=== PATIENT | male | born 1935 | race Caucasian/White ===

== ENCOUNTER 2016-10-04 19:16 | Inpatient (IN) | payer OTHER, MEDICAID, MEDICARE ==
--- NOTE | 2016-10-04 19:21 | ED Physician Chart ---
Chief Complaint/HPI - Patient Information Date Seen:: 10/04/16 Time Seen:: 19:21 Chief Complaint:: head injury History of Present Illness:: 81-year-old male with acute, moderate to severe, head injury that happened about 2 hours prior to arrival to the ER. Patient has associated headache and neck pain. Also has associated ental status change. Reportedly more aggressive and uncooperative after the fall. History limited as patient has altered mental status and is uncooperative History provided by EMS and EMS run sheet Allergies:: Allergies Allergy/AdvReac Type Severity Reaction Status Date / Time MDX No Known Allergies - Nka Allergy Verified 08/05/13 15:22 [No Known Allergies - Nka] Historian:: EMS Review:: Nurse's Note Reviewed, EMS run form Reviewed, Transfer documents Reviewed Review of Systems - Review of Systems Other: Complete system review otherwise unremarkable except as noted in HPI. Past Medical History - Past Medical History Past Medical History: HTN, Asthma/COPD, PUD/GERD, Other (anemia) Family History: None Social History: Non Smoker, No Alcohol, No Drug Use, Care Facility Psychiatricy History: Schizophrenia Medication: Reviewed Family Medical History - Family Member Mother History Unknown: Yes Labs/Radiology/EKG Results - Lab Results Results: Lab Results 10/04/16 10/04/16 10/04/16 Range/Units 19:20 19:52 19:52 WBC 8.9 D (4.8-10.8) Th/cmm RBC 4.06 (3.80-5.80) Mil/cmm Hgb 11.6 L (12.6-17.4) gm/dL Hct 35.2 L (39.0-49.0) % MCV 86.6 (80-99) fl MCH 28.6 (27.0-31.0) pg MCHC Differential 33.1 (28.0-36.0) pg RDW 14.9 (11.5-20.0) % Plt Count 375 D (150-400) Th/cmm MPV 7.4 fl Neutrophils % 61.5 (40.0-80.0) % Lymphocytes % 19.2 L (20.0-50.0) % Monocytes % 9.2 (2.0-10.0) % Eosinophils % 9.6 H (0.0-5.0) % Basophils % 0.5 (0.0-2.0) % Sodium (136-145) mEq/L Potassium (3.5-5.1) mEq/L Chloride (98-107) mEq/L Carbon Dioxide (21.0-31.0) mEq/L Anion Gap (7.0-16.0) BUN (7-25) mg/dL Creatinine (0.7-1.3) mg/dL Est GFR ( Amer) Est GFR (Non-Af Amer) BUN/Creatinine Ratio Glucose (70-105) mg/dL Calcium (8.6-10.3) mg/dL Total Bilirubin (0.3-1.0) mg/dL AST (13-39) U/L ALT (7-52) U/L Alkaline Phosphatase (34-104) U/L Total Protein (6.0-8.3) gm/dL Albumin (4.2-5.5) gm/dL Globulin gm/dL Albumin/Globulin Ratio (1.0-1.8) Triglycerides 66 (<150) mg/dL Cholesterol 158 (<200) mg/dL LDL Cholesterol Direct 86 (75-193) mg/dL HDL Cholesterol 61 (23-92) mg/dL TSH (0.34-5.60) uIU/ml Urine Source CLEAN C Urine Color YELLOW Urine Clarity CLEAR (CLEAR) Urine pH 7.0 Ur Specific [place] 1.015 (1.005-1.030) Urine Protein NEGATIVE (NEGATIVE) mg/dL Urine Glucose (UA) NEGATIVE (NEGATIVE) mg/dL Urine Ketones NEGATIVE (NEGATIVE) mg/dL Urine Blood NEGATIVE (NEGATIVE) Urine Nitrate NEGATIVE (NEGATIVE) Urine Bilirubin NEGATIVE (NEGATIVE) Urine Urobilinogen 0.2 (0.2 - 1.0) E.U./dL Ur Leukocyte Esterase NEGATIVE (NEGATIVE) Urine RBC NONE SEEN (0-5) /hpf Urine WBC NONE SEEN (0-5) /hpf Ur Epithelial Cells NONE SEEN (FEW) /lpf Urine Bacteria NONE SEEN (NONE SEEN) /hpf 10/04/16 10/04/16 Range/Units 19:52 19:52 WBC (4.8-10.8) Th/cmm RBC (3.80-5.80) Mil/cmm Hgb (12.6-17.4) gm/dL Hct (39.0-49.0) % MCV (80-99) fl MCH (27.0-31.0) pg MCHC Differential (28.0-36.0) pg RDW (11.5-20.0) % Plt Count (150-400) Th/cmm MPV fl Neutrophils % (40.0-80.0) % Lymphocytes % (20.0-50.0) % Monocytes % (2.0-10.0) % Eosinophils % (0.0-5.0) % Basophils % (0.0-2.0) % Sodium 132 L (136-145) mEq/L Potassium 4.5 (3.5-5.1) mEq/L Chloride 102 (98-107) mEq/L Carbon Dioxide 28.6 (21.0-31.0) mEq/L Anion Gap 5.9 L (7.0-16.0) BUN 29 H (7-25) mg/dL Creatinine 1.0 (0.7-1.3) mg/dL Est GFR ( Amer) TNP Est GFR (Non-Af Amer) TNP BUN/Creatinine Ratio 29.0 Glucose 135 H (70-105) mg/dL Calcium 9.0 (8.6-10.3) mg/dL Total Bilirubin 0.3 (0.3-1.0) mg/dL AST 16 (13-39) U/L ALT 9 (7-52) U/L Alkaline Phosphatase 54 (34-104) U/L Total Protein 7.2 (6.0-8.3) gm/dL Albumin 3.2 L (4.2-5.5) gm/dL Globulin 4.0 gm/dL Albumin/Globulin Ratio 0.8 L (1.0-1.8) Triglycerides (<150) mg/dL Cholesterol (<200) mg/dL LDL Cholesterol Direct (75-193) mg/dL HDL Cholesterol (23-92) mg/dL TSH 0.98 (0.34-5.60) uIU/ml Urine Source Urine Color Urine Clarity (CLEAR) Urine pH Ur Specific [place] (1.005-1.030) Urine Protein (NEGATIVE) mg/dL Urine Glucose (UA) (NEGATIVE) mg/dL Urine Ketones (NEGATIVE) mg/dL Urine Blood (NEGATIVE) Urine Nitrate (NEGATIVE) Urine Bilirubin (NEGATIVE) Urine Urobilinogen (0.2 - 1.0) E.U./dL Ur Leukocyte Esterase (NEGATIVE) Urine RBC (0-5) /hpf Urine WBC (0-5) /hpf Ur Epithelial Cells (FEW) /lpf Urine Bacteria (NONE SEEN) /hpf - Radiology Results Results: CT brain prelim report per radiology Market atrophy ASVD NAD CT C-spine preliminary report per radiology Severe degenerative changes No definite acute abnormalities - EKG Interpretations Comments:: 12-lead EKG Interpretation by Hannah Díaz MD: Normal Sinus Rhythm with ventricular rate of 82 beats per minute Normal axis Normal intervals No acute ST or T wave changes. No obvious STEMI ED Septic Shock - . Is Septic Shock (SBP<90, OR Lactate>4 mmol\L) present?: No Reassessment (Disposition) - Reassessment Reassessment:: Patient appears to have some altered mental status after the fall. CT of the head and neck are unremarkable for acute findings. Labs are essentially unremarkable. Because of the mental status changes discussed the case with Dr. Trejo. Dr. Trejo will admit the patient for further workup and treatment. Reassessment Condition:: Unchanged - Diagnosis Diagnosis:: Altered mental status Mechanical fall Hypertension - Patient Disposition Discharge/Transfer:: Acute Care w/in this hosp Admitted to:: Med/Surg Admitting Medical Physician:: Jovi Trejo Time:: 21:30 Condition at Disposition:: Stable
[2016-10-04 20:22] LABS: % BASOPHILS 0.5 % (0.0-2.0); % EOSINOPHILS 9.6 % (0.0-5.0); % LYMPHOCYTES 19.2 % (20.0-50.0); % MONOCYTES 9.2 % (2.0-10.0); % NEUTROPHILS 61.5 % (40.0-80.0); HEMATOCRIT 35.2 % (39.0-49.0); HEMOGLOBIN 11.6 gm/dL (12.6-17.4); MEAN CELL VOLUME 86.6 fl (80-99); MEAN CORPUSCULAR HEMOGLOBIN 28.6 pg (27.0-31.0); MEAN CORPUSCULAR HGB CONC 33.1 pg (28.0-36.0); MEAN PLATELET VOLUME 7.4 fl; NEUTROPHILE ABSOLUTE 5.5 Th/cmm (1.8-8.0); RED BLOOD COUNT 4.06 Mil/cmm (3.80-5.80); RED CELL DISTRIBUTION WIDTH 14.9 % (11.5-20.0)
[2016-10-04 20:23] LABS: WHITE BLOOD COUNT 8.9 Th/cmm (4.8-10.8)
[2016-10-04 20:24] LABS: PLATELET COUNT 375 Th/cmm (150-400)
[2016-10-04 20:25] LABS: URINE BILIRUBIN NEGATIVE (NEGATIVE); URINE BLOOD NEGATIVE (NEGATIVE); URINE COLOR YELLOW; URINE GLUCOSE (UA) NEGATIVE (NEGATIVE); URINE KETONE NEGATIVE (NEGATIVE); URINE PROTEIN NEGATIVE (NEGATIVE); URINE UROBILINOGEN 0.2 E.U./dL (0.2 - 1.0)
[2016-10-04 20:26] LABS: URINE BACTERIA NONE SEEN /hpf (NONE SEEN); URINE EPITHELIAL CELLS NONE SEEN /lpf (FEW); URINE RBC NONE SEEN /hpf (0-5); URINE WBC NONE SEEN /hpf (0-5)
[2016-10-04 20:26] LABS: ALB/GLOB RATIO 0.8 (1.0-1.8); ALKALINE PHOSPHATASE 54 U/L (34-104); ANION GAP 5.9 (7.0-16.0); BILIRUBIN,TOTAL 0.3 mg/dL (0.3-1.0); BUN - UREA NITROGEN 29 mg/dL (7-25); CARBON DIOXIDE 28.6 mEq/L (21.0-31.0); CHLORIDE 102 mEq/L (98-107); GLUCOSE 135 mg/dL (70-105); POTASSIUM SERUM 4.5 mEq/L (3.5-5.1); SGOT 16 U/L (13-39); SGPT/ALT 9 U/L (7-52); SODIUM SERUM 132 mEq/L (136-145)
[2016-10-04 20:27] LABS: CHOLESTEROL 158 mg/dL (<200); TRIGLYCERIDES 66 mg/dL (<150)
[2016-10-04] MEDS ORDERED: Maalox 30 mL Cup PO PRN (22:03)
[2016-10-04] MEDS ORDERED: Magnesium Hydroxide (MOM) 30 mL UDC PO PRN (22:03)
--- NOTE | 2016-10-04 22:03 | Admit Criteria Form ---
Admit Criteria Forms - Admit Criteria Diagnosis: MENTAL STATUS CHANGE Clinical Indications for Inpatient Care (Place 'X' for any and all applicable criteria): Ongoing inpatient care may be needed for ANY ONE of the following(1)(2)(3)(5)(6) : [X]I. Suspected serious etiology (eg, medical disorder, STOCK PATCHER event) of mental status change [ ]II. Danger to self or others not manageable at lower level of care [ ]III. Grave disability (eg, inability to perform self care necessary at lower level of care) [ ]IV. Agitation or inappropriate behavior interfering with care for primary condition (eg, attempting to discontinue lines or drains prematurely, unable to cooperate with respiratory care) [ ]V. Delirium [A] [D][E] as described by ANY ONE of the following(26): [ ]a) Delirium due to alcohol or sedative [F] withdrawal [ ]b) Delirium of uncertain etiology that has not responded to appropriate empiric treatment [ ]c) Delirium that prevents performance of a life-sustaining function (eg, feeding or hydrating oneself) [ ]. General contraindications and/or Inappropriate clinical situations for Observational Care in patients with Mental Status Change, when ANY ONE of the following is required: [ ]a) Prediction of prolongation of LOS based on ANY ONE of the following may be considered as a contraindication for observational care 2, 3, 4, 5, 6, 7, 8, 9, 10, 11 [ ]i) Age > 65 yrs. [ ]ii) Patient arriving by ambulance [ ]iii) Patient with high acuity [ ]iv) Patient requiring vital sign monitoring [ ]v) Patient on IV medication [ ]b) Systolic blood pressures 180mmHg 3,12 [ ]c) Patient with altered mental status including delirium and other alteration of consciousness, (3) [ ]d) Patient whose discharge disposition will be to a [place] [facility] home or rehabilitation home should not be managed in Emergency Department Observation Unit. CMS rule requires 3 days hospital stay before such placement.3,13 [ ]e) Patient with failure to thrive due to broad array of etiologies 3,16,17 [ ]f) Inability to ambulate 3,14 Extended stay beyond goal length of stay for the primary condition may be needed until ALL of the following are present(3)(5): [ ]a) Underlying medical etiology of mental status change is absent, or has been established and adequately treated [ ]b) Danger to self or others is absent or manageable at lower level of care. [ ]c) Behavior crisis management, including physical or chemical restraints, is not required or available at lower level of car [ ]d) Substance or alcohol withdrawal is absent or manageable at lower level of care. [ ]e) Behavioral symptoms (eg, agitation, somnolence, inappropriate behavior) are absent, or are manageable at lower level of care. The original [id number] content created by [id number] has been revised. The portions of the content which have been revised are identified through the use of italic text or in bold, and [facility] has neither reviewed nor approved the modified material. All other unmodified content is copyright [id number]. Please see references footnoted in the original [facility] edition 2016 Admit Criteria Met?: Yes
[2016-10-05] MEDS: D5-0.9%NS 1,000 ML IV SCH ×2 (05:31→14:00)
[2016-10-05 07:39] LABS: ANION GAP 5.3 (7.0-16.0); BUN - UREA NITROGEN 23 mg/dL (7-25); BUN/CREATININE RATIO 28.8; CALCIUM SERUM 9.1 mg/dL (8.6-10.3); CARBON DIOXIDE 27.1 mEq/L (21.0-31.0); CHLORIDE 107 mEq/L (98-107); CREATININE - SERUM 0.8 mg/dL (0.7-1.3); GLUCOSE 86 mg/dL (70-105); MAGNESIUM 2.3 mg/dL (1.9-2.7); POTASSIUM SERUM 4.4 mEq/L (3.5-5.1); SODIUM SERUM 135 mEq/L (136-145)
[2016-10-05] MEDS: Lactulose 10 Gm/15 mL 30mL UDC PO SCH (08:25)
[2016-10-05] MEDS: Ferrous Sulfate 325 MG TAB PO SCH (08:25)
[2016-10-05] MEDS ORDERED: Non-Formulary Item 1 EA (Amino Acids/Protein Hydrolys [Pro-Stat Sugar Free Liquid] 30 ML) PO SCH (09:00)
--- NOTE | 2016-10-05 09:52 | Diagnostic Imaging Report ---
Head CT without intravenous contrast Indication: Trauma Comparison: None Technique: Axial images were obtained from the vertex to the skull base without IV contrast. Coronal reconstructions were made. Total DLP: 999, CTDI50.6 FINDINGS: Images of the brain obtained without contrast and show no evidence of an acute hemorrhage. Atrophy is noted. No mass effect or midline shift. The donis-white matter differentiation is preserved. The ventricles and basal cisterns are patent. Atherosclerosis is noted. There is mild soft tissue swelling left forehead. No evidence of skull fracture. The visualized paranasal sinuses are clear. IMPRESSION: No evidence of an acute intracranial hemorrhage. Atrophy. Mild soft tissue swelling of the left forehead. No evidence of a skull fracture Atherosclerotic vascular disease.
--- NOTE | 2016-10-05 10:00 | Diagnostic Imaging Report ---
CT cervical spine without IV contrast HISTORY: Trauma COMPARISON: None Technique: Axial images were obtained from the skull base to the upper thoracic spine without IV contrast. Multiplanar reconstructions were made. Total DLP: 430, CTDI23.9 FINDINGS: Images of the cervical spine obtained without contrast demonstrate extensive multilevel degenerative changes including multilevel advanced disc space loss of height and multilevel marginal osteophytic spurring. Exam is limited due to positioning and body habitus. No evidence of a gross fracture or subluxation. There is incomplete visualization of the dorsal spinous process of C7. Unfused posterior arch of C1 is noted. There is straightening of the cervical lordosis. No prevertebral soft tissue swelling. Atherosclerosis is noted. Emphysematous changes of the lung apices are noted. IMPRESSION: Limited exam due to body habitus. Extensive multilevel degenerative changes are seen. No evidence of gross fracture or subluxation. Straightening of the cervical lordosis which may be due to degenerative etiology or positioning of muscle spasm. Atherosclerotic vascular disease.
[2016-10-05 13:13] LABS: HEP B CORE IGM Negative (Negative); HEP C ANTIBODY <0.1 s/co ratio (0.0-0.9)
--- NOTE | 2016-10-05 14:32 | Internal Medicine Prog Note ---
Internal Medicine Subjective - Subjective Service Date: 10/05/16 ([id number]) Patient seen and examined:: with staff Patient is:: awake Per staff patient is:: no adverse event Internal Medicine Objective - Results Result Diagrams: 10/04/16 19:52 10/05/16 06:14 Recent Labs: Laboratory Last Values WBC 8.9 Th/cmm (4.8-10.8) D 10/04/16 19:52 RBC 4.06 Mil/cmm (3.80-5.80) 10/04/16 19:52 Hgb 11.6 gm/dL (12.6-17.4) L 10/04/16 19:52 Hct 35.2 % (39.0-49.0) L 10/04/16 19:52 MCV 86.6 fl (80-99) 10/04/16 19:52 MCH 28.6 pg (27.0-31.0) 10/04/16 19:52 MCHC Differential 33.1 pg (28.0-36.0) 10/04/16 19:52 RDW 14.9 % (11.5-20.0) 10/04/16 19:52 Plt Count 375 Th/cmm (150-400) D 10/04/16 19:52 MPV 7.4 fl 10/04/16 19:52 Neutrophils % 61.5 % (40.0-80.0) 10/04/16 19:52 Lymphocytes % 19.2 % (20.0-50.0) L 10/04/16 19:52 Monocytes % 9.2 % (2.0-10.0) 10/04/16 19:52 Eosinophils % 9.6 % (0.0-5.0) H 10/04/16 19:52 Basophils % 0.5 % (0.0-2.0) 10/04/16 19:52 Sodium 135 mEq/L (136-145) L 10/05/16 06:14 Potassium 4.4 mEq/L (3.5-5.1) 10/05/16 06:14 Chloride 107 mEq/L (98-107) 10/05/16 06:14 Carbon Dioxide 27.1 mEq/L (21.0-31.0) 10/05/16 06:14 Anion Gap 5.3 (7.0-16.0) L 10/05/16 06:14 BUN 23 mg/dL (7-25) 10/05/16 06:14 Creatinine 0.8 mg/dL (0.7-1.3) 10/05/16 06:14 Est GFR ( Amer) TNP 10/05/16 06:14 Est GFR (Non-Af Amer) TNP 10/05/16 06:14 BUN/Creatinine Ratio 28.8 10/05/16 06:14 Glucose 86 mg/dL (70-105) 10/05/16 06:14 Calcium 9.1 mg/dL (8.6-10.3) 10/05/16 06:14 Magnesium 2.3 mg/dL (1.9-2.7) 10/05/16 06:14 Total Bilirubin 0.3 mg/dL (0.3-1.0) 10/04/16 19:52 AST 16 U/L (13-39) 10/04/16 19:52 ALT 9 U/L (7-52) 10/04/16 19:52 Alkaline Phosphatase 54 U/L (34-104) 10/04/16 19:52 Ammonia 53 umol/L (16-53) 10/05/16 06:14 B-Natriuretic Peptide 87.4 pg/mL (5.0-100.0) 10/05/16 06:14 Total Protein 7.2 gm/dL (6.0-8.3) 10/04/16 19:52 Albumin 3.2 gm/dL (4.2-5.5) L 10/04/16 19:52 Globulin 4.0 gm/dL 10/04/16 19:52 Albumin/Globulin Ratio 0.8 (1.0-1.8) L 10/04/16 19:52 Triglycerides 66 mg/dL (<150) 10/04/16 19:52 Cholesterol 158 mg/dL (<200) 10/04/16 19:52 LDL Cholesterol Direct 86 mg/dL (75-193) 10/04/16 19:52 HDL Cholesterol 61 mg/dL (23-92) 10/04/16 19:52 TSH 0.98 uIU/ml (0.34-5.60) 10/04/16 19:52 Urine Source CLEAN C 10/04/16 19:20 Urine Color YELLOW 10/04/16 19:20 Urine Clarity CLEAR (CLEAR) 10/04/16 19:20 Urine pH 7.0 10/04/16 19:20 Ur Specific [place] 1.015 (1.005-1.030) 10/04/16 19:20 Urine Protein NEGATIVE mg/dL (NEGATIVE) 10/04/16 19:20 Urine Glucose (UA) NEGATIVE mg/dL (NEGATIVE) 10/04/16 19:20 Urine Ketones NEGATIVE mg/dL (NEGATIVE) 10/04/16 19:20 Urine Blood NEGATIVE (NEGATIVE) 10/04/16 19:20 Urine Nitrate NEGATIVE (NEGATIVE) 10/04/16 19:20 Urine Bilirubin NEGATIVE (NEGATIVE) 10/04/16 19:20 Urine Urobilinogen 0.2 E.U./dL (0.2 - 1.0) 10/04/16 19:20 Ur Leukocyte Esterase NEGATIVE (NEGATIVE) 10/04/16 19:20 Urine RBC NONE SEEN /hpf (0-5) 10/04/16 19:20 Urine WBC NONE SEEN /hpf (0-5) 10/04/16 19:20 Ur Epithelial Cells NONE SEEN /lpf (FEW) 10/04/16 19:20 Urine Bacteria NONE SEEN /hpf (NONE SEEN) 10/04/16 19:20 Hepatitis A IgM Ab Negative (Negative) 10/04/16 19:52 Hep Bs Antigen Negative (Negative) 10/04/16 19:52 Hep B Core IgM Ab Negative (Negative) 10/04/16 19:52 Hepatitis C Antibody <0.1 s/co ratio (0.0-0.9) 10/04/16 19:52 - Physical Exam Vitals and I&O: Vital Signs Temp 98.6 F 10/05/16 12:00 Pulse 89 10/05/16 12:00 Resp 18 10/05/16 12:00 BP 128/60 10/05/16 12:00 Pulse Ox 94 10/05/16 12:00 Active Medications: Current Medications Acetaminophen (Tylenol) 650 mg PO Q4HR PRN PRN Reason: Pain or Fever >101 Stop: 12/03/16 22:05 Al Hydrox/Mg Hydrox/Simethicone (Maalox) 30 ml PO Q4HR PRN PRN Reason: GI DISTRESS Stop: 12/03/16 22:02 Amlodipine Besylate (Norvasc) 5 mg PO DAILY [facility] Stop: 12/04/16 08:59 Last Admin: 10/05/16 08:25 Dose: 5 mg Ascorbic Acid (Vitamin C) 500 mg PO DAILY [facility] Stop: 12/04/16 08:59 Last Admin: 10/05/16 08:25 Dose: 500 mg Bisacodyl (Dulcolax 10 Mg Supp) 10 mg RC DAILY PRN PRN Reason: Constipation Stop: 12/03/16 22:02 Divalproex Sodium (Depakote Dr) 500 mg PO BID [facility] PRN Reason: Protocol Stop: 12/04/16 08:59 Docusate Sodium (Colace) 250 mg PO HS [facility] Stop: 12/04/16 20:59 Ferrous Sulfate (Iron) 325 mg PO DAILY [facility] Stop: 12/04/16 08:59 Last Admin: 10/05/16 08:25 Dose: 325 mg Dextrose/Sodium Chloride (D5-0.9%Ns) 1,000 mls @ 70 mls/hr IV .[id number] [facility] Stop: 12/03/16 22:14 Last Admin: 10/05/16 05:31 Dose: 70 mls/hr Lactulose (Cephulac) 20 gm PO DAILY [facility] Stop: 12/04/16 08:59 Last Admin: 10/05/16 08:25 Dose: 20 gm Lorazepam (Ativan) 0.5 mg PO Q6HR PRN; Protocol PRN Reason: Anxiety Stop: 12/03/16 22:02 Last Admin: 10/05/16 11:37 Dose: 0.5 mg Magnesium Hydroxide (Milk Of Magnesia) 30 ml PO DAILY PRN PRN Reason: Constipation Stop: 12/03/16 22:02 Miscellaneous (Melatonin/Pyridoxine [Melatonin 3 Mg Tablet]) 1 tab PO HS [facility] Stop: 12/04/16 20:59 Miscellaneous (Amino Acids/Protein Hydrolys [Pro-Stat Sugar Free Liquid]) 30 ml PO DAILY [facility] Stop: 12/04/16 08:59 Ondansetron HCl (Zofran) 4 mg IV Q8H PRN PRN Reason: Nausea / Vomiting Stop: 12/03/16 22:05 Risperidone (Risperdal) 0.5 mg PO DAILY [facility] PRN Reason: Protocol Stop: 12/04/16 08:59 Tamsulosin HCl (Flomax) 0.4 mg PO HS [facility] Stop: 12/04/16 20:59 General: alert HEENT: NC/AT, PERRLA Neck: Supple Lungs: CTAB Cardiovascular: RRR, Normal S1, Normal S2, without murmur Abdomen: soft non-tender Internal Medicine Assmt/Plan - Assessment Assessment: ALOC, S/P FALL GENERALIZED WEAKNESS SCHIZOPHRENIA MORBID OBESITY HTN ASTHMA
--- NOTE | 2016-10-05 16:58 | History & Physical ---
CHIEF COMPLAINT: Head injury. HISTORY OF PRESENT ILLNESS: This is a 81-year-old male who is a resident of [facility], who was sent here to [facility] for a head injury associated with headache and neck pain. The patient apparently fell at the senior care. The patient is now here to be treated and evaluated. PAST MEDICAL HISTORY: Hypertension, asthma, COPD, GERD, anemia. FAMILY HISTORY: Noncontributory. SOCIAL HISTORY: The patient resides at [facility], requiring 24-hour nursing care. PSYCHIATRIC HISTORY: Schizophrenia. MEDICATIONS: Please see medication reconciliation sheet. REVIEW OF SYSTEMS: Unable to obtain. The patient refusing to answer any questions. PHYSICAL EXAMINATION: GENERAL: Elderly male, awake noncooperative, no apparent distress. VITAL SIGNS: Temperature 98.6, heart rate 89, blood pressure 128/60, respiration 18, O2 94%. HEAD: Normocephalic, atraumatic. NECK: Supple. No mass. LUNGS: Clear bilaterally upon auscultation. CARDIOVASCULAR: Regular rate and rhythm. No murmurs or gallops. ABDOMEN: Soft, nontender, nondistended. LABORATORY DATA: WBC 8.9, H and H 11.6 and 35.2, platelets 375. Sodium 135, potassium 4.4, chloride 107, carbon dioxide 27.1, BUN 23, creatinine 0.8. The patient had a urinalysis done that was negative for any UTI. DIAGNOSTICS: The patient had a CT of the head and the impression is no evidence of an intracranial hemorrhage. The patient also had a CT of the cervical spine and the impression is, no evidence of ____ fracture or subluxation. ASSESSMENT: 1. Status post fall. 2. Altered level of consciousness. 3. Generalized weakness. 4. Hypertension. 5. Gastroesophageal reflux disease. 6. Morbid obesity. 7. Schizophrenia. PLAN: The patient to be admitted to the med/surg unit. The patient will have a consultation with Dr. Alvares and Dr. Singh. The patient will have a carotid ultrasound done. The patient will be kept on IV fluids for hydration. Fall precautions will be initiated. We will continue to monitor the patient. JOB# [id number]
[2016-10-05] MEDS ORDERED: Non-Formulary Item 1 EA (Melatonin/Pyridoxine [Melatonin 3 Mg Tablet] 1 TAB) PO SCH (21:00)
--- NOTE | 2016-10-06 07:48 | Consultation ---
PSYCHIATRIC CONSULTATION: IDENTIFICATION: The patient is a 81-year-old male with history of psychosis, admitted for medical treatment and stabilization. HISTORY OF PRESENT ILLNESS: The patient is decompensated. He was transferred from outside facility for increasing paranoia, delusional content, mental status change and medical consultation. He has history of psychosis, manifested by paranoia, delusional content, auditory hallucinations. According to nursing staff, care has been complicated during hospitalization by refusal of some medical procedures, labs and medications. The patient is a poor historian. He says he does not know why he is refusing. He does not believe he is refusing and does not know where he is. He has had no agitation, although appears paranoid and withdrawn. PAST PSYCHIATRIC HISTORY: Prior treatment for depression, psychosis and mood instability. CURRENT MEDICATIONS: Depakote 500 mg per day, Risperdal 0.5 mg per day. SOCIAL HISTORY: Lives in group home. MENTAL STATUS EXAMINATION: Alert and oriented to self only. Speech is slurred. Thought process is confused. Thought content is positive for paranoia, delusional content. Mood is dysphoric, slightly labile. Judgment is extremely poor. Refusing memory testing. DIFFERENTIAL DIAGNOSES: 1. Schizophrenia. 2. Delirium. 3. Multiple medical problems. PLAN: Plan at this time is to increase Risperdal to 0.5 mg twice a day, to monitor for compliance, to provide p.r.n. Ativan as required, to encourage cooperation, to monitor for progress. We would anticipate improvement in mental status with resolution of delirium. He remains a long-term patient. [facility]# [id number]
[2016-10-06] MEDS: Lactulose 10 Gm/15 mL 30mL UDC PO SCH (08:35)
[2016-10-06] MEDS: Ferrous Sulfate 325 MG TAB PO SCH (08:36)
--- NOTE | 2016-10-06 12:20 | Internal Medicine Prog Note ---
Internal Medicine Subjective - Subjective Service Date: 10/06/16 Patient seen and examined:: with staff Patient is:: awake Per staff patient is:: no adverse event Internal Medicine Objective - Results Result Diagrams: 10/04/16 19:52 10/05/16 06:14 Recent Labs: Laboratory Last Values WBC 8.9 Th/cmm (4.8-10.8) D 10/04/16 19:52 RBC 4.06 Mil/cmm (3.80-5.80) 10/04/16 19:52 Hgb 11.6 gm/dL (12.6-17.4) L 10/04/16 19:52 Hct 35.2 % (39.0-49.0) L 10/04/16 19:52 MCV 86.6 fl (80-99) 10/04/16 19:52 MCH 28.6 pg (27.0-31.0) 10/04/16 19:52 MCHC Differential 33.1 pg (28.0-36.0) 10/04/16 19:52 RDW 14.9 % (11.5-20.0) 10/04/16 19:52 Plt Count 375 Th/cmm (150-400) D 10/04/16 19:52 MPV 7.4 fl 10/04/16 19:52 Neutrophils % 61.5 % (40.0-80.0) 10/04/16 19:52 Lymphocytes % 19.2 % (20.0-50.0) L 10/04/16 19:52 Monocytes % 9.2 % (2.0-10.0) 10/04/16 19:52 Eosinophils % 9.6 % (0.0-5.0) H 10/04/16 19:52 Basophils % 0.5 % (0.0-2.0) 10/04/16 19:52 Sodium 135 mEq/L (136-145) L 10/05/16 06:14 Potassium 4.4 mEq/L (3.5-5.1) 10/05/16 06:14 Chloride 107 mEq/L (98-107) 10/05/16 06:14 Carbon Dioxide 27.1 mEq/L (21.0-31.0) 10/05/16 06:14 Anion Gap 5.3 (7.0-16.0) L 10/05/16 06:14 BUN 23 mg/dL (7-25) 10/05/16 06:14 Creatinine 0.8 mg/dL (0.7-1.3) 10/05/16 06:14 Est GFR ( Amer) TNP 10/05/16 06:14 Est GFR (Non-Af Amer) TNP 10/05/16 06:14 BUN/Creatinine Ratio 28.8 10/05/16 06:14 Glucose 86 mg/dL (70-105) 10/05/16 06:14 Calcium 9.1 mg/dL (8.6-10.3) 10/05/16 06:14 Magnesium 2.3 mg/dL (1.9-2.7) 10/05/16 06:14 Total Bilirubin 0.3 mg/dL (0.3-1.0) 10/04/16 19:52 AST 16 U/L (13-39) 10/04/16 19:52 ALT 9 U/L (7-52) 10/04/16 19:52 Alkaline Phosphatase 54 U/L (34-104) 10/04/16 19:52 Ammonia 53 umol/L (16-53) 10/05/16 06:14 B-Natriuretic Peptide 87.4 pg/mL (5.0-100.0) 10/05/16 06:14 Total Protein 7.2 gm/dL (6.0-8.3) 10/04/16 19:52 Albumin 3.2 gm/dL (4.2-5.5) L 10/04/16 19:52 Globulin 4.0 gm/dL 10/04/16 19:52 Albumin/Globulin Ratio 0.8 (1.0-1.8) L 10/04/16 19:52 Triglycerides 66 mg/dL (<150) 10/04/16 19:52 Cholesterol 158 mg/dL (<200) 10/04/16 19:52 LDL Cholesterol Direct 86 mg/dL (75-193) 10/04/16 19:52 HDL Cholesterol 61 mg/dL (23-92) 10/04/16 19:52 TSH 0.98 uIU/ml (0.34-5.60) 10/04/16 19:52 Urine Source CLEAN C 10/04/16 19:20 Urine Color YELLOW 10/04/16 19:20 Urine Clarity CLEAR (CLEAR) 10/04/16 19:20 Urine pH 7.0 10/04/16 19:20 Ur Specific [place] 1.015 (1.005-1.030) 10/04/16 19:20 Urine Protein NEGATIVE mg/dL (NEGATIVE) 10/04/16 19:20 Urine Glucose (UA) NEGATIVE mg/dL (NEGATIVE) 10/04/16 19:20 Urine Ketones NEGATIVE mg/dL (NEGATIVE) 10/04/16 19:20 Urine Blood NEGATIVE (NEGATIVE) 10/04/16 19:20 Urine Nitrate NEGATIVE (NEGATIVE) 10/04/16 19:20 Urine Bilirubin NEGATIVE (NEGATIVE) 10/04/16 19:20 Urine Urobilinogen 0.2 E.U./dL (0.2 - 1.0) 10/04/16 19:20 Ur Leukocyte Esterase NEGATIVE (NEGATIVE) 10/04/16 19:20 Urine RBC NONE SEEN /hpf (0-5) 10/04/16 19:20 Urine WBC NONE SEEN /hpf (0-5) 10/04/16 19:20 Ur Epithelial Cells NONE SEEN /lpf (FEW) 10/04/16 19:20 Urine Bacteria NONE SEEN /hpf (NONE SEEN) 10/04/16 19:20 Hepatitis A IgM Ab Negative (Negative) 10/04/16 19:52 Hep Bs Antigen Negative (Negative) 10/04/16 19:52 Hep B Core IgM Ab Negative (Negative) 10/04/16 19:52 Hepatitis C Antibody <0.1 s/co ratio (0.0-0.9) 10/04/16 19:52 - Physical Exam Vitals and I&O: Vital Signs Temp 97.4 F 10/06/16 08:00 Pulse 81 10/06/16 08:36 Resp 18 10/06/16 04:00 BP 150/52 10/06/16 08:36 Pulse Ox 97 10/06/16 08:00 Intake & Output 10/05/16 10/06/16 10/06/16 18:59 06:59 18:59 Intake Total 900 Balance 900 Intake: Oral 900 Other: # Voids 4 Active Medications: Current Medications Acetaminophen (Tylenol) 650 mg PO Q4HR PRN PRN Reason: Pain or Fever >101 Stop: 12/03/16 22:05 Al Hydrox/Mg Hydrox/Simethicone (Maalox) 30 ml PO Q4HR PRN PRN Reason: GI DISTRESS Stop: 12/03/16 22:02 Amlodipine Besylate (Norvasc) 5 mg PO DAILY [facility] Stop: 12/04/16 08:59 Last Admin: 10/06/16 08:36 Dose: 5 mg Ascorbic Acid (Vitamin C) 500 mg PO DAILY [facility] Stop: 12/04/16 08:59 Last Admin: 10/06/16 08:35 Dose: 500 mg Bisacodyl (Dulcolax 10 Mg Supp) 10 mg RC DAILY PRN PRN Reason: Constipation Stop: 12/03/16 22:02 Divalproex Sodium (Depakote Dr) 500 mg PO BID@0900,2100 [facility] PRN Reason: Protocol Stop: 12/04/16 15:44 Last Admin: 10/06/16 08:35 Dose: 500 mg Docusate Sodium (Colace) 250 mg PO HS [facility] Stop: 12/04/16 20:59 Last Admin: 10/05/16 21:47 Dose: 250 mg Ferrous Sulfate (Iron) 325 mg PO DAILY [facility] Stop: 12/04/16 08:59 Last Admin: 10/06/16 08:36 Dose: 325 mg Dextrose/Sodium Chloride (D5-0.9%Ns) 1,000 mls @ 70 mls/hr IV .[id number] [facility] Stop: 12/03/16 22:14 Last Admin: 10/05/16 14:00 Dose: Not Given Lactulose (Cephulac) 20 gm PO DAILY [facility] Stop: 12/04/16 08:59 Last Admin: 10/06/16 08:35 Dose: 20 gm Lorazepam (Ativan) 0.5 mg PO Q6HR PRN; Protocol PRN Reason: Anxiety Stop: 12/03/16 22:02 Last Admin: 10/05/16 11:37 Dose: 0.5 mg Magnesium Hydroxide (Milk Of Magnesia) 30 ml PO DAILY PRN PRN Reason: Constipation Stop: 12/03/16 22:02 Ondansetron HCl (Zofran) 4 mg IV Q8H PRN PRN Reason: Nausea / Vomiting Stop: 12/03/16 22:05 Risperidone (Risperdal) 0.5 mg PO BID [facility] PRN Reason: Protocol Stop: 12/05/16 08:59 Last Admin: 10/06/16 08:36 Dose: 0.5 mg Tamsulosin HCl (Flomax) 0.4 mg PO HS [facility] Stop: 12/04/16 20:59 Last Admin: 10/05/16 21:47 Dose: 0.4 mg General: weak, alert HEENT: NC/AT, PERRLA Neck: Supple Lungs: congested Cardiovascular: RRR, Normal S1, Normal S2, without murmur Abdomen: soft non-tender, non-distended, positive bowel sound Neurological: no change Internal Medicine Assmt/Plan - Assessment Assessment: ALOC, S/P FALL GENERALIZED WEAKNESS SCHIZOPHRENIA MORBID OBESITY HTN ASTHMA - Plan Plan: fall precautions monitor labs monitor bp
[2016-10-06 14:20] LABS: FOLIC ACID >20.0 ng/mL (>3.0)
--- NOTE | 2016-11-20 08:35 | Discharge Summary ---
FINAL DIAGNOSES: Status post fall, altered level of consciousness, generalized weakness, hypertension, gastroesophageal reflux disease, morbid obesity, schizophrenia. HISTORY OF PRESENT ILLNESS: A 81-year-old male who is a resident of [facility], who was sent to [facility] for head injury associated with headache and neck pain. The patient apparently fell at the care home. PHYSICAL EXAMINATION: GENERAL: The patient is well developed and well nourished in no acute distress. VITAL SIGNS: Stable. HEENT: Head: Normocephalic, atraumatic. NECK: Supple. No mass. LUNGS: Clear bilaterally. HEART: Regular rate and rhythm. ABDOMEN: Soft and nontender. HOSPITAL COURSE: During the hospital stay, the patient was admitted to the med/surg unit. The patient had a CT of the head done and the impression is no evidence of acute intracranial hemorrhage. A CT of the cervical spine was obtained as well and the impression is no evidence of gross fracture or subluxation. The patient regained consciousness again, and the patient was stable for discharge. CONDITION UPON DISCHARGE: Fair. DISPOSITION: [facility]. JOB# [id number]
== END 2016-10-06 20:54 | DRG 640 ==
LOC: ER 19:16 → MSI 21:40
PROVIDERS: ADMIT Internal Medicine; ATTEND Internal Medicine
DX: E87.1 Hypo-osmolality and hyponatremia (principal); G93.41 Metabolic encephalopathy; E66.01 Morbid (severe) obesity due to excess calories; F20.9 Schizophrenia, unspecified; D64.9 Anemia, unspecified; R53.1 Weakness; I10 Essential (primary) hypertension; K21.9 Gastro-esophageal reflux disease without esophagitis; J45.909 Unspecified asthma, uncomplicated; W19.XXXA Unspecified fall, initial encounter; R51 Headache; Y93.89 Activity, other specified; Y92.89 Other specified places as the place of occurrence of the external cause; Y99.8 Other external cause status; Z68.25 Body mass index [BMI] 25.0-25.9, adult
CPT/HCPCS: 36415-UA; 70450-TC; 72125-TC; 80048-TC; 80053-TC; 80061-TC; 80074-90; 81001-TC; 82140-TC; 82607-90; 82746-90; 83735-TC; 83880-TC; 84443-TC; 85025-TC; 86592-TC; 93005; J7042; Z7610

== ENCOUNTER 2017-03-02 10:54 | Inpatient (IN) | payer OTHER, MEDICAID, MEDICARE ==
[2017-03-02] MEDS ORDERED: Sodium Chloride 0.9% 1,000 ML IV ONE (11:17)
--- NOTE | 2017-03-02 11:23 | ED Physician Chart ---
Chief Complaint/HPI - Patient Information Date Seen:: 03/02/17 Time Seen:: 11:00 Chief Complaint:: anorexia and weight loss History of Present Illness:: Patient sent here for anorexia and weight loss. There is an accompanying notes that the patient's private physician wants a CAT scan of the abdomen and pelvis with and without IV contrast. Allergies:: Allergies Allergy/AdvReac Type Severity Reaction Status Date / Time No Known Allergies Allergy Verified 10/04/16 19:55 Historian:: Patient, EMS Review:: Transfer documents Reviewed Review of Systems - Review of Systems General/Constitutional: No fever, No chills, Weight loss, Weakness Skin: No skin lesions Head: No headache Eyes: No loss of vision ENT: No earache Neck: No neck pain Cardio Vascular: No chest pain, No palpitations Pulmonary: No SOB, No cough GI: Other (anorexia) G/U: No dysuria, No frequency Musculoskeletal: No bone or joint pain Endocrine: No polyuria Psychiatric: Prior psych history Hematopoietic: No bruising Allergic/Immuno: No urticaria Neurological: No syncope Past Medical History - Past Medical History Past Medical History: HTN, Asthma/COPD, PUD/GERD, Arthritis Family History: Other (unavailable) Social History: Smoker, Care Facility Surgical History: Appendectomy, other (radical right orchiectomy) Psychiatricy History: Depression, Schizophrenia, Dementia Medication: Reviewed Family Medical History - Family Member Mother History Unknown: Yes Physical Exam - Physical Examination General/Constitutional: Alert Other Gen/Cons comments:: Mildly chronically ill-appearing; in no acute distress Head: Atraumatic Eyes: Lids, conjuctiva normal, PERRL Other Skin comments:: Maculopapular rash on abdominal wall ENMT: External ears, nose nl Other ENMT comments:: Edentulous Neck: No nuchal rigidity Respiratory: Nl effort/Exclusion, No Wheeze/Rhonchi/Rales Cardio Vascular: RRR, No murmur, gallop, rubs, NL S1 S2 GI: No tenderness/rebounding/guarding, No organomegaly, No hernia, Normal BS's : No CVA tenderness, NL external genitalia Extremities: No tenderness or effusion Neuro/Psych: No focal deficits Misc: Normal back Labs/Radiology/EKG Results - Lab Results Results: Laboratory Results - last 24 hr 03/02/17 03/02/1703/02/17 11:21 11:23 11:23 WBC 10.5 RBC 4.53 Hgb 12.4 L Hct 38.2 L MCV 84.3 MCH 27.3 MCHC Differential 32.4 RDW 15.2 Plt Count 458 H D MPV 7.5 Neutrophils % 64.1 Lymphocytes % 13.7 L Monocytes % 6.2 Eosinophils % 14.9 H Basophils % 1.1 Sodium 135 L Potassium 4.0 Chloride 101 Carbon Dioxide 33.3 H Anion Gap 4.7 L BUN 17 Creatinine 1.1 Est GFR ( Amer) TNP Est GFR (Non-Af Amer) TNP BUN/Creatinine Ratio 15.5 Glucose 86 Calcium 11.0 H Total Bilirubin 0.3 AST 12 L ALT 3 L Alkaline Phosphatase 95 Total Protein 8.4 H Albumin 3.2 L Globulin 5.2 Albumin/Globulin Ratio 0.6 L Lipase Urine Source RANDOM Urine Color YELLOW Urine Clarity SL. CLOUDY Urine pH 7.0 Ur Specific [place] 1.015 Urine Protein NEGATIVE Urine Glucose (UA) NEGATIVE Urine Ketones TRACE Urine Blood NEGATIVE Urine Nitrate NEGATIVE Urine Bilirubin NEGATIVE Urine Urobilinogen 1.0 Ur Leukocyte Esterase NEGATIVE Urine RBC NONE SEEN Urine WBC 2-5 H Ur Epithelial Cells OCCASIONAL Amorphous Sediment MODERATE PHOSPHATES Urine Bacteria FEW 03/02/17 11:23 WBC RBC Hgb Hct MCV MCH MCHC Differential RDW Plt Count MPV Neutrophils % Lymphocytes % Monocytes % Eosinophils % Basophils % Sodium Potassium Chloride Carbon Dioxide Anion Gap BUN Creatinine Est GFR ( Amer) Est GFR (Non-Af Amer) BUN/Creatinine Ratio Glucose Calcium Total Bilirubin AST ALT Alkaline Phosphatase Total Protein Albumin Globulin Albumin/Globulin Ratio Lipase 14 Urine Source Urine Color Urine Clarity Urine pH Ur Specific [place] Urine Protein Urine Glucose (UA) Urine Ketones Urine Blood Urine Nitrate Urine Bilirubin Urine Urobilinogen Ur Leukocyte Esterase Urine RBC Urine WBC Ur Epithelial Cells Amorphous Sediment Urine Bacteria Laboratory Results - last 24 hr 03/02/17 03/02/17 03/02/17 11:21 11:23 11:23 WBC 10.5 RBC 4.53 Hgb 12.4 L Hct 38.2 L MCV 84.3 MCH 27.3 MCHC Differential 32.4 RDW 15.2 Plt Count 458 H D MPV 7.5 Neutrophils % 64.1 Lymphocytes % 13.7 L Monocytes % 6.2 Eosinophils % 14.9 H Basophils % 1.1 Sodium 135 L Potassium 4.0 Chloride 101 Carbon Dioxide 33.3 H Anion Gap 4.7 L BUN 17 Creatinine 1.1 Est GFR ( Amer) TNP Est GFR (Non-Af Amer) TNP BUN/Creatinine Ratio 15.5 Glucose 86 Calcium 11.0 H Total Bilirubin 0.3 AST 12 L ALT 3 L Alkaline Phosphatase 95 Total Protein 8.4 H Albumin 3.2 L Globulin 5.2 Albumin/Globulin Ratio 0.6 L Lipase Urine Source RANDOM Urine Color YELLOW Urine Clarity SL. CLOUDY Urine pH 7.0 Ur Specific [place] 1.015 Urine Protein NEGATIVE Urine Glucose (UA) NEGATIVE Urine Ketones TRACE Urine Blood NEGATIVE Urine Nitrate NEGATIVE Urine Bilirubin NEGATIVE Urine Urobilinogen 1.0 Ur Leukocyte Esterase NEGATIVE Urine RBC NONE SEEN Urine WBC 2-5 H Ur Epithelial Cells OCCASIONAL Amorphous Sediment MODERATE PHOSPHATES Urine Bacteria FEW 03/02/17 11:23 WBC RBC Hgb Hct MCV MCH MCHC Differential RDW Plt Count MPV Neutrophils % Lymphocytes % Monocytes % Eosinophils % Basophils % Sodium Potassium Chloride Carbon Dioxide Anion Gap BUN Creatinine Est GFR ( Amer) Est GFR (Non-Af Amer) BUN/Creatinine Ratio Glucose Calcium Total Bilirubin AST ALT Alkaline Phosphatase Total Protein Albumin Globulin Albumin/Globulin Ratio Lipase 14 Urine Source Urine Color Urine Clarity Urine pH Ur Specific [place] Urine Protein Urine Glucose (UA) Urine Ketones Urine Blood Urine Nitrate Urine Bilirubin Urine Urobilinogen Ur Leukocyte Esterase Urine RBC Urine WBC Ur Epithelial Cells Amorphous Sediment Urine Bacteria ED Septic Shock - . Is Septic Shock (SBP<90, OR Lactate>4 mmol\L) present?: No Reassessment (Disposition) - Reassessment Reassessment Condition:: Unchanged - Diagnosis Diagnosis:: Hiatal hernia; left inguinal hernia; cholelithiasis - Patient Disposition Admitted to:: Med/Surg Spoke to:: Jovi Trejo Admitting Medical Physician:: Jovi Trejo Condition at Disposition:: Stable, Unchanged
[2017-03-02 11:40] LABS: % BASOPHILS 1.1 % (0.0-2.0); % EOSINOPHILS 14.9 % (0.0-5.0); % LYMPHOCYTES 13.7 % (20.0-50.0); % MONOCYTES 6.2 % (2.0-10.0); % NEUTROPHILS 64.1 % (40.0-80.0); HEMATOCRIT 38.2 % (39.0-49.0); HEMOGLOBIN 12.4 gm/dL (12.6-17.4); MEAN CELL VOLUME 84.3 fl (80-99); MEAN CORPUSCULAR HEMOGLOBIN 27.3 pg (27.0-31.0); MEAN CORPUSCULAR HGB CONC 32.4 pg (28.0-36.0); MEAN PLATELET VOLUME 7.5 fl; NEUTROPHILE ABSOLUTE 6.7 Th/cmm (1.8-8.0); RED BLOOD COUNT 4.53 Mil/cmm (3.80-5.80); RED CELL DISTRIBUTION WIDTH 15.2 % (11.5-20.0); WHITE BLOOD COUNT 10.5 Th/cmm (4.8-10.8)
[2017-03-02 11:42] LABS: PLATELET COUNT 458 Th/cmm (150-400)
[2017-03-02 11:50] LABS: ALB/GLOB RATIO 0.6 (1.0-1.8); ALKALINE PHOSPHATASE 95 U/L (34-104); ANION GAP 4.7 (7.0-16.0); BILIRUBIN,TOTAL 0.3 mg/dL (0.3-1.0); BUN - UREA NITROGEN 17 mg/dL (7-25); BUN/CREATININE RATIO 15.5; CARBON DIOXIDE 33.3 mEq/L (21.0-31.0); CHLORIDE 101 mEq/L (98-107); CREATININE - SERUM 1.1 mg/dL (0.7-1.3); GLUCOSE 86 mg/dL (70-105); SGOT 12 U/L (13-39); SGPT/ALT 3 U/L (7-52); SODIUM SERUM 135 mEq/L (136-145)
[2017-03-02 12:28] LABS: URINE BILIRUBIN NEGATIVE (NEGATIVE); URINE BLOOD NEGATIVE (NEGATIVE); URINE COLOR YELLOW; URINE GLUCOSE (UA) NEGATIVE (NEGATIVE); URINE KETONE TRACE mg/dL (NEGATIVE); URINE PROTEIN NEGATIVE (NEGATIVE)
[2017-03-02 12:33] LABS: URINE AMORPHOUS SEDIMENT MODERATE PHOSPHATES (NONE SEEN); URINE BACTERIA FEW /hpf (NONE SEEN); URINE EPITHELIAL CELLS OCCASIONAL /lpf (FEW); URINE RBC NONE SEEN /hpf (0-5)
--- NOTE | 2017-03-02 12:42 | Diagnostic Imaging Report ---
CHEST X-RAY: AP view INDICATION: Weight loss, shortness of breath COMPARISON: None FINDINGS: Chronic lung changes are seen with increased right basal lung markings and areas of eventration of the right hemidiaphragm. No focal consolidation or effusions. Heart size is at the upper limits of normal. There is probable minimal atherosclerosis of the aortic arch. Degenerative changes of the spine are noted. IMPRESSION: Chronic lung changes with increased right basal lung markings which may be chronic, however, atelectasis versus infiltrate cannot be excluded. There may also be a small hiatal hernia in this region. If indicated CT would provide additional detail and assessment.
[2017-03-02] MEDS ORDERED: IOHEXOL 300MG/ML 100 ML VIAL IVP ONE (13:21)
--- NOTE | 2017-03-02 16:02 | Diagnostic Imaging Report ---
CT abdomen and pelvis with intravenous contrast Indication: Generalized weight loss and abdominal pain Comparison: None, Technique: Axial images were obtained from the lung bases to the bilateral proximal femurs with IV contrast. Coronal reconstructions were made. total DLP: 396, CTDI7.9 FINDINGS: Chronic interstitial changes along bases are noted. Hepatic cysts are noted the largest within the right lower lobe measuring 3.8 x 2 cm with lobulations. A large gallstone is noted. No focal splenic lesions. Exam is limited due to motion. Assessment of pancreas is limited due to motion. Pancreatic atrophy is noted. No focal adrenal lesions. No evidence of hydronephrosis or focal renal lesions. Minimal nonspecific bilateral perinephric inflammatory changes are noted. Mild urinary bladder wall thickening is noted. The prostate gland is prominent measuring 6.7 x 3 cm. Moderate stool is noted. Minimal diverticulosis is noted without evidence of diverticulitis. The appendix is not well-visualized. The exam was limited due to body habitus however no evidence of lymphadenopathy. There is a moderate to large left inguinal hernia containing large bowel loops. No evidence of obstruction or strangulation at this time. Diffuse atherosclerosis is noted. A large hiatal hernia is noted containing the majority of stomach. Advanced degenerative changes of the spine are noted. Degenerative changes of pelvis are noted. Left femoral partially visualized fracture fixation hardware is noted. IMPRESSION: Large left inguinal hernia containing loops of large bowel. No evidence of obstruction or strangulation at this time. Please correlate clinically. Large hiatal hernia containing the majority of the stomach. Large gallstone. Enlarged prostate gland with mass effect upon the base of the bladder. Urinary bladder wall thickening may be due to chronic inflammatory process or chronic bladder outlet obstruction from a prominent prostate gland. Hepatic cysts. Diffuse atherosclerotic vascular disease. Degenerative changes.
[2017-03-02] MEDS ORDERED: Maalox 30 mL Cup PO PRN (17:01)
[2017-03-02] MEDS ORDERED: Magnesium Hydroxide (MOM) 30 mL UDC PO PRN (17:01)
--- NOTE | 2017-03-02 19:16 | History and Physical ---
History of Present Illness - HPI Chief Complaint: ftt, weak not taking meds or eating HPI: 82 yo male w multiple medical condition sent from [facility] 2 abd pain and for workup of abd mass, noted to have significant weight loss as well pt is a poor historian seen w dr leyva [place] Vital Signs: Last Vital Signs Temp 97.3 F 03/02/17 17:18 Pulse 78 03/02/17 18:06 Resp 18 03/02/17 18:06 BP 113/63 03/02/17 18:11 Pulse Ox 94 03/02/17 18:06 Past Medical History Cardiovascular: Report: HTN Pulmonary: Report: Asthma, COPD [employer]: Report: Dementia GI: Report: Constipation, GERD, Peptic Ulcer Psych: Report: Depression Musculoskeletal: Report: No Pertinent Hx Infectious Disease: Report: No Pertinent Hx Renal/: Report: No Pertinent Hx Endocrine: Report: No Pertinent Hx Dermatology: Report: No Pertinent Hx Family Medical History - Family Member Mother History Unknown: Yes Hx Family Cancer: No Hx Family Coronary Artery Disease: No Hx Family Congestive Heart Failure: No Hx Family Hypertension: No Hx Family Stroke: No Hx Family Diabetes: No Hx Family Seizures: No Hx Family Dementia: No Hx Family AIDS: No Hx Family HIV: No Hx Family COPD: No Hx Family Hepatitis: No Hx Family Psychiatric Problems: No Hx Family Tuberculosis: No Social History Smoke: No Alcohol: None Drugs: None Lives: Assisted Domestic Violence: Negative - Medications Home Medications: Home Medication Medication Instructions Recorded Type Amlodipine Besylate 5 mg PO DAILY 08/05/13 History Tamsulosin HCl [Flomax] 0.4 mg PO HS 08/05/13 History Acetaminophen [Tylenol] 650 mg PO Q4HR PRN 10/04/16 History Al Hyd/Mg Hyd/Simethicone [Maalox] 30 ml PO Q4HR PRN 10/04/16 History Amino Acids/Protein Hydrolys 30 ml PO DAILY 10/04/16 History [Pro-Stat Sugar Free Liquid] Ascorbic Acid [Vitamin C] 500 mg PO DAILY 10/04/16 History Bisacodyl [Dulcolax 10 Mg Supp] 10 mg RC DAILY PRN 10/04/16 History Divalproex Sodium [Depakote] 500 mg PO BID 10/04/16 History Docusate Sodium [Dok] 250 mg PO HS 10/04/16 History Ferrous Sulfate [Iron] 325 mg PO DAILY 10/04/16 History Lactulose 30 ml PO DAILY 10/04/16 History Lorazepam [Ativan] 0.5 mg PO Q6HR PRN 10/04/16 History Magnesium Hydroxide [Milk of 30 ml PO DAILY PRN 10/04/16 History Magnesia] Melatonin/Pyridoxine [Melatonin 3 1 tab PO HS 10/04/16 History mg Tablet] Risperidone [Risperdal] 0.5 mg PO DAILY 10/04/16 History - Allergies Allergies/Adverse Reactions: Allergies Allergy/AdvReac Type Severity Reaction Status Date / Time No Known Allergies Allergy Verified 03/02/17 11:24 Review of Systems - Review of Systems Constitutional: Report: Weakness Eyes: Report: No Significant ENT: Report: No Significant Respiratory: Report: Shortness of Breath Cardiovascular: Report: No Significant Gastrointestinal: Report: Nausea, Abdominal Pain Genitourinary: Report: No Significant Musculoskeletal: Report: No Significant, Shoulder Pain Skin: Report: No Significant Neurological: Report: Weakness Physical Exam - Physical Exam HEENT: Report: Ears Nose Throat within normal limits Neck: Report: Within normal limits Cardiovascular Systems: Report: +s1/s2 noted, Regular, Rate and Rhythm, no murmurs noted, Systolic Murmur Respiratory: Report: Breath Sounds are within normal limits Abdomen: Report: Abnormal Bowel Sounds, Mass palpated Back: Report: Inspection of back is within normal limits. Extremities: Report: Non-tender to palpation. Skin: Report: Color of skin is within normal limits Neuro/Psych: Report: Disoriented to name time or place, Depressed affect, No new focal deficits - Lab Results All Lab Results last 24 hours: Laboratory Last Values WBC 10.5 Th/cmm (4.8-10.8) 03/02/17 11:23 RBC 4.53 Mil/cmm (3.80-5.80) 03/02/17 11:23 Hgb 12.4 gm/dL (12.6-17.4) L 03/02/17 11:23 Hct 38.2 % (39.0-49.0) L 03/02/17 11:23 MCV 84.3 fl (80-99) 03/02/17 11:23 MCH 27.3 pg (27.0-31.0) 03/02/17 11:23 MCHC Differential 32.4 pg (28.0-36.0) 03/02/17 11:23 RDW 15.2 % (11.5-20.0) 03/02/17 11:23 Plt Count 458 Th/cmm (150-400) H D 03/02/17 11:23 MPV 7.5 fl 03/02/17 11:23 Neutrophils % 64.1 % (40.0-80.0) 03/02/17 11:23 Lymphocytes % 13.7 % (20.0-50.0) L 03/02/17 11:23 Monocytes % 6.2 % (2.0-10.0) 03/02/17 11:23 Eosinophils % 14.9 % (0.0-5.0) H 03/02/17 11:23 Basophils % 1.1 % (0.0-2.0) 03/02/17 11:23 Sodium 135 mEq/L (136-145) L 03/02/17 11:23 Potassium 4.0 mEq/L (3.5-5.1) 03/02/17 11:23 Chloride 101 mEq/L (98-107) 03/02/17 11:23 Carbon Dioxide 33.3 mEq/L (21.0-31.0) H 03/02/17 11:23 Anion Gap 4.7 (7.0-16.0) L 03/02/17 11:23 BUN 17 mg/dL (7-25) 03/02/17 11:23 Creatinine 1.1 mg/dL (0.7-1.3) 03/02/17 11:23 Est GFR ( Amer) TNP 03/02/17 11:23 Est GFR (Non-Af Amer) TNP 03/02/17 11:23 BUN/Creatinine Ratio 15.5 03/02/17 11:23 Glucose 86 mg/dL (70-105) 03/02/17 11:23 Calcium 11.0 mg/dL (8.6-10.3) H 03/02/17 11:23 Total Bilirubin 0.3 mg/dL (0.3-1.0) 03/02/17 11:23 AST 12 U/L (13-39) L 03/02/17 11:23 ALT 3 U/L (7-52) L 03/02/17 11:23 Alkaline Phosphatase 95 U/L (34-104) 03/02/17 11:23 Total Protein 8.4 gm/dL (6.0-8.3) H 03/02/17 11:23 Albumin 3.2 gm/dL (4.2-5.5) L 03/02/17 11:23 Globulin 5.2 gm/dL 03/02/17 11:23 Albumin/Globulin Ratio 0.6 (1.0-1.8) L 03/02/17 11:23 Lipase 14 U/L (11-82) 03/02/17 11:23 Urine Source RANDOM 03/02/17 11:21 Urine Color YELLOW 03/02/17 11:21 Urine Clarity SL. CLOUDY (CLEAR) 03/02/17 11:21 Urine pH 7.0 03/02/17 11:21 Ur Specific [place] 1.015 (1.005-1.030) 03/02/17 11:21 Urine Protein NEGATIVE mg/dL (NEGATIVE) 03/02/17 11:21 Urine Glucose (UA) NEGATIVE mg/dL (NEGATIVE) 03/02/17 11:21 Urine Ketones TRACE mg/dL (NEGATIVE) 03/02/17 11:21 Urine Blood NEGATIVE (NEGATIVE) 03/02/17 11:21 Urine Nitrate NEGATIVE (NEGATIVE) 03/02/17 11:21 Urine Bilirubin NEGATIVE (NEGATIVE) 03/02/17 11:21 Urine Urobilinogen 1.0 E.U./dL (0.2 - 1.0) 03/02/17 11:21 Ur Leukocyte Esterase NEGATIVE (NEGATIVE) 03/02/17 11:21 Urine RBC NONE SEEN /hpf (0-5) 03/02/17 11:21 Urine WBC 2-5 /hpf (0-5) H 03/02/17 11:21 Ur Epithelial Cells OCCASIONAL /lpf (FEW) 03/02/17 11:21 Amorphous Sediment MODERATE PHOSPHATES (NONE SEEN) 03/02/17 11:21 Urine Bacteria FEW /hpf (NONE SEEN) 03/02/17 11:21 - Assessment Assessment: abd pain anorexia hiatal hernia abd hernia wt loss, ftt htn asthma copd gerd oa dementia gallstone anemia bph hyponatremia - Plan Plan: cont on iv fluid ppi will review ct result will refer to gi and surger see orders
[2017-03-02] MEDS: Albuterol Nebulizer 2.5mg/3mL HHN SCH (19:53)
[2017-03-02] MEDS: Ipratropium Neb 0.5 mg/2.5 mL UD IH SCH (19:53)
[2017-03-02] MEDS ORDERED: Non-Formulary Item 1 EA (Melatonin/Pyridoxine [Melatonin 3 Mg Tablet] 1 TAB) PO SCH (21:00)
[2017-03-02] MEDS: D5-0.45NS 1,000 ML IV SCH (21:05)
[2017-03-03] MEDS: Ipratropium Neb 0.5 mg/2.5 mL UD IH SCH ×5 (07:09→18:53)
[2017-03-03] MEDS: Albuterol Nebulizer 2.5mg/3mL HHN SCH ×5 (07:09→18:53)
[2017-03-03] MEDS ORDERED: AMLODIPINE BESYLATE 5 MG PO SCH (09:00)
[2017-03-03] MEDS ORDERED: Non-Formulary Item 1 EA (Amino Acids/Protein Hydrolys [Pro-Stat Sugar Free Liquid] 30 ML) PO SCH (09:00)
--- NOTE | 2017-03-03 09:00 | Consultation ---
Consult Note - Consult Note Service Date: 03/03/17 Consult Note: PHYSICIAN Consultation Note: Date of Admission: 03/02/17 Purpose of Consultation: Chief Complaint: History of Present Illness: Patient NEAL DAMON was admitted to location Medical/Surgical Unit I with INGUINAL HERNIA,CHOLELITHIASIS. Past Medical History: Diagnoses ANEMIA, UNSPECIFIED (03/02/17) HYPO-OSMOLALITY AND HYPONATREMIA (03/02/17) UNSPECIFIED DEMENTIA WITHOUT BEHAVIORAL DISTURBANCE (03/02/17) ESSENTIAL (PRIMARY) HYPERTENSION (03/02/17) CHRONIC OBSTRUCTIVE PULMONARY DISEASE, UNSPECIFIED (03/02/17) UNSPECIFIED ASTHMA, UNCOMPLICATED (03/02/17) GASTRO-ESOPHAGEAL REFLUX DISEASE WITHOUT ESOPHAGITIS (03/02/17) UNIL INGUINAL HERNIA, W/O OBST OR GANGR, NOT SPCF RECUR (03/02/17) DIAPHRAGMATIC HERNIA WITHOUT OBSTRUCTION OR GANGRENE (03/02/17) OTHER CHOLELITHIASIS WITHOUT OBSTRUCTION (03/02/17) UNSPECIFIED OSTEOARTHRITIS, UNSPECIFIED SITE (03/02/17) BENIGN PROSTATIC HYPERPLASIA WITHOUT LOWER URINRY TRACT SYMP (03/02/17) ADULT FAILURE TO THRIVE (03/02/17) ANOREXIA (03/02/17) BODY MASS INDEX (BMI) 20.0-20.9, ADULT (03/02/17) Allergies Allergy/AdvReac Type Severity Reaction Status Date / Time No Known Allergies Allergy Verified 03/02/17 11:24 Vital Signs Temp 97.4 F 03/03/17 03:59 Pulse 99 03/03/17 03:59 Resp 18 03/03/17 03:59 BP 109/74 03/03/17 03:59 Pulse Ox 96 03/03/17 03:59 Intake & Output 03/02/17 03/03/17 03/03/17 18:59 06:59 18:59 Intake Total 200 Balance 200 Weight (lbs) 66.86 kg Intake: Oral 200 Other: # Voids 3 # Bowel Movements 0 Home Medication Medication Instructions Recorded Type Amlodipine Besylate 5 mg PO DAILY 08/05/13 History Tamsulosin HCl [Flomax] 0.4 mg PO HS 08/05/13 History Acetaminophen [Tylenol] 650 mg PO Q4HR PRN 10/04/16 History Al Hyd/Mg Hyd/Simethicone [Maalox] 30 ml PO Q4HR PRN 10/04/16 History Amino Acids/Protein Hydrolys 30 ml PO DAILY 10/04/16 History [Pro-Stat Sugar Free Liquid] Ascorbic Acid [Vitamin C] 500 mg PO DAILY 10/04/16 History Bisacodyl [Dulcolax 10 Mg Supp] 10 mg RC DAILY PRN 10/04/16 History Divalproex Sodium [Depakote] 500 mg PO BID 10/04/16 History Docusate Sodium [Dok] 250 mg PO HS 10/04/16 History Ferrous Sulfate [Iron] 325 mg PO DAILY 10/04/16 History Lactulose 30 ml PO DAILY 10/04/16 History Lorazepam [Ativan] 0.5 mg PO Q6HR PRN 10/04/16 History Magnesium Hydroxide [Milk of 30 ml PO DAILY PRN 10/04/16 History Magnesia] Melatonin/Pyridoxine [Melatonin 3 1 tab PO HS 10/04/16 History mg Tablet] Risperidone [Risperdal] 0.5 mg PO DAILY 10/04/16 History Current Medications Generic Name Dose Route Start Last Admin Trade Name Freq PRN Reason Stop Dose Admin Acetaminophen 650 mg 03/02/17 17:01 Tylenol PO 05/01/17 17:00 Q4HR PRN Pain or Fever >101 Al Hydrox/Mg Hydrox/Simethicone 30 ml 03/02/17 17:01 Maalox PO 05/01/17 17:00 Q4HR PRN GI DISTRESS Albuterol Sulfate 2.5 mg 03/02/17 19:00 03/03/17 07:09 Albuterol 2.5mg/3ml Neb Ud HHN 05/01/17 18:59 2.5 mg QIDRT [facility] Administration Amlodipine Besylate 5 mg 03/03/17 09:00 Norvasc PO 05/02/17 08:59 DAILY JENN[facility]ER Ascorbic Acid 500 mg 03/03/17 09:00 Vitamin C PO 05/02/17 08:59 DAILY JENN[facility]ER Bisacodyl 10 mg 03/02/17 17:01 Dulcolax 10 Mg Supp RC 05/01/17 17:00 DAILY PRN Constipation Divalproex Sodium 500 mg 03/03/17 09:[address] PO 05/02/17 08:59 BID [facility] Protocol Docusate Sodium 250 mg 03/02/17 21:00 03/02/17 22:47 Colace PO 05/01/17 20:59 250 mg HS JENN[facility]ER Administration Ferrous Sulfate 325 mg 03/03/17 09:00 Iron PO 05/02/17 08:59 DAILY JENN[facility]ER Dextrose/Sodium Chloride 1,000 mls @ 100 mls/hr 03/02/17 17:15 03/02/17 21:05 D5-0.45ns IV 05/01/17 17:14 100 mls/hr .Q10H [facility] Administration Ipratropium [place] 0.5 mg 03/02/17 19:00 03/03/17 07:09 Atrovent Neb 0.5mg/2.5ml IH 05/01/17 18:59 0.5 mg QIDRT [facility] Administration Lactulose 20 gm 03/03/17 09:00 Cephulac PO 05/02/17 08:59 DAILY [facility]ENN[facility]ER Lorazepam 0.5 mg 03/02/17 17:01 Ativan PO 05/01/17 17:00 Q6HR PRN Anxiety Protocol Magnesium Hydroxide 30 ml 03/02/17 17:01 Milk Of Magnesia PO 05/01/17 17:00 DAILY PRN Constipation Megestrol Acetate 400 mg 03/03/17 09:00 Megace PO 05/02/17 08:59 BID [facility]ER Protocol Risperidone 0.5 mg 03/03/17 09:00 Risperdal PO 05/02/17 08:59 DAILY [facility] Protocol Tamsulosin HCl 0.4 mg 03/02/17 21:00 03/02/17 22:47 Flomax PO 05/01/17 20:59 0.4 mg HS JENN[facility]ER Administration Review of Systems: A 12 point ROS was reviewed with the pertinent positive and negatives noted in the HPI. Social History Smoking Status Unknown if ever smoked Drug Use No Alcohol Use No Family Medical History Family Medical History Start: 03/02/17 18: 34 Freq: ONCE Status: Active Document 03/02/17 18:34 JUANCARLOS (Rec: 03/03/17 01:36 JUANCARLOS [id number] ) Family Medical History Mother History Unknown Yes Ethnicity Unknown Living Status Unknown Hx Family Cancer unknown Hx Family Coronary Artery Disease UNKNOWN Hx Family Congestive Heart Failure UNKNOWN Hx Family Hypertension UNKNOWN Hx Family Stroke UNKNOWN Hx Family Diabetes UNKNOWN Hx Family Seizures UNKNOWN Hx Family Dementia UNKNOWN Hx Family AIDS UNKNOWN Hx Family COPD UNKNOWN Hx Family Hepatitis UNKNOWN Hx Family Psychiatric Problems UNKNOWN Hx Family Tuberculosis UNKNOWN Other Medical History UNKNOWN PT FORGETFUL Physical Exam: General: HEENT: Cardio: Respiratory: Abdominal: hernia has reduced, minimal tenderness in epigastric area Genital/Urinary: Extremities: Neurological: Assessment: needs EGD for large hiatal hernia Plan: EGD, repair of left inguinal hernia with reduced (for now) colon Signed, Cierra Da Silva 03/03/[id number]
[2017-03-03] MEDS: Ferrous Sulfate 325 MG TAB PO SCH (10:19)
[2017-03-03] MEDS: Lactulose 10 Gm/15 mL 30mL UDC PO SCH (10:20)
--- NOTE | 2017-03-03 15:16 | Internal Medicine Prog Note ---
Internal Medicine Subjective - Subjective Service Date: 03/03/17 Patient seen and examined:: with staff Patient is:: awake Patient Complaints of:: bloated Per staff patient has:: no adverse event Internal Medicine Objective - Results Result Diagrams: 03/02/17 11:23 03/02/17 11:23 Recent Labs: Laboratory Last Values WBC 10.5 Th/cmm (4.8-10.8) 03/02/17 11:23 RBC 4.53 Mil/cmm (3.80-5.80) 03/02/17 11:23 Hgb 12.4 gm/dL (12.6-17.4) L 03/02/17 11:23 Hct 38.2 % (39.0-49.0) L 03/02/17 11:23 MCV 84.3 fl (80-99) 03/02/17 11:23 MCH 27.3 pg (27.0-31.0) 03/02/17 11:23 MCHC Differential 32.4 pg (28.0-36.0) 03/02/17 11:23 RDW 15.2 % (11.5-20.0) 03/02/17 11:23 Plt Count 458 Th/cmm (150-400) H D 03/02/17 11:23 MPV 7.5 fl 03/02/17 11:23 Neutrophils % 64.1 % (40.0-80.0) 03/02/17 11:23 Lymphocytes % 13.7 % (20.0-50.0) L 03/02/17 11:23 Monocytes % 6.2 % (2.0-10.0) 03/02/17 11:23 Eosinophils % 14.9 % (0.0-5.0) H 03/02/17 11:23 Basophils % 1.1 % (0.0-2.0) 03/02/17 11:23 Sodium 135 mEq/L (136-145) L 03/02/17 11:23 Potassium 4.0 mEq/L (3.5-5.1) 03/02/17 11:23 Chloride 101 mEq/L (98-107) 03/02/17 11:23 Carbon Dioxide 33.3 mEq/L (21.0-31.0) H 03/02/17 11:23 Anion Gap 4.7 (7.0-16.0) L 03/02/17 11:23 BUN 17 mg/dL (7-25) 03/02/17 11:23 Creatinine 1.1 mg/dL (0.7-1.3) 03/02/17 11:23 Est GFR ( Amer) TNP 03/02/17 11:23 Est GFR (Non-Af Amer) TNP 03/02/17 11:23 BUN/Creatinine Ratio 15.5 03/02/17 11:23 Glucose 86 mg/dL (70-105) 03/02/17 11:23 Calcium 11.0 mg/dL (8.6-10.3) H 03/02/17 11:23 Total Bilirubin 0.3 mg/dL (0.3-1.0) 03/02/17 11:23 AST 12 U/L (13-39) L 03/02/17 11:23 ALT 3 U/L (7-52) L 03/02/17 11:23 Alkaline Phosphatase 95 U/L (34-104) 03/02/17 11:23 Total Protein 8.4 gm/dL (6.0-8.3) H 03/02/17 11:23 Albumin 3.2 gm/dL (4.2-5.5) L 03/02/17 11:23 Globulin 5.2 gm/dL 03/02/17 11:23 Albumin/Globulin Ratio 0.6 (1.0-1.8) L 03/02/17 11:23 Lipase 14 U/L (11-82) 03/02/17 11:23 Urine Source RANDOM 03/02/17 11:21 Urine Color YELLOW 03/02/17 11:21 Urine Clarity SL. CLOUDY (CLEAR) 03/02/17 11:21 Urine pH 7.0 03/02/17 11:21 Ur Specific [place] 1.015 (1.005-1.030) 03/02/17 11:21 Urine Protein NEGATIVE mg/dL (NEGATIVE) 03/02/17 11:21 Urine Glucose (UA) NEGATIVE mg/dL (NEGATIVE) 03/02/17 11:21 Urine Ketones TRACE mg/dL (NEGATIVE) 03/02/17 11:21 Urine Blood NEGATIVE (NEGATIVE) 03/02/17 11:21 Urine Nitrate NEGATIVE (NEGATIVE) 03/02/17 11:21 Urine Bilirubin NEGATIVE (NEGATIVE) 03/02/17 11:21 Urine Urobilinogen 1.0 E.U./dL (0.2 - 1.0) 03/02/17 11:21 Ur Leukocyte Esterase NEGATIVE (NEGATIVE) 03/02/17 11:21 Urine RBC NONE SEEN /hpf (0-5) 03/02/17 11:21 Urine WBC 2-5 /hpf (0-5) H 03/02/17 11:21 Ur Epithelial Cells OCCASIONAL /lpf (FEW) 03/02/17 11:21 Amorphous Sediment MODERATE PHOSPHATES (NONE SEEN) 03/02/17 11:21 Urine Bacteria FEW /hpf (NONE SEEN) 03/02/17 11:21 - Physical Exam Vitals and I&O: Vital Signs Temp 99.7 F 03/03/17 12:20 Pulse 99 03/03/17 12:20 Resp 19 03/03/17 12:20 BP 104/68 03/03/17 12:20 Pulse Ox 95 03/03/17 12:20 Intake & Output 03/02/17 03/03/17 03/03/17 18:59 06:59 18:59 Intake Total 200 Balance 200 Weight (lbs) 147 lb 6.4 oz Intake: Oral 200 Other: # Voids 3 # Bowel Movements 0 Active Medications: Current Medications Acetaminophen (Tylenol) 650 mg PO Q4HR PRN PRN Reason: Pain or Fever >101 Stop: 05/01/17 17:00 Al Hydrox/Mg Hydrox/Simethicone (Maalox) 30 ml PO Q4HR PRN PRN Reason: GI DISTRESS Stop: 05/01/17 17:00 Albuterol Sulfate (Albuterol 2.5mg/3ml Neb Ud) 2.5 mg HHN QIDRT [facility] Stop: 05/01/17 18:59 Last Admin: 03/03/17 14:50 Dose: Not Given Amlodipine Besylate (Norvasc) 5 mg PO DAILY [facility] Stop: 05/02/17 08:59 Last Admin: 03/03/17 10:19 Dose: 5 mg Ascorbic Acid (Vitamin C) 500 mg PO DAILY [facility] Stop: 05/02/17 08:59 Last Admin: 03/03/17 10:19 Dose: 500 mg Bisacodyl (Dulcolax 10 Mg Supp) 10 mg RC DAILY PRN PRN Reason: Constipation Stop: 05/01/17 17:00 Divalproex Sodium (Depakote Dr) 500 mg PO BID JENN[facility]ER PRN Reason: Protocol Stop: 05/02/17 08:59 Last Admin: 03/03/17 10:19 Dose: 500 mg Docusate Sodium (Colace) 250 mg PO HS [facility] Stop: 05/01/17 20:59 Last Admin: 03/02/17 22:47 Dose: 250 mg Ferrous Sulfate (Iron) 325 mg PO DAILY [facility] Stop: 05/02/17 08:59 Last Admin: 03/03/17 10:19 Dose: 325 mg Dextrose/Sodium Chloride (D5-0.45ns) 1,000 mls @ 80 mls/hr IV .[id number] [facility] Stop: 05/01/17 17:14 Ipratropium [place] (Atrovent Neb 0.5mg/2.5ml) 0.5 mg IH QIDRT [facility] Stop: 05/01/17 18:59 Last Admin: 03/03/17 14:49 Dose: Not Given Lactulose (Cephulac) 20 gm PO DAILY [facility] Stop: 05/02/17 08:59 Last Admin: 03/03/17 10:20 Dose: Not Given Lorazepam (Ativan) 0.5 mg PO Q6HR PRN; Protocol PRN Reason: Anxiety Stop: 05/01/17 17:00 Magnesium Hydroxide (Milk Of Magnesia) 30 ml PO DAILY PRN PRN Reason: Constipation Stop: 05/01/17 17:00 Megestrol Acetate (Megace) 400 mg PO BID [facility] PRN Reason: Protocol Stop: 05/02/17 08:59 Last Admin: 03/03/17 10:18 Dose: 400 mg Risperidone (Risperdal) 0.5 mg PO DAILY [facility] PRN Reason: Protocol Stop: 05/02/17 08:59 Last Admin: 03/03/17 10:19 Dose: 0.5 mg Tamsulosin HCl (Flomax) 0.4 mg PO HS [facility] Stop: 05/01/17 20:59 Last Admin: 03/02/17 22:47 Dose: 0.4 mg General: alert, NAD HEENT: NC/AT, PERRLA Neck: Supple Cardiovascular: RRR, Normal S1, Normal S2, without murmur Abdomen: soft, non-tender, non-distended, positive bowel sound Extremities: clear Neurological: no change, alert Internal Medicine Assmt/Plan - Assessment Assessment: abd pain anorexia hiatal hernia abd hernia wt loss, ftt htn asthma copd gerd oa dementia gallstone anemia bph hyponatremia - Plan Plan: EGD TO BE DONE AM LABS [facility]ONCHODILAT[facility] NEEDED SUPPLEMENTAL OXYGEN IVF FOR HYDRATION CONTINUE CURRENT PLAN OF CARE
[2017-03-03] MEDS ORDERED: VTE Chemical Prophylaxis Screen/Admission MC PRN (17:07)
--- NOTE | 2017-03-03 21:23 | Consultation ---
DATE OF CONSULTATION: 03/03/2017 The patient was seen, chart reviewed, discussed with staff. HISTORY OF PRESENT ILLNESS: The patient is an 82-year-old male with multiple medical problems, currently on medical floor, has been restless, confused, admits to feeling depressed. The patient is isolative and passively accepting treatment by staff. No aggressive behavior. His insight has been very poor. PAST PSYCHIATRIC HISTORY: The patient does not know. PAST MEDICAL HISTORY: As per H and P. The patient with multiple medical problems, being admitted with abdominal pain and workup for abdominal mass, weight loss. PSYCHOSOCIAL HISTORY: The patient resides in a retirement and he requires complete care. MENTAL STATUS EXAMINATION: The patient is in bed, thin male, appears to be older than his stated age. Speech is minimal short sentences. The patient is oriented to person, knew he was in the hospital, did not know of the hospital, he was disoriented to time, thought he was 72 years old, thought the president was Darryl. The patient with short-term memory. Affect appears to be depressed. ASSESSMENT: Major depressive disorder, recurrent, moderate to severe, and dementia, Alzheimer's type. PLAN: At this time, we would continue supportive measures. We will monitor closely. We will add a small dose of Remeron to help sleep, depression, and appetite. The patient might benefit from also addition of Aricept 5 mg daily. The patient is receiving risperidone 0.5 mg daily from his retirement to help with behavioral issues. We will consider inpatient psychiatric hospitalization. Thank you for the consultation. [facility]# [id number]
--- NOTE | 2017-03-03 21:59 | Consultation ---
DATE OF CONSULTATION: 03/03/2017 INPATIENT GASTROINTESTINAL CONSULTATION REFERRING PHYSICIAN: Dr. Trejo. REASON FOR CONSULTATION: Abdominal hernia. HISTORY OF PRESENT ILLNESS: An 82-year-old male, sent in to the hospital because of complaints of abdominal pain, was seen by surgeon initially, who felt that the patient had an inguinal hernia . The patient is otherwise a poor historian, unable to give any meaningful history. No reports of any GI bleeding. No nausea and vomiting per staff. PAST MEDICAL HISTORY: Hypertension, asthma, COPD, dementia, GERD, depression. PAST SURGICAL HISTORY: Unknown. FAMILY HISTORY: Noncontributory. SOCIAL HISTORY: Resident of [facility]. ALLERGIES: None. CURRENT MEDICATIONS: Tylenol, Maalox, albuterol, Norvasc, vitamin C, Dulcolax, Depakote, Colace, iron, Atrovent, lactulose, Ativan, milk of magnesia, Megace, Respirdal, Flomax. REVIEW OF SYSTEMS: Unobtainable. PHYSICAL EXAMINATION: VITAL SIGNS: Temperature 99.7, breathing 19, pulse of 99, blood pressure is 104/68, satting 95%. GENERAL: In no apparent distress. EYES: Anicteric, normal conjunctivae. HEENT: Normocephalic, atraumatic. Moist mucous membranes. NECK: Soft, supple. CHEST: Clear. No effort. CARDIOVASCULAR: Regular rate and rhythm. ABDOMEN: Soft, nontender, nondistended. SKIN: Warm, dry. EXTREMITIES: Revealed no cyanosis. LABORATORY DATA: Show white count 10.5, hemoglobin 12.4, platelets of 458, total bilirubin 0.3, AST 12, ALT 3, alkaline phosphatase 95, lipase 14. CT of the abdomen and pelvis shows inguinal hernia and hiatal hernia. IMPRESSION: This is an 82-year-old male with left inguinal hernia, reduced by surgeon, but may need a definitive treatment, we will defer to surgeon. The patient also has hiatal hernia and asking us to consider an endoscopy to evaluate it. PLAN: 1. Consider EGD. 2. Continue supportive care. 3. Surgical . Thank you for allowing me to participate. Please call me if you have any questions. JOB# [id number]
[2017-03-04 06:13] LABS: HEMOGLOBIN 10.8 gm/dL (12.6-17.4); MEAN CELL VOLUME 85.3 fl (80-99); MEAN CORPUSCULAR HEMOGLOBIN 28.4 pg (27.0-31.0); MEAN CORPUSCULAR HGB CONC 33.2 pg (28.0-36.0); MEAN PLATELET VOLUME 7.4 fl; PLATELET COUNT 393 Th/cmm (150-400); RED BLOOD COUNT 3.81 Mil/cmm (3.80-5.80); RED CELL DISTRIBUTION WIDTH 15.2 % (11.5-20.0)
[2017-03-04 06:15] LABS: HEMATOCRIT 32.5 % (39.0-49.0)
[2017-03-04 06:25] LABS: ANION GAP 3.9 (7.0-16.0); BUN - UREA NITROGEN 12 mg/dL (7-25); CHLORIDE 102 mEq/L (98-107); CREATININE - SERUM 0.8 mg/dL (0.7-1.3); GLUCOSE 93 mg/dL (70-105); POTASSIUM SERUM 3.9 mEq/L (3.5-5.1); SODIUM SERUM 134 mEq/L (136-145)
[2017-03-04] MEDS: Albuterol Nebulizer 2.5mg/3mL HHN SCH ×4 (07:09→18:58)
[2017-03-04] MEDS: Ipratropium Neb 0.5 mg/2.5 mL UD IH SCH ×4 (07:09→18:58)
[2017-03-04 07:36] LABS: BAND NEUTROPHILE 2 % (0-10); NEUTROPHILS 60 % (40-80); TOTAL CELLS COUNTED 100
[2017-03-04 07:37] LABS: EOSINOPHIL 20 % (0-5); PLATELET ESTIMATE ADEQUATE (NORMAL)
--- NOTE | 2017-03-04 09:32 | General Progress Note ---
Subjective - Review of Systems Service Date: 03/04/17 Events since last encounter: discussed with Dr. Dionicio Lopez in view of CT findings has left inguinal hernia with colon seen on CT, has reduced has GB stones Pending EGD, will make recommendations Objective - Results Result Diagrams: 03/04/17 05:50 03/04/17 05:50 Recent Labs: Laboratory Last Values WBC 11.0 Th/cmm (4.8-10.8) H 03/04/17 05:50 RBC 3.81 Mil/cmm (3.80-5.80) 03/04/17 05:50 Hgb 10.8 gm/dL (12.6-17.4) L 03/04/17 05:50 Hct 32.5 % (39.0-49.0) L D 03/04/17 05:50 MCV 85.3 fl (80-99) 03/04/17 05:50 MCH 28.4 pg (27.0-31.0) 03/04/17 05:50 MCHC Differential 33.2 pg (28.0-36.0) 03/04/17 05:50 RDW 15.2 % (11.5-20.0) 03/04/17 05:50 Plt Count 393 Th/cmm (150-400) 03/04/17 05:50 MPV 7.4 fl 03/04/17 05:50 Neutrophils % 64.1 % (40.0-80.0) 03/02/17 11:23 Band Neutrophils % 2 % (0-10) 03/04/17 05:50 Lymphocytes % 13.7 % (20.0-50.0) L 03/02/17 11:23 Monocytes % 6.2 % (2.0-10.0) 03/02/17 11:23 Eosinophils % 14.9 % (0.0-5.0) H 03/02/17 11:23 Basophils % 1.1 % (0.0-2.0) 03/02/17 11:23 Neutrophils (Manual) 60 % (40-80) 03/04/17 05:50 Lymphocytes 18 % (20-50) L 03/04/17 05:50 Eosinophils 20 % (0-5) H 03/04/17 05:50 Platelet Estimate ADEQUATE (NORMAL) 03/04/17 05:50 Sodium 134 mEq/L (136-145) L 03/04/17 05:50 Potassium 3.9 mEq/L (3.5-5.1) 03/04/17 05:50 Chloride 102 mEq/L (98-107) 03/04/17 05:50 Carbon Dioxide 32.0 mEq/L (21.0-31.0) H 03/04/17 05:50 Anion Gap 3.9 (7.0-16.0) L 03/04/17 05:50 BUN 12 mg/dL (7-25) 03/04/17 05:50 Creatinine 0.8 mg/dL (0.7-1.3) 03/04/17 05:50 Est GFR ( Amer) TNP 03/04/17 05:50 Est GFR (Non-Af Amer) TNP 03/04/17 05:50 BUN/Creatinine Ratio 15.0 03/04/17 05:50 Glucose 93 mg/dL (70-105) 03/04/17 05:50 Calcium 10.0 mg/dL (8.6-10.3) 03/04/17 05:50 Total Bilirubin 0.3 mg/dL (0.3-1.0) 03/02/17 11:23 AST 12 U/L (13-39) L 03/02/17 11:23 ALT 3 U/L (7-52) L 03/02/17 11:23 Alkaline Phosphatase 95 U/L (34-104) 03/02/17 11:23 Total Protein 8.4 gm/dL (6.0-8.3) H 03/02/17 11:23 Albumin 3.2 gm/dL (4.2-5.5) L 03/02/17 11:23 Globulin 5.2 gm/dL 03/02/17 11:23 Albumin/Globulin Ratio 0.6 (1.0-1.8) L 03/02/17 11:23 Lipase 14 U/L (11-82) 03/02/17 11:23 Urine Source RANDOM 03/02/17 11:21 Urine Color YELLOW 03/02/17 11:21 Urine Clarity SL. CLOUDY (CLEAR) 03/02/17 11:21 Urine pH 7.0 03/02/17 11:21 Ur Specific [place] 1.015 (1.005-1.030) 03/02/17 11:21 Urine Protein NEGATIVE mg/dL (NEGATIVE) 03/02/17 11:21 Urine Glucose (UA) NEGATIVE mg/dL (NEGATIVE) 03/02/17 11:21 Urine Ketones TRACE mg/dL (NEGATIVE) 03/02/17 11:21 Urine Blood NEGATIVE (NEGATIVE) 03/02/17 11:21 Urine Nitrate NEGATIVE (NEGATIVE) 03/02/17 11:21 Urine Bilirubin NEGATIVE (NEGATIVE) 03/02/17 11:21 Urine Urobilinogen 1.0 E.U./dL (0.2 - 1.0) 03/02/17 11:21 Ur Leukocyte Esterase NEGATIVE (NEGATIVE) 03/02/17 11:21 Urine RBC NONE SEEN /hpf (0-5) 03/02/17 11:21 Urine WBC 2-5 /hpf (0-5) H 03/02/17 11:21 Ur Epithelial Cells OCCASIONAL /lpf (FEW) 03/02/17 11:21 Amorphous Sediment MODERATE PHOSPHATES (NONE SEEN) 03/02/17 11:21 Urine Bacteria FEW /hpf (NONE SEEN) 03/02/17 11:21 - Physical Exam Vitals and I&O: Vital Signs Temp 97.0 F 03/04/17 08:46 Pulse 90 03/04/17 08:46 Resp 19 03/04/17 08:46 BP 101/49 03/04/17 08:46 Pulse Ox 98 03/04/17 08:46 Intake & Output 03/03/17 03/04/17 03/04/17 18:59 06:59 18:59 Intake Total 480 100 Balance 480 100 Weight (lbs) 66.678 kg 70.307 kg Intake: Oral 480 100 Other: # Voids 5 2 Active Medications: Current Medications Acetaminophen (Tylenol) 650 mg PO Q4HR PRN PRN Reason: Pain or Fever >101 Stop: 05/01/17 17:00 Al Hydrox/Mg Hydrox/Simethicone (Maalox) 30 ml PO Q4HR PRN PRN Reason: GI DISTRESS Stop: 05/01/17 17:00 Albuterol Sulfate (Albuterol 2.5mg/3ml Neb Ud) 2.5 mg HHN QIDRT [facility] Stop: 05/01/17 18:59 Last Admin: 03/04/17 07:09 Dose: 2.5 mg Amlodipine Besylate (Norvasc) 5 mg PO DAILY [facility] Stop: 05/02/17 08:59 Last Admin: 03/03/17 10:19 Dose: 5 mg Ascorbic Acid (Vitamin C) 500 mg PO DAILY [facility] Stop: 05/02/17 08:59 Last Admin: 03/03/17 10:19 Dose: 500 mg Bisacodyl (Dulcolax 10 Mg Supp) 10 mg RC DAILY PRN PRN Reason: Constipation Stop: 05/01/17 17:00 Divalproex Sodium (Depakote Dr) 500 mg PO BID [facility] PRN Reason: Protocol Stop: 05/02/17 08:59 Last Admin: 03/03/17 18:00 Dose: Not Given Docusate Sodium (Colace) 250 mg PO HS [facility] Stop: 05/01/17 20:59 Last Admin: 03/03/17 22:01 Dose: 250 mg Donepezil HCl (Aricept) 5 mg PO DAILY [facility] Stop: 05/03/17 08:59 Ferrous Sulfate (Iron) 325 mg PO DAILY [facility] Stop: 05/02/17 08:59 Last Admin: 03/03/17 10:19 Dose: 325 mg Heparin Sodium (Porcine) (Heparin) 5,000 units SUBQ Q12H [facility] Stop: 05/02/17 20:59 Last Admin: 03/03/17 22:01 Dose: 5,000 units Dextrose/Sodium Chloride (D5-0.45ns) 1,000 mls @ 80 mls/hr IV .[id number] [facility] Stop: 05/01/17 17:14 Ipratropium [place] (Atrovent Neb 0.5mg/2.5ml) 0.5 mg IH QIDRT [facility] Stop: 05/01/17 18:59 Last Admin: 03/04/17 07:09 Dose: 0.5 mg Lactulose (Cephulac) 20 gm PO DAILY [facility] Stop: 05/02/17 08:59 Last Admin: 03/03/17 10:20 Dose: Not Given Lorazepam (Ativan) 0.5 mg PO Q6HR PRN; Protocol PRN Reason: Anxiety Stop: 05/01/17 17:00 Magnesium Hydroxide (Milk Of Magnesia) 30 ml PO DAILY PRN PRN Reason: Constipation Stop: 05/01/17 17:00 Megestrol Acetate (Megace) 400 mg PO BID [facility] PRN Reason: Protocol Stop: 05/02/17 08:59 Last Admin: 03/03/17 18:00 Dose: 400 mg Mirtazapine (Remeron) 7.5 mg PO HS [facility] PRN Reason: Protocol Stop: 05/02/17 20:59 Miscellaneous ([employer] Prophylaxis Screen/ Admission) 1 ea PRN PRN PRN Reason: PROTOCOL Stop: 05/02/17 17:06 Risperidone (Risperdal) 0.5 mg PO DAILY [facility] PRN Reason: Protocol Stop: 05/02/17 08:59 Last Admin: 03/03/17 10:19 Dose: 0.5 mg Tamsulosin HCl (Flomax) 0.4 mg PO HS [facility] Stop: 05/01/17 20:59 Last Admin: 03/03/17 22:01 Dose: 0.4 mg Assessment/Plan - Problem List Patient Problems: All Active Problems Anxiety (Active) F41.9
[2017-03-04] MEDS: Ferrous Sulfate 325 MG TAB PO SCH (09:39)
[2017-03-04] MEDS: Lactulose 10 Gm/15 mL 30mL UDC PO SCH (09:39)
--- NOTE | 2017-03-04 12:58 | General Progress Note ---
Subjective - Review of Systems Service Date: 03/04/17 Events since last encounter: discussed informed consent with sister in [place] regarding possible surgeries , consent given Objective - Results Result Diagrams: 03/04/17 05:50 03/04/17 05:50 Recent Labs: Laboratory Last Values WBC 11.0 Th/cmm (4.8-10.8) H 03/04/17 05:50 RBC 3.81 Mil/cmm (3.80-5.80) 03/04/17 05:50 Hgb 10.8 gm/dL (12.6-17.4) L 03/04/17 05:50 Hct 32.5 % (39.0-49.0) L D 03/04/17 05:50 MCV 85.3 fl (80-99) 03/04/17 05:50 MCH 28.4 pg (27.0-31.0) 03/04/17 05:50 MCHC Differential 33.2 pg (28.0-36.0) 03/04/17 05:50 RDW 15.2 % (11.5-20.0) 03/04/17 05:50 Plt Count 393 Th/cmm (150-400) 03/04/17 05:50 MPV 7.4 fl 03/04/17 05:50 Neutrophils % 64.1 % (40.0-80.0) 03/02/17 11:23 Band Neutrophils % 2 % (0-10) 03/04/17 05:50 Lymphocytes % 13.7 % (20.0-50.0) L 03/02/17 11:23 Monocytes % 6.2 % (2.0-10.0) 03/02/17 11:23 Eosinophils % 14.9 % (0.0-5.0) H 03/02/17 11:23 Basophils % 1.1 % (0.0-2.0) 03/02/17 11:23 Neutrophils (Manual) 60 % (40-80) 03/04/17 05:50 Lymphocytes 18 % (20-50) L 03/04/17 05:50 Eosinophils 20 % (0-5) H 03/04/17 05:50 Platelet Estimate ADEQUATE (NORMAL) 03/04/17 05:50 Sodium 134 mEq/L (136-145) L 03/04/17 05:50 Potassium 3.9 mEq/L (3.5-5.1) 03/04/17 05:50 Chloride 102 mEq/L (98-107) 03/04/17 05:50 Carbon Dioxide 32.0 mEq/L (21.0-31.0) H 03/04/17 05:50 Anion Gap 3.9 (7.0-16.0) L 03/04/17 05:50 BUN 12 mg/dL (7-25) 03/04/17 05:50 Creatinine 0.8 mg/dL (0.7-1.3) 03/04/17 05:50 Est GFR ( Amer) TNP 03/04/17 05:50 Est GFR (Non-Af Amer) TNP 03/04/17 05:50 BUN/Creatinine Ratio 15.0 03/04/17 05:50 Glucose 93 mg/dL (70-105) 03/04/17 05:50 Calcium 10.0 mg/dL (8.6-10.3) 03/04/17 05:50 Total Bilirubin 0.3 mg/dL (0.3-1.0) 03/02/17 11:23 AST 12 U/L (13-39) L 03/02/17 11:23 ALT 3 U/L (7-52) L 03/02/17 11:23 Alkaline Phosphatase 95 U/L (34-104) 03/02/17 11:23 Total Protein 8.4 gm/dL (6.0-8.3) H 03/02/17 11:23 Albumin 3.2 gm/dL (4.2-5.5) L 03/02/17 11:23 Globulin 5.2 gm/dL 03/02/17 11:23 Albumin/Globulin Ratio 0.6 (1.0-1.8) L 03/02/17 11:23 Lipase 14 U/L (11-82) 03/02/17 11:23 Urine Source RANDOM 03/02/17 11:21 Urine Color YELLOW 03/02/17 11:21 Urine Clarity SL. CLOUDY (CLEAR) 03/02/17 11:21 Urine pH 7.0 03/02/17 11:21 Ur Specific [place] 1.015 (1.005-1.030) 03/02/17 11:21 Urine Protein NEGATIVE mg/dL (NEGATIVE) 03/02/17 11:21 Urine Glucose (UA) NEGATIVE mg/dL (NEGATIVE) 03/02/17 11:21 Urine Ketones TRACE mg/dL (NEGATIVE) 03/02/17 11:21 Urine Blood NEGATIVE (NEGATIVE) 03/02/17 11:21 Urine Nitrate NEGATIVE (NEGATIVE) 03/02/17 11:21 Urine Bilirubin NEGATIVE (NEGATIVE) 03/02/17 11:21 Urine Urobilinogen 1.0 E.U./dL (0.2 - 1.0) 03/02/17 11:21 Ur Leukocyte Esterase NEGATIVE (NEGATIVE) 03/02/17 11:21 Urine RBC NONE SEEN /hpf (0-5) 03/02/17 11:21 Urine WBC 2-5 /hpf (0-5) H 03/02/17 11:21 Ur Epithelial Cells OCCASIONAL /lpf (FEW) 03/02/17 11:21 Amorphous Sediment MODERATE PHOSPHATES (NONE SEEN) 03/02/17 11:21 Urine Bacteria FEW /hpf (NONE SEEN) 03/02/17 11:21 - Physical Exam Vitals and I&O: Vital Signs Temp 97.4 F 03/04/17 12:05 Pulse 83 03/04/17 12:05 Resp 20 03/04/17 12:05 BP 107/53 03/04/17 12:05 Pulse Ox 99 03/04/17 12:05 Intake & Output 03/03/17 03/04/17 03/04/17 18:59 06:59 18:59 Intake Total 480 100 Balance 480 100 Weight (lbs) 66.678 kg 70.307 kg Intake: Oral 480 100 Other: # Voids 5 2 Stool Characteristics Soft Formed Active Medications: Current Medications Acetaminophen (Tylenol) 650 mg PO Q4HR PRN PRN Reason: Pain or Fever >101 Stop: 05/01/17 17:00 Al Hydrox/Mg Hydrox/Simethicone (Maalox) 30 ml PO Q4HR PRN PRN Reason: GI DISTRESS Stop: 05/01/17 17:00 Albuterol Sulfate (Albuterol 2.5mg/3ml Neb Ud) 2.5 mg HHN QIDRT [facility] Stop: 05/01/17 18:59 Last Admin: 03/04/17 11:15 Dose: 2.5 mg Amlodipine Besylate (Norvasc) 5 mg PO DAILY [facility] Stop: 05/02/17 08:59 Last Admin: 03/04/17 09:40 Dose: Not Given Ascorbic Acid (Vitamin C) 500 mg PO DAILY [facility] Stop: 05/02/17 08:59 Last Admin: 03/04/17 09:39 Dose: 500 mg Bisacodyl (Dulcolax 10 Mg Supp) 10 mg RC DAILY PRN PRN Reason: Constipation Stop: 05/01/17 17:00 Divalproex Sodium (Depakote Dr) 500 mg PO BID [facility] PRN Reason: Protocol Stop: 05/02/17 08:59 Last Admin: 03/04/17 09:39 Dose: 500 mg Docusate Sodium (Colace) 250 mg PO HS [facility] Stop: 05/01/17 20:59 Last Admin: 03/03/17 22:01 Dose: 250 mg Donepezil HCl (Aricept) 5 mg PO DAILY [facility] Stop: 05/03/17 08:59 Last Admin: 03/04/17 09:39 Dose: 5 mg Ferrous Sulfate (Iron) 325 mg PO DAILY [facility] Stop: 05/02/17 08:59 Last Admin: 03/04/17 09:39 Dose: 325 mg Heparin Sodium (Porcine) (Heparin) 5,000 units SUBQ Q12H [facility] Stop: 05/02/17 20:59 Last Admin: 03/04/17 10:07 Dose: 5,000 units Dextrose/Sodium Chloride (D5-0.45ns) 1,000 mls @ 80 mls/hr IV .[id number] [facility] Stop: 05/01/17 17:14 Ipratropium [place] (Atrovent Neb 0.5mg/2.5ml) 0.5 mg IH QIDRT [facility] Stop: 05/01/17 18:59 Last Admin: 03/04/17 11:15 Dose: 0.5 mg Lactulose (Cephulac) 20 gm PO DAILY [facility] Stop: 05/02/17 08:59 Last Admin: 03/04/17 09:39 Dose: 20 gm Lorazepam (Ativan) 0.5 mg PO Q6HR PRN; Protocol PRN Reason: Anxiety Stop: 05/01/17 17:00 Magnesium Hydroxide (Milk Of Magnesia) 30 ml PO DAILY PRN PRN Reason: Constipation Stop: 05/01/17 17:00 Megestrol Acetate (Megace) 400 mg PO BID [facility] PRN Reason: Protocol Stop: 05/02/17 08:59 Last Admin: 03/04/17 09:38 Dose: 400 mg Mirtazapine (Remeron) 7.5 mg PO HS [facility] PRN Reason: Protocol Stop: 05/02/17 20:59 Miscellaneous (Vte Chemical Prophylaxis Screen/ Admission) 1 ea PRN PRN PRN Reason: PROTOCOL Stop: 05/02/17 17:06 Risperidone (Risperdal) 0.5 mg PO DAILY [facility] PRN Reason: Protocol Stop: 05/02/17 08:59 Last Admin: 03/04/17 09:39 Dose: 0.5 mg Tamsulosin HCl (Flomax) 0.4 mg PO HS [facility] Stop: 05/01/17 20:59 Last Admin: 03/03/17 22:01 Dose: 0.4 mg Assessment/Plan - Problem List Patient Problems: All Active Problems Anxiety (Active) F41.9
--- NOTE | 2017-03-04 15:12 | Internal Medicine Prog Note ---
Internal Medicine Subjective - Subjective Patient seen and examined:: with staff, chart reviewed Patient is:: awake, verbal, interactive Patient Complaints of:: congestion, bloated Per staff patient has:: no adverse event, no episodes of fall, poor appetite, tolerating meds Internal Medicine Objective - Results Result Diagrams: 03/04/17 05:50 03/04/17 05:50 Recent Labs: Laboratory Last Values WBC 11.0 Th/cmm (4.8-10.8) H 03/04/17 05:50 RBC 3.81 Mil/cmm (3.80-5.80) 03/04/17 05:50 Hgb 10.8 gm/dL (12.6-17.4) L 03/04/17 05:50 Hct 32.5 % (39.0-49.0) L D 03/04/17 05:50 MCV 85.3 fl (80-99) 03/04/17 05:50 MCH 28.4 pg (27.0-31.0) 03/04/17 05:50 MCHC Differential 33.2 pg (28.0-36.0) 03/04/17 05:50 RDW 15.2 % (11.5-20.0) 03/04/17 05:50 Plt Count 393 Th/cmm (150-400) 03/04/17 05:50 MPV 7.4 fl 03/04/17 05:50 Neutrophils % 64.1 % (40.0-80.0) 03/02/17 11:23 Band Neutrophils % 2 % (0-10) 03/04/17 05:50 Lymphocytes % 13.7 % (20.0-50.0) L 03/02/17 11:23 Monocytes % 6.2 % (2.0-10.0) 03/02/17 11:23 Eosinophils % 14.9 % (0.0-5.0) H 03/02/17 11:23 Basophils % 1.1 % (0.0-2.0) 03/02/17 11:23 Neutrophils (Manual) 60 % (40-80) 03/04/17 05:50 Lymphocytes 18 % (20-50) L 03/04/17 05:50 Eosinophils 20 % (0-5) H 03/04/17 05:50 Platelet Estimate ADEQUATE (NORMAL) 03/04/17 05:50 Sodium 134 mEq/L (136-145) L 03/04/17 05:50 Potassium 3.9 mEq/L (3.5-5.1) 03/04/17 05:50 Chloride 102 mEq/L (98-107) 03/04/17 05:50 Carbon Dioxide 32.0 mEq/L (21.0-31.0) H 03/04/17 05:50 Anion Gap 3.9 (7.0-16.0) L 03/04/17 05:50 BUN 12 mg/dL (7-25) 03/04/17 05:50 Creatinine 0.8 mg/dL (0.7-1.3) 03/04/17 05:50 Est GFR ( Amer) TNP 03/04/17 05:50 Est GFR (Non-Af Amer) TN 03/04/17 05:50 BUN/Creatinine Ratio 15.0 03/04/17 05:50 Glucose 93 mg/dL (70-105) 03/04/17 05:50 Calcium 10.0 mg/dL (8.6-10.3) 03/04/17 05:50 Total Bilirubin 0.3 mg/dL (0.3-1.0) 03/02/17 11:23 AST 12 U/L (13-39) L 03/02/17 11:23 ALT 3 U/L (7-52) L 03/02/17 11:23 Alkaline Phosphatase 95 U/L (34-104) 03/02/17 11:23 Total Protein 8.4 gm/dL (6.0-8.3) H 03/02/17 11:23 Albumin 3.2 gm/dL (4.2-5.5) L 03/02/17 11:23 Globulin 5.2 gm/dL 03/02/17 11:23 Albumin/Globulin Ratio 0.6 (1.0-1.8) L 03/02/17 11:23 Lipase 14 U/L (11-82) 03/02/17 11:23 Urine Source RANDOM 03/02/17 11:21 Urine Color YELLOW 03/02/17 11:21 Urine Clarity SL. CLOUDY (CLEAR) 03/02/17 11:21 Urine pH 7.0 03/02/17 11:21 Ur Specific [place] 1.015 (1.005-1.030) 03/02/17 11:21 Urine Protein NEGATIVE mg/dL (NEGATIVE) 03/02/17 11:21 Urine Glucose (UA) NEGATIVE mg/dL (NEGATIVE) 03/02/17 11:21 Urine Ketones TRACE mg/dL (NEGATIVE) 03/02/17 11:21 Urine Blood NEGATIVE (NEGATIVE) 03/02/17 11:21 Urine Nitrate NEGATIVE (NEGATIVE) 03/02/17 11:21 Urine Bilirubin NEGATIVE (NEGATIVE) 03/02/17 11:21 Urine Urobilinogen 1.0 E.U./dL (0.2 - 1.0) 03/02/17 11:21 Ur Leukocyte Esterase NEGATIVE (NEGATIVE) 03/02/17 11:21 Urine RBC NONE SEEN /hpf (0-5) 03/02/17 11:21 Urine WBC 2-5 /hpf (0-5) H 03/02/17 11:21 Ur Epithelial Cells OCCASIONAL /lpf (FEW) 03/02/17 11:21 Amorphous Sediment MODERATE PHOSPHATES (NONE SEEN) 03/02/17 11:21 Urine Bacteria FEW /hpf (NONE SEEN) 03/02/17 11:21 - Physical Exam Vitals and I&O: Vital Signs Temp 97.4 F 03/04/17 12:05 Pulse 83 03/04/17 12:05 Resp 20 03/04/17 12:05 BP 107/53 03/04/17 12:05 Pulse Ox 99 03/04/17 12:05 Intake & Output 03/03/17 03/04/17 03/04/17 18:59 06:59 18:59 Intake Total 480 100 Balance 480 100 Weight (lbs) 66.678 kg 70.307 kg Intake: Oral 480 100 Other: # Voids 5 2 Stool Characteristics Soft Formed Active Medications: Current Medications Acetaminophen (Tylenol) 650 mg PO Q4HR PRN PRN Reason: Pain or Fever >101 Stop: 05/01/17 17:00 Al Hydrox/Mg Hydrox/Simethicone (Maalox) 30 ml PO Q4HR PRN PRN Reason: GI DISTRESS Stop: 05/01/17 17:00 Albuterol Sulfate (Albuterol 2.5mg/3ml Neb Ud) 2.5 mg HHN QIDRT [facility] Stop: 05/01/17 18:59 Last Admin: 03/04/17 11:15 Dose: 2.5 mg Amlodipine Besylate (Norvasc) 5 mg PO DAILY [facility] Stop: 05/02/17 08:59 Last Admin: 03/04/17 09:40 Dose: Not Given Ascorbic Acid (Vitamin C) 500 mg PO DAILY [facility] Stop: 05/02/17 08:59 Last Admin: 03/04/17 09:39 Dose: 500 mg Bisacodyl (Dulcolax 10 Mg Supp) 10 mg RC DAILY PRN PRN Reason: Constipation Stop: 05/01/17 17:00 Divalproex Sodium (Depakote Dr) 500 mg PO BID [facility] PRN Reason: Protocol Stop: 05/02/17 08:59 Last Admin: 03/04/17 09:39 Dose: 500 mg Docusate Sodium (Colace) 250 mg PO HS [facility] Stop: 05/01/17 20:59 Last Admin: 03/03/17 22:01 Dose: 250 mg Donepezil HCl (Aricept) 5 mg PO DAILY [facility] Stop: 05/03/17 08:59 Last Admin: 03/04/17 09:39 Dose: 5 mg Ferrous Sulfate (Iron) 325 mg PO DAILY [facility] Stop: 05/02/17 08:59 Last Admin: 03/04/17 09:39 Dose: 325 mg Heparin Sodium (Porcine) (Heparin) 5,000 units SUBQ Q12H [facility] Stop: 05/02/17 20:59 Last Admin: 03/04/17 10:07 Dose: 5,000 units Dextrose/Sodium Chloride (D5-0.45ns) 1,000 mls @ 80 mls/hr IV .[id number] [facility] Stop: 05/01/17 17:14 Ipratropium [place] (Atrovent Neb 0.5mg/2.5ml) 0.5 mg IH QIDRT [facility] Stop: 05/01/17 18:59 Last Admin: 03/04/17 11:15 Dose: 0.5 mg Lactulose (Cephulac) 20 gm PO DAILY [facility] Stop: 05/02/17 08:59 Last Admin: 03/04/17 09:39 Dose: 20 gm Lorazepam (Ativan) 0.5 mg PO Q6HR PRN; Protocol PRN Reason: Anxiety Stop: 05/01/17 17:00 Magnesium Hydroxide (Milk Of Magnesia) 30 ml PO DAILY PRN PRN Reason: Constipation Stop: 05/01/17 17:00 Megestrol Acetate (Megace) 400 mg PO BID [facility] PRN Reason: Protocol Stop: 05/02/17 08:59 Last Admin: 03/04/17 09:38 Dose: 400 mg Mirtazapine (Remeron) 7.5 mg PO HS [facility] PRN Reason: Protocol Stop: 05/02/17 20:59 Miscellaneous (Vte Chemical Prophylaxis Screen/ Admission) 1 ea [facility] PRN PRN PRN Reason: PROTOCOL Stop: 05/02/17 17:06 Risperidone (Risperdal) 0.5 mg PO DAILY [facility] PRN Reason: Protocol Stop: 05/02/17 08:59 Last Admin: 03/04/17 09:39 Dose: 0.5 mg Tamsulosin HCl (Flomax) 0.4 mg PO HS [facility] Stop: 05/01/17 20:59 Last Admin: 03/03/17 22:01 Dose: 0.4 mg General: demented, NAD HEENT: NC/AT, PERRLA Neck: Supple Lungs: CTAB Cardiovascular: RRR, Normal S1, Normal S2, without murmur Abdomen: soft, tender, non-distended, positive bowel sound Extremities: clear Neurological: no change, alert Internal Medicine Assmt/Plan - Assessment Assessment: abd pain anorexia hiatal hernia abd hernia wt loss, ftt htn asthma copd gerd oa dementia gallstone anemia bph hyponatremia - Plan Plan: cont on iv fluid ppi will review ct result will refer to gi and surger see orders for sx per dr larsen
[2017-03-04] MEDS: D5-0.45NS 1,000 ML IV SCH (16:32)
[2017-03-05] MEDS: D5-0.45NS 1,000 ML IV SCH ×2 (02:28→02:36)
[2017-03-05] MEDS: Albuterol Nebulizer 2.5mg/3mL HHN SCH ×3 (07:37→15:27)
[2017-03-05] MEDS: Ipratropium Neb 0.5 mg/2.5 mL UD IH SCH ×3 (07:38→15:27)
[2017-03-05] MEDS: Lactulose 10 Gm/15 mL 30mL UDC PO SCH (09:09)
[2017-03-05] MEDS: Ferrous Sulfate 325 MG TAB PO SCH (09:09)
--- NOTE | 2017-03-05 16:03 | Internal Medicine Prog Note ---
Internal Medicine Subjective - Subjective Patient seen and examined:: with staff, chart reviewed Patient is:: awake, verbal, interactive Patient Complaints of:: congestion, bloated Per staff patient has:: no adverse event, no episodes of fall, poor appetite, tolerating meds Internal Medicine Objective - Results Result Diagrams: 03/04/17 05:50 03/04/17 05:50 Recent Labs: Laboratory Last Values WBC 11.0 Th/cmm (4.8-10.8) H 03/04/17 05:50 RBC 3.81 Mil/cmm (3.80-5.80) 03/04/17 05:50 Hgb 10.8 gm/dL (12.6-17.4) L 03/04/17 05:50 Hct 32.5 % (39.0-49.0) L D 03/04/17 05:50 MCV 85.3 fl (80-99) 03/04/17 05:50 MCH 28.4 pg (27.0-31.0) 03/04/17 05:50 MCHC Differential 33.2 pg (28.0-36.0) 03/04/17 05:50 RDW 15.2 % (11.5-20.0) 03/04/17 05:50 Plt Count 393 Th/cmm (150-400) 03/04/17 05:50 MPV 7.4 fl 03/04/17 05:50 Neutrophils % 64.1 % (40.0-80.0) 03/02/17 11:23 Band Neutrophils % 2 % (0-10) 03/04/17 05:50 Lymphocytes % 13.7 % (20.0-50.0) L 03/02/17 11:23 Monocytes % 6.2 % (2.0-10.0) 03/02/17 11:23 Eosinophils % 14.9 % (0.0-5.0) H 03/02/17 11:23 Basophils % 1.1 % (0.0-2.0) 03/02/17 11:23 Neutrophils (Manual) 60 % (40-80) 03/04/17 05:50 Lymphocytes 18 % (20-50) L 03/04/17 05:50 Eosinophils 20 % (0-5) H 03/04/17 05:50 Platelet Estimate ADEQUATE (NORMAL) 03/04/17 05:50 Sodium 134 mEq/L (136-145) L 03/04/17 05:50 Potassium 3.9 mEq/L (3.5-5.1) 03/04/17 05:50 Chloride 102 mEq/L (98-107) 03/04/17 05:50 Carbon Dioxide 32.0 mEq/L (21.0-31.0) H 03/04/17 05:50 Anion Gap 3.9 (7.0-16.0) L 03/04/17 05:50 BUN 12 mg/dL (7-25) 03/04/17 05:50 Creatinine 0.8 mg/dL (0.7-1.3) 03/04/17 05:50 Est GFR ( Amer) TNP 03/04/17 05:50 Est GFR (Non-Af Amer) [place] 03/04/17 05:50 BUN/Creatinine Ratio 15.0 03/04/17 05:50 Glucose 93 mg/dL (70-105) 03/04/17 05:50 Calcium 10.0 mg/dL (8.6-10.3) 03/04/17 05:50 Total Bilirubin 0.3 mg/dL (0.3-1.0) 03/02/17 11:23 AST 12 U/L (13-39) L 03/02/17 11:23 ALT 3 U/L (7-52) L 03/02/17 11:23 Alkaline Phosphatase 95 U/L (34-104) 03/02/17 11:23 Total Protein 8.4 gm/dL (6.0-8.3) H 03/02/17 11:23 Albumin 3.2 gm/dL (4.2-5.5) L 03/02/17 11:23 Globulin 5.2 gm/dL 03/02/17 11:23 Albumin/Globulin Ratio 0.6 (1.0-1.8) L 03/02/17 11:23 Lipase 14 U/L (11-82) 03/02/17 11:23 Urine Source RANDOM 03/02/17 11:21 Urine Color YELLOW 03/02/17 11:21 Urine Clarity SL. CLOUDY (CLEAR) 03/02/17 11:21 Urine pH 7.0 03/02/17 11:21 Ur Specific [place] 1.015 (1.005-1.030) 03/02/17 11:21 Urine Protein NEGATIVE mg/dL (NEGATIVE) 03/02/17 11:21 Urine Glucose (UA) NEGATIVE mg/dL (NEGATIVE) 03/02/17 11:21 Urine Ketones TRACE mg/dL (NEGATIVE) 03/02/17 11:21 Urine Blood NEGATIVE (NEGATIVE) 03/02/17 11:21 Urine Nitrate NEGATIVE (NEGATIVE) 03/02/17 11:21 Urine Bilirubin NEGATIVE (NEGATIVE) 03/02/17 11:21 Urine Urobilinogen 1.0 E.U./dL (0.2 - 1.0) 03/02/17 11:21 Ur Leukocyte Esterase NEGATIVE (NEGATIVE) 03/02/17 11:21 Urine RBC NONE SEEN /hpf (0-5) 03/02/17 11:21 Urine WBC 2-5 /hpf (0-5) H 03/02/17 11:21 Ur Epithelial Cells OCCASIONAL /lpf (FEW) 03/02/17 11:21 Amorphous Sediment MODERATE PHOSPHATES (NONE SEEN) 03/02/17 11:21 Urine Bacteria FEW /hpf (NONE SEEN) 03/02/17 11:21 - Physical Exam Vitals and I&O: Vital Signs Temp 97.9 F 03/05/17 12:00 Pulse 73 03/05/17 15:27 Resp 18 03/05/17 15:27 BP 100/65 03/05/17 12:00 Pulse Ox 93 03/05/17 15:27 Intake & Output 03/04/17 03/05/17 03/05/17 18:59 06:59 18:59 Intake Total 1550 905.333 Output Total 1 Balance 1550 904.333 Weight (lbs) 70.307 kg 69.4 kg Intake: Intake, IV Amount 805.333 D5-0.45NS 1,000 ml @ 80 805.333 mls/hr IV .[id number] [facility] Rx #:[id number] Oral 1550 100 Output: Stool 1 Other: # Voids 4 1 # Bowel Movements 1 Stool Characteristics Soft Formed Active Medications: Current Medications Acetaminophen (Tylenol) 650 mg PO Q4HR PRN PRN Reason: Pain or Fever >101 Stop: 05/01/17 17:00 Al Hydrox/Mg Hydrox/Simethicone (Maalox) 30 ml PO Q4HR PRN PRN Reason: GI DISTRESS Stop: 05/01/17 17:00 Albuterol Sulfate (Albuterol 2.5mg/3ml Neb Ud) 2.5 mg HHN QIDRT [facility] Stop: 05/01/17 18:59 Last Admin: 03/05/17 15:27 Dose: 2.5 mg Amlodipine Besylate (Norvasc) 5 mg PO DAILY [facility] Stop: 05/02/17 08:59 Last Admin: 03/05/17 08:50 Dose: Not Given Ascorbic Acid (Vitamin C) 500 mg PO DAILY [facility] Stop: 05/02/17 08:59 Last Admin: 03/05/17 09:09 Dose: 500 mg Bisacodyl (Dulcolax 10 Mg Supp) 10 mg RC DAILY PRN PRN Reason: Constipation Stop: 05/01/17 17:00 Divalproex Sodium (Depakote Dr) 500 mg PO BID [facility] PRN Reason: Protocol Stop: 05/02/17 08:59 Last Admin: 03/05/17 09:09 Dose: 500 mg Docusate Sodium (Colace) 250 mg PO HS [facility] Stop: 05/01/17 20:59 Last Admin: 03/04/17 22:15 Dose: 250 mg Donepezil HCl (Aricept) 5 mg PO DAILY [facility] Stop: 05/03/17 08:59 Last Admin: 03/05/17 09:09 Dose: 5 mg Ferrous Sulfate (Iron) 325 mg PO DAILY [facility] Stop: 05/02/17 08:59 Last Admin: 03/05/17 09:09 Dose: 325 mg Heparin Sodium (Porcine) (Heparin) 5,000 units SUBQ Q12H [facility] Stop: 05/02/17 20:59 Last Admin: 03/05/17 09:10 Dose: 5,000 units Dextrose/Sodium Chloride (D5-0.45ns) 1,000 mls @ 80 mls/hr IV .[id number] [facility] Stop: 05/01/17 17:14 Last Admin: 03/05/17 02:36 Dose: 80 mls/hr Ipratropium [place] (Atrovent Neb 0.5mg/2.5ml) 0.5 mg IH QIDRT [facility] Stop: 05/01/17 18:59 Last Admin: 03/05/17 15:27 Dose: 0.5 mg Lactulose (Cephulac) 20 gm PO DAILY [facility] Stop: 05/02/17 08:59 Last Admin: 03/05/17 09:09 Dose: 20 gm Lorazepam (Ativan) 0.5 mg PO Q6HR PRN; Protocol PRN Reason: Anxiety Stop: 05/01/17 17:00 Magnesium Hydroxide (Milk Of Magnesia) 30 ml PO DAILY PRN PRN Reason: Constipation Stop: 05/01/17 17:00 Megestrol Acetate (Megace) 400 mg PO BID [facility] PRN Reason: Protocol Stop: 05/02/17 08:59 Last Admin: 03/05/17 09:09 Dose: 400 mg Mirtazapine (Remeron) 7.5 mg PO HS [facility] PRN Reason: Protocol Stop: 05/02/17 20:59 Miscellaneous (Vte Chemical Prophylaxis Screen/ Admission) 1 ea [facility] PRN PRN PRN Reason: PROTOCOL Stop: 05/02/17 17:06 Risperidone (Risperdal) 0.5 mg PO DAILY [facility] PRN Reason: Protocol Stop: 05/02/17 08:59 Last Admin: 03/05/17 09:09 Dose: 0.5 mg Tamsulosin HCl (Flomax) 0.4 mg PO HS [facility] Stop: 05/01/17 20:59 Last Admin: 03/04/17 22:16 Dose: 0.4 mg General: demented, NAD HEENT: NC/AT, PERRLA Neck: Supple Lungs: CTAB Cardiovascular: RRR, Normal S1, Normal S2, without murmur Abdomen: soft, tender, non-distended, positive bowel sound Extremities: clear Neurological: no change, alert Internal Medicine Assmt/Plan - Assessment Assessment: abd pain anorexia hiatal hernia abd hernia wt loss, ftt htn asthma copd gerd oa dementia gallstone anemia bph hyponatremia - Plan Plan: cont on iv fluid ppi will review ct result will refer to gi and surger see orders for sx per dr larsen
--- NOTE | 2017-03-06 01:05 | Admit Criteria Form ---
Admit Criteria Forms - Admit Criteria Diagnosis: ABDOMINAL PAIN Clinical Indications for Admission to Inpatient Care (Place 'X' for any and all applicable criteria): Admission is indicated for ANY ONE of the following(1)(2)(3)(4)(5): [ X]I. Inpatient admission required rather than observation care (Also use Abdominal Pain: Observation Care, as appropriate) because of ANY ONE of the following: [ ]a) Severe pain requiring acute inpatient management [X ]b) Identification of etiology/finding that requires inpatient care (eg, aortic dissection, free air) [ ]c) Absent bowel sounds with complete ileus(6) [ ]d) Suspected toxic megacolon [ ]e) Severe electrolyte abnormalities requiring inpatient care [ ]f) High fever or infection requiring inpatient admission as indicated by ANY ONE of following(7)(8): [ ] i) Appropriate outpatient or observational care antimicrobial treatment unavailable, not effective, or not feasible [ ] ii) Documented bacteremia [ ] iii) Temperature > 104.9 degrees F (oral) [ ] iv) T >103.1 F (oral) or < 96.8 F(rectal) that does not respond to all emergency treatment measures [ ]g) Signs of intestinal obstruction [B] [ ]h) Hemodynamic instability [ ]i) IV fluid to replace significant ongoing losses (greater than 3 L/m2 per day) (12)(13) [ ]j) Percutaneous or open drainage (eg, abscess, biliary tract ) procedures [ ]k) Parenteral nutrition regimen that must be implemented on inpatient basis [ ]l) Other condition,treatment or monitoring requiring inpatient admission. [ ]II. Peritoneal signs present [ ]III. Surgery needed that cannot be performed on an ambulatory basis. [ ]IV. Evaluation requires patient to not eat or drink for extended period ( eg, more than 24 hours). [ ]V. Contraindications and/or Inappropriate clinical situations for Observational Care in patients with abdominal pain, when ANY ONE of the following is required: [ ]a) Thorough evaluation is required to prevent catastrophic events due to delays in diagnosing (e.g.Mesenteric ischemia) 1,3 [ ]b) Patient with severe pathology or with chronic symptoms unlikely to improve in the ED stay (3) [X]. General contraindications and/or Inappropriate clinical situations for Observational Care in patients with abdominal pain, when ANY ONE of the following is required: [X ]a) Prediction of prolongation of LOS based on ANY ONE of the following may be considered as a contraindication for observational care 2, 3, 4, 5, 6, 7, 8, 9, 10, 11 [ X]i) Age > 65 yrs. [ ]ii) Patient arriving by ambulance [ ]iii) Patient with high acuity [ ]iv) Patient requiring vital sign monitoring [ ]v) Patient on IV medication [ ]b) Systolic blood pressures 180mmHg 3,12 [ ]c) Patient with altered mental status including delirium and other alteration of consciousness, (3) [ ]d) Patient whose discharge disposition will be to a [facility] home or rehabilitation home should not be managed in Emergency Department Observation Unit. CMS rule requires 3 days hospital stay before such placement.3,13 [ ]e) Patient with failure to thrive due to broad array of etiologies 3,16,17 [ ]f) Inability to ambulate 3,14 Extended stay beyond goal length of stay may be needed for(2)(3): [ ]a) Persistent abdominal pain with suspected intra-abdominal process [ ]b) Diagnosed condition requiring continued stay (e.g., pancreatitis, complicated diverticulitis) [ ]c) Surgery (e.g., colectomy) The original [facility] content created by [employer] has been revised. The portions of the content which have been revised are identified through the use of italic text or in bold, and [facility] has neither reviewed nor approved the modified material.All other unmodified content is copyright [facility]. Please see references footnoted in the original [facility] edition 2016 Admit Criteria Met?: Yes
[2017-03-06 07:03] LABS: % BASOPHILS 0.2 % (0.0-2.0); % EOSINOPHILS 10.8 % (0.0-5.0); % LYMPHOCYTES 9.8 % (20.0-50.0); % MONOCYTES 5.6 % (2.0-10.0); % NEUTROPHILS 73.6 % (40.0-80.0); HEMATOCRIT 32.8 % (39.0-49.0); HEMOGLOBIN 10.9 gm/dL (12.6-17.4); MEAN CELL VOLUME 84.8 fl (80-99); MEAN CORPUSCULAR HEMOGLOBIN 28.2 pg (27.0-31.0); MEAN CORPUSCULAR HGB CONC 33.3 pg (28.0-36.0); MEAN PLATELET VOLUME 7.2 fl; NEUTROPHILE ABSOLUTE 8.2 Th/cmm (1.8-8.0); PLATELET COUNT 359 Th/cmm (150-400); RED BLOOD COUNT 3.87 Mil/cmm (3.80-5.80); RED CELL DISTRIBUTION WIDTH 14.4 % (11.5-20.0); WHITE BLOOD COUNT 11.1 Th/cmm (4.8-10.8)
[2017-03-06 07:17] LABS: INR 0.98 (0.5-1.4); PROTHROMBIN TIME (TEST) 10.2 SECONDS (9.5-11.5)
[2017-03-06] MEDS: Albuterol Nebulizer 2.5mg/3mL HHN SCH ×4 (07:18→19:11)
[2017-03-06] MEDS: Ipratropium Neb 0.5 mg/2.5 mL UD IH SCH ×4 (07:18→19:11)
[2017-03-06 07:36] LABS: ANION GAP 6.5 (7.0-16.0); BUN - UREA NITROGEN 11 mg/dL (7-25); BUN/CREATININE RATIO 13.8; CALCIUM SERUM 10.5 mg/dL (8.6-10.3); CARBON DIOXIDE 29.5 mEq/L (21.0-31.0); CHLORIDE 103 mEq/L (98-107); CREATININE - SERUM 0.8 mg/dL (0.7-1.3); GLUCOSE 87 mg/dL (70-105); MAGNESIUM 1.8 mg/dL (1.9-2.7); SODIUM SERUM 135 mEq/L (136-145)
[2017-03-06] MEDS: Lactulose 10 Gm/15 mL 30mL UDC PO SCH (09:02)
[2017-03-06] MEDS: Ferrous Sulfate 325 MG TAB PO SCH (09:02)
--- NOTE | 2017-03-06 12:02 | Internal Medicine Prog Note ---
Internal Medicine Subjective - Subjective Service Date: 03/06/17 Patient is:: awake, verbal, interactive Patient Complaints of:: congestion, bloated Per staff patient has:: no adverse event, no episodes of fall, poor appetite, tolerating meds Internal Medicine Objective - Results Result Diagrams: 03/06/17 06:46 03/06/17 06:46 Recent Labs: Laboratory Last Values WBC 11.1 Th/cmm (4.8-10.8) H 03/06/17 06:46 RBC 3.87 Mil/cmm (3.80-5.80) 03/06/17 06:46 Hgb 10.9 gm/dL (12.6-17.4) L 03/06/17 06:46 Hct 32.8 % (39.0-49.0) L 03/06/17 06:46 MCV 84.8 fl (80-99) 03/06/17 06:46 MCH 28.2 pg (27.0-31.0) 03/06/17 06:46 MCHC Differential 33.3 pg (28.0-36.0) 03/06/17 06:46 RDW 14.4 % (11.5-20.0) 03/06/17 06:46 Plt Count 359 Th/cmm (150-400) 03/06/17 06:46 MPV 7.2 fl 03/06/17 06:46 Neutrophils % 73.6 % (40.0-80.0) 03/06/17 06:46 Band Neutrophils % 2 % (0-10) 03/04/17 05:50 Lymphocytes % 9.8 % (20.0-50.0) L 03/06/17 06:46 Monocytes % 5.6 % (2.0-10.0) 03/06/17 06:46 Eosinophils % 10.8 % (0.0-5.0) H 03/06/17 06:46 Basophils % 0.2 % (0.0-2.0) 03/06/17 06:46 Neutrophils (Manual) 60 % (40-80) 03/04/17 05:50 Lymphocytes 18 % (20-50) L 03/04/17 05:50 Eosinophils 20 % (0-5) H 03/04/17 05:50 Platelet Estimate ADEQUATE (NORMAL) 03/04/17 05:50 PT 10.2 SECONDS (9.5-11.5) 03/06/17 06:46 INR 0.98 (0.5-1.4) 03/06/17 06:46 PTT (Actin FS) 27.4 SECONDS (26.0-38.0) 03/06/17 06:46 Sodium 135 mEq/L (136-145) L 03/06/17 06:46 Potassium 4.0 mEq/L (3.5-5.1) 03/06/17 06:46 Chloride 103 mEq/L (98-107) 03/06/17 06:46 Carbon Dioxide 29.5 mEq/L (21.0-31.0) 03/06/17 06:46 Anion Gap 6.5 (7.0-16.0) L 03/06/17 06:46 BUN 11 mg/dL (7-25) 03/06/17 06:46 Creatinine 0.8 mg/dL (0.7-1.3) 03/06/17 06:46 Est GFR ( Amer) TNP 03/06/17 06:46 Est GFR (Non-Af Amer) TNP 03/06/17 06:46 BUN/Creatinine Ratio 13.8 03/06/17 06:46 Glucose 87 mg/dL (70-105) 03/06/17 06:46 Calcium 10.5 mg/dL (8.6-10.3) H 03/06/17 06:46 Magnesium 1.8 mg/dL (1.9-2.7) L 03/06/17 06:46 Total Bilirubin 0.3 mg/dL (0.3-1.0) 03/02/17 11:23 AST 12 U/L (13-39) L 03/02/17 11:23 ALT 3 U/L (7-52) L 03/02/17 11:23 Alkaline Phosphatase 95 U/L (34-104) 03/02/17 11:23 Ammonia 55 umol/L (16-53) H 03/06/17 06:46 Total Protein 8.4 gm/dL (6.0-8.3) H 03/02/17 11:23 Albumin 3.2 gm/dL (4.2-5.5) L 03/02/17 11:23 Globulin 5.2 gm/dL 03/02/17 11:23 Albumin/Globulin Ratio 0.6 (1.0-1.8) L 03/02/17 11:23 Lipase 14 U/L (11-82) 03/02/17 11:23 Urine Source RANDOM 03/02/17 11:21 Urine Color YELLOW 03/02/17 11:21 Urine Clarity SL. CLOUDY (CLEAR) 03/02/17 11:21 Urine pH 7.0 03/02/17 11:21 Ur Specific [place] 1.015 (1.005-1.030) 03/02/17 11:21 Urine Protein NEGATIVE mg/dL (NEGATIVE) 03/02/17 11:21 Urine Glucose (UA) NEGATIVE mg/dL (NEGATIVE) 03/02/17 11:21 Urine Ketones TRACE mg/dL (NEGATIVE) 03/02/17 11:21 Urine Blood NEGATIVE (NEGATIVE) 03/02/17 11:21 Urine Nitrate NEGATIVE (NEGATIVE) 03/02/17 11:21 Urine Bilirubin NEGATIVE (NEGATIVE) 03/02/17 11:21 Urine Urobilinogen 1.0 E.U./dL (0.2 - 1.0) 03/02/17 11:21 Ur Leukocyte Esterase NEGATIVE (NEGATIVE) 03/02/17 11:21 Urine RBC NONE SEEN /hpf (0-5) 03/02/17 11:21 Urine WBC 2-5 /hpf (0-5) H 03/02/17 11:21 Ur Epithelial Cells OCCASIONAL /lpf (FEW) 03/02/17 11:21 Amorphous Sediment MODERATE PHOSPHATES (NONE SEEN) 03/02/17 11:21 Urine Bacteria FEW /hpf (NONE SEEN) 03/02/17 11:21 - Physical Exam Vitals and I&O: Vital Signs Temp 98.9 F 03/06/17 04:00 Pulse 75 03/06/17 11:43 Resp 20 03/06/17 11:43 BP 107/59 03/06/17 04:00 Pulse Ox 94 03/06/17 11:43 Intake & Output 03/05/17 03/06/17 03/06/17 18:59 06:59 18:59 Intake Total 500 120 Balance 500 120 Weight (lbs) 153 lb 153 lb Intake: Oral 500 120 Other: # Voids 4 1 Active Medications: Current Medications Acetaminophen (Tylenol) 650 mg PO Q4HR PRN PRN Reason: Pain or Fever >101 Stop: 05/01/17 17:00 Al Hydrox/Mg Hydrox/Simethicone (Maalox) 30 ml PO Q4HR PRN PRN Reason: GI DISTRESS Stop: 05/01/17 17:00 Albuterol Sulfate (Albuterol 2.5mg/3ml Neb Ud) 2.5 mg HHN QIDRT [facility] Stop: 05/01/17 18:59 Last Admin: 03/06/17 11:39 Dose: Not Given Amlodipine Besylate (Norvasc) 5 mg PO DAILY [facility] Stop: 05/02/17 08:59 Last Admin: 03/06/17 09:02 Dose: Not Given Ascorbic Acid (Vitamin C) 500 mg PO DAILY [facility] Stop: 05/02/17 08:59 Last Admin: 03/06/17 09:02 Dose: Not Given Bisacodyl (Dulcolax 10 Mg Supp) 10 mg RC DAILY PRN PRN Reason: Constipation Stop: 05/01/17 17:00 Divalproex Sodium (Depakote Dr) 500 mg PO BID JENN[facility]ER PRN Reason: Protocol Stop: 05/02/17 08:59 Last Admin: 03/06/17 09:02 Dose: Not Given Docusate Sodium (Colace) 250 mg PO HS [facility] Stop: 05/01/17 20:59 Last Admin: 03/05/17 20:27 Dose: 250 mg Donepezil HCl (Aricept) 5 mg PO DAILY [facility] Stop: 05/03/17 08:59 Last Admin: 03/06/17 09:02 Dose: Not Given Ferrous Sulfate (Iron) 325 mg PO DAILY [facility] Stop: 05/02/17 08:59 Last Admin: 03/06/17 09:02 Dose: Not Given Heparin Sodium (Porcine) (Heparin) 5,000 units SUBQ Q12H [facility] Stop: 05/02/17 20:59 Last Admin: 03/06/17 09:02 Dose: 5,000 units Dextrose/Sodium Chloride (D5-0.45ns) 1,000 mls @ 80 mls/hr IV .[id number] [facility] Stop: 05/01/17 17:14 Last Admin: 03/05/17 02:36 Dose: 80 mls/hr Ipratropium [place] (Atrovent Neb 0.5mg/2.5ml) 0.5 mg IH QIDRT [facility] Stop: 05/01/17 18:59 Last Admin: 03/06/17 11:39 Dose: Not Given Lactulose (Cephulac) 20 gm PO DAILY [facility] Stop: 05/02/17 08:59 Last Admin: 03/06/17 09:02 Dose: Not Given Lorazepam (Ativan) 0.5 mg PO Q6HR PRN; Protocol PRN Reason: Anxiety Stop: 05/01/17 17:00 Magnesium Hydroxide (Milk Of Magnesia) 30 ml PO DAILY PRN PRN Reason: Constipation Stop: 05/01/17 17:00 Megestrol Acetate (Megace) 400 mg PO BID [facility] PRN Reason: Protocol Stop: 05/02/17 08:59 Last Admin: 03/06/17 09:03 Dose: Not Given Mirtazapine (Remeron) 7.5 mg PO HS [facility] PRN Reason: Protocol Stop: 05/02/17 20:59 Last Admin: 03/05/17 20:27 Dose: 7.5 mg Miscellaneous (Vte Chemical Prophylaxis Screen/ Admission) 1 ea [facility] PRN PRN PRN Reason: PROTOCOL Stop: 05/02/17 17:06 Risperidone (Risperdal) 0.5 mg PO DAILY [facility] PRN Reason: Protocol Stop: 05/02/17 08:59 Last Admin: 03/06/17 09:03 Dose: Not Given Tamsulosin HCl (Flomax) 0.4 mg PO HS [facility] Stop: 05/01/17 20:59 Last Admin: 03/05/17 20:27 Dose: 0.4 mg General: weak, demented, NAD HEENT: NC/AT, PERRLA Neck: Supple Lungs: CTAB Cardiovascular: RRR, Normal S1, Normal S2, without murmur Abdomen: soft, tender, non-distended, positive bowel sound Extremities: clear Neurological: no change, alert Internal Medicine Assmt/Plan - Assessment Assessment: abd pain anorexia hiatal hernia abd hernia wt loss, ftt htn asthma copd gerd oa dementia gallstone anemia bph hyponatremia - Plan Plan: AM LABS BRONCHODILATORS NEEDED SUPPLEMENTAL OXYGEN IVF FOR HYDRATION CONTINUE CURRENT PLAN OF CARE
--- NOTE | 2017-03-06 12:50 | Operative Report ---
GI Operative Report - Gastroenterology Procedure:: egd with biopsy Indication for procedure:: hiatal hernia Procedure consent:: risks benefits alternatives nature and indications were discussed, mentioned bleeding infection perforation, missed lesions and cancer, need for surgery, disability cardiopulmonary arrest. pt family expressed understanding and gave informed consent Anesthesia:: mac Preoperative diagnosis:: hiatal hernia Postoperative diagnosis:: larger hiatal hernia esophageal erosion s/p bx gastritis s/p bx normal duodenum Description of Procedure:: the gastroscope was advanced from the the mouth into the duodenum and then withdrawn Recommendations:: 1.surgery eval 2.await bx 3.protonix
--- NOTE | 2017-03-06 13:42 | General Progress Note ---
Subjective - Review of Systems Service Date: 03/06/17 Events since last encounter: EGD - large hiatal hernia had discussed with sister yesterday and consent was given for surgery. patient is high risk and sister knows this. Will schedule for surgery in AM Objective - Results Result Diagrams: 03/06/17 06:46 03/06/17 06:46 Recent Labs: Laboratory Last Values WBC 11.1 Th/cmm (4.8-10.8) H 03/06/17 06:46 RBC 3.87 Mil/cmm (3.80-5.80) 03/06/17 06:46 Hgb 10.9 gm/dL (12.6-17.4) L 03/06/17 06:46 Hct 32.8 % (39.0-49.0) L 03/06/17 06:46 MCV 84.8 fl (80-99) 03/06/17 06:46 MCH 28.2 pg (27.0-31.0) 03/06/17 06:46 MCHC Differential 33.3 pg (28.0-36.0) 03/06/17 06:46 RDW 14.4 % (11.5-20.0) 03/06/17 06:46 Plt Count 359 Th/cmm (150-400) 03/06/17 06:46 MPV 7.2 fl 03/06/17 06:46 Neutrophils % 73.6 % (40.0-80.0) 03/06/17 06:46 Band Neutrophils % 2 % (0-10) 03/04/17 05:50 Lymphocytes % 9.8 % (20.0-50.0) L 03/06/17 06:46 Monocytes % 5.6 % (2.0-10.0) 03/06/17 06:46 Eosinophils % 10.8 % (0.0-5.0) H 03/06/17 06:46 Basophils % 0.2 % (0.0-2.0) 03/06/17 06:46 Neutrophils (Manual) 60 % (40-80) 03/04/17 05:50 Lymphocytes 18 % (20-50) L 03/04/17 05:50 Eosinophils 20 % (0-5) H 03/04/17 05:50 Platelet Estimate ADEQUATE (NORMAL) 03/04/17 05:50 PT 10.2 SECONDS (9.5-11.5) 03/06/17 06:46 INR 0.98 (0.5-1.4) 03/06/17 06:46 PTT (Actin FS) 27.4 SECONDS (26.0-38.0) 03/06/17 06:46 Sodium 135 mEq/L (136-145) L 03/06/17 06:46 Potassium 4.0 mEq/L (3.5-5.1) 03/06/17 06:46 Chloride 103 mEq/L (98-107) 03/06/17 06:46 Carbon Dioxide 29.5 mEq/L (21.0-31.0) 03/06/17 06:46 Anion Gap 6.5 (7.0-16.0) L 03/06/17 06:46 BUN 11 mg/dL (7-25) 03/06/17 06:46 Creatinine 0.8 mg/dL (0.7-1.3) 03/06/17 06:46 Est GFR ( Amer) TNP 03/06/17 06:46 Est GFR (Non-Af Amer) TNP 03/06/17 06:46 BUN/Creatinine Ratio 13.8 03/06/17 06:46 Glucose 87 mg/dL (70-105) 03/06/17 06:46 Calcium 10.5 mg/dL (8.6-10.3) H 03/06/17 06:46 Magnesium 1.8 mg/dL (1.9-2.7) L 03/06/17 06:46 Total Bilirubin 0.3 mg/dL (0.3-1.0) 03/02/17 11:23 AST 12 U/L (13-39) L 03/02/17 11:23 ALT 3 U/L (7-52) L 03/02/17 11:23 Alkaline Phosphatase 95 U/L (34-104) 03/02/17 11:23 Ammonia 55 umol/L (16-53) H 03/06/17 06:46 Total Protein 8.4 gm/dL (6.0-8.3) H 03/02/17 11:23 Albumin 3.2 gm/dL (4.2-5.5) L 03/02/17 11:23 Globulin 5.2 gm/dL 03/02/17 11:23 Albumin/Globulin Ratio 0.6 (1.0-1.8) L 03/02/17 11:23 Lipase 14 U/L (11-82) 03/02/17 11:23 Urine Source RANDOM 03/02/17 11:21 Urine Color YELLOW 03/02/17 11:21 Urine Clarity SL. CLOUDY (CLEAR) 03/02/17 11:21 Urine pH 7.0 03/02/17 11:21 Ur Specific [place] 1.015 (1.005-1.030) 03/02/17 11:21 Urine Protein NEGATIVE mg/dL (NEGATIVE) 03/02/17 11:21 Urine Glucose (UA) NEGATIVE mg/dL (NEGATIVE) 03/02/17 11:21 Urine Ketones TRACE mg/dL (NEGATIVE) 03/02/17 11:21 Urine Blood NEGATIVE (NEGATIVE) 03/02/17 11:21 Urine Nitrate NEGATIVE (NEGATIVE) 03/02/17 11:21 Urine Bilirubin NEGATIVE (NEGATIVE) 03/02/17 11:21 Urine Urobilinogen 1.0 E.U./dL (0.2 - 1.0) 03/02/17 11:21 Ur Leukocyte Esterase NEGATIVE (NEGATIVE) 03/02/17 11:21 Urine RBC NONE SEEN /hpf (0-5) 03/02/17 11:21 Urine WBC 2-5 /hpf (0-5) H 03/02/17 11:21 Ur Epithelial Cells OCCASIONAL /lpf (FEW) 03/02/17 11:21 Amorphous Sediment MODERATE PHOSPHATES (NONE SEEN) 03/02/17 11:21 Urine Bacteria FEW /hpf (NONE SEEN) 03/02/17 11:21 - Physical Exam Vitals and I&O: Vital Signs Temp 98.9 F 03/06/17 04:00 Pulse 75 03/06/17 11:43 Resp 20 03/06/17 11:43 BP 107/59 03/06/17 04:00 Pulse Ox 94 03/06/17 11:43 Intake & Output 03/05/17 03/06/17 03/06/17 18:59 06:59 18:59 Intake Total 500 120 Balance 500 120 Weight (lbs) 69.4 kg 69.4 kg Intake: Oral 500 120 Other: # Voids 4 1 Active Medications: Current Medications Acetaminophen (Tylenol) 650 mg PO Q4HR PRN PRN Reason: Pain or Fever >101 Stop: 05/01/17 17:00 Al Hydrox/Mg Hydrox/Simethicone (Maalox) 30 ml PO Q4HR PRN PRN Reason: GI DISTRESS Stop: 05/01/17 17:00 Albuterol Sulfate (Albuterol 2.5mg/3ml Neb Ud) 2.5 mg HHN QIDRT [facility] Stop: 05/01/17 18:59 Last Admin: 03/06/17 11:39 Dose: Not Given Amlodipine Besylate (Norvasc) 5 mg PO DAILY [facility] Stop: 05/02/17 08:59 Last Admin: 03/06/17 09:02 Dose: Not Given Ascorbic Acid (Vitamin C) 500 mg PO DAILY [facility] Stop: 05/02/17 08:59 Last Admin: 03/06/17 09:02 Dose: Not Given Bisacodyl (Dulcolax 10 Mg Supp) 10 mg RC DAILY PRN PRN Reason: Constipation Stop: 05/01/17 17:00 Divalproex Sodium (Depakote Dr) 500 mg PO BID [facility] PRN Reason: Protocol Stop: 05/02/17 08:59 Last Admin: 03/06/17 09:02 Dose: Not Given Docusate Sodium (Colace) 250 mg PO HS [facility] Stop: 05/01/17 20:59 Last Admin: 03/05/17 20:27 Dose: 250 mg Donepezil HCl (Aricept) 5 mg PO DAILY [facility] Stop: 05/03/17 08:59 Last Admin: 03/06/17 09:02 Dose: Not Given Ferrous Sulfate (Iron) 325 mg PO DAILY [facility] Stop: 05/02/17 08:59 Last Admin: 03/06/17 09:02 Dose: Not Given Heparin Sodium (Porcine) (Heparin) 5,000 units SUBQ Q12H [facility] Stop: 05/02/17 20:59 Last Admin: 03/06/17 09:02 Dose: 5,000 units Dextrose/Sodium Chloride (D5-0.45ns) 1,000 mls @ 80 mls/hr IV .[id number] [facility] Stop: 05/01/17 17:14 Last Admin: 03/05/17 02:36 Dose: 80 mls/hr Ipratropium [place] (Atrovent Neb 0.5mg/2.5ml) 0.5 mg IH QIDRT [facility] Stop: 05/01/17 18:59 Last Admin: 03/06/17 11:39 Dose: Not Given Lactulose (Cephulac) 20 gm PO DAILY [facility] Stop: 05/02/17 08:59 Last Admin: 03/06/17 09:02 Dose: Not Given Lorazepam (Ativan) 0.5 mg PO Q6HR PRN; Protocol PRN Reason: Anxiety Stop: 05/01/17 17:00 Magnesium Hydroxide (Milk Of Magnesia) 30 ml PO DAILY PRN PRN Reason: Constipation Stop: 05/01/17 17:00 Megestrol Acetate (Megace) 400 mg PO BID [facility]ER PRN Reason: Protocol Stop: 05/02/17 08:59 Last Admin: 03/06/17 09:03 Dose: Not Given Mirtazapine (Remeron) 7.5 mg PO HS [facility]ER PRN Reason: Protocol Stop: 05/02/17 20:59 Last Admin: 03/05/17 20:27 Dose: 7.5 mg Miscellaneous (Vte Chemical Prophylaxis Screen/ Admission) 1 ea [facility] PRN PRN PRN Reason: PROTOCOL Stop: 05/02/17 17:06 Risperidone (Risperdal) 0.5 mg PO DAILY [facility]ER PRN Reason: Protocol Stop: 05/02/17 08:59 Last Admin: 03/06/17 09:03 Dose: Not Given Tamsulosin HCl (Flomax) 0.4 mg PO HS [facility] Stop: 05/01/17 20:59 Last Admin: 03/05/17 20:27 Dose: 0.4 mg Assessment/Plan - Problem List Patient Problems: All Active Problems Anxiety (Active) F41.9
[2017-03-07] MEDS: D5-0.45NS 1,000 ML IV SCH ×3 (01:15→23:44)
[2017-03-07] MEDS ORDERED: Bupivacaine 0.5% W/Ep 10 mL Vial ONE (07:26)
[2017-03-07] MEDS ORDERED: Midazolam 1mg/ml 2 ml vial IV ONE (07:42)
[2017-03-07] MEDS ORDERED: Meperidine 50 mg/mL 1mL Syr ONE (07:59)
[2017-03-07] MEDS ORDERED: Meperidine 25 mg/mL 1mL Syr IVP PRN (09:03)
[2017-03-07] MEDS ORDERED: Piperacillin Sodium/Tazobact 3.375 gm Vial IV ONE (09:09)
[2017-03-07] MEDS: Ferrous Sulfate 325 MG TAB PO SCH (09:10)
[2017-03-07] MEDS: Lactulose 10 Gm/15 mL 30mL UDC PO SCH (09:10)
[2017-03-07] MEDS ORDERED: Lactated Ringer 1,000 ML IV SCH (09:15)
[2017-03-07] MEDS ORDERED: 0.9% NS w/20 mEq KCL 1,000 ML IV SCH (10:30)
--- NOTE | 2017-03-07 11:01 | Operative Report ---
DATE OF SURGERY: 03/07/2017 PREOPERATIVE DIAGNOSES: 1. Hiatal hernia, large. 2. Left inguinal hernia with reduced colon incarceration. 3. Cholecystitis. POSTOPERATIVE DIAGNOSES: 1. Hiatal hernia, large. 2. Left inguinal hernia with reduced colon incarceration. 3. Cholecystitis. OPERATION DONE: Exploratory laparotomy with: 1. Eugenio fundoplication. 2. Open cholecystectomy. 3. Repair of left inguinal hernia. SURGEON: Cierra Da Silva M.D. DIRECTOR OF LAND: Hannah Bee ANESTHESIA: General. ANESTHESIOLOGIST: Patel Yan M.D. ESTIMATED BLOOD LOSS: 30 mL. OPERATIVE FINDINGS: Large hiatal hernia that was reduced yesterday by EGD. Eugenio fundoplication was done. Gallbladder with multiple stones and hydrops containing multiple stones and milky fluid. Cultures were taken. Indirect left inguinal hernia repaired by suturing the fascia together. DESCRIPTION OF PROCEDURE: The patient was given general anesthesia. The abdomen was prepped with ChloraPrep and draped in appropriate manner. An incision was made in the midline from the subxiphoid to the suprapubic area. Bleeders were coagulated. The hiatal hernia was inspected following placement of retractors and this was found to be large. The GE junction was identified and Conrado drain was placed around this. Two sutures of 3-0 silk was used to approximate the lesser curvature anteriorly and posteriorly. The sutures were then placed in phrenoesophageal ligament. This was done twice. No bleeding was noted. The gallbladder was removed in a retrograde fashion. The cystic structures were clamped with right angle clamp and ligated with 2-0 silk. Some oozing in the gallbladder bed was electrocoagulated. The indirect inguinal hernia was identified and suture was placed on the fascial structures involving the ring in a circumferential fashion allowing for closure of the hernia. Following satisfactory hemostasis and correct sponge count, the incision was closed with running suture of #1 PDS for the fascia. A Marcellus-Echeverria drain was left in the liver bed. Subcutaneous tissue closed with 3-0 Vicryl. Skin was closed with subcuticular suture of 4-0 Vicryl. The patient will be sent to ICU for care and monitoring. JOB# [id number] [facility]
--- NOTE | 2017-03-07 11:11 | Diagnostic Imaging Report ---
Portable chest x-ray HISTORY: Shortness of breath, nasogastric tube placement Compared to prior exam of March 02, 2017, nasogastric tube has been inserted. The tip extends into the region of the stomach. The stomach appears to be somewhat situated to the right side of the abdomen associated with a CT documented large hiatal hernia. The heart remains enlarged. There is accentuation of the lower interstitial lung markings. However, no focal processes are seen. IMPRESSION: 1. Nasogastric tube extending below the diaphragm into the region of the stomach 2. No definite focal pulmonary processes 3. Cardiomegaly
[2017-03-07 11:20] LABS: pH 7.42 (7.35-7.45)
[2017-03-07 11:21] LABS: HCO3 27.7 mEq/L (20.0-26.0)
[2017-03-07 11:22] LABS: ABG SOURCE Arterial; BE(B) 3.5 mEq/L (-3.0-3.0); MECH RATE 12; MECH VT 600
[2017-03-07 11:23] LABS: CRITICAL VALUES REPORTED BY CS; FIO2 100
[2017-03-07] MEDS: Albuterol Nebulizer 2.5mg/3mL HHN SCH ×3 (11:33→19:45)
[2017-03-07] MEDS: Levofloxacin 750mg/150mL 750 MG in Premix Fluid 1 BAG IV SCH (11:46)
--- NOTE | 2017-03-07 11:52 | Internal Medicine Prog Note ---
Internal Medicine Subjective - Subjective Service Date: 03/07/17 (patient converted to afib, now orally intubated on vent , s/p exploratory laparotomy, lissen fundopplication of hiatal hernia, cholecystectomy repair of left inguinal hernia) Patient is:: awake, verbal, interactive Patient Complaints of:: congestion, bloated Per staff patient has:: no adverse event, no episodes of fall, poor appetite, tolerating meds Internal Medicine Objective - Results Result Diagrams: 03/06/17 06:46 03/06/17 06:46 Recent Labs: Laboratory Last Values WBC 11.1 Th/cmm (4.8-10.8) H 03/06/17 06:46 RBC 3.87 Mil/cmm (3.80-5.80) 03/06/17 06:46 Hgb 10.9 gm/dL (12.6-17.4) L 03/06/17 06:46 Hct 32.8 % (39.0-49.0) L 03/06/17 06:46 MCV 84.8 fl (80-99) 03/06/17 06:46 MCH 28.2 pg (27.0-31.0) 03/06/17 06:46 MCHC Differential 33.3 pg (28.0-36.0) 03/06/17 06:46 RDW 14.4 % (11.5-20.0) 03/06/17 06:46 Plt Count 359 Th/cmm (150-400) 03/06/17 06:46 MPV 7.2 fl 03/06/17 06:46 Neutrophils % 73.6 % (40.0-80.0) 03/06/17 06:46 Band Neutrophils % 2 % (0-10) 03/04/17 05:50 Lymphocytes % 9.8 % (20.0-50.0) L 03/06/17 06:46 Monocytes % 5.6 % (2.0-10.0) 03/06/17 06:46 Eosinophils % 10.8 % (0.0-5.0) H 03/06/17 06:46 Basophils % 0.2 % (0.0-2.0) 03/06/17 06:46 Neutrophils (Manual) 60 % (40-80) 03/04/17 05:50 Lymphocytes 18 % (20-50) L 03/04/17 05:50 Eosinophils 20 % (0-5) H 03/04/17 05:50 Platelet Estimate ADEQUATE (NORMAL) 03/04/17 05:50 PT 10.2 SECONDS (9.5-11.5) 03/06/17 06:46 INR 0.98 (0.5-1.4) 03/06/17 06:46 PTT (Actin FS) 27.4 SECONDS (26.0-38.0) 03/06/17 06:46 Specimen Source Arterial 03/07/17 11:08 Sample Site RB 03/07/17 11:08 pH 7.42 (7.35-7.45) 03/07/17 11:08 pCO2 44.0 mmHg (35.0-45.0) 03/07/17 11:08 pO2 190.0 mmHg (80.0-100.0) H 03/07/17 11:08 HCO3 27.7 mEq/L (20.0-26.0) H 03/07/17 11:08 Base Excess 3.5 mEq/L (-3.0-3.0) H 03/07/17 11:08 O2 Saturation 100.0 % (92.0-100.0) 03/07/17 11:08 Gus Test NA 03/07/17 11:08 Vent Rate 12 03/07/17 11:08 Inspired O2 100 03/07/17 11:08 Tidal Volume 600 03/07/17 11:08 PEEP NA 03/07/17 11:08 Pressure (ins/psv/peep) NA 03/07/17 11:08 Critical Value CS 03/07/17 11:08 Sodium 135 mEq/L (136-145) L 03/06/17 06:46 Potassium 4.0 mEq/L (3.5-5.1) 03/06/17 06:46 Chloride 103 mEq/L (98-107) 03/06/17 06:46 Carbon Dioxide 29.5 mEq/L (21.0-31.0) 03/06/17 06:46 Anion Gap 6.5 (7.0-16.0) L 03/06/17 06:46 BUN 11 mg/dL (7-25) 03/06/17 06:46 Creatinine 0.8 mg/dL (0.7-1.3) 03/06/17 06:46 Est GFR ( Amer) TNP 03/06/17 06:46 Est GFR (Non-Af Amer) TNP 03/06/17 06:46 BUN/Creatinine Ratio 13.8 03/06/17 06:46 Glucose 87 mg/dL (70-105) 03/06/17 06:46 Calcium 10.5 mg/dL (8.6-10.3) H 03/06/17 06:46 Magnesium 1.8 mg/dL (1.9-2.7) L 03/06/17 06:46 Total Bilirubin 0.3 mg/dL (0.3-1.0) 03/02/17 11:23 AST 12 U/L (13-39) L 03/02/17 11:23 ALT 3 U/L (7-52) L 03/02/17 11:23 Alkaline Phosphatase 95 U/L (34-104) 03/02/17 11:23 Ammonia 55 umol/L (16-53) H 03/06/17 06:46 Total Protein 8.4 gm/dL (6.0-8.3) H 03/02/17 11:23 Albumin 3.2 gm/dL (4.2-5.5) L 03/02/17 11:23 Globulin 5.2 gm/dL 03/02/17 11:23 Albumin/Globulin Ratio 0.6 (1.0-1.8) L 03/02/17 11:23 Lipase 14 U/L (11-82) 03/02/17 11:23 Urine Source RANDOM 03/02/17 11:21 Urine Color YELLOW 03/02/17 11:21 Urine Clarity SL. CLOUDY (CLEAR) 03/02/17 11:21 Urine pH 7.0 03/02/17 11:21 Ur Specific [place] 1.015 (1.005-1.030) 03/02/17 11:21 Urine Protein NEGATIVE mg/dL (NEGATIVE) 03/02/17 11:21 Urine Glucose (UA) NEGATIVE mg/dL (NEGATIVE) 03/02/17 11:21 Urine Ketones TRACE mg/dL (NEGATIVE) 03/02/17 11:21 Urine Blood NEGATIVE (NEGATIVE) 03/02/17 11:21 Urine Nitrate NEGATIVE (NEGATIVE) 03/02/17 11:21 Urine Bilirubin NEGATIVE (NEGATIVE) 03/02/17 11:21 Urine Urobilinogen 1.0 E.U./dL (0.2 - 1.0) 03/02/17 11:21 Ur Leukocyte Esterase NEGATIVE (NEGATIVE) 03/02/17 11:21 Urine RBC NONE SEEN /hpf (0-5) 03/02/17 11:21 Urine WBC 2-5 /hpf (0-5) H 03/02/17 11:21 Ur Epithelial Cells OCCASIONAL /lpf (FEW) 03/02/17 11:21 Amorphous Sediment MODERATE PHOSPHATES (NONE SEEN) 03/02/17 11:21 Urine Bacteria FEW /hpf (NONE SEEN) 03/02/17 11:21 Blood Type O NEGATIVE 03/06/17 14:27 Antibody Screen NEGATIVE 03/06/17 14:27 - Physical Exam Vitals and I&O: Vital Signs Temp 96.0 F 03/07/17 11:00 Pulse 114 03/07/17 11:00 Resp 16 03/07/17 11:00 BP 133/80 03/07/17 11:00 Pulse Ox 100 03/07/17 11:00 Intake & Output 03/06/17 03/07/17 03/07/17 18:59 06:59 18:59 Intake Total 240 Balance 240 Weight (lbs) 153 lb 153 lb Intake: Oral 240 Other: # Voids 2 3 Active Medications: Current Medications Acetaminophen (Tylenol) 650 mg PO Q4HR PRN PRN Reason: Pain or Fever >101 Stop: 05/01/17 17:00 Al Hydrox/Mg Hydrox/Simethicone (Maalox) 30 ml PO Q4HR PRN PRN Reason: GI DISTRESS Stop: 05/01/17 17:00 Albuterol Sulfate (Albuterol 2.5mg/3ml Neb Ud) 2.5 mg HHN QIDRT [facility] Stop: 05/01/17 18:59 Last Admin: 03/07/17 11:33 Dose: 2.5 mg Amlodipine Besylate (Norvasc) 5 mg PO DAILY [facility] Stop: 05/02/17 08:59 Last Admin: 03/07/17 09:09 Dose: Not Given Ascorbic Acid (Vitamin C) 500 mg PO DAILY [facility] Stop: 05/02/17 08:59 Last Admin: 03/07/17 09:10 Dose: Not Given Bisacodyl (Dulcolax 10 Mg Supp) 10 mg RC DAILY PRN PRN Reason: Constipation Stop: 05/01/17 17:00 Chlorhexidine Gluconate (Peridex) 15 ml MM 08,1999 [facility] Stop: 05/06/17 19:59 Divalproex Sodium (Depakote Dr) 500 mg PO BID [facility] PRN Reason: Protocol Stop: 05/02/17 08:59 Last Admin: 03/07/17 09:10 Dose: Not Given Docusate Sodium (Colace) 250 mg PO HS [facility] Stop: 05/01/17 20:59 Last Admin: 03/06/17 21:04 Dose: 250 mg Donepezil HCl (Aricept) 5 mg PO DAILY [facility] Stop: 05/03/17 08:59 Last Admin: 03/07/17 09:10 Dose: Not Given Ferrous Sulfate (Iron) 325 mg PO DAILY [facility] Stop: 05/02/17 08:59 Last Admin: 03/07/17 09:10 Dose: Not Given Heparin Sodium (Porcine) (Heparin) 5,000 units SUBQ Q12H [facility] Stop: 05/02/17 20:59 Last Admin: 03/07/17 09:10 Dose: Not Given Levofloxacin 750 mg/ (Miscellaneous) 150 mls @ 100 mls/hr IV Q24H [facility] Stop: 05/06/17 09:59 Last Admin: 03/07/17 11:46 Dose: 100 mls/hr Potassium Chloride/Sodium Chloride (0.9% Ns W/20 Meq Kcl) 1,000 mls @ 100 mls/ hr IV .Q10H [facility] Stop: 05/06/17 10:29 Last Admin: 03/07/17 11:45 Dose: 100 mls/hr Ipratropium [place] (Atrovent Neb 0.5mg/2.5ml) 0.5 mg IH QIDRT [facility] Stop: 05/01/17 18:59 Last Admin: 03/06/17 19:11 Dose: 0.5 mg Lactulose (Cephulac) 20 gm PO DAILY [facility] Stop: 05/02/17 08:59 Last Admin: 03/07/17 09:10 Dose: Not Given Lorazepam (Ativan) 0.5 mg PO Q6HR PRN; Protocol PRN Reason: Anxiety Stop: 05/01/17 17:00 Magnesium Hydroxide (Milk Of Magnesia) 30 ml PO DAILY PRN PRN Reason: Constipation Stop: 05/01/17 17:00 Megestrol Acetate (Megace) 400 mg PO BID [facility] PRN Reason: Protocol Stop: 05/02/17 08:59 Last Admin: 03/07/17 09:10 Dose: Not Given Meperidine HCl (Demerol) 12.5 mg IVP UD PRN PRN Reason: POST-OP PAIN Stop: 03/08/17 09:02 Mirtazapine (Remeron) 7.5 mg PO HS [facility] PRN Reason: Protocol Stop: 05/02/17 20:59 Last Admin: 03/06/17 23:47 Dose: 7.5 mg Miscellaneous (Vte Chemical Prophylaxis Screen/ Admission) 1 ea [facility] PRN PRN PRN Reason: PROTOCOL Stop: 05/02/17 17:06 Morphine Sulfate (Morphine) 2 mg IVP Q4HR PRN PRN Reason: Abdominal Pain Stop: 05/06/17 08:43 Ondansetron HCl (Zofran) 4 mg IV X1 PRN PRN Reason: Nausea / Vomiting Stop: 03/08/17 09:02 Risperidone (Risperdal) 0.5 mg PO DAILY [facility] PRN Reason: Protocol Stop: 05/02/17 08:59 Last Admin: 03/07/17 09:10 Dose: Not Given Tamsulosin HCl (Flomax) 0.4 mg PO HS [facility] Stop: 05/01/17 20:59 Last Admin: 03/06/17 21:04 Dose: 0.4 mg General: weak, demented, NAD HEENT: NC/AT, PERRLA Neck: Supple Lungs: CTAB Cardiovascular: RRR, Normal S1, Normal S2, without murmur Abdomen: soft, tender, non-distended, positive bowel sound Extremities: clear Neurological: no change, alert Internal Medicine Assmt/Plan - Assessment Assessment: new onset afib s/p exploratory laparotomy, lissen fundopplication of hiatal hernia, cholecystectomy repair of left inguinal hernia anorexia hiatal hernia abd hernia wt loss, ftt htn asthma copd gerd oa dementia gallstone anemia bph hyponatremia - Plan Plan: s/p exploratory laparotomy, lissen fundopplication of hiatal hernia, cholecystectomy repair of left inguinal hernia CARDIO CONSULT AM LABS BRONCHODILATORS NEEDED SUPPLEMENTAL OXYGEN IVF FOR HYDRATION CONTINUE CURRENT PLAN OF CARE
[2017-03-07] MEDS: Ipratropium Neb 0.5 mg/2.5 mL UD IH SCH ×3 (11:54→19:45)
[2017-03-07] MEDS ORDERED: Diltiazem 5 mg/mL 5mL Vial IVP PRN (12:38)
[2017-03-07] MEDS: Morphine Sulfate 2 mg/mL 1mL Syr IVP PRN ×2 (13:16→20:59)
[2017-03-07] MEDS: Chlorhexidine Gluconate 0.12% 15mL Mouthwash MM SCH (20:30)
[2017-03-07 21:32] LABS: HCO3 31.1 mEq/L (20.0-26.0); pH 7.47 (7.35-7.45)
[2017-03-07 21:33] LABS: ABG SOURCE Arterial; BE(B) 8.1 mEq/L (-3.0-3.0); CRITICAL VALUES REPORTED BY JC; FIO2 35
[2017-03-08] MEDS: Morphine Sulfate 2 mg/mL 1mL Syr IVP PRN ×3 (01:23→16:51)
--- NOTE | 2017-03-08 04:44 | Pathology Report ---
[id number] Collection Date: 03/06/2017 Surgeon: Dr. Mikaela Greenberg Specimen Description: 1. Antrum biopsy 2. Esophageal biopsy Gross Description: Part I: Received in formalin are two monteiro soft tissue fragments ranging from 0.1 to 0.2 cm in greatest dimension. Totally submitted in one cassette labeled A. Gross Description: Part II: Received in formalin is a single monteiro soft tissue fragment measuring 0.1 cm in greatest dimension. Totally submitted in one cassette labeled B. Microscopic Description: Part I: The histologic sections show gastric mucosa with mild chronic inflammation present consisting of lymphocytes and plasma cells. The Giemsa stain shows no evidence for Helicobacter pylori. Diagnosis: Part I: 1. Mild chronic gastritis, antrum biopsy. 2. The Giemsa stain is negative for Helicobacter pylori. Microscopic Description: Part II: The histologic sections show ulcerated tissue with no intact mucosa surfaces appreciated. There is extensive acute inflammation present consisting of large collections of neutrophils within a degenerated/necrotic background. The PAS stain shows no evidence for fungal organisms. The Alcian blue stain shows no significant abnormalities. Diagnosis: Part II: Ulcerated tissue consisting of mostly acute inflammatory cells, consistent with esophageal ulcer. Comment: The specimen consists of mostly degenerated/ulcerated material and inflammatory cells. Clinical correlation and follow-up is recommended to determine if further studies are warranted. JOB# [id number]
[2017-03-08 05:03] LABS: HEMATOCRIT 37.3 % (39.0-49.0); HEMOGLOBIN 12.5 gm/dL (12.6-17.4); MEAN CELL VOLUME 83.2 fl (80-99); MEAN CORPUSCULAR HEMOGLOBIN 27.8 pg (27.0-31.0); MEAN CORPUSCULAR HGB CONC 33.4 pg (28.0-36.0); MEAN PLATELET VOLUME 7.4 fl; RED BLOOD COUNT 4.48 Mil/cmm (3.80-5.80); RED CELL DISTRIBUTION WIDTH 14.9 % (11.5-20.0); WHITE BLOOD COUNT 9.8 Th/cmm (4.8-10.8)
[2017-03-08 05:23] LABS: ALB/GLOB RATIO 0.5 (1.0-1.8); ALKALINE PHOSPHATASE 120 U/L (34-104); ANION GAP 3.7 (7.0-16.0); BILIRUBIN,TOTAL 0.4 mg/dL (0.3-1.0); BUN - UREA NITROGEN 12 mg/dL (7-25); BUN/CREATININE RATIO 13.3; CALCIUM SERUM 11.7 mg/dL (8.6-10.3); CARBON DIOXIDE 33.6 mEq/L (21.0-31.0); CHLORIDE 100 mEq/L (98-107); CREATININE - SERUM 0.9 mg/dL (0.7-1.3); GLUCOSE 117 mg/dL (70-105); PLATELET COUNT 448 Th/cmm (150-400); POTASSIUM SERUM 4.3 mEq/L (3.5-5.1); SGOT 19 U/L (13-39); SGPT/ALT 9 U/L (7-52); SODIUM SERUM 133 mEq/L (136-145)
[2017-03-08 06:12] LABS: BAND NEUTROPHILE 7 % (0-10); METAMYELOCYTE 1 % (0-0); NEUTROPHILS 89 % (40-80); TOTAL CELLS COUNTED 100
[2017-03-08 07:16] LABS: PLATELET ESTIMATE INCREASED PLATELETS (NORMAL)
[2017-03-08 07:17] LABS: PLATELET MORPHOLOGY NORMAL (NORMAL)
[2017-03-08] MEDS: Albuterol Nebulizer 2.5mg/3mL HHN SCH ×4 (07:19→19:41)
[2017-03-08] MEDS: Ipratropium Neb 0.5 mg/2.5 mL UD IH SCH ×4 (07:19→19:41)
[2017-03-08] MEDS ORDERED: Bupivacaine 0.5% W/Ep 10 mL Vial ONE ×3 (08:19)
[2017-03-08] MEDS: Chlorhexidine Gluconate 0.12% 15mL Mouthwash MM SCH ×2 (09:06→22:04)
[2017-03-08] MEDS: Lactulose 10 Gm/15 mL 30mL UDC PO SCH (09:09)
[2017-03-08] MEDS: Ferrous Sulfate 325 MG TAB PO SCH (09:09)
[2017-03-08] MEDS: Levofloxacin 750mg/150mL 750 MG in Premix Fluid 1 BAG IV SCH (09:31)
--- NOTE | 2017-03-08 12:39 | Internal Medicine Prog Note ---
Internal Medicine Subjective - Subjective Patient seen and examined:: with staff, chart reviewed, other (extubated) Patient is:: awake, verbal, interactive Patient Complaints of:: congestion, bloated Per staff patient has:: no adverse event, no episodes of fall, poor appetite, agitated, combative, tolerating meds Internal Medicine Objective - Results Result Diagrams: 03/08/17 04:42 03/08/17 04:42 Recent Labs: Laboratory Last Values WBC 9.8 Th/cmm (4.8-10.8) 03/08/17 04:42 RBC 4.48 Mil/cmm (3.80-5.80) 03/08/17 04:42 Hgb 12.5 gm/dL (12.6-17.4) L 03/08/17 04:42 Hct 37.3 % (39.0-49.0) L D 03/08/17 04:42 MCV 83.2 fl (80-99) 03/08/17 04:42 MCH 27.8 pg (27.0-31.0) 03/08/17 04:42 MCHC Differential 33.4 pg (28.0-36.0) 03/08/17 04:42 RDW 14.9 % (11.5-20.0) 03/08/17 04:42 Plt Count 448 Th/cmm (150-400) H D 03/08/17 04:42 MPV 7.4 fl 03/08/17 04:42 Neutrophils % 73.6 % (40.0-80.0) 03/06/17 06:46 Band Neutrophils % 7 % (0-10) 03/08/17 04:42 Lymphocytes % 9.8 % (20.0-50.0) L 03/06/17 06:46 Monocytes % 5.6 % (2.0-10.0) 03/06/17 06:46 Eosinophils % 10.8 % (0.0-5.0) H 03/06/17 06:46 Basophils % 0.2 % (0.0-2.0) 03/06/17 06:46 Neutrophils (Manual) 89 % (40-80) H 03/08/17 04:42 Lymphocytes 3 % (20-50) L 03/08/17 04:42 Eosinophils 20 % (0-5) H 03/04/17 05:50 Metamyelocytes 1 % (0-0) H 03/08/17 04:42 Platelet Estimate INCREASED PLATELETS (NORMAL) 03/08/17 04:42 Platelet Morphology NORMAL (NORMAL) 03/08/17 04:42 RBC Morph Micro Appear NORMAL (NORMAL) 03/08/17 04:42 PT 10.2 SECONDS (9.5-11.5) 03/06/17 06:46 INR 0.98 (0.5-1.4) 03/06/17 06:46 PTT (Actin FS) 27.4 SECONDS (26.0-38.0) 03/06/17 06:46 Specimen Source Arterial 03/07/17 21:17 Sample Site LB 03/07/17 21:17 pH 7.47 (7.35-7.45) H 03/07/17 21:17 pCO2 45.0 mmHg (35.0-45.0) 03/07/17 21:17 pO2 60.0 mmHg (80.0-100.0) L 03/07/17 21:17 HCO3 31.1 mEq/L (20.0-26.0) H 03/07/17 21:17 Base Excess 8.1 mEq/L (-3.0-3.0) H 03/07/17 21:17 O2 Saturation 92.0 % (92.0-100.0) 03/07/17 21:17 Gus Test N/A 03/07/17 21:17 Vent Rate N/A 03/07/17 21:17 Inspired O2 35 03/07/17 21:17 Tidal Volume N/A 03/07/17 21:17 PEEP N/A 03/07/17 21:17 Pressure (ins/psv/peep) N/A 03/07/17 21:17 Critical Value SAMM 03/07/17 21:17 Sodium 133 mEq/L (136-145) L 03/08/17 04:42 Potassium 4.3 mEq/L (3.5-5.1) 03/08/17 04:42 Chloride 100 mEq/L (98-107) 03/08/17 04:42 Carbon Dioxide 33.6 mEq/L (21.0-31.0) H 03/08/17 04:42 Anion Gap 3.7 (7.0-16.0) L 03/08/17 04:42 BUN 12 mg/dL (7-25) 03/08/17 04:42 Creatinine 0.9 mg/dL (0.7-1.3) 03/08/17 04:42 Est GFR ( Amer) TNP 03/08/17 04:42 Est GFR (Non-Af Amer) TNP 03/08/17 04:42 BUN/Creatinine Ratio 13.3 03/08/17 04:42 Glucose 117 mg/dL (70-105) H 03/08/17 04:42 Calcium 11.7 mg/dL (8.6-10.3) H 03/08/17 04:42 Magnesium 1.8 mg/dL (1.9-2.7) L 03/06/17 06:46 Total Bilirubin 0.4 mg/dL (0.3-1.0) 03/08/17 04:42 AST 19 U/L (13-39) 03/08/17 04:42 ALT 9 U/L (7-52) 03/08/17 04:42 Alkaline Phosphatase 120 U/L (34-104) H 03/08/17 04:42 Ammonia 55 umol/L (16-53) H 03/06/17 06:46 Total Protein 7.1 gm/dL (6.0-8.3) 03/08/17 04:42 Albumin 2.5 gm/dL (4.2-5.5) L 03/08/17 04:42 Globulin 4.6 gm/dL 03/08/17 04:42 Albumin/Globulin Ratio 0.5 (1.0-1.8) L 03/08/17 04:42 Lipase 14 U/L (11-82) 03/02/17 11:23 Urine Source RANDOM 03/02/17 11:21 Urine Color YELLOW 03/02/17 11:21 Urine Clarity SL. CLOUDY (CLEAR) 03/02/17 11:21 Urine pH 7.0 03/02/17 11:21 Ur Specific [place] 1.015 (1.005-1.030) 03/02/17 11:21 Urine Protein NEGATIVE mg/dL (NEGATIVE) 03/02/17 11:21 Urine Glucose (UA) NEGATIVE mg/dL (NEGATIVE) 03/02/17 11:21 Urine Ketones TRACE mg/dL (NEGATIVE) 03/02/17 11:21 Urine Blood NEGATIVE (NEGATIVE) 03/02/17 11:21 Urine Nitrate NEGATIVE (NEGATIVE) 03/02/17 11:21 Urine Bilirubin NEGATIVE (NEGATIVE) 03/02/17 11:21 Urine Urobilinogen 1.0 E.U./dL (0.2 - 1.0) 03/02/17 11:21 Ur Leukocyte Esterase NEGATIVE (NEGATIVE) 03/02/17 11:21 Urine RBC NONE SEEN /hpf (0-5) 03/02/17 11:21 Urine WBC 2-5 /hpf (0-5) H 03/02/17 11:21 Ur Epithelial Cells OCCASIONAL /lpf (FEW) 03/02/17 11:21 Amorphous Sediment MODERATE PHOSPHATES (NONE SEEN) 03/02/17 11:21 Urine Bacteria FEW /hpf (NONE SEEN) 03/02/17 11:21 Blood Type O NEGATIVE 03/06/17 14:27 Antibody Screen NEGATIVE 03/06/17 14:27 - Physical Exam Vitals and I&O: Vital Signs Temp 96.5 F 03/08/17 08:00 Pulse 85 03/08/17 11:15 Resp 14 03/08/17 11:15 BP 100/63 03/08/17 10:00 Pulse Ox 95 03/08/17 11:15 Intake & Output 03/07/17 03/08/17 03/08/17 18:59 06:59 18:59 Intake Total 150 1425 Output Total 560 600 Balance -410 825 Weight (lbs) 72.121 kg 72.665 kg Intake: Intake, IV Amount 150 945 D5-0.45NS 1,000 ml @ 100 945 mls/hr IV .Q10H [facility] Rx#: [id number] Levofloxacin 750mg/150mL 150 750 mg In Premix Fluid 1 bag @ 100 mls/hr IV Q24H [facility] Rx#:[id number] TPN/PPN 480 Output: Drainage 60 45 Right Lower Abdomen 60 45 Urine 500 555 Other: # Bowel Movements 0 0 Active Medications: Current Medications Acetaminophen (Tylenol) 650 mg PO Q4HR PRN PRN Reason: Pain or Fever >101 Stop: 05/01/17 17:00 Al Hydrox/Mg Hydrox/Simethicone (Maalox) 30 ml PO Q4HR PRN PRN Reason: GI DISTRESS Stop: 05/01/17 17:00 Albuterol Sulfate (Albuterol 2.5mg/3ml Neb Ud) 2.5 mg HHN QIDRT [facility] Stop: 05/01/17 18:59 Last Admin: 03/08/17 11:15 Dose: 2.5 mg Amlodipine Besylate (Norvasc) 5 mg PO DAILY [facility] Stop: 05/02/17 08:59 Last Admin: 03/08/17 09:07 Dose: Not Given Ascorbic Acid (Vitamin C) 500 mg PO DAILY [facility] Stop: 05/02/17 08:59 Last Admin: 03/08/17 09:08 Dose: Not Given Bisacodyl (Dulcolax 10 Mg Supp) 10 mg RC DAILY PRN PRN Reason: Constipation Stop: 05/01/17 17:00 Chlorhexidine Gluconate (Peridex) 15 ml MM 08,1999 [facility] Stop: 05/06/17 19:59 Last Admin: 03/08/17 09:06 Dose: Not Given Digoxin (Lanoxin) 0.25 mg IVP DAILY [facility] Stop: 05/08/17 08:59 Diltiazem HCl (Cardizem) 20 mg IVP Q4H PRN PRN Reason: HR Greater than 130 per min Stop: 05/06/17 12:37 Last Admin: 03/07/17 23:42 Dose: 20 mg Divalproex Sodium (Depakote Dr) 500 mg PO BID [facility] PRN Reason: Protocol Stop: 05/02/17 08:59 Last Admin: 03/08/17 09:08 Dose: Not Given Docusate Sodium (Colace) 250 mg PO HS [facility] Stop: 05/01/17 20:59 Last Admin: 03/07/17 21:00 Dose: Not Given Donepezil HCl (Aricept) 5 mg PO DAILY [facility] Stop: 05/03/17 08:59 Last Admin: 03/08/17 09:09 Dose: Not Given Ferrous Sulfate (Iron) 325 mg PO DAILY [facility] Stop: 05/02/17 08:59 Last Admin: 03/08/17 09:09 Dose: Not Given Heparin Sodium (Porcine) (Heparin) 5,000 units SUBQ Q12H [facility] Stop: 05/02/17 20:59 Last Admin: 03/08/17 09:00 Dose: Not Given Levofloxacin 750 mg/ (Miscellaneous) 150 mls @ 100 mls/hr IV Q24H [facility] Stop: 05/06/17 09:59 Last Admin: 03/08/17 09:31 Dose: 100 mls/hr Dextrose/Sodium Chloride (D5-0.45ns) 1,000 mls @ 80 mls/hr IV .[id number] [facility] Stop: 05/06/17 11:52 Ipratropium [place] (Atrovent Neb 0.5mg/2.5ml) 0.5 mg IH QIDRT [facility] Stop: 05/01/17 18:59 Last Admin: 03/08/17 11:15 Dose: 0.5 mg Lactulose (Cephulac) 20 gm PO DAILY [facility] Stop: 05/02/17 08:59 Last Admin: 03/08/17 09:09 Dose: Not Given Lorazepam (Ativan) 0.5 mg PO Q6HR PRN; Protocol PRN Reason: Anxiety Stop: 05/01/17 17:00 Magnesium Hydroxide (Milk Of Magnesia) 30 ml PO DAILY PRN PRN Reason: Constipation Stop: 05/01/17 17:00 Megestrol Acetate (Megace) 400 mg PO BID [facility] PRN Reason: Protocol Stop: 05/02/17 08:59 Last Admin: 03/08/17 09:09 Dose: Not Given Mirtazapine (Remeron) 7.5 mg PO HS [facility] PRN Reason: Protocol Stop: 05/02/17 20:59 Last Admin: 03/08/17 08:09 Dose: Not Given Miscellaneous (Vte Chemical Prophylaxis Screen/ Admission) 1 ea [facility] PRN PRN PRN Reason: PROTOCOL Stop: 05/02/17 17:06 Morphine Sulfate (Morphine) 2 mg IVP Q4HR PRN PRN Reason: Abdominal Pain Stop: 05/06/17 08:43 Last Admin: 03/08/17 08:13 Dose: 2 mg Pantoprazole Sodium (Protonix) 40 mg IVP DAILY [facility] Stop: 05/07/17 08:59 Last Admin: 03/08/17 09:25 Dose: 40 mg Risperidone (Risperdal) 0.5 mg PO DAILY [facility] PRN Reason: Protocol Stop: 05/02/17 08:59 Last Admin: 03/08/17 09:09 Dose: Not Given Tamsulosin HCl (Flomax) 0.4 mg PO HS [facility] Stop: 05/01/17 20:59 Last Admin: 03/07/17 21:04 Dose: Not Given General: weak, demented, NAD HEENT: NC/AT, PERRLA Neck: Supple Lungs: rales Cardiovascular: RRR, Normal S1, Normal S2, without murmur Abdomen: soft, tender, non-distended, positive bowel sound Extremities: excoriation Neurological: no change, alert, disorganized - Procedures Procedures: Procedures Procedure Code Date EGD BIOPSY SINGLE/MULTIPLE 08911 03/02/17 ESOPH FUNDOPLASTY LAP 53552 03/02/17 EXCISION OF ESOPHAGUS, ENDO, DIAGN [id number] 03/02/17 EXCISION OF STOMACH, ENDO, DIAGN [id number] 03/02/17 PRP I/OSVALDO INIT BLOCK >5 YR 07057 03/02/17 REMOVAL OF GALLBLADDER 13935 03/02/17 REPAIR LEFT DIAPHRAGM, OPEN APPROACH [id number] 03/02/17 REPAIR LEFT INGUINAL REGION, OPEN APPROACH [id number] 03/02/17 REPAIR RIGHT DIAPHRAGM, OPEN APPROACH [id number] 03/02/17 RESECTION OF GALLBLADDER, OPEN APPROACH [id number] 03/02/17 RESPIRATORY VENTILATION, LESS THAN 24 CONSECUTIVE HOURS [id number] 03/02/17 RESTRICTION OF ESOPHAGOGASTRIC JUNCTION, OPEN APPROACH [id number] 03/02/17 Internal Medicine Assmt/Plan - Assessment Assessment: sp lexp lap, hernia repair abd pain anorexia hiatal hernia abd hernia wt loss, ftt htn asthma copd gerd oa dementia gallstone anemia bph hyponatremia - Plan Plan: cont on iv abx cont on iv fluid ppi will review ct result will refer to gi and surger see orders for sx per dr larsen Nutritional Asmnt/Malnutr-PDOC - Dietary Evaluation Malnutrition Findings (Please click <Entered> for more info): Nutritional Asmnt/Malnutrition Start: 03/07/17 16: 29 Text: Status: Complete Freq: Document 03/07/17 16:29 GSUN (Rec: 03/07/17 16:57 GSUN [id number]) Nutritional Asmnt/Malnutrition Patient General Information Nutritional Screening Moderate Risk Screening Diagnosis Abd pain, anorexia, hiatal hernia, gall stone Pertinent Medical Hx/Surgical Hx HTN, asthma, COPD, dementia, constipation, GERD, peptic ulcer, depression Subjective Information 82 year old male from SNF. S/p yoan fundopplication hiatal hernia, cholecystectomy repair of left inguinal hernia . Pt currently NPO intubated. Pt was on ground diet prior to surgery, avg PO intake 50-100 % of meals. Severe fat/muscle wasting to temporals and clavicles noted. Current Diet Order/ Nutrition Support NPO Pertinent Medications Vitamin C, D5-0.45ns, Colace, Iron, MOM, Megace, Remeron, Morphine, Zofran, Protonix Pertinent Labs Reviewed. 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 Estimated Nutritional Goals Calories/Kcals/Kg IBW 178lb/80.9kg Kcals Calculated 2022-2427kcal (25-30kcal/kg) Protein Calculated 81g (1g/kg) Fluid: ml 2022-2427ml (1ml/kcal) Nutritional Problem 1. Problem Problem Inadequate oral food beverage intake related to Etiology newly intubated, s/p yoan fundopplication hiatal hernia, cholecystectomy repair of left inguinal hernia aeb Signs/Symptoms: currently NPO Malnutrition Alert Body Fat Depletion (Severe) Mod to Severe Depletion Muscle Mass (Severe) Mod to Severe Depletion Intervention/Recommendation Comments 1. When appropriate to resume diet, recommend resume ground low fat with Boost Plus TID. Expected Outcomes/Goals Expected Outcomes/Goals 1. Pt to resume oral intake and meet at least 75% of estimated nutritional needs.
--- NOTE | 2017-03-08 13:17 | General Progress Note ---
Subjective - Review of Systems Service Date: 03/08/17 Events since last encounter: labs noted minimal QUYEN drain extubated progress report to sister via phone Objective - Results Result Diagrams: 03/08/17 04:42 03/08/17 04:42 Recent Labs: Laboratory Last Values WBC 9.8 Th/cmm (4.8-10.8) 03/08/17 04:42 RBC 4.48 Mil/cmm (3.80-5.80) 03/08/17 04:42 Hgb 12.5 gm/dL (12.6-17.4) L 03/08/17 04:42 Hct 37.3 % (39.0-49.0) L D 03/08/17 04:42 MCV 83.2 fl (80-99) 03/08/17 04:42 MCH 27.8 pg (27.0-31.0) 03/08/17 04:42 MCHC Differential 33.4 pg (28.0-36.0) 03/08/17 04:42 RDW 14.9 % (11.5-20.0) 03/08/17 04:42 Plt Count 448 Th/cmm (150-400) H D 03/08/17 04:42 MPV 7.4 fl 03/08/17 04:42 Neutrophils % 73.6 % (40.0-80.0) 03/06/17 06:46 Band Neutrophils % 7 % (0-10) 03/08/17 04:42 Lymphocytes % 9.8 % (20.0-50.0) L 03/06/17 06:46 Monocytes % 5.6 % (2.0-10.0) 03/06/17 06:46 Eosinophils % 10.8 % (0.0-5.0) H 03/06/17 06:46 Basophils % 0.2 % (0.0-2.0) 03/06/17 06:46 Neutrophils (Manual) 89 % (40-80) H 03/08/17 04:42 Lymphocytes 3 % (20-50) L 03/08/17 04:42 Eosinophils 20 % (0-5) H 03/04/17 05:50 Metamyelocytes 1 % (0-0) H 03/08/17 04:42 Platelet Estimate INCREASED PLATELETS (NORMAL) 03/08/17 04:42 Platelet Morphology NORMAL (NORMAL) 03/08/17 04:42 RBC Morph Micro Appear NORMAL (NORMAL) 03/08/17 04:42 PT 10.2 SECONDS (9.5-11.5) 03/06/17 06:46 INR 0.98 (0.5-1.4) 03/06/17 06:46 PTT (Actin FS) 27.4 SECONDS (26.0-38.0) 03/06/17 06:46 Specimen Source Arterial 03/07/17 21:17 Sample Site LB 03/07/17 21:17 pH 7.47 (7.35-7.45) H 03/07/17 21:17 pCO2 45.0 mmHg (35.0-45.0) 03/07/17 21:17 pO2 60.0 mmHg (80.0-100.0) L 03/07/17 21:17 HCO3 31.1 mEq/L (20.0-26.0) H 03/07/17 21:17 Base Excess 8.1 mEq/L (-3.0-3.0) H 03/07/17 21:17 O2 Saturation 92.0 % (92.0-100.0) 03/07/17 21:17 Ugs Test N/A 03/07/17 21:17 Vent Rate N/A 03/07/17 21:17 Inspired O2 35 03/07/17 21:17 Tidal Volume N/A 03/07/17 21:17 PEEP N/A 03/07/17 21:17 Pressure (ins/psv/peep) N/A 03/07/17 21:17 Critical Value SAMM 03/07/17 21:17 Sodium 133 mEq/L (136-145) L 03/08/17 04:42 Potassium 4.3 mEq/L (3.5-5.1) 03/08/17 04:42 Chloride 100 mEq/L (98-107) 03/08/17 04:42 Carbon Dioxide 33.6 mEq/L (21.0-31.0) H 03/08/17 04:42 Anion Gap 3.7 (7.0-16.0) L 03/08/17 04:42 BUN 12 mg/dL (7-25) 03/08/17 04:42 Creatinine 0.9 mg/dL (0.7-1.3) 03/08/17 04:42 Est GFR ( Amer) TNP 03/08/17 04:42 Est GFR (Non-Af Amer) TNP 03/08/17 04:42 BUN/Creatinine Ratio 13.3 03/08/17 04:42 Glucose 117 mg/dL (70-105) H 03/08/17 04:42 Calcium 11.7 mg/dL (8.6-10.3) H 03/08/17 04:42 Magnesium 1.8 mg/dL (1.9-2.7) L 03/06/17 06:46 Total Bilirubin 0.4 mg/dL (0.3-1.0) 03/08/17 04:42 AST 19 U/L (13-39) 03/08/17 04:42 ALT 9 U/L (7-52) 03/08/17 04:42 Alkaline Phosphatase 120 U/L (34-104) H 03/08/17 04:42 Ammonia 55 umol/L (16-53) H 03/06/17 06:46 Total Protein 7.1 gm/dL (6.0-8.3) 03/08/17 04:42 Albumin 2.5 gm/dL (4.2-5.5) L 03/08/17 04:42 Globulin 4.6 gm/dL 03/08/17 04:42 Albumin/Globulin Ratio 0.5 (1.0-1.8) L 03/08/17 04:42 Lipase 14 U/L (11-82) 03/02/17 11:23 Urine Source RANDOM 03/02/17 11:21 Urine Color YELLOW 03/02/17 11:21 Urine Clarity SL. CLOUDY (CLEAR) 03/02/17 11:21 Urine pH 7.0 03/02/17 11:21 Ur Specific Cornelius 1.015 (1.005-1.030) 03/02/17 11:21 Urine Protein NEGATIVE mg/dL (NEGATIVE) 03/02/17 11:21 Urine Glucose (UA) NEGATIVE mg/dL (NEGATIVE) 03/02/17 11:21 Urine Ketones TRACE mg/dL (NEGATIVE) 03/02/17 11:21 Urine Blood NEGATIVE (NEGATIVE) 03/02/17 11:21 Urine Nitrate NEGATIVE (NEGATIVE) 03/02/17 11:21 Urine Bilirubin NEGATIVE (NEGATIVE) 03/02/17 11:21 Urine Urobilinogen 1.0 E.U./dL (0.2 - 1.0) 03/02/17 11:21 Ur Leukocyte Esterase NEGATIVE (NEGATIVE) 03/02/17 11:21 Urine RBC NONE SEEN /hpf (0-5) 03/02/17 11:21 Urine WBC 2-5 /hpf (0-5) H 03/02/17 11:21 Ur Epithelial Cells OCCASIONAL /lpf (FEW) 03/02/17 11:21 Amorphous Sediment MODERATE PHOSPHATES (NONE SEEN) 03/02/17 11:21 Urine Bacteria FEW /hpf (NONE SEEN) 03/02/17 11:21 Blood Type O NEGATIVE 03/06/17 14:27 Antibody Screen NEGATIVE 03/06/17 14:27 - Physical Exam Vitals and I&O: Vital Signs Temp 96.5 F 03/08/17 08:00 Pulse 85 03/08/17 11:15 Resp 14 03/08/17 11:15 BP 100/63 03/08/17 10:00 Pulse Ox 95 03/08/17 11:15 Intake & Output 03/07/17 03/08/17 03/08/17 18:59 06:59 18:59 Intake Total 150 1425 Output Total 560 600 Balance -410 825 Weight (lbs) 72.121 kg 72.665 kg Intake: Intake, IV Amount 150 945 D5-0.45NS 1,000 ml @ 100 945 mls/hr IV .Q10H [facility] Rx#: [id number] Levofloxacin 750mg/150mL 150 750 mg In Premix Fluid 1 bag @ 100 mls/hr IV Q24H [facility] Rx#:[id number] TPN/PPN 480 Output: Drainage 60 45 Right Lower Abdomen 60 45 Urine 500 555 Other: # Bowel Movements 0 0 Active Medications: Current Medications Acetaminophen (Tylenol) 650 mg PO Q4HR PRN PRN Reason: Pain or Fever >101 Stop: 05/01/17 17:00 Al Hydrox/Mg Hydrox/Simethicone (Maalox) 30 ml PO Q4HR PRN PRN Reason: GI DISTRESS Stop: 05/01/17 17:00 Albuterol Sulfate (Albuterol 2.5mg/3ml Neb Ud) 2.5 mg HHN QIDRT [facility] Stop: 05/01/17 18:59 Last Admin: 03/08/17 11:15 Dose: 2.5 mg Amlodipine Besylate (Norvasc) 5 mg PO DAILY [facility] Stop: 05/02/17 08:59 Last Admin: 03/08/17 09:07 Dose: Not Given Ascorbic Acid (Vitamin C) 500 mg PO DAILY [facility] Stop: 05/02/17 08:59 Last Admin: 03/08/17 09:08 Dose: Not Given Bisacodyl (Dulcolax 10 Mg Supp) 10 mg RC DAILY PRN PRN Reason: Constipation Stop: 05/01/17 17:00 Chlorhexidine Gluconate (Peridex) 15 ml MM 08,1999 [facility] Stop: 05/06/17 19:59 Last Admin: 03/08/17 09:06 Dose: Not Given Digoxin (Lanoxin) 0.25 mg IVP DAILY [facility] Stop: 05/08/17 08:59 Diltiazem HCl (Cardizem) 20 mg IVP Q4H PRN PRN Reason: HR Greater than 130 per min Stop: 05/06/17 12:37 Last Admin: 03/07/17 23:42 Dose: 20 mg Divalproex Sodium (Depakote Dr) 500 mg PO BID JENNIFER PRN Reason: Protocol Stop: 05/02/17 08:59 Last Admin: 03/08/17 09:08 Dose: Not Given Docusate Sodium (Colace) 250 mg PO HS [facility] Stop: 05/01/17 20:59 Last Admin: 03/07/17 21:00 Dose: Not Given Donepezil HCl (Aricept) 5 mg PO DAILY [facility] Stop: 05/03/17 08:59 Last Admin: 03/08/17 09:09 Dose: Not Given Ferrous Sulfate (Iron) 325 mg PO DAILY [facility] Stop: 05/02/17 08:59 Last Admin: 03/08/17 09:09 Dose: Not Given Heparin Sodium (Porcine) (Heparin) 5,000 units SUBQ Q12H [facility] Stop: 05/02/17 20:59 Last Admin: 03/08/17 09:00 Dose: Not Given Levofloxacin 750 mg/ (Miscellaneous) 150 mls @ 100 mls/hr IV Q24H [facility] Stop: 05/06/17 09:59 Last Admin: 03/08/17 09:31 Dose: 100 mls/hr Dextrose/Sodium Chloride (D5-0.45ns) 1,000 mls @ 80 mls/hr IV .[id number] [facility]ENNIFER Stop: 05/06/17 11:52 Ipratropium [place] (Atrovent Neb 0.5mg/2.5ml) 0.5 mg IH QIDRT [facility]ENN[facility]ER Stop: 05/01/17 18:59 Last Admin: 03/08/17 11:15 Dose: 0.5 mg Lactulose (Cephulac) 20 gm PO DAILY [facility] Stop: 05/02/17 08:59 Last Admin: 03/08/17 09:09 Dose: Not Given Lorazepam (Ativan) 0.5 mg PO Q6HR PRN; Protocol PRN Reason: Anxiety Stop: 05/01/17 17:00 Magnesium Hydroxide (Milk Of Magnesia) 30 ml PO DAILY PRN PRN Reason: Constipation Stop: 05/01/17 17:00 Megestrol Acetate (Megace) 400 mg PO BID JENNIFER PRN Reason: Protocol Stop: 05/02/17 08:59 Last Admin: 03/08/17 09:09 Dose: Not Given Mirtazapine (Remeron) 7.5 mg PO HS JENN[facility]ER PRN Reason: Protocol Stop: 05/02/17 20:59 Last Admin: 03/08/17 08:09 Dose: Not Given Miscellaneous (Vte Chemical Prophylaxis Screen/ Admission) 1 ea [facility] PRN PRN PRN Reason: PROTOCOL Stop: 05/02/17 17:06 Morphine Sulfate (Morphine) 2 mg IVP Q4HR PRN PRN Reason: Abdominal Pain Stop: 05/06/17 08:43 Last Admin: 03/08/17 08:13 Dose: 2 mg Pantoprazole Sodium (Protonix) 40 mg IVP DAILY [facility]ENN[facility]ER Stop: 05/07/17 08:59 Last Admin: 03/08/17 09:25 Dose: 40 mg Risperidone (Risperdal) 0.5 mg PO DAILY [facility]ENN[facility]ER PRN Reason: Protocol Stop: 05/02/17 08:59 Last Admin: 03/08/17 09:09 Dose: Not Given Tamsulosin HCl (Flomax) 0.4 mg PO HS JENNIFER Stop: 05/01/17 20:59 Last Admin: 03/07/17 21:04 Dose: Not Given - Procedures Procedures: Procedures Procedure Code Date EGD BIOPSY SINGLE/MULTIPLE 18642 03/02/17 ESOPH FUNDOPLASTY LAP 83721 03/02/17 EXCISION OF ESOPHAGUS, ENDO, DIAGN [id number] 03/02/17 EXCISION OF STOMACH, ENDO, DIAGN [id number] 03/02/17 PRP I/OSVALDO INIT BLOCK >5 YR 33902 03/02/17 REMOVAL OF GALLBLADDER 13487 03/02/17 REPAIR LEFT DIAPHRAGM, OPEN APPROACH [id number] 03/02/17 REPAIR LEFT INGUINAL REGION, OPEN APPROACH [id number] 03/02/17 REPAIR RIGHT DIAPHRAGM, OPEN APPROACH [id number] 03/02/17 RESECTION OF GALLBLADDER, OPEN APPROACH [id number] 03/02/17 RESPIRATORY VENTILATION, LESS THAN 24 CONSECUTIVE HOURS [id number] 03/02/17 RESTRICTION OF ESOPHAGOGASTRIC JUNCTION, OPEN APPROACH [id number] 03/02/17 Assessment/Plan - Problem List Patient Problems: All Active Problems Anxiety (Active) F41.9 Nutritional Asmnt/Malnutr-PDOC - Dietary Evaluation Malnutrition Findings (Please click <Entered> for more info): Nutritional Asmnt/Malnutrition Start: 03/07/17 16: 29 Text: Status: Complete Freq: Document 03/07/17 16:29 GSUN (Rec: 03/07/17 16:57 GSUN [id number]) Nutritional Asmnt/Malnutrition Patient General Information Nutritional Screening Moderate Risk Screening Diagnosis Abd pain, anorexia, hiatal hernia, gall stone Pertinent Medical Hx/Surgical Hx HTN, asthma, COPD, dementia, constipation, GERD, peptic ulcer, depression Subjective Information 82 year old male from SNF. S/p yoan fundopplication hiatal hernia, cholecystectomy repair of left inguinal hernia . Pt currently NPO intubated. Pt was on ground diet prior to surgery, avg PO intake 50-100 % of meals. Severe fat/muscle wasting to temporals and clavicles noted. Current Diet Order/ Nutrition Support NPO Pertinent Medications Vitamin C, D5-0.45ns, Colace, Iron, MOM, Megace, Remeron, Morphine, Zofran, Protonix Pertinent Labs Reviewed. 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 Estimated Nutritional Goals Calories/Kcals/Kg IBW 178lb/80.9kg Kcals Calculated 2022-2427kcal (25-30kcal/kg) Protein Calculated 81g (1g/kg) Fluid: ml 2022-2427ml (1ml/kcal) Nutritional Problem 1. Problem Problem Inadequate oral food beverage intake related to Etiology newly intubated, s/p yoan fundopplication hiatal hernia, cholecystectomy repair of left inguinal hernia aeb Signs/Symptoms: currently NPO Malnutrition Alert Body Fat Depletion (Severe) Mod to Severe Depletion Muscle Mass (Severe) Mod to Severe Depletion Intervention/Recommendation Comments 1. When appropriate to resume diet, recommend resume ground low fat with Boost Plus TID. Expected Outcomes/Goals Expected Outcomes/Goals 1. Pt to resume oral intake and meet at least 75% of estimated nutritional needs.
[2017-03-08] MEDS: D5-0.45NS 1,000 ML IV SCH ×2 (13:21→14:20)
--- NOTE | 2017-03-08 16:16 | Pathology Report ---
[id number] Collection Date: 03/07/2017 Surgeon: Dr. Mikaela Da Silva Specimen Description: Gallbladder Gross Description: Received in formalin is a 5.8 cm in length x 3.5 cm in diameter distended gallbladder with a monteiro-donis outer surface showing thickening of the gallbladder wall. Opening the gallbladder reveals a single large, monteiro-donis gallstone measuring 3.5 x 2.3 x 2.1 cm. The gallbladder wall ranges from 0.2 to 0.4 cm in thickness and shows areas of mucosal ulceration. Oil Pumper sections are submitted in one cassette. Gross Pathologic Diagnosis: Cholelithiasis, gallbladder. Microscopic Description: The histologic sections show gallbladder wall and mucosa with superficial ulceration and chronic inflammation consisting of mostly lymphocytes. Diagnosis: Chronic cholecystitis, gallbladder. JOB# [id number]
--- NOTE | 2017-03-09 02:25 | Consultation ---
DATE OF CONSULTATION: 03/08/2017 PATIENT OF: Dr. Trejo. HISTORY AND PHYSICAL: This is an 82-year-old male patient who had been brought to the Emergency Room complaining of abdominal pain, not eating. Following this, the patient was found to have large hiatal hernia. The patient was seen by Dr. Da Silva. The patient had a surgery for hiatal hernia, bilateral inguinal hernia, as well as cholecystectomy. Postoperatively, the patient developed atrial fibrillation with rapid ventricular response and hence Cardiology consult was requested. PAST MEDICAL HISTORY: Hiatal hernia, major depression, hypertension, COPD, dementia bilateral inguinal hernia, gallstones, hyponatremia. FAMILY HISTORY: Unremarkable. SOCIAL HISTORY: No history of smoking, alcohol abuse. ALLERGIES: No known allergies. PHYSICAL EXAMINATION: VITAL SIGNS: Blood pressure 130/70, pulse 150 irregular, respirations 28. HEAD: Normocephalic. No lumps or bumps. EYES: Pupils equal, reactive to light. Fundi show AV nicking, sclerae white, conjunctivae pink. NECK: Carotid 2+. Normal upstroke. JVD flat. Thyroid not palpable. LYMPHATICS: Lymph nodes not palpable. CHEST: Shows increased AP diameter. No kyphosis, scoliosis. LUNGS: Bilateral bronchovesicular breath sounds. HEART: PMI fifth intercostal space with lateral to midclavicular line. S1, S2, S3, S4. S1 irregular. Systolic murmur, grade 2/6 lower left sternal border without radiation. ABDOMEN: Soft. Liver, spleen not palpable. The patient has hypoactive bowel sounds. Incision for surgery for the hiatal hernia and cholecystectomy. EXTREMITIES: Peripheral pulses 1+. No pedal edema. CLINICAL IMPRESSION: Paroxysmal atrial fibrillation with uncontrolled ventricular response, hiatal hernia, major depression, hypertension, chronic obstructive pulmonary disease, dementia, bilateral inguinal hernia, gallstones, and hyponatremia. PLAN: The patient had surgery for hiatal hernia repair, cholecystectomy, and bilateral inguinal hernia. The patient will be given IV Cardizem to control the heart rate. We will hold anticoagulation as the patient's NG drainage is coffee ground, and also get an echocardiogram. JOB# [id number]
[2017-03-09] MEDS: D5-0.45NS 1,000 ML IV SCH (06:27)
[2017-03-09] MEDS: Albuterol Nebulizer 2.5mg/3mL HHN SCH ×2 (07:17→11:26)
[2017-03-09] MEDS: Ipratropium Neb 0.5 mg/2.5 mL UD IH SCH ×2 (07:17→11:26)
[2017-03-09] MEDS: Lactulose 10 Gm/15 mL 30mL UDC PO SCH (09:52)
[2017-03-09] MEDS: Ferrous Sulfate 325 MG TAB PO SCH (09:53)
[2017-03-09] MEDS: Chlorhexidine Gluconate 0.12% 15mL Mouthwash MM SCH (10:28)
[2017-03-09] MEDS: Levofloxacin 750mg/150mL 750 MG in Premix Fluid 1 BAG IV SCH (11:58)
--- NOTE | 2017-03-09 12:16 | Internal Medicine Prog Note ---
Internal Medicine Subjective - Subjective Service Date: 03/09/17 (DC SUMMARY [id number]) Patient is:: awake, verbal, interactive Patient Complaints of:: congestion, bloated Per staff patient has:: no adverse event, no episodes of fall, poor appetite, agitated, combative, tolerating meds Internal Medicine Objective - Results Result Diagrams: 03/08/17 04:42 03/08/17 04:42 Recent Labs: Laboratory Last Values WBC 9.8 Th/cmm (4.8-10.8) 03/08/17 04:42 RBC 4.48 Mil/cmm (3.80-5.80) 03/08/17 04:42 Hgb 12.5 gm/dL (12.6-17.4) L 03/08/17 04:42 Hct 37.3 % (39.0-49.0) L D 03/08/17 04:42 MCV 83.2 fl (80-99) 03/08/17 04:42 MCH 27.8 pg (27.0-31.0) 03/08/17 04:42 MCHC Differential 33.4 pg (28.0-36.0) 03/08/17 04:42 RDW 14.9 % (11.5-20.0) 03/08/17 04:42 Plt Count 448 Th/cmm (150-400) H D 03/08/17 04:42 MPV 7.4 fl 03/08/17 04:42 Neutrophils % 73.6 % (40.0-80.0) 03/06/17 06:46 Band Neutrophils % 7 % (0-10) 03/08/17 04:42 Lymphocytes % 9.8 % (20.0-50.0) L 03/06/17 06:46 Monocytes % 5.6 % (2.0-10.0) 03/06/17 06:46 Eosinophils % 10.8 % (0.0-5.0) H 03/06/17 06:46 Basophils % 0.2 % (0.0-2.0) 03/06/17 06:46 Neutrophils (Manual) 89 % (40-80) H 03/08/17 04:42 Lymphocytes 3 % (20-50) L 03/08/17 04:42 Eosinophils 20 % (0-5) H 03/04/17 05:50 Metamyelocytes 1 % (0-0) H 03/08/17 04:42 Platelet Estimate INCREASED PLATELETS (NORMAL) 03/08/17 04:42 Platelet Morphology NORMAL (NORMAL) 03/08/17 04:42 RBC Morph Micro Appear NORMAL (NORMAL) 03/08/17 04:42 PT 10.2 SECONDS (9.5-11.5) 03/06/17 06:46 INR 0.98 (0.5-1.4) 03/06/17 06:46 PTT (Actin FS) 27.4 SECONDS (26.0-38.0) 03/06/17 06:46 Specimen Source Arterial 03/07/17 21:17 Sample Site LB 03/07/17 21:17 pH 7.47 (7.35-7.45) H 03/07/17 21:17 pCO2 45.0 mmHg (35.0-45.0) 03/07/17 21:17 pO2 60.0 mmHg (80.0-100.0) L 03/07/17 21:17 HCO3 31.1 mEq/L (20.0-26.0) H 03/07/17 21:17 Base Excess 8.1 mEq/L (-3.0-3.0) H 03/07/17 21:17 O2 Saturation 92.0 % (92.0-100.0) 03/07/17 21:17 Gus Test N/A 03/07/17 21:17 Vent Rate N/A 03/07/17 21:17 Inspired O2 35 03/07/17 21:17 Tidal Volume N/A 03/07/17 21:17 PEEP N/A 03/07/17 21:17 Pressure (ins/psv/peep) N/A 03/07/17 21:17 Critical Value SAMM 03/07/17 21:17 Sodium 133 mEq/L (136-145) L 03/08/17 04:42 Potassium 4.3 mEq/L (3.5-5.1) 03/08/17 04:42 Chloride 100 mEq/L (98-107) 03/08/17 04:42 Carbon Dioxide 33.6 mEq/L (21.0-31.0) H 03/08/17 04:42 Anion Gap 3.7 (7.0-16.0) L 03/08/17 04:42 BUN 12 mg/dL (7-25) 03/08/17 04:42 Creatinine 0.9 mg/dL (0.7-1.3) 03/08/17 04:42 Est GFR ( Amer) TNP 03/08/17 04:42 Est GFR (Non-Af Amer) TNP 03/08/17 04:42 BUN/Creatinine Ratio 13.3 03/08/17 04:42 Glucose 117 mg/dL (70-105) H 03/08/17 04:42 Calcium 11.7 mg/dL (8.6-10.3) H 03/08/17 04:42 Magnesium 1.8 mg/dL (1.9-2.7) L 03/06/17 06:46 Total Bilirubin 0.4 mg/dL (0.3-1.0) 03/08/17 04:42 AST 19 U/L (13-39) 03/08/17 04:42 ALT 9 U/L (7-52) 03/08/17 04:42 Alkaline Phosphatase 120 U/L (34-104) H 03/08/17 04:42 Ammonia 55 umol/L (16-53) H 03/06/17 06:46 Total Protein 7.1 gm/dL (6.0-8.3) 03/08/17 04:42 Albumin 2.5 gm/dL (4.2-5.5) L 03/08/17 04:42 Globulin 4.6 gm/dL 03/08/17 04:42 Albumin/Globulin Ratio 0.5 (1.0-1.8) L 03/08/17 04:42 Lipase 14 U/L (11-82) 03/02/17 11:23 Urine Source RANDOM 03/02/17 11:21 Urine Color YELLOW 03/02/17 11:21 Urine Clarity SL. CLOUDY (CLEAR) 03/02/17 11:21 Urine pH 7.0 03/02/17 11:21 Ur Specific [place] 1.015 (1.005-1.030) 03/02/17 11:21 Urine Protein NEGATIVE mg/dL (NEGATIVE) 03/02/17 11:21 Urine Glucose (UA) NEGATIVE mg/dL (NEGATIVE) 03/02/17 11:21 Urine Ketones TRACE mg/dL (NEGATIVE) 03/02/17 11:21 Urine Blood NEGATIVE (NEGATIVE) 03/02/17 11:21 Urine Nitrate NEGATIVE (NEGATIVE) 03/02/17 11:21 Urine Bilirubin NEGATIVE (NEGATIVE) 03/02/17 11:21 Urine Urobilinogen 1.0 E.U./dL (0.2 - 1.0) 03/02/17 11:21 Ur Leukocyte Esterase NEGATIVE (NEGATIVE) 03/02/17 11:21 Urine RBC NONE SEEN /hpf (0-5) 03/02/17 11:21 Urine WBC 2-5 /hpf (0-5) H 03/02/17 11:21 Ur Epithelial Cells OCCASIONAL /lpf (FEW) 03/02/17 11:21 Amorphous Sediment MODERATE PHOSPHATES (NONE SEEN) 03/02/17 11:21 Urine Bacteria FEW /hpf (NONE SEEN) 03/02/17 11:21 Blood Type O NEGATIVE 03/06/17 14:27 Antibody Screen NEGATIVE 03/06/17 14:27 - Physical Exam Vitals and I&O: Vital Signs Temp 97.7 F 03/09/17 04:00 Pulse 84 03/09/17 11:49 Resp 20 03/09/17 11:26 BP 104/69 03/09/17 09:53 Pulse Ox 86 03/09/17 11:26 Intake & Output 03/08/17 03/09/17 03/09/17 18:59 06:59 18:59 Intake Total 948.516 6655 Output Total 530 615 200 Balance -301.333 385 -200 Weight (lbs) 160 lb 3.2 oz 156 lb 3 oz 156 lb 3 oz Intake: Intake, IV Amount 152.670 6917 D5-0.45NS 1,000 ml @ 80 78.667 1000 mls/hr IV .[id number] [facility] Rx #:[id number] Levofloxacin 750mg/150mL 150 750 mg In Premix Fluid 1 bag @ 100 mls/hr IV Q24H [facility] Rx#:[id number] Oral 0 Output: Gastric Drainage 220 Urine 300 600 200 Other 10 15 Other: # Bowel Movements 0 Active Medications: Current Medications Acetaminophen (Tylenol) 650 mg PO Q4HR PRN PRN Reason: Pain or Fever >101 Stop: 05/01/17 17:00 Al Hydrox/Mg Hydrox/Simethicone (Maalox) 30 ml PO Q4HR PRN PRN Reason: GI DISTRESS Stop: 05/01/17 17:00 Albuterol Sulfate (Albuterol 2.5mg/3ml Neb Ud) 2.5 mg HHN QIDRT [facility] Stop: 05/01/17 18:59 Last Admin: 03/09/17 11:26 Dose: 2.5 mg Amlodipine Besylate (Norvasc) 5 mg PO DAILY [facility] Stop: 05/02/17 08:59 Last Admin: 03/09/17 09:53 Dose: 5 mg Ascorbic Acid (Vitamin C) 500 mg PO DAILY [facility] Stop: 05/02/17 08:59 Last Admin: 03/09/17 09:53 Dose: 500 mg Bisacodyl (Dulcolax 10 Mg Supp) 10 mg RC DAILY PRN PRN Reason: Constipation Stop: 05/01/17 17:00 Chlorhexidine Gluconate (Peridex) 15 ml MM 0800,2000 [facility] Stop: 05/06/17 19:59 Last Admin: 03/09/17 10:28 Dose: Not Given Digoxin (Lanoxin) 0.25 mg IVP DAILY [facility] Stop: 05/08/17 08:59 Last Admin: 03/09/17 11:49 Dose: 0.25 mg Diltiazem HCl (Cardizem) 20 mg IVP Q4H PRN PRN Reason: HR Greater than 130 per min Stop: 05/06/17 12:37 Last Admin: 03/07/17 23:42 Dose: 20 mg Divalproex Sodium (Depakote Dr) 500 mg PO BID [facility] PRN Reason: Protocol Stop: 05/02/17 08:59 Last Admin: 03/09/17 09:53 Dose: 500 mg Docusate Sodium (Colace) 250 mg PO HS [facility] Stop: 05/01/17 20:59 Last Admin: 03/08/17 22:03 Dose: Not Given Donepezil HCl (Aricept) 5 mg PO DAILY [facility] Stop: 05/03/17 08:59 Last Admin: 03/09/17 09:53 Dose: 5 mg Ferrous Sulfate (Iron) 325 mg PO DAILY [facility] Stop: 05/02/17 08:59 Last Admin: 03/09/17 09:53 Dose: 325 mg Heparin Sodium (Porcine) (Heparin) 5,000 units SUBQ Q12H [facility] Stop: 05/02/17 20:59 Last Admin: 03/09/17 10:27 Dose: Not Given Levofloxacin 750 mg/ (Miscellaneous) 150 mls @ 100 mls/hr IV Q24H [facility] Stop: 05/06/17 09:59 Last Admin: 03/09/17 11:58 Dose: Not Given Dextrose/Sodium Chloride (D5-0.45ns) 1,000 mls @ 80 mls/hr IV .[id number] [facility] Stop: 05/06/17 11:52 Last Admin: 03/09/17 06:27 Dose: 80 mls/hr Ipratropium [place] (Atrovent Neb 0.5mg/2.5ml) 0.5 mg IH QIDRT [facility] Stop: 05/01/17 18:59 Last Admin: 03/09/17 11:26 Dose: 0.5 mg Lactulose (Cephulac) 20 gm PO DAILY [facility] Stop: 05/02/17 08:59 Last Admin: 03/09/17 09:52 Dose: 20 gm Lorazepam (Ativan) 0.5 mg PO Q6HR PRN; Protocol PRN Reason: Anxiety Stop: 05/01/17 17:00 Magnesium Hydroxide (Milk Of Magnesia) 30 ml PO DAILY PRN PRN Reason: Constipation Stop: 05/01/17 17:00 Megestrol Acetate (Megace) 400 mg PO BID [facility] PRN Reason: Protocol Stop: 05/02/17 08:59 Last Admin: 03/09/17 10:27 Dose: Not Given Mirtazapine (Remeron) 7.5 mg PO HS [facility] PRN Reason: Protocol Stop: 05/02/17 20:59 Last Admin: 03/08/17 22:04 Dose: Not Given Miscellaneous (Vte Chemical Prophylaxis Screen/ Admission) 1 ea [facility] PRN PRN PRN Reason: PROTOCOL Stop: 05/02/17 17:06 Morphine Sulfate (Morphine) 2 mg IVP Q4HR PRN PRN Reason: Abdominal Pain Stop: 05/06/17 08:43 Last Admin: 03/08/17 16:51 Dose: 2 mg Pantoprazole Sodium (Protonix) 40 mg IVP DAILY [facility] Stop: 05/07/17 08:59 Last Admin: 03/09/17 09:55 Dose: 40 mg Risperidone (Risperdal) 0.5 mg PO DAILY [facility] PRN Reason: Protocol Stop: 05/02/17 08:59 Last Admin: 03/09/17 10:26 Dose: Not Given Tamsulosin HCl (Flomax) 0.4 mg PO HS [facility] Stop: 05/01/17 20:59 Last Admin: 03/08/17 22:04 Dose: Not Given General: weak, demented, NAD HEENT: NC/AT, PERRLA Neck: Supple Lungs: rales Cardiovascular: RRR, Normal S1, Normal S2, without murmur Abdomen: soft, tender, non-distended, positive bowel sound Extremities: excoriation Neurological: no change, alert, disorganized - Procedures Procedures: Procedures Procedure Code Date EGD BIOPSY SINGLE/MULTIPLE 71342 03/02/17 ESOPH FUNDOPLASTY LAP 33757 03/02/17 EXCISION OF ESOPHAGUS, ENDO, DIAGN [id number] 03/02/17 EXCISION OF STOMACH, ENDO, DIAGN [id number] 03/02/17 PRP I/OSVALDO INIT BLOCK >5 YR 41523 03/02/17 REMOVAL OF GALLBLADDER 82107 03/02/17 REPAIR LEFT DIAPHRAGM, OPEN APPROACH [id number] 03/02/17 REPAIR LEFT INGUINAL REGION, OPEN APPROACH [id number] 03/02/17 REPAIR RIGHT DIAPHRAGM, OPEN APPROACH [id number] 03/02/17 RESECTION OF GALLBLADDER, OPEN APPROACH [id number] 03/02/17 RESPIRATORY VENTILATION, LESS THAN 24 CONSECUTIVE HOURS [id number] 03/02/17 RESTRICTION OF ESOPHAGOGASTRIC JUNCTION, OPEN APPROACH [id number] 03/02/17 Internal Medicine Assmt/Plan - Assessment Assessment: new onset afib s/p exploratory laparotomy, lissen fundopplication of hiatal hernia, cholecystectomy repair of left inguinal hernia anorexia hiatal hernia abd hernia wt loss, ftt htn asthma copd gerd oa dementia gallstone anemia bph hyponatremia Nutritional Asmnt/Malnutr-PDOC - Dietary Evaluation Malnutrition Findings (Please click <Entered> for more info): Nutritional Asmnt/Malnutrition Start: 03/07/17 16: 29 Text: Status: Complete Freq: Document 03/07/17 16:29 GSUN (Rec: 03/07/17 16:57 GSUN [id number]) Nutritional Asmnt/Malnutrition Patient General Information Nutritional Screening Moderate Risk Screening Diagnosis Abd pain, anorexia, hiatal hernia, gall stone Pertinent Medical Hx/Surgical Hx HTN, asthma, COPD, dementia, constipation, GERD, peptic ulcer, depression Subjective Information 82 year old male from SNF. S/p yoan fundopplication hiatal hernia, cholecystectomy repair of left inguinal hernia . Pt currently NPO intubated. Pt was on ground diet prior to surgery, avg PO intake 50-100 % of meals. Severe fat/muscle wasting to temporals and clavicles noted. Current Diet Order/ Nutrition Support NPO Pertinent Medications Vitamin C, D5-0.45ns, Colace, Iron, MOM, Megace, Remeron, Morphine, Zofran, Protonix Pertinent Labs Reviewed. Nutritional Hx/Data Height 6 ft Height (Calculated Centimeters) 182.9 Current Weight (lbs) 153 lb Weight (Calculated Kilograms) 69.4 Weight (Calculated Grams) 09870.6 [place] Body Weight 178 GI Symptoms Usual diet at home [place]: regular, YANNA Skin Integrity/Comment: Juan Antonio Saenz. 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 Estimated Nutritional Goals Calories/Kcals/Kg IBW 178lb/80.9kg Kcals Calculated 2022-2427kcal (25-30kcal/kg) Protein Calculated 81g (1g/kg) Fluid: ml 2022-2427ml (1ml/kcal) Nutritional Problem 1. Problem Problem Inadequate oral food beverage intake related to Etiology newly intubated, s/p yoan fundopplication hiatal hernia, cholecystectomy repair of left inguinal hernia aeb Signs/Symptoms: currently NPO Malnutrition Alert Body Fat Depletion (Severe) Mod to Severe Depletion Muscle Mass (Severe) Mod to Severe Depletion Intervention/Recommendation Comments 1. When appropriate to resume diet, recommend resume ground low fat with Boost Plus TID. Expected Outcomes/Goals Expected Outcomes/Goals 1. Pt to resume oral intake and meet at least 75% of estimated nutritional needs.
--- NOTE | 2017-03-09 12:31 | General Progress Note ---
Subjective - Review of Systems Service Date: 03/09/17 Events since last encounter: minimal QUYEN drainage - removed low residue, low fat diet Objective - Results Result Diagrams: 03/08/17 04:42 03/08/17 04:42 Recent Labs: Laboratory Last Values WBC 9.8 Th/cmm (4.8-10.8) 03/08/17 04:42 RBC 4.48 Mil/cmm (3.80-5.80) 03/08/17 04:42 Hgb 12.5 gm/dL (12.6-17.4) L 03/08/17 04:42 Hct 37.3 % (39.0-49.0) L D 03/08/17 04:42 MCV 83.2 fl (80-99) 03/08/17 04:42 MCH 27.8 pg (27.0-31.0) 03/08/17 04:42 MCHC Differential 33.4 pg (28.0-36.0) 03/08/17 04:42 RDW 14.9 % (11.5-20.0) 03/08/17 04:42 Plt Count 448 Th/cmm (150-400) H D 03/08/17 04:42 MPV 7.4 fl 03/08/17 04:42 Neutrophils % 73.6 % (40.0-80.0) 03/06/17 06:46 Band Neutrophils % 7 % (0-10) 03/08/17 04:42 Lymphocytes % 9.8 % (20.0-50.0) L 03/06/17 06:46 Monocytes % 5.6 % (2.0-10.0) 03/06/17 06:46 Eosinophils % 10.8 % (0.0-5.0) H 03/06/17 06:46 Basophils % 0.2 % (0.0-2.0) 03/06/17 06:46 Neutrophils (Manual) 89 % (40-80) H 03/08/17 04:42 Lymphocytes 3 % (20-50) L 03/08/17 04:42 Eosinophils 20 % (0-5) H 03/04/17 05:50 Metamyelocytes 1 % (0-0) H 03/08/17 04:42 Platelet Estimate INCREASED PLATELETS (NORMAL) 03/08/17 04:42 Platelet Morphology NORMAL (NORMAL) 03/08/17 04:42 RBC Morph Micro Appear NORMAL (NORMAL) 03/08/17 04:42 PT 10.2 SECONDS (9.5-11.5) 03/06/17 06:46 INR 0.98 (0.5-1.4) 03/06/17 06:46 PTT (Actin FS) 27.4 SECONDS (26.0-38.0) 03/06/17 06:46 Specimen Source Arterial 03/07/17 21:17 Sample Site LB 03/07/17 21:17 pH 7.47 (7.35-7.45) H 03/07/17 21:17 pCO2 45.0 mmHg (35.0-45.0) 03/07/17 21:17 pO2 60.0 mmHg (80.0-100.0) L 03/07/17 21:17 HCO3 31.1 mEq/L (20.0-26.0) H 03/07/17 21:17 Base Excess 8.1 mEq/L (-3.0-3.0) H 03/07/17 21:17 O2 Saturation 92.0 % (92.0-100.0) 03/07/17 21:17 Gus Test N/A 03/07/17 21:17 Vent Rate N/A 03/07/17 21:17 Inspired O2 35 03/07/17 21:17 Tidal Volume N/A 03/07/17 21:17 PEEP N/A 03/07/17 21:17 Pressure (ins/psv/peep) N/A 03/07/17 21:17 Critical Value SAMM 03/07/17 21:17 Sodium 133 mEq/L (136-145) L 03/08/17 04:42 Potassium 4.3 mEq/L (3.5-5.1) 03/08/17 04:42 Chloride 100 mEq/L (98-107) 03/08/17 04:42 Carbon Dioxide 33.6 mEq/L (21.0-31.0) H 03/08/17 04:42 Anion Gap 3.7 (7.0-16.0) L 03/08/17 04:42 BUN 12 mg/dL (7-25) 03/08/17 04:42 Creatinine 0.9 mg/dL (0.7-1.3) 03/08/17 04:42 Est GFR ( Amer) TNP 03/08/17 04:42 Est GFR (Non-Af Amer) TNP 03/08/17 04:42 BUN/Creatinine Ratio 13.3 03/08/17 04:42 Glucose 117 mg/dL (70-105) H 03/08/17 04:42 Calcium 11.7 mg/dL (8.6-10.3) H 03/08/17 04:42 Magnesium 1.8 mg/dL (1.9-2.7) L 03/06/17 06:46 Total Bilirubin 0.4 mg/dL (0.3-1.0) 03/08/17 04:42 AST 19 U/L (13-39) 03/08/17 04:42 ALT 9 U/L (7-52) 03/08/17 04:42 Alkaline Phosphatase 120 U/L (34-104) H 03/08/17 04:42 Ammonia 55 umol/L (16-53) H 03/06/17 06:46 Total Protein 7.1 gm/dL (6.0-8.3) 03/08/17 04:42 Albumin 2.5 gm/dL (4.2-5.5) L 03/08/17 04:42 Globulin 4.6 gm/dL 03/08/17 04:42 Albumin/Globulin Ratio 0.5 (1.0-1.8) L 03/08/17 04:42 Lipase 14 U/L (11-82) 03/02/17 11:23 Urine Source RANDOM 03/02/17 11:21 Urine Color YELLOW 03/02/17 11:21 Urine Clarity SL. CLOUDY (CLEAR) 03/02/17 11:21 Urine pH 7.0 03/02/17 11:21 Ur Specific [place] 1.015 (1.005-1.030) 03/02/17 11:21 Urine Protein NEGATIVE mg/dL (NEGATIVE) 03/02/17 11:21 Urine Glucose (UA) NEGATIVE mg/dL (NEGATIVE) 03/02/17 11:21 Urine Ketones TRACE mg/dL (NEGATIVE) 03/02/17 11:21 Urine Blood NEGATIVE (NEGATIVE) 03/02/17 11:21 Urine Nitrate NEGATIVE (NEGATIVE) 03/02/17 11:21 Urine Bilirubin NEGATIVE (NEGATIVE) 03/02/17 11:21 Urine Urobilinogen 1.0 E.U./dL (0.2 - 1.0) 03/02/17 11:21 Ur Leukocyte Esterase NEGATIVE (NEGATIVE) 03/02/17 11:21 Urine RBC NONE SEEN /hpf (0-5) 03/02/17 11:21 Urine WBC 2-5 /hpf (0-5) H 03/02/17 11:21 Ur Epithelial Cells OCCASIONAL /lpf (FEW) 03/02/17 11:21 Amorphous Sediment MODERATE PHOSPHATES (NONE SEEN) 03/02/17 11:21 Urine Bacteria FEW /hpf (NONE SEEN) 03/02/17 11:21 Blood Type O NEGATIVE 03/06/17 14:27 Antibody Screen NEGATIVE 03/06/17 14:27 - Physical Exam Vitals and I&O: Vital Signs Temp 97.7 F 03/09/17 04:00 Pulse 84 03/09/17 11:49 Resp 20 03/09/17 11:26 BP 104/69 03/09/17 09:53 Pulse Ox 86 03/09/17 11:26 Intake & Output 03/08/17 03/09/17 03/09/17 18:59 06:59 18:59 Intake Total 790.752 8601 Output Total 530 615 200 Balance -301.333 385 -200 Weight (lbs) 72.665 kg 70.845 kg 70.845 kg Intake: Intake, IV Amount 047.662 3111 D5-0.45NS 1,000 ml @ 80 78.667 1000 mls/hr IV .[id number] [facility] Rx #:[id number] Levofloxacin 750mg/150mL 150 750 mg In Premix Fluid 1 bag @ 100 mls/hr IV Q24H [facility] Rx#:[id number] Oral 0 Output: Gastric Drainage 220 Urine 300 600 200 Other 10 15 Other: # Bowel Movements 0 Active Medications: Current Medications Acetaminophen (Tylenol) 650 mg PO Q4HR PRN PRN Reason: Pain or Fever >101 Stop: 05/01/17 17:00 Al Hydrox/Mg Hydrox/Simethicone (Maalox) 30 ml PO Q4HR PRN PRN Reason: GI DISTRESS Stop: 05/01/17 17:00 Ascorbic Acid (Vitamin C) 500 mg PO DAILY [facility] Stop: 05/02/17 08:59 Last Admin: 07/27/17 09:53 Dose: 500 mg Bisacodyl (Dulcolax 10 Mg Supp) 10 mg RC DAILY PRN PRN Reason: Constipation Stop: 05/01/17 17:00 Digoxin (Lanoxin) 0.25 mg IVP DAILY [facility] Stop: 05/08/17 08:59 Last Admin: 03/09/17 11:49 Dose: 0.25 mg Divalproex Sodium (Depakote Dr) 500 mg PO BID [facility] PRN Reason: Protocol Stop: 05/02/17 08:59 Last Admin: 03/09/17 09:53 Dose: 500 mg Docusate Sodium (Colace) 250 mg PO HS [facility] Stop: 05/01/17 20:59 Last Admin: 03/08/17 22:03 Dose: Not Given Ferrous Sulfate (Iron) 325 mg PO DAILY [facility] Stop: 05/02/17 08:59 Last Admin: 03/09/17 09:53 Dose: 325 mg Lactulose (Cephulac) 20 gm PO DAILY [facility] Stop: 05/02/17 08:59 Last Admin: 03/09/17 09:52 Dose: 20 gm Lorazepam (Ativan) 0.5 mg PO Q6HR PRN; Protocol PRN Reason: Anxiety Stop: 05/01/17 17:00 Magnesium Hydroxide (Milk Of Magnesia) 30 ml PO DAILY PRN PRN Reason: Constipation Stop: 05/01/17 17:00 Morphine Sulfate (Morphine) 2 mg IVP Q4HR PRN PRN Reason: Abdominal Pain Stop: 05/06/17 08:43 Last Admin: 03/08/17 16:51 Dose: 2 mg Risperidone (Risperdal) 0.5 mg PO DAILY [facility] PRN Reason: Protocol Stop: 05/02/17 08:59 Last Admin: 03/09/17 10:26 Dose: Not Given Tamsulosin HCl (Flomax) 0.4 mg PO HS [facility] Stop: 05/01/17 20:59 Last Admin: 03/08/17 22:04 Dose: Not Given - Procedures Procedures: Procedures Procedure Code Date EGD BIOPSY SINGLE/MULTIPLE 84508 03/02/17 ESOPH FUNDOPLASTY LAP 41857 03/02/17 EXCISION OF ESOPHAGUS, ENDO, DIAGN [id number] 03/02/17 EXCISION OF STOMACH, ENDO, DIAGN [id number] 03/02/17 PRP I/OSVALDO INIT BLOCK >5 YR 57860 03/02/17 REMOVAL OF GALLBLADDER 71611 03/02/17 REPAIR LEFT DIAPHRAGM, OPEN APPROACH [id number] 03/02/17 REPAIR LEFT INGUINAL REGION, OPEN APPROACH [id number] 03/02/17 REPAIR RIGHT DIAPHRAGM, OPEN APPROACH [id number] 03/02/17 RESECTION OF GALLBLADDER, OPEN APPROACH [id number] 03/02/17 RESPIRATORY VENTILATION, LESS THAN 24 CONSECUTIVE HOURS [id number] 03/02/17 RESTRICTION OF ESOPHAGOGASTRIC JUNCTION, OPEN APPROACH [id number] 03/02/17 Assessment/Plan - Problem List Patient Problems: All Active Problems Anxiety (Active) F41.9 Nutritional Asmnt/Malnutr-PDOC - Dietary Evaluation Malnutrition Findings (Please click <Entered> for more info): Nutritional Asmnt/Malnutrition Start: 03/07/17 16: 29 Text: Status: Complete Freq: Document 03/07/17 16:29 GSUN (Rec: 03/07/17 16:57 GSUN [email or web address]) Nutritional Asmnt/Malnutrition Patient General Information Nutritional Screening Moderate Risk Screening Diagnosis Abd pain, anorexia, hiatal hernia, gall stone Pertinent Medical Hx/Surgical Hx HTN, asthma, COPD, dementia, constipation, GERD, peptic ulcer, depression Subjective Information 82 year old male from SNF. S/p yoan fundopplication hiatal hernia, cholecystectomy repair of left inguinal hernia . Pt currently NPO intubated. Pt was on ground diet prior to surgery, avg PO intake 50-100 % of meals. Severe fat/muscle wasting to temporals and clavicles noted. Current Diet Order/ Nutrition Support NPO Pertinent Medications Vitamin C, D5-0.45ns, Colace, Iron, MOM, Megace, Remeron, Morphine, Zofran, Protonix Pertinent Labs Reviewed. Nutritional Hx/Data Height 1.83 m Height (Calculated Centimeters) 182.9 Current Weight (lbs) 69.4 kg Weight (Calculated Kilograms) 69.4 Weight (Calculated Grams) 61425.6 [place] Body Weight 178 GI Symptoms Usual diet at home [place]: regular, YANNA Skin Integrity/Comment: Juan Antonio Saenz. 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 Estimated Nutritional Goals Calories/Kcals/Kg IBW 178lb/80.9kg Kcals Calculated 2022-2427kcal (25-30kcal/kg) Protein Calculated 81g (1g/kg) Fluid: ml 2022-2427ml (1ml/kcal) Nutritional Problem 1. Problem Problem Inadequate oral food beverage intake related to Etiology newly intubated, s/p yoan fundopplication hiatal hernia, cholecystectomy repair of left inguinal hernia aeb Signs/Symptoms: currently NPO Malnutrition Alert Body Fat Depletion (Severe) Mod to Severe Depletion Muscle Mass (Severe) Mod to Severe Depletion Intervention/Recommendation Comments 1. When appropriate to resume diet, recommend resume ground low fat with Boost Plus TID. Expected Outcomes/Goals Expected Outcomes/Goals 1. Pt to resume oral intake and meet at least 75% of estimated nutritional needs.
[2017-03-09 13:11] LABS: % BASOPHILS 0.2 % (0.0-2.0); % EOSINOPHILS 1.6 % (0.0-5.0); % LYMPHOCYTES 10.1 % (20.0-50.0); % MONOCYTES 4.7 % (2.0-10.0); % NEUTROPHILS 83.4 % (40.0-80.0); HEMATOCRIT 30.2 % (39.0-49.0); MEAN CELL VOLUME 84.1 fl (80-99); MEAN CORPUSCULAR HEMOGLOBIN 27.9 pg (27.0-31.0); MEAN CORPUSCULAR HGB CONC 33.1 pg (28.0-36.0); MEAN PLATELET VOLUME 7.1 fl; NEUTROPHILE ABSOLUTE 7.4 Th/cmm (1.8-8.0); PLATELET COUNT 400 Th/cmm (150-400); RED CELL DISTRIBUTION WIDTH 14.8 % (11.5-20.0); WHITE BLOOD COUNT 8.8 Th/cmm (4.8-10.8)
[2017-03-09 13:31] LABS: ANION GAP 6.1 (7.0-16.0); BUN - UREA NITROGEN 11 mg/dL (7-25); BUN/CREATININE RATIO 13.8; CALCIUM SERUM 10.3 mg/dL (8.6-10.3); CARBON DIOXIDE 27.5 mEq/L (21.0-31.0); CHLORIDE 105 mEq/L (98-107); CREATININE - SERUM 0.8 mg/dL (0.7-1.3); POTASSIUM SERUM 3.6 mEq/L (3.5-5.1); SODIUM SERUM 135 mEq/L (136-145)
[2017-03-09 13:58] LABS: GLUCOSE 590 mg/dL (70-105)
--- NOTE | 2017-03-09 14:13 | General Progress Note ---
Subjective - Review of Systems Service Date: 03/09/17 Events since last encounter: QUYEN drain removed labs noted tolerating liquids Objective - Results Result Diagrams: 03/09/17 13:05 03/09/17 13:05 Recent Labs: Laboratory Last Values WBC 8.8 Th/cmm (4.8-10.8) 03/09/17 13:05 RBC 3.60 Mil/cmm (3.80-5.80) L 03/09/17 13:05 Hgb 10.0 gm/dL (12.6-17.4) L D 03/09/17 13:05 Hct 30.2 % (39.0-49.0) L D 03/09/17 13:05 MCV 84.1 fl (80-99) 03/09/17 13:05 MCH 27.9 pg (27.0-31.0) 03/09/17 13:05 MCHC Differential 33.1 pg (28.0-36.0) 03/09/17 13:05 RDW 14.8 % (11.5-20.0) 03/09/17 13:05 Plt Count 400 Th/cmm (150-400) 03/09/17 13:05 MPV 7.1 fl 03/09/17 13:05 Neutrophils % 83.4 % (40.0-80.0) H 03/09/17 13:05 Band Neutrophils % 7 % (0-10) 03/08/17 04:42 Lymphocytes % 10.1 % (20.0-50.0) L 03/09/17 13:05 Monocytes % 4.7 % (2.0-10.0) 03/09/17 13:05 Eosinophils % 1.6 % (0.0-5.0) 03/09/17 13:05 Basophils % 0.2 % (0.0-2.0) 03/09/17 13:05 Neutrophils (Manual) 89 % (40-80) H 03/08/17 04:42 Lymphocytes 3 % (20-50) L 03/08/17 04:42 Eosinophils 20 % (0-5) H 03/04/17 05:50 Metamyelocytes 1 % (0-0) H 03/08/17 04:42 Platelet Estimate INCREASED PLATELETS (NORMAL) 03/08/17 04:42 Platelet Morphology NORMAL (NORMAL) 03/08/17 04:42 RBC Morph Micro Appear NORMAL (NORMAL) 03/08/17 04:42 PT 10.2 SECONDS (9.5-11.5) 03/06/17 06:46 INR 0.98 (0.5-1.4) 03/06/17 06:46 PTT (Actin FS) 27.4 SECONDS (26.0-38.0) 03/06/17 06:46 Specimen Source Arterial 03/07/17 21:17 Sample Site LB 03/07/17 21:17 pH 7.47 (7.35-7.45) H 03/07/17 21:17 pCO2 45.0 mmHg (35.0-45.0) 03/07/17 21:17 pO2 60.0 mmHg (80.0-100.0) L 03/07/17 21:17 HCO3 31.1 mEq/L (20.0-26.0) H 03/07/17 21:17 Base Excess 8.1 mEq/L (-3.0-3.0) H 03/07/17 21:17 O2 Saturation 92.0 % (92.0-100.0) 03/07/17 21:17 Gus Test N/A 03/07/17 21:17 Vent Rate N/A 03/07/17 21:17 Inspired O2 35 03/07/17 21:17 Tidal Volume N/A 03/07/17 21:17 PEEP N/A 03/07/17 21:17 Pressure (ins/psv/peep) N/A 03/07/17 21:17 Critical Value SAMM 03/07/17 21:17 Sodium 135 mEq/L (136-145) L 03/09/17 13:05 Potassium 3.6 mEq/L (3.5-5.1) 03/09/17 13:05 Chloride 105 mEq/L (98-107) 03/09/17 13:05 Carbon Dioxide 27.5 mEq/L (21.0-31.0) 03/09/17 13:05 Anion Gap 6.1 (7.0-16.0) L 03/09/17 13:05 BUN 11 mg/dL (7-25) 03/09/17 13:05 Creatinine 0.8 mg/dL (0.7-1.3) 03/09/17 13:05 Est GFR ( Amer) TNP 03/09/17 13:05 Est GFR (Non-Af Amer) TNP 03/09/17 13:05 BUN/Creatinine Ratio 13.8 03/09/17 13:05 Glucose 590 mg/dL (70-105) H* 03/09/17 13:05 Calcium 10.3 mg/dL (8.6-10.3) 03/09/17 13:05 Magnesium 1.8 mg/dL (1.9-2.7) L 03/06/17 06:46 Total Bilirubin 0.4 mg/dL (0.3-1.0) 03/08/17 04:42 AST 19 U/L (13-39) 03/08/17 04:42 ALT 9 U/L (7-52) 03/08/17 04:42 Alkaline Phosphatase 120 U/L (34-104) H 03/08/17 04:42 Ammonia 55 umol/L (16-53) H 03/06/17 06:46 B-Natriuretic Peptide 69.4 pg/mL (5.0-100.0) 03/09/17 13:05 Total Protein 7.1 gm/dL (6.0-8.3) 03/08/17 04:42 Albumin 2.5 gm/dL (4.2-5.5) L 03/08/17 04:42 Globulin 4.6 gm/dL 03/08/17 04:42 Albumin/Globulin Ratio 0.5 (1.0-1.8) L 03/08/17 04:42 Lipase 14 U/L (11-82) 03/02/17 11:23 Urine Source RANDOM 03/02/17 11:21 Urine Color YELLOW 03/02/17 11:21 Urine Clarity SL. CLOUDY (CLEAR) 03/02/17 11:21 Urine pH 7.0 03/02/17 11:21 Ur Specific [place] 1.015 (1.005-1.030) 03/02/17 11:21 Urine Protein NEGATIVE mg/dL (NEGATIVE) 03/02/17 11:21 Urine Glucose (UA) NEGATIVE mg/dL (NEGATIVE) 03/02/17 11:21 Urine Ketones TRACE mg/dL (NEGATIVE) 03/02/17 11:21 Urine Blood NEGATIVE (NEGATIVE) 03/02/17 11:21 Urine Nitrate NEGATIVE (NEGATIVE) 03/02/17 11:21 Urine Bilirubin NEGATIVE (NEGATIVE) 03/02/17 11:21 Urine Urobilinogen 1.0 E.U./dL (0.2 - 1.0) 03/02/17 11:21 Ur Leukocyte Esterase NEGATIVE (NEGATIVE) 03/02/17 11:21 Urine RBC NONE SEEN /hpf (0-5) 03/02/17 11:21 Urine WBC 2-5 /hpf (0-5) H 03/02/17 11:21 Ur Epithelial Cells OCCASIONAL /lpf (FEW) 03/02/17 11:21 Amorphous Sediment MODERATE PHOSPHATES (NONE SEEN) 03/02/17 11:21 Urine Bacteria FEW /hpf (NONE SEEN) 03/02/17 11:21 Blood Type O NEGATIVE 03/06/17 14:27 Antibody Screen NEGATIVE 03/06/17 14:27 - Physical Exam Vitals and I&O: Vital Signs Temp 97.7 F 03/09/17 04:00 Pulse 84 03/09/17 11:49 Resp 20 03/09/17 11:26 BP 104/69 03/09/17 09:53 Pulse Ox 86 03/09/17 11:26 Intake & Output 03/08/17 03/09/17 03/09/17 18:59 06:59 18:59 Intake Total 876.843 6533 Output Total 530 615 200 Balance -301.333 385 -200 Weight (lbs) 72.665 kg 70.845 kg 70.845 kg Intake: Intake, IV Amount 219.982 6448 D5-0.45NS 1,000 ml @ 80 78.667 1000 mls/hr IV .[id number] JENNIFER Rx #:[id number] Levofloxacin 750mg/150mL 150 750 mg In Premix Fluid 1 bag @ 100 mls/hr IV Q24H JENNIFER Rx#:[id number] Oral 0 Output: Gastric Drainage 220 Urine 300 600 200 Other 10 15 Other: # Bowel Movements 0 Active Medications: Current Medications Acetaminophen (Tylenol) 650 mg PO Q4HR PRN PRN Reason: Pain or Fever >101 Stop: 05/01/17 17:00 Al Hydrox/Mg Hydrox/Simethicone (Maalox) 30 ml PO Q4HR PRN PRN Reason: GI DISTRESS Stop: 05/01/17 17:00 Ascorbic Acid (Vitamin C) 500 mg PO DAILY [facility] Stop: 05/02/17 08:59 Last Admin: 03/09/17 09:53 Dose: 500 mg Bisacodyl (Dulcolax 10 Mg Supp) 10 mg RC DAILY PRN PRN Reason: Constipation Stop: 05/01/17 17:00 Digoxin (Lanoxin) 0.25 mg IVP DAILY [facility] Stop: 05/08/17 08:59 Last Admin: 03/09/17 11:49 Dose: 0.25 mg Divalproex Sodium (Depakote Dr) 500 mg PO BID JENNIFER PRN Reason: Protocol Stop: 05/02/17 08:59 Last Admin: 03/09/17 09:53 Dose: 500 mg Docusate Sodium (Colace) 250 mg PO HS [facility] Stop: 05/01/17 20:59 Last Admin: 03/08/17 22:03 Dose: Not Given Ferrous Sulfate (Iron) 325 mg PO DAILY [facility] Stop: 05/02/17 08:59 Last Admin: 03/09/17 09:53 Dose: 325 mg Lactulose (Cephulac) 20 gm PO DAILY [facility] Stop: 05/02/17 08:59 Last Admin: 03/09/17 09:52 Dose: 20 gm Lorazepam (Ativan) 0.5 mg PO Q6HR PRN; Protocol PRN Reason: Anxiety Stop: 05/01/17 17:00 Magnesium Hydroxide (Milk Of Magnesia) 30 ml PO DAILY PRN PRN Reason: Constipation Stop: 05/01/17 17:00 Morphine Sulfate (Morphine) 2 mg IVP Q4HR PRN PRN Reason: Abdominal Pain Stop: 05/06/17 08:43 Last Admin: 03/08/17 16:51 Dose: 2 mg Risperidone (Risperdal) 0.5 mg PO DAILY JENN[facility]ER PRN Reason: Protocol Stop: 05/02/17 08:59 Last Admin: 03/09/17 10:26 Dose: Not Given Tamsulosin HCl (Flomax) 0.4 mg PO HS [facility] Stop: 05/01/17 20:59 Last Admin: 03/08/17 22:04 Dose: Not Given - Procedures Procedures: Procedures Procedure Code Date EGD BIOPSY SINGLE/MULTIPLE 99661 03/02/17 ESOPH FUNDOPLASTY LAP 63228 03/02/17 EXCISION OF ESOPHAGUS, ENDO, DIAGN [id number] 03/02/17 EXCISION OF STOMACH, ENDO, DIAGN [id number] 03/02/17 PRP I/OSVALDO INIT BLOCK >5 YR 78930 03/02/17 REMOVAL OF GALLBLADDER 81208 03/02/17 REPAIR LEFT DIAPHRAGM, OPEN APPROACH [id number] 03/02/17 REPAIR LEFT INGUINAL REGION, OPEN APPROACH [id number] 03/02/17 REPAIR RIGHT DIAPHRAGM, OPEN APPROACH [id number] 03/02/17 RESECTION OF GALLBLADDER, OPEN APPROACH [id number] 03/02/17 RESPIRATORY VENTILATION, LESS THAN 24 CONSECUTIVE HOURS [id number] 03/02/17 RESTRICTION OF ESOPHAGOGASTRIC JUNCTION, OPEN APPROACH [id number] 03/02/17 Assessment/Plan - Problem List Patient Problems: All Active Problems Anxiety (Active) F41.9 Nutritional Asmnt/Malnutr-PDOC - Dietary Evaluation Malnutrition Findings (Please click <Entered> for more info): Nutritional Asmnt/Malnutrition Start: 03/07/17 16: 29 Text: Status: Complete Freq: Document 03/07/17 16:29 GSUN (Rec: 03/07/17 16:57 GSUN [place] [id number]) Nutritional Asmnt/Malnutrition Patient General Information Nutritional Screening Moderate Risk Screening Diagnosis Abd pain, anorexia, hiatal hernia, gall stone Pertinent Medical Hx/Surgical Hx HTN, asthma, COPD, dementia, constipation, GERD, peptic ulcer, depression Subjective Information 82 year old male from SNF. S/p yoan fundopplication hiatal hernia, cholecystectomy repair of left inguinal hernia . Pt currently NPO intubated. Pt was on ground diet prior to surgery, avg PO intake 50-100 % of meals. Severe fat/muscle wasting to temporals and clavicles noted. Current Diet Order/ Nutrition Support NPO Pertinent Medications Vitamin C, D5-0.45ns, Colace, Iron, MOM, Megace, Remeron, Morphine, Zofran, Protonix Pertinent Labs Reviewed. Nutritional Hx/Data Height 1.83 m Height (Calculated Centimeters) 182.9 Current Weight (lbs) 69.4 kg Weight (Calculated Kilograms) 69.4 Weight (Calculated Grams) 36522.6 [place] Body Weight 178 GI Symptoms Usual diet at home [place]: regular, YANNA Skin Integrity/Comment: Juan Antonio Saenz. planning director: left hip pressure area, rashes. Estimated Nutritional Goals Calories/Kcals/Kg IBW 178lb/80.9kg Kcals Calculated 2022-2427kcal (25-30kcal/kg) Protein Calculated 81g (1g/kg) Fluid: ml 2022-2427ml (1ml/kcal) Nutritional Problem 1. Problem Problem Inadequate oral food beverage intake related to Etiology newly intubated, s/p yoan fundopplication hiatal hernia, cholecystectomy repair of left inguinal hernia aeb Signs/Symptoms: currently NPO Malnutrition Alert Body Fat Depletion (Severe) Mod to Severe Depletion Muscle Mass (Severe) Mod to Severe Depletion Intervention/Recommendation Comments 1. When appropriate to resume diet, recommend resume ground low fat with Boost Plus TID. Expected Outcomes/Goals Expected Outcomes/Goals 1. Pt to resume oral intake and meet at least 75% of estimated nutritional needs.
--- NOTE | 2017-03-09 19:34 | Discharge Summary ---
DATE OF DISCHARGE: 03/09/2017 DISCHARGE DIAGNOSES: Status post laparotomy, hernia repair, abdominal pain, anorexia, hiatal hernia, abdominal hernia, weight loss, ____, hypertension, asthma, chronic obstructive pulmonary disease, gastroesophageal reflux disease, ____, dementia, gallstones, anemia. HISTORY OF PRESENT ILLNESS: An 82-year-old male with multiple medical conditions sent from [facility] secondary to abdominal pain for worked up for abdominal mass, noted to have significant weight loss as well. PHYSICAL EXAMINATION: GENERAL: The patient appears thin, awake, in no acute distress. VITAL SIGNS: Stable. HEENT: Normocephalic, atraumatic. NECK: Supple. No mass. LUNGS: Clear bilaterally. CARDIOVASCULAR: Regular rate and rhythm. ABDOMEN: Soft, nontender. HOSPITAL COURSE: During the hospital stay, the patient was admitted to the telemetry unit. The patient had a consultation with Dr. Da Silva and also Dr. Sparrow, Dr. Greenberg was well. The patient was kept on empiric IV antibiotics of Levaquin 750 mg IV q.24h., also CBC, BMP were being monitored. The patient was kept on IV fluids for hydration. On 03/06/2017, patient had an EGD done with biopsy and his postop diagnosis was larger hiatal hernia, esophageal erosion, status post biopsy, gastritis, status post biopsy and normal duodenum. His recommendations were to continue with Protonix and await for biopsy. On 03/07/2017 patient had exploratory laparotomy with Eugenio fundoplication, open cholecystectomy, repair of left inguinal hernia. After surgery, the patient was orally intubated and was transferred to the ICU unit. The patient had a pulmonary consultation with Dr. Lewis for ventilator maintenance and patient was extubated and was transferred to the telemetry unit. The patient had a chest x-ray done on 03/07/2017 and the impression is nasogastric tube extending below the diaphragm to the region of ____. No definite focal pulmonary processes, cardiomegaly. Also, the patient had a consultation with Dr. José Baptiste due to the onset of new fibrillation and his plan of care for this patient, the patient was started on IV Cardizem to control the heart rate and anticoagulation were held due to the NG tube draining coffee-ground emesis. The patient was cleared by all consultation, for this reason, the patient felt stable for discharge. CONDITION UPON DISCHARGE: Fair. DISPOSITION: Peggy Blanco. The patient to continue Levaquin 750 mg p.o. for 7 more days. JOB# [id number]
== END 2017-03-09 16:00 | disposition home or self-care (01) | DRG 326 ==
LOC: ER 10:54 → MSI 16:40 → ICU 03-07 09:49 → TELE 03-08 17:30
PROVIDERS: ADMIT Internal Medicine; ATTEND Internal Medicine
PROC: 0DB58ZX Excision of Esophagus, Via Natural or Artificial Opening Endoscopic, Diagnostic (ICD-10-PCS; 2017-03-06)
PROC: 0DB68ZX Excision of Stomach, Via Natural or Artificial Opening Endoscopic, Diagnostic (ICD-10-PCS; 2017-03-06)
PROC: 0DV40ZZ Restriction of Esophagogastric Junction, Open Approach (ICD-10-PCS; principal; 2017-03-07)
PROC: 0YQ60ZZ Repair Left Inguinal Region, Open Approach (ICD-10-PCS; 2017-03-07)
PROC: 0FT40ZZ Resection of Gallbladder, Open Approach (ICD-10-PCS; 2017-03-07)
PROC: 5A1935Z Respiratory Ventilation, Less than 24 Consecutive Hours (ICD-10-PCS; 2017-03-07)
DX: K40.30 Unilateral inguinal hernia, with obstruction, without gangrene, not specified as recurrent (principal); E43 Unspecified severe protein-calorie malnutrition; J44.9 Chronic obstructive pulmonary disease, unspecified; F33.2 Major depressive disorder, recurrent severe without psychotic features; G30.9 Alzheimer's disease, unspecified; K80.10 Calculus of gallbladder with chronic cholecystitis without obstruction; F02.80 Dementia in other diseases classified elsewhere, unspecified severity, without behavioral disturbance, psychotic disturbance, mood disturbance, and anxiety; E87.1 Hypo-osmolality and hyponatremia; K22.10 Ulcer of esophagus without bleeding; I48.0 Paroxysmal atrial fibrillation; R62.7 Adult failure to thrive; F41.9 Anxiety disorder, unspecified; K44.9 Diaphragmatic hernia without obstruction or gangrene; I10 Essential (primary) hypertension; K21.9 Gastro-esophageal reflux disease without esophagitis; M19.90 Unspecified osteoarthritis, unspecified site; D64.9 Anemia, unspecified; N40.0 Benign prostatic hyperplasia without lower urinary tract symptoms; K29.70 Gastritis, unspecified, without bleeding; F17.210 Nicotine dependence, cigarettes, uncomplicated; F20.9 Schizophrenia, unspecified; Z90.49 Acquired absence of other specified parts of digestive tract; Z68.20 Body mass index [BMI] 20.0-20.9, adult; Z79.899 Other long term (current) drug therapy
CPT/HCPCS: 36415-UA; 36600-90; 71010-TC; 80048-TC; 80053-TC; 81001-TC; 82140-TC; 82803-TC; 83036-90; 83690-TC; 83735-TC; 83880-TC; 85007-TC; 85025-TC; 85027-TC; 85610-TC; 86850-TC; 86900-TC; 86901-TC; 87070; 87070-90; 87075-90; 87205-90; 88304-TC; 88305-90; 88312-90; 88313-90; 90779; 90799; 94002; 94640; 94664; 94760; 96372; 99201; C9113; J1160; J1644; J1956; J2001; J2250; J2270; J2543; J2704; J3480; J7030; J7613; Q9967; V2790; X6024; Z7610

== ENCOUNTER 2017-03-14 11:15 | Inpatient (IN) | payer OTHER, MEDICAID, MEDICARE ==
--- NOTE | 2017-03-14 11:39 | ED Physician Chart ---
Chief Complaint/HPI - Patient Information Date Seen:: 03/14/17 Time Seen:: 11:34 Chief Complaint:: sob History of Present Illness:: pt sent from [facility] for sob this am. staff note ronchi in lungs bilat. no fever or peripheral edema. pt w dementia and poor historian. pt was here 03/09 for aBD P AND HAD MAITE SX AND L INGUINAL HERNIA REPAIR AND JYOTI FUNDOPLICATION. NO KNOWN POST OP PROBLEMS. HR ON ARRIVAL NOTED HIGHLY LABILE 110-145... Allergies:: Allergies Allergy/AdvReac Type Severity Reaction Status Date / Time No Known Allergies Allergy Verified 03/02/17 11:24 Historian:: Patient Review of Systems - Review of Systems General/Constitutional: No fever, No chills, No weight loss, No weakness, No diaphoresis, No edema, No loss of appetite Skin: No skin lesions, No rash, No bruising Head: No headache, No light-headedness Eyes: No loss of vision, No pain, No diplopia ENT: No earache, No nasal drainage, No sore throat, No tinnitus Neck: No neck pain, No swelling, No thyromegaly, No stiffness, No mass noted Cardio Vascular: No chest pain, No palpitations, No PND, No orthopnea, No edema Pulmonary: SOB, No cough, No sputum, No wheezing GI: No nausea, No vomiting, No diarrhea, No pain, No melena, No hematochezia, No constipation, No hematemesis G/U: No dysuria, No frequency, No hematuria Musculoskeletal: No bone or joint pain, No back pain, No muscle pain Endocrine: No polyuria, No polydipsia Psychiatric: No prior psych history, No depression, No anxiety, No suicidal ideation Hematopoietic: No bruising, No lymphadenopathy Allergic/Immuno: No urticaria, No angioedema Neurological: No syncope, No focal symptoms, No weakness, No paresthesia, No headache, No seizure, No dizziness, No confusion, No vertigo Past Medical History - Past Medical History Past Medical History: HTN, CAD, Asthma/COPD, Dementia, Other (A FIB PAROXYSMAL, ) Social History: Care Facility Surgical History: Appendectomy, Cholecystectomy, Hernia, other (RT ORCHIECTOMY, SCROTAL MASS, ) Psychiatricy History: Schizophrenia, Dementia Family Medical History - Family Member Mother History Unknown: Yes Ethnicity: Unknown Living Status: Unknown Hx Family Cancer: No Hx Family Coronary Artery Disease: No Hx Family Congestive Heart Failure: No Hx Family Hypertension: No Hx Family Stroke: No Hx Family Diabetes: No Hx Family Seizures: No Hx Family Dementia: No Hx Family AIDS: No Hx Family HIV: No Hx Family COPD: No Hx Family Hepatitis: No Hx Family Psychiatric Problems: No Hx Family Tuberculosis: No Physical Exam - Physical Examination General/Constitutional: Awake, Well-developed, well-nourished, Alert, No distress, Non-toxic appearing, Ambulatory Other Gen/Cons comments:: POOR HISTORIAN BUT CAN TALK SOME. wn/wh. Head: Atraumatic Eyes: Lids, conjuctiva normal, PERRL, EOMI Skin: Nl inspection, No rash, No skin lesions, No ecchymosis, Well hydrated, No lymphadenopathy ENMT: External ears, nose nl, Nasal exam nl, Lips, teeth, gums nl Neck: Nontender, Full ROM w/o pain, No JVD, No nuchal rigidity, No bruit, No mass, No stridor Respiratory: Nl effort/Exclusion, Clear to Auscultation, No Wheeze/Rhonchi/Rales Other Respiratory comments:: ronchi b lung bases. not currently dyspneic. Cardio Vascular: RRR, No murmur, gallop, rubs, NL S1 S2 GI: No tenderness/rebounding/guarding, No organomegaly, No hernia, Normal BS's, Nondistended, No mass/bruits, No McBurney tenderness Other GI comments:: vert incision abd well healing no pus. no fever. not red. pos nabs. no rebound. : No CVA tenderness Extremities: No tenderness or effusion, Full ROM, normal strength in all extremities, No edema, Normal digits & nails Neuro/Psych: DTR's symmetric, Normal sensory exam, Normal motor strength, Mood normal, Normal gait, No focal deficits Misc: normal gait, Normal back, No paraspinal tenderness Labs/Radiology/EKG Results - Lab Results Results: Laboratory Tests 03/14/17 03/14/17 03/14/17 11:35 11:35 11:35 WBC 8.0 RBC 4.40 Hgb 12.0 L D Hct 37.2 L D MCV 84.6 MCH 27.2 MCHC Differential 32.2 RDW 15.5 Plt Count 543 H D MPV 7.4 Neutrophils % 78.0 Lymphocytes % 14.8 L Monocytes % 5.6 Eosinophils % 1.4 Basophils % 0.2 Sodium 141 Potassium 3.8 Chloride 106 Carbon Dioxide 32.2 H Anion Gap 6.6 L BUN 23 Creatinine 0.9 Est GFR ( Amer) TNP Est GFR (Non-Af Amer) TNP BUN/Creatinine Ratio 25.6 Glucose 78 Whole Bld Lactic Acid Calcium 12.0 H Total Bilirubin 0.4 AST 10 L ALT 6 L Alkaline Phosphatase 74 Troponin I 0.02 B-Natriuretic Peptide 27.2 Total Protein 7.3 Albumin 2.8 L Globulin 4.5 Albumin/Globulin Ratio 0.6 L Urine Source Urine Color Urine Clarity Urine pH Ur Specific [place] Urine Protein Urine Glucose (UA) Urine Ketones Urine Blood Urine Nitrate Urine Bilirubin Urine Urobilinogen Ur Leukocyte Esterase Urine RBC Urine WBC Ur Epithelial Cells Urine Bacteria Hyaline Casts Urine Other Valproic Acid 30.6 L 03/14/17 03/14/17 11:35 12:00 WBC RBC Hgb Hct MCV MCH MCHC Differential RDW Plt Count MPV Neutrophils % Lymphocytes % Monocytes % Eosinophils % Basophils % Sodium Potassium Chloride Carbon Dioxide Anion Gap BUN Creatinine Est GFR ( Amer) Est GFR (Non-Af Amer) BUN/Creatinine Ratio Glucose Whole Bld Lactic Acid 0.99 Calcium Total Bilirubin AST ALT Alkaline Phosphatase Troponin I B-Natriuretic Peptide Total Protein Albumin Globulin Albumin/Globulin Ratio Urine Source CATH Urine Color YELLOW Urine Clarity SL. CLOUDY Urine pH 6.0 Ur Specific [place] >= 1.030 Urine Protein TRACE Urine Glucose (UA) NEGATIVE Urine Ketones 15 H Urine Blood TRACE Urine Nitrate NEGATIVE Urine Bilirubin SMALL H Urine Urobilinogen 1.0 Ur Leukocyte Esterase NEGATIVE Urine RBC 5-8 Urine WBC 2-5 H Ur Epithelial Cells RARE Urine Bacteria OCCASIONAL Hyaline Casts 0-2 H Urine Other Valproic Acid - Radiology Results Results: cxr suggestion of infiltrate at rt medial base. ct abd/p- confirms consolidation/pneumonia w overlying effusion rll lung. mult liver cysts. sq air//inflamation ant abd wall -post op changes - EKG Interpretations EKG Time:: 12:05 Rate & Rhythm: nsr 98 [place]: 78 Intervals: nrml Comments:: wnl. no injury pattern. Assessment - Assessment Critical Care Time: 90 Excludes all billable procedures: Yes This condition life threatening/high prob of deterioration: Yes Assessment/Comments:: fluids for tachycardia up to 145bpm. iv abx for pneumonia. respiratory tx/ support/O2... ED Septic Shock - . Is Septic Shock (SBP<90, OR Lactate>4 mmol\L) present?: No Reassessment (Disposition) - Reassessment Reassessment:: ct received 1;30p call to dr montes 1;40p karen rojas 1;50 is giving admit orders. initial fluid bolus was small but seems to have helped w stability less cardiac labilty/tach...cxr doesnt show fluid overload but evidence for pneumonia ...w confirmation by ct... knowing pt not in chf more fluids likely advisable d/w dr rebekah ornelas initial dose has been ordered karen welch Reassessment Condition:: Improved - Diagnosis Diagnosis:: 1 pneumonia 2 1 week s/p abdominal sx (gb, hernia, daniel fundoplication)w post-op inflamatory changes on CT Abd. - Patient Disposition Admitted to:: Telemetry Condition at Disposition:: Improved
[2017-03-14] MEDS ORDERED: Albuterol/Ipratropium Neb 3 ML AERS HHN ONE ×2 (11:41→11:48)
[2017-03-14 11:55] LABS: % BASOPHILS 0.2 % (0.0-2.0); % EOSINOPHILS 1.4 % (0.0-5.0); % LYMPHOCYTES 14.8 % (20.0-50.0); % MONOCYTES 5.6 % (2.0-10.0); MEAN CELL VOLUME 84.6 fl (80-99); MEAN CORPUSCULAR HEMOGLOBIN 27.2 pg (27.0-31.0); MEAN CORPUSCULAR HGB CONC 32.2 pg (28.0-36.0); MEAN PLATELET VOLUME 7.4 fl; NEUTROPHILE ABSOLUTE 6.3 Th/cmm (1.8-8.0); RED CELL DISTRIBUTION WIDTH 15.5 % (11.5-20.0)
[2017-03-14] MEDS ORDERED: Sodium Chloride 0.9% 250 ML IV ONE (12:07)
[2017-03-14 12:11] LABS: HEMATOCRIT 37.2 % (39.0-49.0); PLATELET COUNT 543 Th/cmm (150-400)
[2017-03-14 12:15] LABS: ALB/GLOB RATIO 0.6 (1.0-1.8); ALKALINE PHOSPHATASE 74 U/L (34-104); ANION GAP 6.6 (7.0-16.0); BILIRUBIN,TOTAL 0.4 mg/dL (0.3-1.0); BUN - UREA NITROGEN 23 mg/dL (7-25); BUN/CREATININE RATIO 25.6; CARBON DIOXIDE 32.2 mEq/L (21.0-31.0); CHLORIDE 106 mEq/L (98-107); CREATININE - SERUM 0.9 mg/dL (0.7-1.3); GLUCOSE 78 mg/dL (70-105); POTASSIUM SERUM 3.8 mEq/L (3.5-5.1); SGOT 10 U/L (13-39); SGPT/ALT 6 U/L (7-52); SODIUM SERUM 141 mEq/L (136-145)
[2017-03-14 12:17] LABS: TROP I 0.02 ng/mL (0.01-0.05)
[2017-03-14 12:25] LABS: URINE BILIRUBIN SMALL (NEGATIVE); URINE BLOOD TRACE (NEGATIVE); URINE GLUCOSE (UA) NEGATIVE (NEGATIVE); URINE KETONE 15 mg/dL (NEGATIVE); URINE PROTEIN TRACE mg/dL (NEGATIVE)
[2017-03-14 12:26] LABS: URINE COLOR YELLOW
[2017-03-14 12:31] LABS: URINE BACTERIA OCCASIONAL /hpf (NONE SEEN); URINE EPITHELIAL CELLS RARE /lpf (FEW); URINE HYALINE CAST 0-2 /lpf (0-2)
--- NOTE | 2017-03-14 12:38 | Diagnostic Imaging Report ---
Exam: Portable upright examination of the chest at 1331 hours HISTORY: Shortness of breath. Findings: Portable upright examination of the chest at 1131 hours was reviewed no prior studies available Bony thorax unremarkable for plating of the right upper humerus. Mediastinal structures midline the heart is not enlarged the costophrenic angles are clear. Mild atelectatic changes with peribronchial thickening is noted in the right base. Early infiltrate cannot excluded follow-up examination recommended. The left lung parenchyma is well aerated. IMPRESSION: Right basal peribronchial thickening early infiltrates cannot be excluded follow-up examination recommended.
[2017-03-14 12:45] LABS: BNP 27.2 pg/mL (5.0-100.0)
[2017-03-14 13:01] LABS: VALPROIC ACID 30.6 ug/mL (50.0-100.0)
--- NOTE | 2017-03-14 13:35 | Diagnostic Imaging Report ---
Exam: CT examination abdomen pelvis HISTORY: abdominal pain Total DLP equals 422 CTDI equals 8.5 Findings: Multiple contiguous thin section of the abdomen pelvis obtained from lower thorax to pubic symphysis without the administration of intravenous contrast material. Residual contrast is noted in the colon. The study demonstrates right lower lobe consolidation pneumonia with superimposed effusion Small amount of free air is noted in the abdomen most likely postsurgical. There is evidence for hiatal hernia. There is a question of small bowel herniation in the right cardiophrenic angle. The kidneys demonstrate no evidence of obstructive uropathy or nephrolithiasis. The liver and spleen are intact. Residual contrast material is noted in the colon. The abdominal aorta is calcified. Fluid collections and air noted in the gallbladder fossa. There is evidence for multiple liver cysts largest one in the right lobe of liver measuring 4.3 cm diameter. There is evidence for moderate to large amount of subcutaneous air collection the right lower quadrant. Postoperative changes are noted in the anterior abdominal wall with edema and subcutaneous soft tissue swelling. There is evidence of diverticular disease throughout the sigmoid colon without diverticulitis. The bladder demonstrates thickening of the urinary bladder wall with enlarged prostate gland measuring 6 cm diameter. Pinning of the left hip joint appreciated. Bony structures demonstrate no evidence for lytic or blastic lesions. IMPRESSION: 1. Right basilar consolidation pneumonia and effusion. 2. Peribronchial infiltrate and pleural thickening left base. 3. Postoperative sequela with collection of air in the abdomen. 4 Status post cholecystectomy with fluid collection of gallbladder fossa. 5. Atherosclerotic process through the abdominal aorta. 6. Subcutaneous air collection right lower abdominal wall with scarring and inflammatory changes lower abdomen midline most likely postoperative. 7 Prostate hypertrophy. 8. Left inguinal hernia with mesentery. 9. Liver cysts
[2017-03-14] MEDS ORDERED: Levofloxacin 500mg/100mL 500 MG/100 ML BAG IV ONE ×2 (13:45→13:58)
[2017-03-14] MEDS ORDERED: Maalox 30 mL Cup PO PRN (14:54)
[2017-03-14] MEDS ORDERED: Magnesium Hydroxide (MOM) 30 mL UDC PO PRN (14:54)
[2017-03-14] MEDS ORDERED: guaiFENesin 200 MG/10 ML UDC PO PRN (14:56)
[2017-03-14] MEDS: D5-0.45NS 1,000 ML IV SCH (19:06)
--- NOTE | 2017-03-14 21:29 | History and Physical ---
History of Present Illness - HPI Chief Complaint: congestion. low 02 saturation HPI: 82 yo male w ho dementia, htn recent abdominal surgery was brought over from [facility] and low o2 saturation, seen by dr harden and had ct abd showing infiltrates and surgical changes Vital Signs: Last Vital Signs Temp 97.2 F 03/14/17 16:00 Pulse 95 03/14/17 16:41 Resp 20 03/14/17 16:41 BP 126/64 03/14/17 16:00 Pulse Ox 96 03/14/17 16:41 Past Medical History Cardiovascular: Report: HTN Pulmonary: Report: Bronchitis, COPD DATABASE DESIGNER: Report: Dementia GI: Report: GERD, Other (recent sx) Psych: Report: Psychosis Musculoskeletal: Report: No Pertinent Hx Rheumatologic: Report: No pertinent Hx Infectious Disease: Report: No Pertinent Hx Renal/: Report: No Pertinent Hx Endocrine: Report: No Pertinent Hx Dermatology: Report: No Pertinent Hx - Past Surgical History Past Surgical History: Cholecystectomy, Hernia Repair Family Medical History - Family Member Mother History Unknown: Yes Ethnicity: Non- Living Status: Unknown Hx Family Cancer: No (unkwonn) Hx Family Coronary Artery Disease: No (unk) Hx Family Congestive Heart Failure: No (unk) Hx Family Hypertension: No (unk) Hx Family Stroke: No (unk) Hx Family Diabetes: No (unk) Hx Family Seizures: No (unk) Hx Family Dementia: No (unk) Hx Family AIDS: No (unk) Hx Family HIV: No Hx Family COPD: No (unk) Hx Family Hepatitis: No (unk) Hx Family Psychiatric Problems: No (unk) Hx Family Tuberculosis: No (unk) Social History Smoke: No Alcohol: None Drugs: None Lives: [facility] Domestic Violence: Negative - Medications Home Medications: Home Medication Medication Instructions Recorded Type Amlodipine Besylate 5 mg PO DAILY 08/05/13 History Tamsulosin HCl [Flomax] 0.4 mg PO HS 08/05/13 History Amino Acids/Protein Hydrolys 30 ml PO DAILY 10/04/16 History [Pro-Stat Sugar Free Liquid] Divalproex Sodium [Depakote] 500 mg PO BID 10/04/16 History Docusate Sodium [Dok] 250 mg PO HS 10/04/16 History Lactulose 30 ml PO DAILY 10/04/16 History Melatonin/Pyridoxine [Melatonin 3 1 tab PO HS 10/04/16 History mg Tablet] Acetaminophen [Tylenol] 650 mg PO Q4HR PRN tab 03/09/17 Rx Al Hyd/Mg Hyd/Simethicone [Maalox] 30 ml PO Q4HR PRN udc 03/09/17 Rx Ascorbic Acid [Vitamin C] 500 mg PO DAILY tab 03/09/17 Rx Bisacodyl [Dulcolax 10 Mg Supp] 10 mg RC DAILY PRN sup 03/09/17 Rx Ferrous Sulfate [Iron] 325 mg PO DAILY tab 03/09/17 Rx Lactulose [Cephulac] 20 gm PO DAILY udc 03/09/17 Rx Lorazepam [Ativan] 0.5 mg PO Q6HR PRN tab 03/09/17 Rx Magnesium Hydroxide [Milk of 30 ml PO DAILY PRN udc 03/09/17 Rx Magnesia] risperiDONE [RisperDAL] 0.5 mg PO DAILY tab 03/09/17 Rx - Allergies Allergies/Adverse Reactions: Allergies Allergy/AdvReac Type Severity Reaction Status Date / Time No Known Allergies Allergy Verified 03/02/17 11:24 Review of Systems - Review of Systems Constitutional: Report: Fever, Weakness Eyes: Report: No Significant ENT: Report: No Significant Respiratory: Report: Shortness of Breath, Wheezing Cardiovascular: Report: No Significant Gastrointestinal: Report: Abdominal Pain Genitourinary: Report: No Significant Musculoskeletal: Report: No Significant Skin: Report: No Significant Neurological: Report: No Significant Physical Exam - Physical Exam HEENT: Report: Ears Nose Throat within normal limits Neck: Report: Within normal limits Cardiovascular Systems: Report: +s1/s2 noted, Regular, Rate and Rhythm, Systolic Murmur Respiratory: Report: Crackles Abdomen: Report: Non-tender to palpation, Bowel Sounds are within normal limits Back: Report: Inspection of back is within normal limits. Extremities: Report: Non-tender to palpation. Skin: Report: Skin Rash noted Neuro/Psych: Report: Depressed affect - Lab Results All Lab Results last 24 hours: Laboratory Last Values WBC 8.0 Th/cmm (4.8-10.8) 03/14/17 11:35 RBC 4.40 Mil/cmm (3.80-5.80) 03/14/17 11:35 Hgb 12.0 gm/dL (12.6-17.4) L D 03/14/17 11:35 Hct 37.2 % (39.0-49.0) L D 03/14/17 11:35 MCV 84.6 fl (80-99) 03/14/17 11:35 MCH 27.2 pg (27.0-31.0) 03/14/17 11:35 MCHC Differential 32.2 pg (28.0-36.0) 03/14/17 11:35 RDW 15.5 % (11.5-20.0) 03/14/17 11:35 Plt Count 543 Th/cmm (150-400) H D 03/14/17 11:35 MPV 7.4 fl 03/14/17 11:35 Neutrophils % 78.0 % (40.0-80.0) 03/14/17 11:35 Lymphocytes % 14.8 % (20.0-50.0) L 03/14/17 11:35 Monocytes % 5.6 % (2.0-10.0) 03/14/17 11:35 Eosinophils % 1.4 % (0.0-5.0) 03/14/17 11:35 Basophils % 0.2 % (0.0-2.0) 03/14/17 11:35 Sodium 141 mEq/L (136-145) 03/14/17 11:35 Potassium 3.8 mEq/L (3.5-5.1) 03/14/17 11:35 Chloride 106 mEq/L (98-107) 03/14/17 11:35 Carbon Dioxide 32.2 mEq/L (21.0-31.0) H 03/14/17 11:35 Anion Gap 6.6 (7.0-16.0) L 03/14/17 11:35 BUN 23 mg/dL (7-25) 03/14/17 11:35 Creatinine 0.9 mg/dL (0.7-1.3) 03/14/17 11:35 Est GFR ( Amer) TNP 03/14/17 11:35 Est GFR (Non-Af Amer) TNP 03/14/17 11:35 BUN/Creatinine Ratio 25.6 03/14/17 11:35 Glucose 78 mg/dL (70-105) 03/14/17 11:35 Whole Bld Lactic Acid 0.99 mmol/L (0.60-1.99) 03/14/17 11:35 Calcium 12.0 mg/dL (8.6-10.3) H 03/14/17 11:35 Total Bilirubin 0.4 mg/dL (0.3-1.0) 03/14/17 11:35 AST 10 U/L (13-39) L 03/14/17 11:35 ALT 6 U/L (7-52) L 03/14/17 11:35 Alkaline Phosphatase 74 U/L (34-104) 03/14/17 11:35 Troponin I 0.02 ng/mL (0.01-0.05) 03/14/17 11:35 B-Natriuretic Peptide 27.2 pg/mL (5.0-100.0) 03/14/17 11:35 Total Protein 7.3 gm/dL (6.0-8.3) 03/14/17 11:35 Albumin 2.8 gm/dL (4.2-5.5) L 03/14/17 11:35 Globulin 4.5 gm/dL 03/14/17 11:35 Albumin/Globulin Ratio 0.6 (1.0-1.8) L 03/14/17 11:35 Urine Source CATH 03/14/17 12:00 Urine Color YELLOW 03/14/17 12:00 Urine Clarity SL. CLOUDY (CLEAR) 03/14/17 12:00 Urine pH 6.0 03/14/17 12:00 Ur Specific [place] >= 1.030 (1.005-1.030) 03/14/17 12:00 Urine Protein TRACE mg/dL (NEGATIVE) 03/14/17 12:00 Urine Glucose (UA) NEGATIVE mg/dL (NEGATIVE) 03/14/17 12:00 Urine Ketones 15 mg/dL (NEGATIVE) H 03/14/17 12:00 Urine Blood TRACE (NEGATIVE) 03/14/17 12:00 Urine Nitrate NEGATIVE (NEGATIVE) 03/14/17 12:00 Urine Bilirubin SMALL (NEGATIVE) H 03/14/17 12:00 Urine Urobilinogen 1.0 E.U./dL (0.2 - 1.0) 03/14/17 12:00 Ur Leukocyte Esterase NEGATIVE (NEGATIVE) 03/14/17 12:00 Urine RBC 5-8 /hpf (0-5) 03/14/17 12:00 Urine WBC 2-5 /hpf (0-5) H 03/14/17 12:00 Ur Epithelial Cells RARE /lpf (FEW) 03/14/17 12:00 Urine Bacteria OCCASIONAL /hpf (NONE SEEN) 03/14/17 12:00 Hyaline Casts 0-2 /lpf (0-2) H 03/14/17 12:00 Urine Other 03/14/17 12:00 Valproic Acid 30.6 ug/mL (50.0-100.0) L 03/14/17 11:35 - Assessment Assessment: pmn acute hypoxemic resp failure recent hernial repair, john paul anemia contracture generalized weakness - Plan Plan: cont on iv abx o2 bronchodilator tx aspiration precaution will review ct abd, cxr dw rn see orders
--- NOTE | 2017-03-14 22:23 | Admit Criteria Form ---
Admit Criteria Forms - Admit Criteria Diagnosis: PNEUMONIA, COMMUNITY ACQUIRED Clinical Indications for Admission to Inpatient Care (Place ' X' for any and all applicable criteria): Admission to inpatient status for two midnights or more is indicated for ANY ONE of the following (1)(2)(3): [ ]I. Hypoxia [ ]II. Hemodynamic instability [ ]III. Altered mental status that is severe or persistent [ ]IV. Dehydration that is severe or persistent. [ ]V. Bacteremia [ ]. Moderate-risk or high-risk category patients (Pneumonia Severity Index ( PSI) class IV or V, or CURB-65 score of 3 or greater). [X ]VII. Intermediate-risk category patients (e.g., PSI class III or CURB-65 score 2) who do not improve with outpatient and observation care treatment [ ]VIII. Outpatient treatment failure as indicated by 1 or more of the following(9): [ ]a) Failure to respond to antibiotic (eg, resistant organism) [ ]b) Clinically significant adverse effects from medication (eg, vomiting) [ ]c) Complications of pneumonia (eg, empyema, bacteremia) [ ]d) Significant worsening of comorbid cond necessitating inpatient care (eg, chronic heart failure) [ ]IX. Appropriate diagnostic testing and treatment unavailable in outpatient or recovery facility (eg, testing or infection control measures unavailable) [ ]X. Respiratory finding (eg. tachypnea) that do not respond to outpatient observation care treatment [ ]XI. Complicated pleural effusions (eg, emphysema, exudative, loculated) [ ]XII. Immunocompromised patients (e.g., AIDS, chronic steroid use) at moderate or high risk based on clinical evaluation. Extended stay beyond goal length of stay may be needed for (20) [ ]a) Unclear diagnosis [ ]b) Pleural disease [ ]c) Severe pneumonia or treatment failure [ ]d) Respiratory failure [ ]e) New onset hyponatremia (serum Na concentration less than 135 mEq/L(mmol/ L) [ ]f) Clinically significant comorbid illness (eg, heart failure, atrial fibrillation with rapid heart rate, alcohol withdrawal, renal insufficiency)(34)(35) [ ]g) Comorbid acute exacerbation of COPD(36) [ ]h) Concomitant diagnosis of malignancy [ ]i) Concomitant altered mental status [ ]j) Culture-identified Gram-negative or antibiotic-resistant organism (eg, Pseudomonas, methicillin-resistant Staphylococcus aureus MRSA)(30) [ ]k) Healthcare-associated pneumonia (36) The original [facility] [employer] [facility] [employer] [place] content created by [facility] has been revised. The portions of the content which have been revised are identified through the use of italic text or in bold, and [facility] has neither reviewed nor approved the modified material. All other unmodified content is copyright [facility]. Please see references footnoted in the original [facility] edition 2017 Admit Criteria Met?: Yes
[2017-03-15] MEDS ORDERED: Bupivacaine 0.5% W/Ep 10 mL Vial INJ ONE (07:30)
[2017-03-15] MEDS ORDERED: Piperacillin Sodium/Tazobact 3.375 gm Vial IV ONE (07:30)
[2017-03-15] MEDS ORDERED: Meperidine 25 mg/mL 1mL Syr IVP ONE (07:30)
[2017-03-15] MEDS ORDERED: Non-Formulary Item 1 EA (Amino Acids/Protein Hydrolys [Pro-Stat Sugar Free Liquid] 30 ML) PO SCH (09:00)
[2017-03-15] MEDS: Ferrous Sulfate 325 MG TAB PO SCH (09:25)
[2017-03-15] MEDS: Lactulose 10 Gm/15 mL 30mL UDC PO SCH (09:25)
[2017-03-15] MEDS: Hydrocodone/APAP 5mg/325mg Tab PO PRN ×2 (09:26→16:30)
--- NOTE | 2017-03-15 13:53 | Internal Medicine Prog Note ---
Internal Medicine Subjective - Subjective Service Date: 03/15/17 Patient seen and examined:: with staff Patient is:: awake, in bed Patient Complaints of:: congestion, cough Per staff patient has:: no adverse event, tolerating meds Internal Medicine Objective - Results Result Diagrams: 03/14/17 11:35 03/14/17 11:35 Recent Labs: Laboratory Last Values WBC 8.0 Th/cmm (4.8-10.8) 03/14/17 11:35 RBC 4.40 Mil/cmm (3.80-5.80) 03/14/17 11:35 Hgb 12.0 gm/dL (12.6-17.4) L D 03/14/17 11:35 Hct 37.2 % (39.0-49.0) L D 03/14/17 11:35 MCV 84.6 fl (80-99) 03/14/17 11:35 MCH 27.2 pg (27.0-31.0) 03/14/17 11:35 MCHC Differential 32.2 pg (28.0-36.0) 03/14/17 11:35 RDW 15.5 % (11.5-20.0) 03/14/17 11:35 Plt Count 543 Th/cmm (150-400) H D 03/14/17 11:35 MPV 7.4 fl 03/14/17 11:35 Neutrophils % 78.0 % (40.0-80.0) 03/14/17 11:35 Lymphocytes % 14.8 % (20.0-50.0) L 03/14/17 11:35 Monocytes % 5.6 % (2.0-10.0) 03/14/17 11:35 Eosinophils % 1.4 % (0.0-5.0) 03/14/17 11:35 Basophils % 0.2 % (0.0-2.0) 03/14/17 11:35 Sodium 141 mEq/L (136-145) 03/14/17 11:35 Potassium 3.8 mEq/L (3.5-5.1) 03/14/17 11:35 Chloride 106 mEq/L (98-107) 03/14/17 11:35 Carbon Dioxide 32.2 mEq/L (21.0-31.0) H 03/14/17 11:35 Anion Gap 6.6 (7.0-16.0) L 03/14/17 11:35 BUN 23 mg/dL (7-25) 03/14/17 11:35 Creatinine 0.9 mg/dL (0.7-1.3) 03/14/17 11:35 Est GFR ( Amer) TNP 03/14/17 11:35 Est GFR (Non-Af Amer) TNP 03/14/17 11:35 BUN/Creatinine Ratio 25.6 03/14/17 11:35 Glucose 78 mg/dL (70-105) 03/14/17 11:35 Whole Bld Lactic Acid 0.99 mmol/L (0.60-1.99) 03/14/17 11:35 Calcium 12.0 mg/dL (8.6-10.3) H 03/14/17 11:35 Total Bilirubin 0.4 mg/dL (0.3-1.0) 03/14/17 11:35 AST 10 U/L (13-39) L 03/14/17 11:35 ALT 6 U/L (7-52) L 03/14/17 11:35 Alkaline Phosphatase 74 U/L (34-104) 03/14/17 11:35 Troponin I 0.02 ng/mL (0.01-0.05) 03/14/17 11:35 B-Natriuretic Peptide 27.2 pg/mL (5.0-100.0) 03/14/17 11:35 Total Protein 7.3 gm/dL (6.0-8.3) 03/14/17 11:35 Albumin 2.8 gm/dL (4.2-5.5) L 03/14/17 11:35 Globulin 4.5 gm/dL 03/14/17 11:35 Albumin/Globulin Ratio 0.6 (1.0-1.8) L 03/14/17 11:35 Urine Source CATH 03/14/17 12:00 Urine Color YELLOW 03/14/17 12:00 Urine Clarity SL. CLOUDY (CLEAR) 03/14/17 12:00 Urine pH 6.0 03/14/17 12:00 Ur Specific [place] >= 1.030 (1.005-1.030) 03/14/17 12:00 Urine Protein TRACE mg/dL (NEGATIVE) 03/14/17 12:00 Urine Glucose (UA) NEGATIVE mg/dL (NEGATIVE) 03/14/17 12:00 Urine Ketones 15 mg/dL (NEGATIVE) H 03/14/17 12:00 Urine Blood TRACE (NEGATIVE) 03/14/17 12:00 Urine Nitrate NEGATIVE (NEGATIVE) 03/14/17 12:00 Urine Bilirubin SMALL (NEGATIVE) H 03/14/17 12:00 Urine Urobilinogen 1.0 E.U./dL (0.2 - 1.0) 03/14/17 12:00 Ur Leukocyte Esterase NEGATIVE (NEGATIVE) 03/14/17 12:00 Urine RBC 5-8 /hpf (0-5) 03/14/17 12:00 Urine WBC 2-5 /hpf (0-5) H 03/14/17 12:00 Ur Epithelial Cells RARE /lpf (FEW) 03/14/17 12:00 Urine Bacteria OCCASIONAL /hpf (NONE SEEN) 03/14/17 12:00 Hyaline Casts 0-2 /lpf (0-2) H 03/14/17 12:00 Urine Other 03/14/17 12:00 Valproic Acid 30.6 ug/mL (50.0-100.0) L 03/14/17 11:35 - Physical Exam Vitals and I&O: Vital Signs Temp 98.8 F 03/15/17 04:00 Pulse 87 03/15/17 09:25 Resp 18 03/15/17 05:17 BP 147/89 03/15/17 09:25 Pulse Ox 90 03/15/17 04:00 Intake & Output 03/14/17 03/15/17 03/15/17 18:59 06:59 18:59 Intake Total 250 150 Output Total 1 Balance 249 150 Weight (lbs) 170 lb 146 lb 11.2 oz Intake: Intake, IV Amount 50 Cefepime 1 gm In Dextrose 50 5% 50 ml @ 100 mls/hr IV Q12H [facility] Rx#:[id number] Oral 200 150 Output: Urine 1 Other: # Voids 3 # Bowel Movements 0 Active Medications: Current Medications Acetaminophen (Tylenol) 650 mg PO Q4HR PRN PRN Reason: Pain or Fever >101 Stop: 05/13/17 14:53 Acetaminophen/Hydrocodone Bitart (Anthony 5mg/325mg) 1 tab PO Q4H PRN PRN Reason: Pain (Severe) Stop: 05/13/17 14:55 Last Admin: 03/15/17 09:26 Dose: 1 tab Al Hydrox/Mg Hydrox/Simethicone (Maalox) 30 ml PO Q4HR PRN PRN Reason: GI DISTRESS Stop: 05/13/17 14:53 Albuterol Sulfate (Albuterol 2.5mg/3ml Neb Ud) 2.5 mg HHN Q2HRT PRN PRN Reason: Shortness of Breath or Wheeze Stop: 05/13/17 14:55 Amlodipine Besylate (Norvasc) 5 mg PO DAILY [facility] Stop: 05/14/17 08:59 Last Admin: 03/15/17 09:25 Dose: 5 mg Ascorbic Acid (Vitamin C) 500 mg PO DAILY [facility] Stop: 05/14/17 08:59 Last Admin: 03/15/17 09:26 Dose: 500 mg Bisacodyl (Dulcolax 10 Mg Supp) 10 mg RC DAILY PRN PRN Reason: Constipation Stop: 05/13/17 14:53 Divalproex Sodium (Depakote Dr) 500 mg PO BID JENNIFER PRN Reason: Protocol Stop: 05/13/17 16:59 Last Admin: 03/15/17 09:26 Dose: 500 mg Docusate Sodium (Colace) 250 mg PO HS [facility] Stop: 05/13/17 20:59 Last Admin: 03/14/17 21:23 Dose: 250 mg Ferrous Sulfate (Iron) 325 mg PO DAILY [facility] Stop: 05/14/17 08:59 Last Admin: 03/15/17 09:25 Dose: 325 mg Guaifenesin (Robitussin) 200 mg PO Q4HR PRN PRN Reason: Cough or Congestion Stop: 05/13/17 14:55 Cefepime HCl 1 gm/ Dextrose 50 mls @ 100 mls/hr IV Q12H [facility] Stop: 05/13/17 15:59 Last Admin: 03/15/17 05:51 Dose: 100 mls/hr Dextrose/Sodium Chloride (D5-0.45ns) 1,000 mls @ 80 mls/hr IV .[id number] [facility] Stop: 05/13/17 14:59 Last Admin: 03/14/17 19:06 Dose: 80 mls/hr Ipratropium [place] (Atrovent Neb 0.5mg/2.5ml) 0.5 mg IH Q2HRT PRN PRN Reason: Shortness of Breath or Wheeze Stop: 05/13/17 14:55 Lactulose (Cephulac) 20 gm PO DAILY JENN[facility]ER Stop: 05/14/17 08:59 Last Admin: 03/15/17 09:25 Dose: 20 gm Lorazepam (Ativan) 0.5 mg PO Q6HR PRN; Protocol PRN Reason: Anxiety Stop: 05/13/17 14:53 Magnesium Hydroxide (Milk Of Magnesia) 30 ml PO DAILY PRN PRN Reason: Constipation Stop: 05/13/17 14:53 Miscellaneous (Amino Acids/Protein Hydrolys [Pro-Stat Sugar Free Liquid]) 30 ml PO DAILY [facility] Stop: 05/14/17 08:59 Ondansetron HCl (Zofran) 4 mg IV Q8H PRN PRN Reason: Nausea / Vomiting Stop: 05/13/17 14:55 Risperidone (Risperdal) 0.5 mg PO DAILY JENNIFER PRN Reason: Protocol Stop: 05/14/17 08:59 Tamsulosin HCl (Flomax) 0.4 mg PO HS JENNIFER Stop: 05/13/17 20:59 Last Admin: 03/14/17 21:23 Dose: 0.4 mg General: weak, alert HEENT: NC/AT, PERRLA Neck: Supple Lungs: ronchi Cardiovascular: RRR, Normal S1, Normal S2, without murmur Abdomen: soft, non-distended, positive bowel sound Extremities: excoriation - Procedures Procedures: Procedures Procedure Code Date EGD BIOPSY SINGLE/MULTIPLE 03914 03/02/17 ESOPH FUNDOPLASTY LAP 06584 03/02/17 EXCISION OF ESOPHAGUS, ENDO, DIAGN [id number] 03/02/17 EXCISION OF STOMACH, ENDO, DIAGN [id number] 03/02/17 PRP I/OSVALDO INIT BLOCK >5 YR 87914 03/02/17 REMOVAL OF GALLBLADDER 83802 03/02/17 REPAIR LEFT INGUINAL REGION, OPEN APPROACH [id number] 03/02/17 RESECTION OF GALLBLADDER, OPEN APPROACH [id number] 03/02/17 RESPIRATORY VENTILATION, LESS THAN 24 CONSECUTIVE HOURS [id number] 03/02/17 RESTRICTION OF ESOPHAGOGASTRIC JUNCTION, OPEN APPROACH [id number] 03/02/17 Internal Medicine Assmt/Plan - Assessment Assessment: pmn acute hypoxemic resp failure recent hernial repair, john paul anemia contracture generalized weakness - Plan Plan: bronchodilators continue ivabx am labs supplemental o2 as needed continue plan of care
[2017-03-16 06:03] LABS: HEMATOCRIT 33.8 % (39.0-49.0); HEMOGLOBIN 11.1 gm/dL (12.6-17.4); MEAN CORPUSCULAR HEMOGLOBIN 27.9 pg (27.0-31.0); MEAN CORPUSCULAR HGB CONC 32.8 pg (28.0-36.0); MEAN PLATELET VOLUME 7.2 fl; PLATELET COUNT 528 Th/cmm (150-400); RED BLOOD COUNT 3.98 Mil/cmm (3.80-5.80)
[2017-03-16 06:05] LABS: WHITE BLOOD COUNT 11.9 Th/cmm (4.8-10.8)
[2017-03-16 06:18] LABS: ANION GAP 5.2 (7.0-16.0); BUN - UREA NITROGEN 17 mg/dL (7-25); BUN/CREATININE RATIO 24.3; CALCIUM SERUM 11.5 mg/dL (8.6-10.3); CARBON DIOXIDE 34.2 mEq/L (21.0-31.0); CHLORIDE 110 mEq/L (98-107); CREATININE - SERUM 0.7 mg/dL (0.7-1.3); GLUCOSE 108 mg/dL (70-105); POTASSIUM SERUM 3.4 mEq/L (3.5-5.1); SODIUM SERUM 146 mEq/L (136-145)
[2017-03-16 08:45] LABS: BAND NEUTROPHILE 4 % (0-10); EOSINOPHIL 3 % (0-5); NEUTROPHILS 77 % (40-80); TOTAL CELLS COUNTED 100
[2017-03-16 08:46] LABS: ANISOCYTOSIS 1+; PLATELET ESTIMATE INCREASED PLATELETS (NORMAL); PLATELET MORPHOLOGY NORMAL (NORMAL)
[2017-03-16] MEDS: Lactulose 10 Gm/15 mL 30mL UDC PO SCH ×2 (09:58→10:15)
[2017-03-16] MEDS: Ferrous Sulfate 325 MG TAB PO SCH (09:58)
[2017-03-16] MEDS ORDERED: Potassium Chloride 20 mEq ER Tab PO ONE (12:18)
--- NOTE | 2017-03-16 13:11 | Internal Medicine Prog Note ---
Addendum entered and electronically signed by Jory Hood 03/16/17 12:19: MRSA MAGDIEL WILL ADD BACTROBAN Original Note: Internal Medicine Subjective - Subjective Service Date: 03/16/17 Patient is:: awake, in bed Patient Complaints of:: congestion, cough Per staff patient has:: no adverse event, poor oral intake, tolerating meds Internal Medicine Objective - Results Result Diagrams: 03/16/17 05:51 03/16/17 05:51 Recent Labs: Laboratory Last Values WBC 11.9 Th/cmm (4.8-10.8) H D 03/16/17 05:51 RBC 3.98 Mil/cmm (3.80-5.80) 03/16/17 05:51 Hgb 11.1 gm/dL (12.6-17.4) L 03/16/17 05:51 Hct 33.8 % (39.0-49.0) L 03/16/17 05:51 MCV 85.0 fl (80-99) 03/16/17 05:51 MCH 27.9 pg (27.0-31.0) 03/16/17 05:51 MCHC Differential 32.8 pg (28.0-36.0) 03/16/17 05:51 RDW 16.0 % (11.5-20.0) 03/16/17 05:51 Plt Count 528 Th/cmm (150-400) H 03/16/17 05:51 MPV 7.2 fl 03/16/17 05:51 Neutrophils % 78.0 % (40.0-80.0) 03/14/17 11:35 Band Neutrophils % 4 % (0-10) 03/16/17 05:51 Lymphocytes % 14.8 % (20.0-50.0) L 03/14/17 11:35 Monocytes % 5.6 % (2.0-10.0) 03/14/17 11:35 Eosinophils % 1.4 % (0.0-5.0) 03/14/17 11:35 Basophils % 0.2 % (0.0-2.0) 03/14/17 11:35 Neutrophils (Manual) 77 % (40-80) 03/16/17 05:51 Lymphocytes 13 % (20-50) L 03/16/17 05:51 Monocytes 3 % (2-10) 03/16/17 05:51 Eosinophils 3 % (0-5) 03/16/17 05:51 Platelet Estimate INCREASED PLATELETS (NORMAL) 03/16/17 05:51 Platelet Morphology NORMAL (NORMAL) 03/16/17 05:51 Anisocytosis 1+ 03/16/17 05:51 RBC Morph Micro Appear ABNORMAL (NORMAL) 03/16/17 05:51 Sodium 146 mEq/L (136-145) H 03/16/17 05:51 Potassium 3.4 mEq/L (3.5-5.1) L 03/16/17 05:51 Chloride 110 mEq/L (98-107) H 03/16/17 05:51 Carbon Dioxide 34.2 mEq/L (21.0-31.0) H 03/16/17 05:51 Anion Gap 5.2 (7.0-16.0) L 03/16/17 05:51 BUN 17 mg/dL (7-25) 03/16/17 05:51 Creatinine 0.7 mg/dL (0.7-1.3) 03/16/17 05:51 Est GFR ( Amer) TNP 03/16/17 05:51 Est GFR (Non-Af Amer) TNP 03/16/17 05:51 BUN/Creatinine Ratio 24.3 03/16/17 05:51 Glucose 108 mg/dL (70-105) H 03/16/17 05:51 Whole Bld Lactic Acid 0.99 mmol/L (0.60-1.99) 03/14/17 11:35 Calcium 11.5 mg/dL (8.6-10.3) H 03/16/17 05:51 Total Bilirubin 0.4 mg/dL (0.3-1.0) 03/14/17 11:35 AST 10 U/L (13-39) L 03/14/17 11:35 ALT 6 U/L (7-52) L 03/14/17 11:35 Alkaline Phosphatase 74 U/L (34-104) 03/14/17 11:35 Troponin I 0.02 ng/mL (0.01-0.05) 03/14/17 11:35 B-Natriuretic Peptide 27.2 pg/mL (5.0-100.0) 03/14/17 11:35 Total Protein 7.3 gm/dL (6.0-8.3) 03/14/17 11:35 Albumin 2.8 gm/dL (4.2-5.5) L 03/14/17 11:35 Globulin 4.5 gm/dL 03/14/17 11:35 Albumin/Globulin Ratio 0.6 (1.0-1.8) L 03/14/17 11:35 Urine Source CATH 03/14/17 12:00 Urine Color YELLOW 03/14/17 12:00 Urine Clarity SL. CLOUDY (CLEAR) 03/14/17 12:00 Urine pH 6.0 03/14/17 12:00 Ur Specific [place] >= 1.030 (1.005-1.030) 03/14/17 12:00 Urine Protein TRACE mg/dL (NEGATIVE) 03/14/17 12:00 Urine Glucose (UA) NEGATIVE mg/dL (NEGATIVE) 03/14/17 12:00 Urine Ketones 15 mg/dL (NEGATIVE) H 03/14/17 12:00 Urine Blood TRACE (NEGATIVE) 03/14/17 12:00 Urine Nitrate NEGATIVE (NEGATIVE) 03/14/17 12:00 Urine Bilirubin SMALL (NEGATIVE) H 03/14/17 12:00 Urine Urobilinogen 1.0 E.U./dL (0.2 - 1.0) 03/14/17 12:00 Ur Leukocyte Esterase NEGATIVE (NEGATIVE) 03/14/17 12:00 Urine RBC 5-8 /hpf (0-5) 03/14/17 12:00 Urine WBC 2-5 /hpf (0-5) H 03/14/17 12:00 Ur Epithelial Cells RARE /lpf (FEW) 03/14/17 12:00 Urine Bacteria OCCASIONAL /hpf (NONE SEEN) 03/14/17 12:00 Hyaline Casts 0-2 /lpf (0-2) H 03/14/17 12:00 Urine Other 03/14/17 12:00 Valproic Acid 30.6 ug/mL (50.0-100.0) L 03/14/17 11:35 - Physical Exam Vitals and I&O: Vital Signs Temp 97.7 F 03/16/17 11:36 Pulse 87 03/16/17 11:36 Resp 18 03/16/17 11:36 BP 111/61 03/16/17 11:36 Pulse Ox 92 03/16/17 11:36 Intake & Output 03/15/17 03/16/17 03/16/17 18:59 06:59 18:59 Intake Total 290 50 Balance 290 50 Weight (lbs) 146 lb 145 lb 9 oz Intake: Intake, IV Amount 50 50 Cefepime 1 gm In Dextrose 50 50 5% 50 ml @ 100 mls/hr IV Q12H [facility] Rx#:[id number] Oral 240 Other: # Voids 1 # Bowel Movements 0 Active Medications: Current Medications Acetaminophen (Tylenol) 650 mg PO Q4HR PRN PRN Reason: Pain or Fever >101 Stop: 05/13/17 14:53 Acetaminophen/Hydrocodone Bitart ([place] 5mg/325mg) 1 tab PO Q4H PRN PRN Reason: Pain (Severe) Stop: 05/13/17 14:55 Last Admin: 03/15/17 16:30 Dose: 1 tab Al Hydrox/Mg Hydrox/Simethicone (Maalox) 30 ml PO Q4HR PRN PRN Reason: GI DISTRESS Stop: 05/13/17 14:53 Albuterol Sulfate (Albuterol 2.5mg/3ml Neb Ud) 2.5 mg HHN Q2HRT PRN PRN Reason: Shortness of Breath or Wheeze Stop: 05/13/17 14:55 Amlodipine Besylate (Norvasc) 5 mg PO DAILY [facility] Stop: 05/14/17 08:59 Last Admin: 03/16/17 09:57 Dose: 5 mg Ascorbic Acid (Vitamin C) 500 mg PO DAILY [facility] Stop: 05/14/17 08:59 Last Admin: 03/16/17 09:57 Dose: 500 mg Bisacodyl (Dulcolax 10 Mg Supp) 10 mg RC DAILY PRN PRN Reason: Constipation Stop: 05/13/17 14:53 Divalproex Sodium (Depakote Dr) 500 mg PO BID [facility] PRN Reason: Protocol Stop: 05/13/17 16:59 Last Admin: 03/16/17 09:57 Dose: 500 mg Docusate Sodium (Colace) 250 mg PO HS [facility] Stop: 05/13/17 20:59 Last Admin: 03/15/17 21:04 Dose: 250 mg Ferrous Sulfate (Iron) 325 mg PO DAILY [facility] Stop: 05/14/17 08:59 Last Admin: 03/16/17 09:58 Dose: 325 mg Guaifenesin (Robitussin) 200 mg PO Q4HR PRN PRN Reason: Cough or Congestion Stop: 05/13/17 14:55 Cefepime HCl 1 gm/ Dextrose 50 mls @ 100 mls/hr IV Q12H [facility] Stop: 05/13/17 15:59 Last Infusion: 03/16/17 04:42 Dose: Infused Dextrose/Sodium Chloride (D5-0.45ns) 1,000 mls @ 80 mls/hr IV .[id number] [facility] Stop: 05/13/17 14:59 Last Admin: 03/14/17 19:06 Dose: 80 mls/hr Ipratropium [place] (Atrovent Neb 0.5mg/2.5ml) 0.5 mg IH Q2HRT PRN PRN Reason: Shortness of Breath or Wheeze Stop: 05/13/17 14:55 Lactulose (Cephulac) 20 gm PO DAILY [facility] Stop: 05/14/17 08:59 Last Admin: 03/16/17 10:15 Dose: Not Given Lorazepam (Ativan) 0.5 mg PO Q6HR PRN; Protocol PRN Reason: Anxiety Stop: 05/13/17 14:53 Magnesium Hydroxide (Milk Of Magnesia) 30 ml PO DAILY PRN PRN Reason: Constipation Stop: 05/13/17 14:53 Ondansetron HCl (Zofran) 4 mg IV Q8H PRN PRN Reason: Nausea / Vomiting Stop: 05/13/17 14:55 Risperidone (Risperdal) 0.5 mg PO DAILY [facility] PRN Reason: Protocol Stop: 05/14/17 08:59 Last Admin: 03/16/17 09:57 Dose: 0.5 mg Tamsulosin HCl (Flomax) 0.4 mg PO HS [facility] Stop: 05/13/17 20:59 Last Admin: 03/15/17 21:04 Dose: 0.4 mg General: weak, alert HEENT: NC/AT, PERRLA Neck: Supple Lungs: ronchi Cardiovascular: RRR, Normal S1, Normal S2, without murmur Abdomen: soft, non-distended, positive bowel sound Extremities: excoriation Neurological: no change - Procedures Procedures: Procedures Procedure Code Date EGD BIOPSY SINGLE/MULTIPLE 52630 03/02/17 ESOPH FUNDOPLASTY LAP 85183 03/02/17 EXCISION OF ESOPHAGUS, ENDO, DIAGN [id number] 03/02/17 EXCISION OF STOMACH, ENDO, DIAGN [id number] 03/02/17 PRP I/OSVALDO INIT BLOCK >5 YR 49209 03/02/17 REMOVAL OF GALLBLADDER 51950 03/02/17 REPAIR LEFT INGUINAL REGION, OPEN APPROACH [id number] 03/02/17 RESECTION OF GALLBLADDER, OPEN APPROACH [id number] 03/02/17 RESPIRATORY VENTILATION, LESS THAN 24 CONSECUTIVE HOURS [id number] 03/02/17 RESTRICTION OF ESOPHAGOGASTRIC JUNCTION, OPEN APPROACH [id number] 03/02/17 Internal Medicine Assmt/Plan - Assessment Assessment: pmn acute hypoxemic resp failure recent hernial repair, john paul anemia contracture generalized weakness poor po intake - Plan Plan: swallow eval bronchodilators continue ivabx am labs supplemental o2 as needed continue plan of care Nutritional Asmnt/Malnutr-PDOC - Dietary Evaluation Malnutrition Findings (Please click <Entered> for more info): Nutritional Asmnt/Malnutrition Start: 03/15/17 15: 53 Text: Status: Complete Freq: Document 03/15/17 15:53 GSUN (Rec: 03/15/17 15:56 GSUN [email or web address]) Nutritional Asmnt/Malnutrition Patient General Information Nutritional Screening High Risk Screening Diagnosis Acute hypoxemic resp failure, recent hernial repair and cholecystectomy Pertinent Medical Hx/Surgical Hx HTN, bronchitis, COPD, dementia, GERD, psychosis, cholecystectomy, hernia repair Subjective Information 82 year old male, recently admitted to [facility] cholecystectomy and hernia repair on 03/07. Pt responded to RD's greetings, however appeared very lethargic, nodded to every question, did not provide any responses. Pt asked RD to come back another time. Unable to complete physical assessment as blanket pulled up to pt's nose. Observed thin frame and thin lower extremities. PO intake 25% of meals 03/14 dinner. CBW 143.9lb via bedscale during visit. Current Diet Order/ Nutrition Support YANNA Pertinent Medications Vitamin C, D5-0.45ns, Colace, Iron, Cephulac, MOM, Zofran Pertinent Labs Reviewed. Nutritional Hx/Data Height 6 ft Height (Calculated Centimeters) 182.9 Current Weight (lbs) 143 lb 14.4 oz Weight (Calculated Kilograms) 65.3 Weight (Calculated Grams) 57113.9 [place] Body Weight 178 Weight Status Approriate GI Symptoms Skin Integrity/Comment: Juan Antonio 12. Skin flaky. Estimated Nutritional Goals Calories/Kcals/Kg IBW 178lb/80.9kg Kcals Calculated 2022-2400kcal (25-30kcal/kg) Protein Calculated 81g (1g/kg) Fluid: ml 2022-2400ml (1ml/kcal) Nutritional Problem 1. Problem Problem Altered GI fucntion related to Etiology recent 03/07 hernial repair and cholecystectomy Signs/Symptoms: post operation Intervention/Recommendation Comments 1. Recommend YANNA low fat diet. 2. Recommend Boost BID. 3. Monitor weight, pt is 6ft BMI 19.9. Expected Outcomes/Goals Expected Outcomes/Goals 1. PO intake to meet at least 75% of estimated nutritional needs.
[2017-03-16] MEDS: D5-0.45NS 1,000 ML IV SCH (13:22)
[2017-03-17] MEDS: D5-0.45NS 1,000 ML IV SCH (06:16)
[2017-03-17 07:23] LABS: % BASOPHILS 0.3 % (0.0-2.0); % EOSINOPHILS 5.1 % (0.0-5.0); % LYMPHOCYTES 9.1 % (20.0-50.0); % MONOCYTES 3.7 % (2.0-10.0); % NEUTROPHILS 81.8 % (40.0-80.0); HEMATOCRIT 34.6 % (39.0-49.0); HEMOGLOBIN 11.3 gm/dL (12.6-17.4); MEAN CELL VOLUME 84.5 fl (80-99); MEAN CORPUSCULAR HEMOGLOBIN 27.6 pg (27.0-31.0); MEAN CORPUSCULAR HGB CONC 32.6 pg (28.0-36.0); MEAN PLATELET VOLUME 7.7 fl; NEUTROPHILE ABSOLUTE 11.2 Th/cmm (1.8-8.0); PLATELET COUNT 527 Th/cmm (150-400); RED BLOOD COUNT 4.09 Mil/cmm (3.80-5.80); RED CELL DISTRIBUTION WIDTH 16.1 % (11.5-20.0)
[2017-03-17 07:41] LABS: ANION GAP 4.5 (7.0-16.0); BUN - UREA NITROGEN 17 mg/dL (7-25); BUN/CREATININE RATIO 24.3; CALCIUM SERUM 11.9 mg/dL (8.6-10.3); CARBON DIOXIDE 32.8 mEq/L (21.0-31.0); CHLORIDE 111 mEq/L (98-107); CREATININE - SERUM 0.7 mg/dL (0.7-1.3); GLUCOSE 96 mg/dL (70-105); POTASSIUM SERUM 3.3 mEq/L (3.5-5.1); SODIUM SERUM 145 mEq/L (136-145)
[2017-03-17 07:44] LABS: WHITE BLOOD COUNT 13.6 Th/cmm (4.8-10.8)
[2017-03-17] MEDS: Ferrous Sulfate 325 MG TAB PO SCH ×2 (09:09→10:10)
[2017-03-17] MEDS: Lactulose 10 Gm/15 mL 30mL UDC PO SCH ×2 (09:10→10:11)
[2017-03-17] MEDS ORDERED: Potassium Chloride 20 mEq ER Tab PO ONE (10:46)
--- NOTE | 2017-03-17 10:46 | Internal Medicine Prog Note ---
Internal Medicine Subjective - Subjective Service Date: 03/17/17 (failed swallow eval) Patient is:: awake, in bed Patient Complaints of:: congestion, cough Per staff patient has:: no adverse event, poor oral intake, tolerating meds Internal Medicine Objective - Results Result Diagrams: 03/17/17 06:10 03/17/17 06:10 Recent Labs: Laboratory Last Values WBC 13.6 Th/cmm (4.8-10.8) H 03/17/17 06:10 RBC 4.09 Mil/cmm (3.80-5.80) 03/17/17 06:10 Hgb 11.3 gm/dL (12.6-17.4) L 03/17/17 06:10 Hct 34.6 % (39.0-49.0) L 03/17/17 06:10 MCV 84.5 fl (80-99) 03/17/17 06:10 MCH 27.6 pg (27.0-31.0) 03/17/17 06:10 MCHC Differential 32.6 pg (28.0-36.0) 03/17/17 06:10 RDW 16.1 % (11.5-20.0) 03/17/17 06:10 Plt Count 527 Th/cmm (150-400) H 03/17/17 06:10 MPV 7.7 fl 03/17/17 06:10 Neutrophils % 81.8 % (40.0-80.0) H 03/17/17 06:10 Band Neutrophils % 4 % (0-10) 03/16/17 05:51 Lymphocytes % 9.1 % (20.0-50.0) L 03/17/17 06:10 Monocytes % 3.7 % (2.0-10.0) 03/17/17 06:10 Eosinophils % 5.1 % (0.0-5.0) H 03/17/17 06:10 Basophils % 0.3 % (0.0-2.0) 03/17/17 06:10 Neutrophils (Manual) 77 % (40-80) 03/16/17 05:51 Lymphocytes 13 % (20-50) L 03/16/17 05:51 Monocytes 3 % (2-10) 03/16/17 05:51 Eosinophils 3 % (0-5) 03/16/17 05:51 Platelet Estimate INCREASED PLATELETS (NORMAL) 03/16/17 05:51 Platelet Morphology NORMAL (NORMAL) 03/16/17 05:51 Anisocytosis 1+ 03/16/17 05:51 RBC Morph Micro Appear ABNORMAL (NORMAL) 03/16/17 05:51 Sodium 145 mEq/L (136-145) 03/17/17 06:10 Potassium 3.3 mEq/L (3.5-5.1) L 03/17/17 06:10 Chloride 111 mEq/L (98-107) H 03/17/17 06:10 Carbon Dioxide 32.8 mEq/L (21.0-31.0) H 03/17/17 06:10 Anion Gap 4.5 (7.0-16.0) L 03/17/17 06:10 BUN 17 mg/dL (7-25) 03/17/17 06:10 Creatinine 0.7 mg/dL (0.7-1.3) 03/17/17 06:10 Est GFR ( Amer) TNP 03/17/17 06:10 Est GFR (Non-Af Amer) TNP 03/17/17 06:10 BUN/Creatinine Ratio 24.3 03/17/17 06:10 Glucose 96 mg/dL (70-105) 03/17/17 06:10 Whole Bld Lactic Acid 0.99 mmol/L (0.60-1.99) 03/14/17 11:35 Calcium 11.9 mg/dL (8.6-10.3) H 03/17/17 06:10 Total Bilirubin 0.4 mg/dL (0.3-1.0) 03/14/17 11:35 AST 10 U/L (13-39) L 03/14/17 11:35 ALT 6 U/L (7-52) L 03/14/17 11:35 Alkaline Phosphatase 74 U/L (34-104) 03/14/17 11:35 Troponin I 0.02 ng/mL (0.01-0.05) 03/14/17 11:35 B-Natriuretic Peptide 27.2 pg/mL (5.0-100.0) 03/14/17 11:35 Total Protein 7.3 gm/dL (6.0-8.3) 03/14/17 11:35 Albumin 2.8 gm/dL (4.2-5.5) L 03/14/17 11:35 Globulin 4.5 gm/dL 03/14/17 11:35 Albumin/Globulin Ratio 0.6 (1.0-1.8) L 03/14/17 11:35 Urine Source CATH 03/14/17 12:00 Urine Color YELLOW 03/14/17 12:00 Urine Clarity SL. CLOUDY (CLEAR) 03/14/17 12:00 Urine pH 6.0 03/14/17 12:00 Ur Specific [place] >= 1.030 (1.005-1.030) 03/14/17 12:00 Urine Protein TRACE mg/dL (NEGATIVE) 03/14/17 12:00 Urine Glucose (UA) NEGATIVE mg/dL (NEGATIVE) 03/14/17 12:00 Urine Ketones 15 mg/dL (NEGATIVE) H 03/14/17 12:00 Urine Blood TRACE (NEGATIVE) 03/14/17 12:00 Urine Nitrate NEGATIVE (NEGATIVE) 03/14/17 12:00 Urine Bilirubin SMALL (NEGATIVE) H 03/14/17 12:00 Urine Urobilinogen 1.0 E.U./dL (0.2 - 1.0) 03/14/17 12:00 Ur Leukocyte Esterase NEGATIVE (NEGATIVE) 03/14/17 12:00 Urine RBC 5-8 /hpf (0-5) 03/14/17 12:00 Urine WBC 2-5 /hpf (0-5) H 03/14/17 12:00 Ur Epithelial Cells RARE /lpf (FEW) 03/14/17 12:00 Urine Bacteria OCCASIONAL /hpf (NONE SEEN) 03/14/17 12:00 Hyaline Casts 0-2 /lpf (0-2) H 03/14/17 12:00 Urine Other 03/14/17 12:00 Valproic Acid 30.6 ug/mL (50.0-100.0) L 03/14/17 11:35 - Physical Exam Vitals and I&O: Vital Signs Temp 97.6 F 03/17/17 08:00 Pulse 80 03/17/17 10:10 Resp 18 03/17/17 08:00 BP 117/70 03/17/17 10:10 Pulse Ox 89 03/17/17 08:00 Intake & Output 03/16/17 03/17/17 03/17/17 18:59 06:59 18:59 Intake Total 50 1000 Balance 50 1000 Weight (lbs) 145 lb 14.4 oz 145 lb 3.2 oz Intake: Intake, IV Amount 50 1000 Cefepime 1 gm In Dextrose 50 5% 50 ml @ 100 mls/hr IV Q12H [facility] Rx#:[id number] D5-0.45NS 1,000 ml @ 80 1000 mls/hr IV .[id number] [facility] Rx #:[id number] Active Medications: Current Medications Acetaminophen (Tylenol) 650 mg PO Q4HR PRN PRN Reason: Pain or Fever >101 Stop: 05/13/17 14:53 Acetaminophen/Hydrocodone Bitart ([place] 5mg/325mg) 1 tab PO Q4H PRN PRN Reason: Pain (Severe) Stop: 05/13/17 14:55 Last Admin: 03/15/17 16:30 Dose: 1 tab Al Hydrox/Mg Hydrox/Simethicone (Maalox) 30 ml PO Q4HR PRN PRN Reason: GI DISTRESS Stop: 05/13/17 14:53 Albuterol Sulfate (Albuterol 2.5mg/3ml Neb Ud) 2.5 mg HHN Q2HRT PRN PRN Reason: Shortness of Breath or Wheeze Stop: 05/13/17 14:55 Amlodipine Besylate (Norvasc) 5 mg PO DAILY [facility] Stop: 05/14/17 08:59 Last Admin: 03/17/17 10:10 Dose: Not Given Ascorbic Acid (Vitamin C) 500 mg PO DAILY [facility] Stop: 05/14/17 08:59 Last Admin: 03/17/17 10:10 Dose: Not Given Bisacodyl (Dulcolax 10 Mg Supp) 10 mg RC DAILY PRN PRN Reason: Constipation Stop: 05/13/17 14:53 Divalproex Sodium (Depakote Dr) 500 mg PO BID [facility] PRN Reason: Protocol Stop: 05/13/17 16:59 Last Admin: 03/17/17 10:08 Dose: Not Given Docusate Sodium (Colace) 250 mg PO HS [facility] Stop: 05/13/17 20:59 Last Admin: 03/16/17 20:29 Dose: 250 mg Ferrous Sulfate (Iron) 325 mg PO DAILY [facility] Stop: 05/14/17 08:59 Last Admin: 03/17/17 10:10 Dose: Not Given Guaifenesin (Robitussin) 200 mg PO Q4HR PRN PRN Reason: Cough or Congestion Stop: 05/13/17 14:55 Cefepime HCl 1 gm/ Dextrose 50 mls @ 100 mls/hr IV Q12H [facility] Stop: 05/13/17 15:59 Last Admin: 03/17/17 03:40 Dose: 100 mls/hr Dextrose/Sodium Chloride (D5-0.45ns) 1,000 mls @ 80 mls/hr IV .[id number] [facility] Stop: 05/13/17 14:59 Last Admin: 03/17/17 06:16 Dose: 80 mls/hr Ipratropium [place] (Atrovent Neb 0.5mg/2.5ml) 0.5 mg IH Q2HRT PRN PRN Reason: Shortness of Breath or Wheeze Stop: 05/13/17 14:55 Lactulose (Cephulac) 20 gm PO DAILY [facility] Stop: 05/14/17 08:59 Last Admin: 03/17/17 10:11 Dose: Not Given Lorazepam (Ativan) 0.5 mg PO Q6HR PRN; Protocol PRN Reason: Anxiety Stop: 05/13/17 14:53 Magnesium Hydroxide (Milk Of Magnesia) 30 ml PO DAILY PRN PRN Reason: Constipation Stop: 05/13/17 14:53 Mupirocin (Bactroban Oint) 1 appl NS BID [facility] Stop: 03/21/17 09:01 Last Admin: 03/17/17 09:10 Dose: 1 appl Ondansetron HCl (Zofran) 4 mg IV Q8H PRN PRN Reason: Nausea / Vomiting Stop: 05/13/17 14:55 Risperidone (Risperdal) 0.5 mg PO DAILY [facility] PRN Reason: Protocol Stop: 05/14/17 08:59 Last Admin: 03/17/17 10:11 Dose: Not Given Tamsulosin HCl (Flomax) 0.4 mg PO HS [facility] Stop: 05/13/17 20:59 Last Admin: 03/16/17 20:30 Dose: 0.4 mg General: weak, alert HEENT: NC/AT, PERRLA Neck: Supple Lungs: ronchi Cardiovascular: RRR, Normal S1, Normal S2, without murmur Abdomen: soft, non-distended, positive bowel sound Extremities: excoriation Neurological: no change - Procedures Procedures: Procedures Procedure Code Date EGD BIOPSY SINGLE/MULTIPLE 66865 03/02/17 ESOPH FUNDOPLASTY LAP 00675 03/02/17 EXCISION OF ESOPHAGUS, ENDO, DIAGN [id number] 03/02/17 EXCISION OF STOMACH, ENDO, DIAGN [id number] 03/02/17 PRP I/OSVALDO INIT BLOCK >5 YR 10171 03/02/17 REMOVAL OF GALLBLADDER 00244 03/02/17 REPAIR LEFT INGUINAL REGION, OPEN APPROACH [id number] 03/02/17 RESECTION OF GALLBLADDER, OPEN APPROACH [id number] 03/02/17 RESPIRATORY VENTILATION, LESS THAN 24 CONSECUTIVE HOURS [id number] 03/02/17 RESTRICTION OF ESOPHAGOGASTRIC JUNCTION, OPEN APPROACH [id number] 03/02/17 Internal Medicine Assmt/Plan - Assessment Assessment: pmn acute hypoxemic resp failure recent hernial repair, john paul anemia contracture generalized weakness poor po intake - Plan Plan: continue ivf for hydration bronchodilators continue ivabx am labs supplemental o2 as needed continue plan of care Nutritional Asmnt/Malnutr-PDOC - Dietary Evaluation Malnutrition Findings (Please click <Entered> for more info): Nutritional Asmnt/Malnutrition Start: 03/15/17 15: 53 Text: Status: Complete Freq: Document 03/15/17 15:53 GSUN (Rec: 03/15/17 15:56 GSUN [email or web address]) Nutritional Asmnt/Malnutrition Patient General Information Nutritional Screening High Risk Screening Diagnosis Acute hypoxemic resp failure, recent hernial repair and cholecystectomy Pertinent Medical Hx/Surgical Hx HTN, bronchitis, COPD, dementia, GERD, psychosis, cholecystectomy, hernia repair Subjective Information 82 year old male, recently admitted to [facility] cholecystectomy and hernia repair on 03/07. Pt responded to RD's greetings, however appeared very lethargic, nodded to every question, did not provide any responses. Pt asked RD to come back another time. Unable to complete physical assessment as blanket pulled up to pt's nose. Observed thin frame and thin lower extremities. PO intake 25% of meals 8/ dinner. CBW 143.9lb via bedscale during visit. Current Diet Order/ Nutrition Support YANNA Pertinent Medications Vitamin C, D5-0.45ns, Colace, Iron, Cephulac, MOM, Zofran Pertinent Labs Reviewed. Nutritional Hx/Data Height 6 ft Height (Calculated Centimeters) 182.9 Current Weight (lbs) 143 lb 14.4 oz Weight (Calculated Kilograms) 65.3 Weight (Calculated Grams) 77610.9 [place] Body Weight 178 Weight Status Approriate GI Symptoms Skin Integrity/Comment: Juan Antonio 12. Skin flaky. Estimated Nutritional Goals Calories/Kcals/Kg IBW 178lb/80.9kg Kcals Calculated 2022-2400kcal (25-30kcal/kg) Protein Calculated 81g (1g/kg) Fluid: ml 2022-2400ml (1ml/kcal) Nutritional Problem 1. Problem Problem Altered GI fucntion related to Etiology recent 03/07 hernial repair and cholecystectomy Signs/Symptoms: post operation Intervention/Recommendation Comments 1. Recommend YANNA low fat diet. 2. Recommend Boost BID. 3. Monitor weight, pt is 6ft BMI 19.9. Expected Outcomes/Goals Expected Outcomes/Goals 1. PO intake to meet at least 75% of estimated nutritional needs.
[2017-03-17] MEDS ORDERED: Potassium Chloride 40 MEQ, Lidocaine 1% 20mL Vial 25 MG in Sodium Chloride 0.9% 250 ML IV ONE (11:07)
[2017-03-17] MEDS: Ipratropium Neb 0.5 mg/2.5 mL UD IH PRN (23:27)
[2017-03-17] MEDS: Albuterol Nebulizer 2.5mg/3mL HHN PRN (23:27)
[2017-03-18 06:23] LABS: % BASOPHILS 1.1 % (0.0-2.0); % EOSINOPHILS 7.9 % (0.0-5.0); % LYMPHOCYTES 7.3 % (20.0-50.0); % MONOCYTES 2.5 % (2.0-10.0); % NEUTROPHILS 81.2 % (40.0-80.0); HEMOGLOBIN 11.8 gm/dL (12.6-17.4); MEAN CELL VOLUME 85.3 fl (80-99); MEAN CORPUSCULAR HEMOGLOBIN 28.1 pg (27.0-31.0); MEAN CORPUSCULAR HGB CONC 32.9 pg (28.0-36.0); MEAN PLATELET VOLUME 8.4 fl; NEUTROPHILE ABSOLUTE 11.7 Th/cmm (1.8-8.0); PLATELET COUNT 532 Th/cmm (150-400); RED BLOOD COUNT 4.22 Mil/cmm (3.80-5.80); RED CELL DISTRIBUTION WIDTH 16.4 % (11.5-20.0); WHITE BLOOD COUNT 14.5 Th/cmm (4.8-10.8)
[2017-03-18 06:57] LABS: ANION GAP 3.8 (7.0-16.0); BUN - UREA NITROGEN 16 mg/dL (7-25); BUN/CREATININE RATIO 26.7; CARBON DIOXIDE 32.9 mEq/L (21.0-31.0); CHLORIDE 107 mEq/L (98-107); CREATININE - SERUM 0.6 mg/dL (0.7-1.3); GLUCOSE 82 mg/dL (70-105); POTASSIUM SERUM 3.7 mEq/L (3.5-5.1); SODIUM SERUM 140 mEq/L (136-145)
[2017-03-18] MEDS: Ipratropium Neb 0.5 mg/2.5 mL UD IH PRN ×3 (07:38→15:10)
[2017-03-18] MEDS: Albuterol Nebulizer 2.5mg/3mL HHN PRN ×3 (07:38→15:10)
[2017-03-18] MEDS: Lactulose 10 Gm/15 mL 30mL UDC PO SCH (09:36)
[2017-03-18] MEDS: Ferrous Sulfate 325 MG TAB PO SCH (09:36)
[2017-03-18] MEDS: D5-0.45NS 1,000 ML IV SCH ×2 (14:58→19:30)
--- NOTE | 2017-03-18 15:34 | Internal Medicine Prog Note ---
Internal Medicine Subjective - Subjective Patient seen and examined:: with staff, chart reviewed Patient is:: awake, non-verbal, non-interactive, in bed Patient Complaints of:: congestion, cough Per staff patient has:: no adverse event, poor oral intake, tolerating meds Internal Medicine Objective - Results Result Diagrams: 03/18/17 05:20 03/18/17 05:20 Recent Labs: Laboratory Last Values WBC 14.5 Th/cmm (4.8-10.8) H 03/18/17 05:20 RBC 4.22 Mil/cmm (3.80-5.80) 03/18/17 05:20 Hgb 11.8 gm/dL (12.6-17.4) L 03/18/17 05:20 Hct 36.0 % (39.0-49.0) L 03/18/17 05:20 MCV 85.3 fl (80-99) 03/18/17 05:20 MCH 28.1 pg (27.0-31.0) 03/18/17 05:20 MCHC Differential 32.9 pg (28.0-36.0) 03/18/17 05:20 RDW 16.4 % (11.5-20.0) 03/18/17 05:20 Plt Count 532 Th/cmm (150-400) H 03/18/17 05:20 MPV 8.4 fl 03/18/17 05:20 Neutrophils % 81.2 % (40.0-80.0) H 03/18/17 05:20 Band Neutrophils % 4 % (0-10) 03/16/17 05:51 Lymphocytes % 7.3 % (20.0-50.0) L 03/18/17 05:20 Monocytes % 2.5 % (2.0-10.0) 03/18/17 05:20 Eosinophils % 7.9 % (0.0-5.0) H 03/18/17 05:20 Basophils % 1.1 % (0.0-2.0) 03/18/17 05:20 Neutrophils (Manual) 77 % (40-80) 03/16/17 05:51 Lymphocytes 13 % (20-50) L 03/16/17 05:51 Monocytes 3 % (2-10) 03/16/17 05:51 Eosinophils 3 % (0-5) 03/16/17 05:51 Platelet Estimate INCREASED PLATELETS (NORMAL) 03/16/17 05:51 Platelet Morphology NORMAL (NORMAL) 03/16/17 05:51 Anisocytosis 1+ 03/16/17 05:51 RBC Morph Micro Appear ABNORMAL (NORMAL) 03/16/17 05:51 Sodium 140 mEq/L (136-145) 03/18/17 05:20 Potassium 3.7 mEq/L (3.5-5.1) 03/18/17 05:20 Chloride 107 mEq/L (98-107) 03/18/17 05:20 Carbon Dioxide 32.9 mEq/L (21.0-31.0) H 03/18/17 05:20 Anion Gap 3.8 (7.0-16.0) L 03/18/17 05:20 BUN 16 mg/dL (7-25) 03/18/17 05:20 Creatinine 0.6 mg/dL (0.7-1.3) L 03/18/17 05:20 Est GFR ( Amer) TNP 03/18/17 05:20 Est GFR (Non-Af Amer) TNP 03/18/17 05:20 BUN/Creatinine Ratio 26.7 03/18/17 05:20 Glucose 82 mg/dL (70-105) 03/18/17 05:20 Whole Bld Lactic Acid 0.99 mmol/L (0.60-1.99) 03/14/17 11:35 Calcium 12.0 mg/dL (8.6-10.3) H 03/18/17 05:20 Total Bilirubin 0.4 mg/dL (0.3-1.0) 03/14/17 11:35 AST 10 U/L (13-39) L 03/14/17 11:35 ALT 6 U/L (7-52) L 03/14/17 11:35 Alkaline Phosphatase 74 U/L (34-104) 03/14/17 11:35 Troponin I 0.02 ng/mL (0.01-0.05) 03/14/17 11:35 B-Natriuretic Peptide 27.2 pg/mL (5.0-100.0) 03/14/17 11:35 Total Protein 7.3 gm/dL (6.0-8.3) 03/14/17 11:35 Albumin 2.8 gm/dL (4.2-5.5) L 03/14/17 11:35 Globulin 4.5 gm/dL 03/14/17 11:35 Albumin/Globulin Ratio 0.6 (1.0-1.8) L 03/14/17 11:35 Carcinoembryonic Ag 3.2 ng/mL (0.0-4.7) 03/17/17 06:10 Prostate Specific Ag 4.8 ng/mL (0.0-4.0) H 03/17/17 06:10 Urine Source CATH 03/14/17 12:00 Urine Color YELLOW 03/14/17 12:00 Urine Clarity SL. CLOUDY (CLEAR) 03/14/17 12:00 Urine pH 6.0 03/14/17 12:00 Ur Specific [place] >= 1.030 (1.005-1.030) 03/14/17 12:00 Urine Protein TRACE mg/dL (NEGATIVE) 03/14/17 12:00 Urine Glucose (UA) NEGATIVE mg/dL (NEGATIVE) 03/14/17 12:00 Urine Ketones 15 mg/dL (NEGATIVE) H 03/14/17 12:00 Urine Blood TRACE (NEGATIVE) 03/14/17 12:00 Urine Nitrate NEGATIVE (NEGATIVE) 03/14/17 12:00 Urine Bilirubin SMALL (NEGATIVE) H 03/14/17 12:00 Urine Urobilinogen 1.0 E.U./dL (0.2 - 1.0) 03/14/17 12:00 Ur Leukocyte Esterase NEGATIVE (NEGATIVE) 03/14/17 12:00 Urine RBC 5-8 /hpf (0-5) 03/14/17 12:00 Urine WBC 2-5 /hpf (0-5) H 03/14/17 12:00 Ur Epithelial Cells RARE /lpf (FEW) 03/14/17 12:00 Urine Bacteria OCCASIONAL /hpf (NONE SEEN) 03/14/17 12:00 Hyaline Casts 0-2 /lpf (0-2) H 03/14/17 12:00 Urine Other 03/14/17 12:00 Valproic Acid 30.6 ug/mL (50.0-100.0) L 03/14/17 11:35 - Physical Exam Vitals and I&O: Vital Signs Temp 97.2 F 03/18/17 11:56 Pulse 71 03/18/17 15:13 Resp 16 03/18/17 15:13 BP 131/65 03/18/17 11:56 Pulse Ox 98 03/18/17 15:13 Intake & Output 03/17/17 03/18/17 03/18/17 18:59 06:59 18:59 Intake Total 1050 50 Balance 1050 50 Weight (lbs) 65.771 kg 66.678 kg Intake: Intake, IV Amount 1050 50 Cefepime 1 gm In Dextrose 50 50 5% 50 ml @ 100 mls/hr IV Q12H [facility] Rx#:[id number] D5-0.45NS 1,000 ml @ 80 1000 mls/hr IV .[id number] [facility] Rx #:[id number] Other: # Voids 2 2 # Bowel Movements 0 0 Active Medications: Current Medications Acetaminophen (Tylenol) 650 mg PO Q4HR PRN PRN Reason: Pain or Fever >101 Stop: 05/13/17 14:53 Acetaminophen/Hydrocodone Bitart ([place] 5mg/325mg) 1 tab PO Q4H PRN PRN Reason: Pain (Severe) Stop: 05/13/17 14:55 Last Admin: 03/15/17 16:30 Dose: 1 tab Al Hydrox/Mg Hydrox/Simethicone (Maalox) 30 ml PO Q4HR PRN PRN Reason: GI DISTRESS Stop: 05/13/17 14:53 Albuterol Sulfate (Albuterol 2.5mg/3ml Neb Ud) 2.5 mg HHN Q2HRT PRN PRN Reason: Shortness of Breath or Wheeze Stop: 05/13/17 14:55 Last Admin: 03/18/17 15:10 Dose: 2.5 mg Amlodipine Besylate (Norvasc) 5 mg PO DAILY [facility] Stop: 05/14/17 08:59 Last Admin: 03/18/17 09:37 Dose: Not Given Ascorbic Acid (Vitamin C) 500 mg PO DAILY [facility] Stop: 05/14/17 08:59 Last Admin: 03/18/17 09:36 Dose: Not Given Bisacodyl (Dulcolax 10 Mg Supp) 10 mg RC DAILY PRN PRN Reason: Constipation Stop: 05/13/17 14:53 Divalproex Sodium (Depakote Dr) 500 mg PO BID JENNIFER PRN Reason: Protocol Stop: 05/13/17 16:59 Last Admin: 03/18/17 09:36 Dose: Not Given Docusate Sodium (Colace) 250 mg PO HS [facility] Stop: 05/13/17 20:59 Last Admin: 03/17/17 20:56 Dose: Not Given Ferrous Sulfate (Iron) 325 mg PO DAILY [facility] Stop: 05/14/17 08:59 Last Admin: 03/18/17 09:36 Dose: Not Given Guaifenesin (Robitussin) 200 mg PO Q4HR PRN PRN Reason: Cough or Congestion Stop: 05/13/17 14:55 Cefepime HCl 1 gm/ Dextrose 50 mls @ 100 mls/hr IV Q12H [facility] Stop: 05/13/17 15:59 Last Admin: 03/18/17 15:00 Dose: 100 mls/hr Dextrose/Sodium Chloride (D5-0.45ns) 1,000 mls @ 40 mls/hr IV .Q24H [facility] Stop: 05/13/17 14:59 Ipratropium [place] (Atrovent Neb 0.5mg/2.5ml) 0.5 mg IH Q2HRT PRN PRN Reason: Shortness of Breath or Wheeze Stop: 05/13/17 14:55 Last Admin: 03/18/17 15:10 Dose: 0.5 mg Lactulose (Cephulac) 20 gm PO DAILY [facility] Stop: 05/14/17 08:59 Last Admin: 03/18/17 09:36 Dose: Not Given Lorazepam (Ativan) 0.5 mg PO Q6HR PRN; Protocol PRN Reason: Anxiety Stop: 05/13/17 14:53 Magnesium Hydroxide (Milk Of Magnesia) 30 ml PO DAILY PRN PRN Reason: Constipation Stop: 05/13/17 14:53 Mupirocin (Bactroban Oint) 1 appl NS BID [facility] Stop: 03/21/17 09:01 Last Admin: 03/18/17 15:06 Dose: 1 appl Ondansetron HCl (Zofran) 4 mg IV Q8H PRN PRN Reason: Nausea / Vomiting Stop: 05/13/17 14:55 Risperidone (Risperdal) 0.5 mg PO DAILY [facility] PRN Reason: Protocol Stop: 05/14/17 08:59 Last Admin: 03/18/17 09:36 Dose: Not Given Tamsulosin HCl (Flomax) 0.4 mg PO HS [facility] Stop: 05/13/17 20:59 Last Admin: 03/17/17 20:56 Dose: Not Given General: weak, alert HEENT: NC/AT, PERRLA Neck: Supple Lungs: rales, ronchi Cardiovascular: RRR, Normal S1, Normal S2, with murmur Abdomen: soft, non-distended, positive bowel sound Extremities: excoriation Neurological: no change - Procedures Procedures: Procedures Procedure Code Date EGD BIOPSY SINGLE/MULTIPLE 49348 03/02/17 ESOPH FUNDOPLASTY LAP 08082 03/02/17 EXCISION OF ESOPHAGUS, ENDO, DIAGN [id number] 03/02/17 EXCISION OF STOMACH, ENDO, DIAGN [id number] 03/02/17 PRP I/OSVALDO INIT BLOCK >5 YR 93739 03/02/17 REMOVAL OF GALLBLADDER 67732 03/02/17 REPAIR LEFT INGUINAL REGION, OPEN APPROACH [id number] 03/02/17 RESECTION OF GALLBLADDER, OPEN APPROACH [id number] 03/02/17 RESPIRATORY VENTILATION, LESS THAN 24 CONSECUTIVE HOURS [id number] 03/02/17 RESTRICTION OF ESOPHAGOGASTRIC JUNCTION, OPEN APPROACH [id number] 03/02/17 Internal Medicine Assmt/Plan - Assessment Assessment: pmn acute hypoxemic resp failure recent hernial repair, john paul anemia contracture generalized weakness - Plan Plan: cont on iv abx o2 bronchodilator tx aspiration precaution will review ct abd, cxr dw rn see orders Nutritional Asmnt/Malnutr-PDOC - Dietary Evaluation Malnutrition Findings (Please click <Entered> for more info): Nutritional Asmnt/Malnutrition Start: 03/15/17 15: 53 Text: Status: Complete Freq: Document 03/15/17 15:53 GSUN (Rec: 03/15/17 15:56 GSUN [email or web address]) Nutritional Asmnt/Malnutrition Patient General Information Nutritional Screening High Risk Screening Diagnosis Acute hypoxemic resp failure, recent hernial repair and cholecystectomy Pertinent Medical Hx/Surgical Hx HTN, bronchitis, COPD, dementia, GERD, psychosis, cholecystectomy, hernia repair Subjective Information 82 year old male, recently admitted to [place] cholecystectomy and hernia repair on 03/07. Pt responded to RD's greetings, however appeared very lethargic, nodded to every question, did not provide any responses. Pt asked RD to come back another time. Unable to complete physical assessment as blanket pulled up to pt's nose. Observed thin frame and thin lower extremities. PO intake 25% of meals 03/14 dinner. CBW 143.9lb via bedscale during visit. Current Diet Order/ Nutrition Support YANNA Pertinent Medications Vitamin C, D5-0.45ns, Colace, Iron, Cephulac, MOM, Zofran Pertinent Labs Reviewed. Nutritional Hx/Data Height 1.83 m Height (Calculated Centimeters) 182.9 Current Weight (lbs) 65.272 kg Weight (Calculated Kilograms) 65.3 Weight (Calculated Grams) 39398.9 [place] Body Weight 178 Weight Status Approriate GI Symptoms Skin Integrity/Comment: Juan Antonio 12. Skin flaky. Estimated Nutritional Goals Calories/Kcals/Kg IBW 178lb/80.9kg Kcals Calculated 2022-2400kcal (25-30kcal/kg) Protein Calculated 81g (1g/kg) Fluid: ml 2022-2400ml (1ml/kcal) Nutritional Problem 1. Problem Problem Altered GI fucntion related to Etiology recent 03/07 hernial repair and cholecystectomy Signs/Symptoms: post operation Intervention/Recommendation Comments 1. Recommend YANNA low fat diet. 2. Recommend Boost BID. 3. Monitor weight, pt is 6ft BMI 19.9. Expected Outcomes/Goals Expected Outcomes/Goals 1. PO intake to meet at least 75% of estimated nutritional needs.
[2017-03-19 05:44] LABS: % BASOPHILS 0.6 % (0.0-2.0); % EOSINOPHILS 10.8 % (0.0-5.0); % LYMPHOCYTES 5.9 % (20.0-50.0); % MONOCYTES 3.4 % (2.0-10.0); % NEUTROPHILS 79.3 % (40.0-80.0); HEMATOCRIT 34.9 % (39.0-49.0); HEMOGLOBIN 11.4 gm/dL (12.6-17.4); MEAN CELL VOLUME 83.9 fl (80-99); MEAN CORPUSCULAR HEMOGLOBIN 27.4 pg (27.0-31.0); MEAN CORPUSCULAR HGB CONC 32.7 pg (28.0-36.0); MEAN PLATELET VOLUME 8.2 fl; NEUTROPHILE ABSOLUTE 12.2 Th/cmm (1.8-8.0); PLATELET COUNT 540 Th/cmm (150-400); RED BLOOD COUNT 4.16 Mil/cmm (3.80-5.80); RED CELL DISTRIBUTION WIDTH 16.6 % (11.5-20.0)
[2017-03-19 05:50] LABS: ANION GAP 4.3 (7.0-16.0); BUN - UREA NITROGEN 19 mg/dL (7-25); BUN/CREATININE RATIO 27.1; CALCIUM SERUM 12.1 mg/dL (8.6-10.3); CHLORIDE 108 mEq/L (98-107); CREATININE - SERUM 0.7 mg/dL (0.7-1.3); GLUCOSE 102 mg/dL (70-105); POTASSIUM SERUM 4.3 mEq/L (3.5-5.1); SODIUM SERUM 144 mEq/L (136-145)
[2017-03-19 06:27] LABS: WHITE BLOOD COUNT 15.4 Th/cmm (4.8-10.8)
[2017-03-19] MEDS: Lactulose 10 Gm/15 mL 30mL UDC PO SCH (08:58)
[2017-03-19] MEDS: Ferrous Sulfate 325 MG TAB PO SCH (08:58)
--- NOTE | 2017-03-19 09:44 | Diagnostic Imaging Report ---
Exam: Chest portable HISTORY: Congestive heart failure. Findings: Portable examination of the chest at 0930 hours was reviewed no prior studies available comparison. The study demonstrates COPD changes. There is evidence for ill-defined peribronchial thickening in left basilar infiltrate cannot be excluded. This also might represent fibrotic scarring. Clinical correlation comparison with study is recommended. The costophrenic angles are clear. Bony thorax intact. Mediastinal structures midline. IMPRESSION: 1. COPD changes. 2. Question of mild peribronchial infiltrate left base versus fibrotic scarring clinical correlation and comparison to old studies recommended. If old studies not available follow-up examination is recommended.
[2017-03-19] MEDS: D5-0.45NS 1,000 ML IV SCH (19:02)
--- NOTE | 2017-03-19 21:28 | Internal Medicine Prog Note ---
Internal Medicine Subjective - Subjective Patient seen and examined:: with staff, chart reviewed Patient is:: awake, non-verbal, non-interactive, in bed Patient Complaints of:: congestion, cough Per staff patient has:: no adverse event, poor oral intake, tolerating meds Internal Medicine Objective - Results Result Diagrams: 03/19/17 05:10 03/19/17 05:10 Recent Labs: Laboratory Last Values WBC 15.4 Th/cmm (4.8-10.8) H 03/19/17 05:10 RBC 4.16 Mil/cmm (3.80-5.80) 03/19/17 05:10 Hgb 11.4 gm/dL (12.6-17.4) L 03/19/17 05:10 Hct 34.9 % (39.0-49.0) L 03/19/17 05:10 MCV 83.9 fl (80-99) 03/19/17 05:10 MCH 27.4 pg (27.0-31.0) 03/19/17 05:10 MCHC Differential 32.7 pg (28.0-36.0) 03/19/17 05:10 RDW 16.6 % (11.5-20.0) 03/19/17 05:10 Plt Count 540 Th/cmm (150-400) H 03/19/17 05:10 MPV 8.2 fl 03/19/17 05:10 Neutrophils % 79.3 % (40.0-80.0) 03/19/17 05:10 Band Neutrophils % 4 % (0-10) 03/16/17 05:51 Lymphocytes % 5.9 % (20.0-50.0) L 03/19/17 05:10 Monocytes % 3.4 % (2.0-10.0) 03/19/17 05:10 Eosinophils % 10.8 % (0.0-5.0) H 03/19/17 05:10 Basophils % 0.6 % (0.0-2.0) 03/19/17 05:10 Neutrophils (Manual) 77 % (40-80) 03/16/17 05:51 Lymphocytes 13 % (20-50) L 03/16/17 05:51 Monocytes 3 % (2-10) 03/16/17 05:51 Eosinophils 3 % (0-5) 03/16/17 05:51 Platelet Estimate INCREASED PLATELETS (NORMAL) 03/16/17 05:51 Platelet Morphology NORMAL (NORMAL) 03/16/17 05:51 Anisocytosis 1+ 03/16/17 05:51 RBC Morph Micro Appear ABNORMAL (NORMAL) 03/16/17 05:51 Sodium 144 mEq/L (136-145) 03/19/17 05:10 Potassium 4.3 mEq/L (3.5-5.1) 03/19/17 05:10 Chloride 108 mEq/L (98-107) H 03/19/17 05:10 Carbon Dioxide 36.0 mEq/L (21.0-31.0) H 03/19/17 05:10 Anion Gap 4.3 (7.0-16.0) L 03/19/17 05:10 BUN 19 mg/dL (7-25) 03/19/17 05:10 Creatinine 0.7 mg/dL (0.7-1.3) 03/19/17 05:10 Est GFR ( Amer) TNP 03/19/17 05:10 Est GFR (Non-Af Amer) TNP 03/19/17 05:10 BUN/Creatinine Ratio 27.1 03/19/17 05:10 Glucose 102 mg/dL (70-105) 03/19/17 05:10 Whole Bld Lactic Acid 0.99 mmol/L (0.60-1.99) 03/14/17 11:35 Calcium 12.1 mg/dL (8.6-10.3) H 03/19/17 05:10 Total Bilirubin 0.4 mg/dL (0.3-1.0) 03/14/17 11:35 AST 10 U/L (13-39) L 03/14/17 11:35 ALT 6 U/L (7-52) L 03/14/17 11:35 Alkaline Phosphatase 74 U/L (34-104) 03/14/17 11:35 Ammonia 43 umol/L (16-53) 03/19/17 05:10 Troponin I 0.02 ng/mL (0.01-0.05) 03/14/17 11:35 B-Natriuretic Peptide 16.7 pg/mL (5.0-100.0) 03/19/17 05:10 Total Protein 7.3 gm/dL (6.0-8.3) 03/14/17 11:35 Albumin 2.8 gm/dL (4.2-5.5) L 03/14/17 11:35 Globulin 4.5 gm/dL 03/14/17 11:35 Albumin/Globulin Ratio 0.6 (1.0-1.8) L 03/14/17 11:35 Carcinoembryonic Ag 3.2 ng/mL (0.0-4.7) 03/17/17 06:10 Prostate Specific Ag 4.8 ng/mL (0.0-4.0) H 03/17/17 06:10 Urine Source CATH 03/14/17 12:00 Urine Color YELLOW 03/14/17 12:00 Urine Clarity SL. CLOUDY (CLEAR) 03/14/17 12:00 Urine pH 6.0 03/14/17 12:00 Ur Specific [place] >= 1.030 (1.005-1.030) 03/14/17 12:00 Urine Protein TRACE mg/dL (NEGATIVE) 03/14/17 12:00 Urine Glucose (UA) NEGATIVE mg/dL (NEGATIVE) 03/14/17 12:00 Urine Ketones 15 mg/dL (NEGATIVE) H 03/14/17 12:00 Urine Blood TRACE (NEGATIVE) 03/14/17 12:00 Urine Nitrate NEGATIVE (NEGATIVE) 03/14/17 12:00 Urine Bilirubin SMALL (NEGATIVE) H 03/14/17 12:00 Urine Urobilinogen 1.0 E.U./dL (0.2 - 1.0) 03/14/17 12:00 Ur Leukocyte Esterase NEGATIVE (NEGATIVE) 03/14/17 12:00 Urine RBC 5-8 /hpf (0-5) 03/14/17 12:00 Urine WBC 2-5 /hpf (0-5) H 03/14/17 12:00 Ur Epithelial Cells RARE /lpf (FEW) 03/14/17 12:00 Urine Bacteria OCCASIONAL /hpf (NONE SEEN) 03/14/17 12:00 Hyaline Casts 0-2 /lpf (0-2) H 03/14/17 12:00 Urine Other 03/14/17 12:00 Valproic Acid 30.6 ug/mL (50.0-100.0) L 03/14/17 11:35 - Physical Exam Vitals and I&O: Vital Signs Temp 98.2 F 03/19/17 20:00 Pulse 82 03/19/17 20:00 Resp 19 03/19/17 20:00 BP 110/59 03/19/17 20:00 Pulse Ox 96 03/19/17 20:00 Intake & Output 03/19/17 03/19/17 03/20/17 06:59 18:59 06:59 Intake Total 50 50 941.333 Balance 50 50 941.333 Intake: Intake, IV Amount 50 50 941.333 Cefepime 1 gm In Dextrose 50 50 5% 50 ml @ 100 mls/hr IV Q12H [facility] Rx#:[id number] D5-0.45NS 1,000 ml @ 40 941.333 mls/hr IV .Q24H [facility] Rx#: [id number] Active Medications: Current Medications Acetaminophen (Tylenol) 650 mg PO Q4HR PRN PRN Reason: Pain or Fever >101 Stop: 05/13/17 14:53 Acetaminophen/Hydrocodone Bitart ([place] 5mg/325mg) 1 tab PO Q4H PRN PRN Reason: Pain (Severe) Stop: 05/13/17 14:55 Last Admin: 03/15/17 16:30 Dose: 1 tab Al Hydrox/Mg Hydrox/Simethicone (Maalox) 30 ml PO Q4HR PRN PRN Reason: GI DISTRESS Stop: 05/13/17 14:53 Albuterol Sulfate (Albuterol 2.5mg/3ml Neb Ud) 2.5 mg HHN Q2HRT PRN PRN Reason: Shortness of Breath or Wheeze Stop: 05/13/17 14:55 Last Admin: 03/18/17 15:10 Dose: 2.5 mg Amlodipine Besylate (Norvasc) 5 mg PO DAILY [facility] Stop: 05/14/17 08:59 Last Admin: 03/19/17 08:57 Dose: Not Given Ascorbic Acid (Vitamin C) 500 mg PO DAILY [facility] Stop: 05/14/17 08:59 Last Admin: 03/19/17 08:58 Dose: Not Given Bisacodyl (Dulcolax 10 Mg Supp) 10 mg RC DAILY PRN PRN Reason: Constipation Stop: 05/13/17 14:53 Divalproex Sodium (Depakote Dr) 500 mg PO BID JENNIFER PRN Reason: Protocol Stop: 05/13/17 16:59 Last Admin: 03/19/17 16:52 Dose: Not Given Docusate Sodium (Colace) 250 mg PO HS [facility] Stop: 05/13/17 20:59 Last Admin: 03/18/17 21:48 Dose: Not Given Ferrous Sulfate (Iron) 325 mg PO DAILY [facility] Stop: 05/14/17 08:59 Last Admin: 03/19/17 08:58 Dose: Not Given Guaifenesin (Robitussin) 200 mg PO Q4HR PRN PRN Reason: Cough or Congestion Stop: 05/13/17 14:55 Cefepime HCl 1 gm/ Dextrose 50 mls @ 100 mls/hr IV Q12H [facility] Stop: 05/13/17 15:59 Last Infusion: 03/19/17 16:09 Dose: Infused Dextrose/Sodium Chloride (D5-0.45ns) 1,000 mls @ 40 mls/hr IV .Q24H [facility] Stop: 05/13/17 14:59 Last Admin: 03/19/17 19:02 Dose: 40 mls/hr Ipratropium [place] (Atrovent Neb 0.5mg/2.5ml) 0.5 mg IH Q2HRT PRN PRN Reason: Shortness of Breath or Wheeze Stop: 05/13/17 14:55 Last Admin: 03/18/17 15:10 Dose: 0.5 mg Lactulose (Cephulac) 20 gm PO DAILY [facility] Stop: 05/14/17 08:59 Last Admin: 03/19/17 08:58 Dose: Not Given Lorazepam (Ativan) 0.5 mg PO Q6HR PRN; Protocol PRN Reason: Anxiety Stop: 05/13/17 14:53 Magnesium Hydroxide (Milk Of Magnesia) 30 ml PO DAILY PRN PRN Reason: Constipation Stop: 05/13/17 14:53 Mupirocin (Bactroban Oint) 1 appl NS BID [facility] Stop: 03/21/17 09:01 Last Admin: 03/19/17 16:09 Dose: 1 appl Ondansetron HCl (Zofran) 4 mg IV Q8H PRN PRN Reason: Nausea / Vomiting Stop: 05/13/17 14:55 Risperidone (Risperdal) 0.5 mg PO DAILY [facility] PRN Reason: Protocol Stop: 05/14/17 08:59 Last Admin: 03/19/17 08:58 Dose: Not Given Tamsulosin HCl (Flomax) 0.4 mg PO HS [facility] Stop: 05/13/17 20:59 Last Admin: 03/18/17 21:48 Dose: Not Given General: weak, alert HEENT: NC/AT, PERRLA Neck: Supple Lungs: rales, ronchi Cardiovascular: RRR, Normal S1, Normal S2, with murmur Abdomen: soft, non-distended, positive bowel sound Extremities: excoriation Neurological: no change - Procedures Procedures: Procedures Procedure Code Date EGD BIOPSY SINGLE/MULTIPLE 93934 03/02/17 ESOPH FUNDOPLASTY LAP 33220 03/02/17 EXCISION OF ESOPHAGUS, ENDO, DIAGN [id number] 03/02/17 EXCISION OF STOMACH, ENDO, DIAGN 2RS00UE 03/02/17 PRP I/OSVALDO INIT BLOCK >5 YR 66557 03/02/17 REMOVAL OF GALLBLADDER 83229 03/02/17 REPAIR LEFT INGUINAL REGION, OPEN APPROACH [id number] 03/02/17 RESECTION OF GALLBLADDER, OPEN APPROACH 1PE50MS 03/02/17 RESPIRATORY VENTILATION, LESS THAN 24 CONSECUTIVE HOURS [id number] 03/02/17 RESTRICTION OF ESOPHAGOGASTRIC JUNCTION, OPEN APPROACH [id number] 03/02/17 Internal Medicine Assmt/Plan - Assessment Assessment: pmn acute hypoxemic resp failure recent hernial repair, john paul anemia contracture generalized weakness - Plan Plan: cont on iv abx o2 bronchodilator tx aspiration precaution will review ct abd, cxr dw rn see orders cxr noted, will order ct chest Nutritional Asmnt/Malnutr-PDOC - Dietary Evaluation Malnutrition Findings (Please click <Entered> for more info): Nutritional Asmnt/Malnutrition Start: 03/15/17 15: 53 Text: Status: Complete Freq: Document 03/15/17 15:53 GSUN (Rec: 03/15/17 15:56 GSUN [email or web address]) Nutritional Asmnt/Malnutrition Patient General Information Nutritional Screening High Risk Screening Diagnosis Acute hypoxemic resp failure, recent hernial repair and cholecystectomy Pertinent Medical Hx/Surgical Hx HTN, bronchitis, COPD, dementia, GERD, psychosis, cholecystectomy, hernia repair Subjective Information 82 year old male, recently admitted to [facility] cholecystectomy and hernia repair on 03/07. Pt responded to RD's greetings, however appeared very lethargic, nodded to every question, did not provide any responses. Pt asked RD to come back another time. Unable to complete physical assessment as blanket pulled up to pt's nose. Observed thin frame and thin lower extremities. PO intake 25% of meals 03/14 dinner. CBW 143.9lb via bedscale during visit. Current Diet Order/ Nutrition Support YANNA Pertinent Medications Vitamin C, D5-0.45ns, Colace, Iron, Cephulac, MOM, Zofran Pertinent Labs Reviewed. Nutritional Hx/Data Height 1.83 m Height (Calculated Centimeters) 182.9 Current Weight (lbs) 65.272 kg Weight (Calculated Kilograms) 65.3 Weight (Calculated Grams) 02204.9 [place] Body Weight 178 Weight Status Approriate GI Symptoms Skin Integrity/Comment: Juan Antonio 12. Skin flaky. Estimated Nutritional Goals Calories/Kcals/Kg IBW 178lb/80.9kg Kcals Calculated 2022-2400kcal (25-30kcal/kg) Protein Calculated 81g (1g/kg) Fluid: ml 2023-2400ml (1ml/kcal) Nutritional Problem 1. Problem Problem Altered GI fucntion related to Etiology recent 03/07 hernial repair and cholecystectomy Signs/Symptoms: post operation Intervention/Recommendation Comments 1. Recommend YANNA low fat diet. 2. Recommend Boost BID. 3. Monitor weight, pt is 6ft BMI 19.9. Expected Outcomes/Goals Expected Outcomes/Goals 1. PO intake to meet at least 75% of estimated nutritional needs.
[2017-03-20 06:57] LABS: INR 1.03 (0.5-1.4); PROTHROMBIN TIME (TEST) 10.7 SECONDS (9.5-11.5)
[2017-03-20 08:28] LABS: ALB/GLOB RATIO 0.6 (1.0-1.8); ALKALINE PHOSPHATASE 61 U/L (34-104); ANION GAP 3.9 (7.0-16.0); BILIRUBIN,TOTAL 0.5 mg/dL (0.3-1.0); BUN - UREA NITROGEN 20 mg/dL (7-25); BUN/CREATININE RATIO 28.6; CALCIUM SERUM 12.3 mg/dL (8.6-10.3); CHLORIDE 107 mEq/L (98-107); CHOLESTEROL 124 mg/dL (<200); CREATININE - SERUM 0.7 mg/dL (0.7-1.3); GLUCOSE 101 mg/dL (70-105); MAGNESIUM 2.1 mg/dL (1.9-2.7); PHOSPHOROUS 2.2 mg/dL (2.5-5.0); POTASSIUM SERUM 3.9 mEq/L (3.5-5.1); SGOT 10 U/L (13-39); SGPT/ALT 4 U/L (7-52); SODIUM SERUM 142 mEq/L (136-145); TRIGLYCERIDES 113 mg/dL (<150)
[2017-03-20] MEDS: Lactulose 10 Gm/15 mL 30mL UDC PO SCH (09:14)
[2017-03-20] MEDS: Ferrous Sulfate 325 MG TAB PO SCH (09:14)
[2017-03-20] MEDS: Albuterol Nebulizer 2.5mg/3mL HHN PRN (09:57)
[2017-03-20] MEDS: Ipratropium Neb 0.5 mg/2.5 mL UD IH PRN (09:57)
--- NOTE | 2017-03-20 11:27 | Diagnostic Imaging Report ---
CT scan of the chest without intravenous contrast HISTORY: Shortness of breath Total DLP equals 181 CTDI equals 4.4 Axial sections were obtained from a level above the clavicles down to level below the diaphragm. The heart size is normal. Coronary artery calcification is noted. The exam is limited due to the absence of intravenous contrast. There is abnormal density noted within the subcarinal region of the mediastinum. Associated displacement of the adjacent airway anteriorly. Extension into the right hilar area. Evaluation and delineation of the vascular structures and hilar margins is limited due to the absence of intravenous contrast. Neoplasm cannot be excluded. In addition, there is evidence of a large retrocardiac hiatal hernia with the majority of the stomach above the diaphragm. Abnormal parenchymal density consistent with pneumonia and/or atelectasis noted in the left lower lobe. Pleural thickening noted in the left lower hemithorax. Pleural thickening a nonspecific interstitial changes that appear chronic noted in the right lower lobe. IMPRESSION: 1. Extensive abnormal density within the subcarinal region of the mediastinum with extension into the right hilar area. Associated displacement of the adjacent airway. Neoplasm cannot be excluded. A scan following administration of intravenous contrast would provide additional assessment. 2. Large retrocardiac hiatal hernia with the majority of the stomach above the diaphragm 3. Left lower lobe parenchymal density and pleural thickening. Findings may be chronic. Pneumonia is difficult to exclude. Additional chronic pleural and parenchymal changes noted in the right lower hemithorax. 4. Coronary artery nephroscopic vascular calcification 2.5 cm hypodense lesion within the left lobe of the liver. Density measurements suggest this is related to an incidental cyst.
[2017-03-20] MEDS ORDERED: SODIUM CHLORIDE IV ONE (12:00)
[2017-03-20] MEDS ORDERED: SODIUM PHOSPHATE IV ONE (12:00)
--- NOTE | 2017-03-20 12:16 | Internal Medicine Prog Note ---
Internal Medicine Subjective - Subjective Service Date: 03/20/17 (patient scheduled for swallow eval) Patient is:: awake, non-verbal, non-interactive, in bed Patient Complaints of:: congestion, cough Per staff patient has:: no adverse event, poor oral intake, tolerating meds Internal Medicine Objective - Results Result Diagrams: 03/19/17 05:10 03/20/17 05:35 Recent Labs: Laboratory Last Values WBC 15.4 Th/cmm (4.8-10.8) H 03/19/17 05:10 RBC 4.16 Mil/cmm (3.80-5.80) 03/19/17 05:10 Hgb 11.4 gm/dL (12.6-17.4) L 03/19/17 05:10 Hct 34.9 % (39.0-49.0) L 03/19/17 05:10 MCV 83.9 fl (80-99) 03/19/17 05:10 MCH 27.4 pg (27.0-31.0) 03/19/17 05:10 MCHC Differential 32.7 pg (28.0-36.0) 03/19/17 05:10 RDW 16.6 % (11.5-20.0) 03/19/17 05:10 Plt Count 540 Th/cmm (150-400) H 03/19/17 05:10 MPV 8.2 fl 03/19/17 05:10 Neutrophils % 79.3 % (40.0-80.0) 03/19/17 05:10 Band Neutrophils % 4 % (0-10) 03/16/17 05:51 Lymphocytes % 5.9 % (20.0-50.0) L 03/19/17 05:10 Monocytes % 3.4 % (2.0-10.0) 03/19/17 05:10 Eosinophils % 10.8 % (0.0-5.0) H 03/19/17 05:10 Basophils % 0.6 % (0.0-2.0) 03/19/17 05:10 Neutrophils (Manual) 77 % (40-80) 03/16/17 05:51 Lymphocytes 13 % (20-50) L 03/16/17 05:51 Monocytes 3 % (2-10) 03/16/17 05:51 Eosinophils 3 % (0-5) 03/16/17 05:51 Platelet Estimate INCREASED PLATELETS (NORMAL) 03/16/17 05:51 Platelet Morphology NORMAL (NORMAL) 03/16/17 05:51 Anisocytosis 1+ 03/16/17 05:51 RBC Morph Micro Appear ABNORMAL (NORMAL) 03/16/17 05:51 PT 10.7 SECONDS (9.5-11.5) 03/20/17 05:35 INR 1.03 (0.5-1.4) 03/20/17 05:35 Sodium 142 mEq/L (136-145) 03/20/17 05:35 Potassium 3.9 mEq/L (3.5-5.1) 03/20/17 05:35 Chloride 107 mEq/L (98-107) 03/20/17 05:35 Carbon Dioxide 35.0 mEq/L (21.0-31.0) H 03/20/17 05:35 Anion Gap 3.9 (7.0-16.0) L 03/20/17 05:35 BUN 20 mg/dL (7-25) 03/20/17 05:35 Creatinine 0.7 mg/dL (0.7-1.3) 03/20/17 05:35 Est GFR ( Amer) TNP 03/20/17 05:35 Est GFR (Non-Af Amer) TNP 03/20/17 05:35 BUN/Creatinine Ratio 28.6 03/20/17 05:35 Glucose 101 mg/dL (70-105) 03/20/17 05:35 Whole Bld Lactic Acid 0.99 mmol/L (0.60-1.99) 03/14/17 11:35 Calcium 12.3 mg/dL (8.6-10.3) H 03/20/17 05:35 Phosphorus 2.2 mg/dL (2.5-5.0) L 03/20/17 05:35 Magnesium 2.1 mg/dL (1.9-2.7) 03/20/17 05:35 Total Bilirubin 0.5 mg/dL (0.3-1.0) 03/20/17 05:35 AST 10 U/L (13-39) L 03/20/17 05:35 ALT 4 U/L (7-52) L 03/20/17 05:35 Alkaline Phosphatase 61 U/L (34-104) 03/20/17 05:35 Ammonia 43 umol/L (16-53) 03/19/17 05:10 Troponin I 0.02 ng/mL (0.01-0.05) 03/14/17 11:35 B-Natriuretic Peptide 16.7 pg/mL (5.0-100.0) 03/19/17 05:10 Total Protein 6.4 gm/dL (6.0-8.3) 03/20/17 05:35 Albumin 2.5 gm/dL (4.2-5.5) L 03/20/17 05:35 Globulin 3.9 gm/dL 03/20/17 05:35 Albumin/Globulin Ratio 0.6 (1.0-1.8) L 03/20/17 05:35 Triglycerides 113 mg/dL (<150) 03/20/17 05:35 Cholesterol 124 mg/dL (<200) 03/20/17 05:35 Carcinoembryonic Ag 3.2 ng/mL (0.0-4.7) 03/17/17 06:10 Prostate Specific Ag 4.8 ng/mL (0.0-4.0) H 03/17/17 06:10 Urine Source CATH 03/14/17 12:00 Urine Color YELLOW 03/14/17 12:00 Urine Clarity SL. CLOUDY (CLEAR) 03/14/17 12:00 Urine pH 6.0 03/14/17 12:00 Ur Specific [place] >= 1.030 (1.005-1.030) 03/14/17 12:00 Urine Protein TRACE mg/dL (NEGATIVE) 03/14/17 12:00 Urine Glucose (UA) NEGATIVE mg/dL (NEGATIVE) 03/14/17 12:00 Urine Ketones 15 mg/dL (NEGATIVE) H 03/14/17 12:00 Urine Blood TRACE (NEGATIVE) 03/14/17 12:00 Urine Nitrate NEGATIVE (NEGATIVE) 03/14/17 12:00 Urine Bilirubin SMALL (NEGATIVE) H 03/14/17 12:00 Urine Urobilinogen 1.0 E.U./dL (0.2 - 1.0) 03/14/17 12:00 Ur Leukocyte Esterase NEGATIVE (NEGATIVE) 03/14/17 12:00 Urine RBC 5-8 /hpf (0-5) 03/14/17 12:00 Urine WBC 2-5 /hpf (0-5) H 03/14/17 12:00 Ur Epithelial Cells RARE /lpf (FEW) 03/14/17 12:00 Urine Bacteria OCCASIONAL /hpf (NONE SEEN) 03/14/17 12:00 Hyaline Casts 0-2 /lpf (0-2) H 03/14/17 12:00 Urine Other 03/14/17 12:00 Valproic Acid 30.6 ug/mL (50.0-100.0) L 03/14/17 11:35 - Physical Exam Vitals and I&O: Vital Signs Temp 96.7 F 03/20/17 08:00 Pulse 82 03/20/17 09:40 Resp 18 03/20/17 10:49 BP 110/64 03/20/17 08:00 Pulse Ox 93 03/20/17 09:40 Intake & Output 03/19/17 03/20/17 03/20/17 18:59 06:59 18:59 Intake Total 50 991.333 Balance 50 991.333 Weight (lbs) 146 lb 8 oz Intake: Intake, IV Amount 50 991.333 Cefepime 1 gm In Dextrose 50 50 5% 50 ml @ 100 mls/hr IV Q12H JENNIFER Rx#:[id number] D5-0.45NS 1,000 ml @ 40 941.333 mls/hr IV .Q24H JENNIFER Rx#: [id number] Other: # Voids 3 # Bowel Movements 1 Active Medications: Current Medications Acetaminophen (Tylenol) 650 mg PO Q4HR PRN PRN Reason: Pain or Fever >101 Stop: 05/13/17 14:53 Acetaminophen/Hydrocodone Bitart ([place] 5mg/325mg) 1 tab PO Q4H PRN PRN Reason: Pain (Severe) Stop: 05/13/17 14:55 Last Admin: 03/15/17 16:30 Dose: 1 tab Al Hydrox/Mg Hydrox/Simethicone (Maalox) 30 ml PO Q4HR PRN PRN Reason: GI DISTRESS Stop: 05/13/17 14:53 Albuterol Sulfate (Albuterol 2.5mg/3ml Neb Ud) 2.5 mg HHN Q2HRT PRN PRN Reason: Shortness of Breath or Wheeze Stop: 05/13/17 14:55 Last Admin: 03/20/17 09:57 Dose: 2.5 mg Amlodipine Besylate (Norvasc) 5 mg PO DAILY JENNIFER Stop: 05/14/17 08:59 Last Admin: 03/20/17 09:13 Dose: Not Given Ascorbic Acid (Vitamin C) 500 mg PO DAILY JENNIFER Stop: 05/14/17 08:59 Last Admin: 03/20/17 09:14 Dose: Not Given Bisacodyl (Dulcolax 10 Mg Supp) 10 mg RC DAILY PRN PRN Reason: Constipation Stop: 05/13/17 14:53 Divalproex Sodium (Depakote Dr) 500 mg PO BID JENNIFER PRN Reason: Protocol Stop: 05/13/17 16:59 Last Admin: 03/20/17 09:14 Dose: Not Given Docusate Sodium (Colace) 250 mg PO HS [facility] Stop: 05/13/17 20:59 Last Admin: 03/20/17 02:05 Dose: Not Given Ferrous Sulfate (Iron) 325 mg PO DAILY [facility] Stop: 05/14/17 08:59 Last Admin: 03/20/17 09:14 Dose: Not Given Guaifenesin (Robitussin) 200 mg PO Q4HR PRN PRN Reason: Cough or Congestion Stop: 05/13/17 14:55 Cefepime HCl 1 gm/ Dextrose 50 mls @ 100 mls/hr IV Q12H [facility] Stop: 05/13/17 15:59 Last Infusion: 03/20/17 05:23 Dose: Infused Dextrose/Sodium Chloride (D5-0.45ns) 1,000 mls @ 40 mls/hr IV .Q24H [facility] Stop: 05/13/17 14:59 Last Admin: 03/19/17 19:02 Dose: 40 mls/hr Sodium Phosphate 12 mmole/ (Sodium Chloride) 254 mls @ 42 mls/hr IV ONCE ONE Stop: 03/20/17 18:02 Ipratropium [place] (Atrovent Neb 0.5mg/2.5ml) 0.5 mg IH Q2HRT PRN PRN Reason: Shortness of Breath or Wheeze Stop: 05/13/17 14:55 Last Admin: 03/20/17 09:57 Dose: 0.5 mg Lactulose (Cephulac) 20 gm PO DAILY JENNIFER Stop: 05/14/17 08:59 Last Admin: 03/20/17 09:14 Dose: Not Given Lorazepam (Ativan) 0.5 mg PO Q6HR PRN; Protocol PRN Reason: Anxiety Stop: 05/13/17 14:53 Magnesium Hydroxide (Milk Of Magnesia) 30 ml PO DAILY PRN PRN Reason: Constipation Stop: 05/13/17 14:53 Miscellaneous (Tpn Per Pharmacy) 1 ea [facility] PRN PRN PRN Reason: PROTOCOL Stop: 05/18/17 21:50 Mupirocin (Bactroban Oint) 1 appl NS BID JENNIFER Stop: 03/21/17 09:01 Last Admin: 03/20/17 09:21 Dose: 1 appl Ondansetron HCl (Zofran) 4 mg IV Q8H PRN PRN Reason: Nausea / Vomiting Stop: 05/13/17 14:55 Risperidone (Risperdal) 0.5 mg PO DAILY JENNIFER PRN Reason: Protocol Stop: 05/14/17 08:59 Last Admin: 03/20/17 09:15 Dose: Not Given Tamsulosin HCl (Flomax) 0.4 mg PO HS JENNIFER Stop: 05/13/17 20:59 Last Admin: 03/20/17 02:05 Dose: Not Given General: weak, alert HEENT: NC/AT, PERRLA Neck: Supple Lungs: rales, ronchi Cardiovascular: RRR, Normal S1, Normal S2, with murmur Abdomen: soft, non-distended, positive bowel sound Extremities: excoriation Neurological: no change - Procedures Procedures: Procedures Procedure Code Date EGD BIOPSY SINGLE/MULTIPLE 75933 03/02/17 ESOPH FUNDOPLASTY LAP 31799 03/02/17 EXCISION OF ESOPHAGUS, ENDO, DIAGN [id number] 03/02/17 EXCISION OF STOMACH, ENDO, DIAGN [id number] 03/02/17 PRP I/OSVALDO INIT BLOCK >5 YR 09018 03/02/17 REMOVAL OF GALLBLADDER 25890 03/02/17 REPAIR LEFT INGUINAL REGION, OPEN APPROACH [id number] 03/02/17 RESECTION OF GALLBLADDER, OPEN APPROACH [id number] 03/02/17 RESPIRATORY VENTILATION, LESS THAN 24 CONSECUTIVE HOURS [id number] 03/02/17 RESTRICTION OF ESOPHAGOGASTRIC JUNCTION, OPEN APPROACH [id number] 03/02/17 Internal Medicine Assmt/Plan - Assessment Assessment: pmn acute hypoxemic resp failure recent hernial repair, john paul anemia contracture generalized weakness poor po intake - Plan Plan: swallow eval today, if failed again will consider GI consult for possible PEG placement continue ivf for hydration bronchodilators continue ivabx am labs supplemental o2 as needed continue plan of care Nutritional Asmnt/Malnutr-PDOC - Dietary Evaluation Malnutrition Findings (Please click <Entered> for more info): Nutritional Asmnt/Malnutrition Start: 03/15/17 15: 53 Text: Status: Complete Freq: Document 03/15/17 15:53 GSUN (Rec: 03/15/17 15:56 GSUN [id number]) Nutritional Asmnt/Malnutrition Patient General Information Nutritional Screening High Risk Screening Diagnosis Acute hypoxemic resp failure, recent hernial repair and cholecystectomy Pertinent Medical Hx/Surgical Hx HTN, bronchitis, COPD, dementia, GERD, psychosis, cholecystectomy, hernia repair Subjective Information 82 year old male, recently admitted to [facility] cholecystectomy and hernia repair on 03/07. Pt responded to RD's greetings, however appeared very lethargic, nodded to every question, did not provide any responses. Pt asked RD to come back another time. Unable to complete physical assessment as blanket pulled up to pt's nose. Observed thin frame and thin lower extremities. PO intake 25% of meals 03/14 dinner. CBW 143.9lb via bedscale during visit. Current Diet Order/ Nutrition Support YANNA Pertinent Medications Vitamin C, D5-0.45ns, Colace, Iron, Cephulac, MOM, Zofran Pertinent Labs Reviewed. Nutritional Hx/Data Height 6 ft Height (Calculated Centimeters) 182.9 Current Weight (lbs) 143 lb 14.4 oz Weight (Calculated Kilograms) 65.3 Weight (Calculated Grams) 15021.9 [place] Body Weight 178 Weight Status Approriate GI Symptoms Skin Integrity/Comment: Juan Antonio 12. Skin flaky. Estimated Nutritional Goals Calories/Kcals/Kg IBW 178lb/80.9kg Kcals Calculated 2022-2400kcal (25-30kcal/kg) Protein Calculated 81g (1g/kg) Fluid: ml 2022-2400ml (1ml/kcal) Nutritional Problem 1. Problem Problem Altered GI fucntion related to Etiology recent 03/07 hernial repair and cholecystectomy Signs/Symptoms: post operation Intervention/Recommendation Comments 1. Recommend YANNA low fat diet. 2. Recommend Boost BID. 3. Monitor weight, pt is 6ft BMI 19.9. Expected Outcomes/Goals Expected Outcomes/Goals 1. PO intake to meet at least 75% of estimated nutritional needs.
--- NOTE | 2017-03-20 14:36 | Diagnostic Imaging Report ---
Portable chest x-ray HISTORY: Vascular catheter placement, shortness of breath Compared to prior exam of March 19, 2017, a left-sided vascular catheter is been inserted. The tip is in the region of the superior vena cava. Generalized accentuation of the lower interstitial lung markings. However, no definite focal processes are seen. IMPRESSION: 1. New vascular catheter tip in the region of the superior vena cava 2. No change in the pulmonary status
[2017-03-20 15:11] LABS: A/G RATIO 0.4 (0.7-1.7); ALBUMIN 1.9 g/dL (2.9-4.4); ALPHA-1-GLOBULIN 0.3 g/dL (0.0-0.4); BETA GLOBULIN 1.4 g/dL (0.7-1.3); GLOBULIN, TOTAL 4.7 g/dL (2.2-3.9); M-SPIKE Not Observed g/dL (Not Observed); PROTEIN, TOTAL, SERUM 6.6 g/dL (6.0-8.5)
[2017-03-20] MEDS ORDERED: VTE Chemical Prophylaxis Screen/Admission MC PRN (17:03)
[2017-03-20] MEDS: [UNRECOGNIZED DRUG - OTHER] IV SCH (17:40)
[2017-03-20] MEDS: DEXTROSE IV SCH (17:40)
[2017-03-20] MEDS: MULTIVITAMIN IV SCH (17:40)
[2017-03-20] MEDS: AMINO ACIDS IV SCH (17:40)
[2017-03-21] MEDS: Albuterol Nebulizer 2.5mg/3mL HHN PRN (02:47)
[2017-03-21 07:25] LABS: HEMATOCRIT 37.3 % (39.0-49.0); HEMOGLOBIN 12.4 gm/dL (12.6-17.4); MEAN CELL VOLUME 83.9 fl (80-99); MEAN CORPUSCULAR HEMOGLOBIN 27.8 pg (27.0-31.0); MEAN CORPUSCULAR HGB CONC 33.1 pg (28.0-36.0); PLATELET COUNT 567 Th/cmm (150-400); RED BLOOD COUNT 4.45 Mil/cmm (3.80-5.80); RED CELL DISTRIBUTION WIDTH 16.6 % (11.5-20.0)
[2017-03-21 07:38] LABS: BUN - UREA NITROGEN 26 mg/dL (7-25); BUN/CREATININE RATIO 37.1; CALCIUM SERUM 12.7 mg/dL (8.6-10.3); CARBON DIOXIDE 31.6 mEq/L (21.0-31.0); CHLORIDE 109 mEq/L (98-107); CREATININE - SERUM 0.7 mg/dL (0.7-1.3); GLUCOSE 114 mg/dL (70-105); MAGNESIUM 2.1 mg/dL (1.9-2.7); PHOSPHOROUS 2.1 mg/dL (2.5-5.0); POTASSIUM SERUM 3.6 mEq/L (3.5-5.1); SODIUM SERUM 144 mEq/L (136-145)
[2017-03-21 07:54] LABS: WHITE BLOOD COUNT 12.7 Th/cmm (4.8-10.8)
[2017-03-21 08:36] LABS: BAND NEUTROPHILE 4 % (0-10); EOSINOPHIL 6 % (0-5); NEUTROPHILS 82 % (40-80); PLATELET ESTIMATE INCREASED PLATELETS (NORMAL); PLATELET MORPHOLOGY NORMAL (NORMAL); TOTAL CELLS COUNTED 100
--- NOTE | 2017-03-21 09:33 | Diagnostic Imaging Report ---
Portable chest x-ray HISTORY: Shortness of breath, nasogastric tube placement Compared to prior exam March 20, 2017, nasogastric tube is seen with the tip extending into the right main bronchus. This should be withdrawn. The heart appears enlarged. No focal pulmonary processes. IMPRESSION: 1. Malpositioned nasogastric tube extending into the right main bronchus. This should be withdrawn. Findings were communicated to the radiology Department ([place]), March 21, 2017, 9:30 AM
[2017-03-21] MEDS: Ferrous Sulfate 325 MG TAB PO SCH (10:04)
[2017-03-21] MEDS: Lactulose 10 Gm/15 mL 30mL UDC PO SCH (10:04)
--- NOTE | 2017-03-21 13:05 | Internal Medicine Prog Note ---
Internal Medicine Subjective - Subjective Service Date: 03/21/17 Patient is:: awake, non-verbal, non-interactive, in bed Patient Complaints of:: congestion, cough Per staff patient has:: no adverse event, poor oral intake, tolerating meds Internal Medicine Objective - Results Result Diagrams: 03/21/17 06:10 03/21/17 06:10 Recent Labs: Laboratory Last Values WBC 12.7 Th/cmm (4.8-10.8) H 03/21/17 06:10 RBC 4.45 Mil/cmm (3.80-5.80) 03/21/17 06:10 Hgb 12.4 gm/dL (12.6-17.4) L 03/21/17 06:10 Hct 37.3 % (39.0-49.0) L 03/21/17 06:10 MCV 83.9 fl (80-99) 03/21/17 06:10 MCH 27.8 pg (27.0-31.0) 03/21/17 06:10 MCHC Differential 33.1 pg (28.0-36.0) 03/21/17 06:10 RDW 16.6 % (11.5-20.0) 03/21/17 06:10 Plt Count 567 Th/cmm (150-400) H 03/21/17 06:10 MPV 9.0 fl 03/21/17 06:10 Neutrophils % 79.3 % (40.0-80.0) 03/19/17 05:10 Band Neutrophils % 4 % (0-10) 03/21/17 06:10 Lymphocytes % 5.9 % (20.0-50.0) L 03/19/17 05:10 Monocytes % 3.4 % (2.0-10.0) 03/19/17 05:10 Eosinophils % 10.8 % (0.0-5.0) H 03/19/17 05:10 Basophils % 0.6 % (0.0-2.0) 03/19/17 05:10 Neutrophils (Manual) 82 % (40-80) H 03/21/17 06:10 Lymphocytes 3 % (20-50) L 03/21/17 06:10 Monocytes 5 % (2-10) 03/21/17 06:10 Eosinophils 6 % (0-5) H 03/21/17 06:10 Platelet Estimate INCREASED PLATELETS (NORMAL) 03/21/17 06:10 Platelet Morphology NORMAL (NORMAL) 03/21/17 06:10 Anisocytosis 1+ 03/16/17 05:51 RBC Morph Micro Appear NORMAL (NORMAL) 03/21/17 06:10 PT 10.7 SECONDS (9.5-11.5) 03/20/17 05:35 INR 1.03 (0.5-1.4) 03/20/17 05:35 Sodium 144 mEq/L (136-145) 03/21/17 06:10 Potassium 3.6 mEq/L (3.5-5.1) 03/21/17 06:10 Chloride 109 mEq/L (98-107) H 03/21/17 06:10 Carbon Dioxide 31.6 mEq/L (21.0-31.0) H 03/21/17 06:10 Anion Gap 7.0 (7.0-16.0) 03/21/17 06:10 BUN 26 mg/dL (7-25) H 03/21/17 06:10 Creatinine 0.7 mg/dL (0.7-1.3) 03/21/17 06:10 Est GFR ( Amer) TNP 03/21/17 06:10 Est GFR (Non-Af Amer) TNP 03/21/17 06:10 BUN/Creatinine Ratio 37.1 03/21/17 06:10 Glucose 114 mg/dL (70-105) H 03/21/17 06:10 Whole Bld Lactic Acid 0.99 mmol/L (0.60-1.99) 03/14/17 11:35 Calcium 12.7 mg/dL (8.6-10.3) H 03/21/17 06:10 Phosphorus 2.1 mg/dL (2.5-5.0) L 03/21/17 06:10 Magnesium 2.1 mg/dL (1.9-2.7) 03/21/17 06:10 Total Bilirubin 0.5 mg/dL (0.3-1.0) 03/20/17 05:35 AST 10 U/L (13-39) L 03/20/17 05:35 ALT 4 U/L (7-52) L 03/20/17 05:35 Alkaline Phosphatase 61 U/L (34-104) 03/20/17 05:35 Ammonia 43 umol/L (16-53) 03/19/17 05:10 Troponin I 0.02 ng/mL (0.01-0.05) 03/14/17 11:35 B-Natriuretic Peptide 16.7 pg/mL (5.0-100.0) 03/19/17 05:10 Total Protein 6.4 gm/dL (6.0-8.3) 03/20/17 05:35 Albumin 2.5 gm/dL (4.2-5.5) L 03/20/17 05:35 Globulin 3.9 gm/dL 03/20/17 05:35 Albumin/Globulin Ratio 0.6 (1.0-1.8) L 03/20/17 05:35 Prealbumin 10 mg/dL (9-32) 03/20/17 05:35 Znnmz-8-Lrwgjpmxe 0.3 g/dL (0.0-0.4) 03/17/17 06:10 Ileqv-7-Xhnhspudd 1.0 g/dL (0.4-1.0) 03/17/17 06:10 Beta Globulins 1.4 g/dL (0.7-1.3) H 03/17/17 06:10 Gamma Globulins 2.0 g/dL (0.4-1.8) H 03/17/17 06:10 M-Jose Luis Not Observed g/dL (Not Observed) 03/17/17 06:10 PEP Note (()) 03/17/17 06:10 Triglycerides 113 mg/dL (<150) 03/20/17 05:35 Cholesterol 124 mg/dL (<200) 03/20/17 05:35 Carcinoembryonic Ag 3.2 ng/mL (0.0-4.7) 03/17/17 06:10 Prostate Specific Ag 4.8 ng/mL (0.0-4.0) H 03/17/17 06:10 Urine Source CATH 03/14/17 12:00 Urine Color YELLOW 03/14/17 12:00 Urine Clarity SL. CLOUDY (CLEAR) 03/14/17 12:00 Urine pH 6.0 03/14/17 12:00 Ur Specific [place] >= 1.030 (1.005-1.030) 03/14/17 12:00 Urine Protein TRACE mg/dL (NEGATIVE) 03/14/17 12:00 Urine Glucose (UA) NEGATIVE mg/dL (NEGATIVE) 03/14/17 12:00 Urine Ketones 15 mg/dL (NEGATIVE) H 03/14/17 12:00 Urine Blood TRACE (NEGATIVE) 03/14/17 12:00 Urine Nitrate NEGATIVE (NEGATIVE) 03/14/17 12:00 Urine Bilirubin SMALL (NEGATIVE) H 03/14/17 12:00 Urine Urobilinogen 1.0 E.U./dL (0.2 - 1.0) 03/14/17 12:00 Ur Leukocyte Esterase NEGATIVE (NEGATIVE) 03/14/17 12:00 Urine RBC 5-8 /hpf (0-5) 03/14/17 12:00 Urine WBC 2-5 /hpf (0-5) H 03/14/17 12:00 Ur Epithelial Cells RARE /lpf (FEW) 03/14/17 12:00 Urine Bacteria OCCASIONAL /hpf (NONE SEEN) 03/14/17 12:00 Hyaline Casts 0-2 /lpf (0-2) H 03/14/17 12:00 Urine Other 03/14/17 12:00 Valproic Acid 30.6 ug/mL (50.0-100.0) L 03/14/17 11:35 - Physical Exam Vitals and I&O: Vital Signs Temp 97.4 F 03/21/17 12:00 Pulse 83 03/21/17 12:00 Resp 18 03/21/17 12:00 BP 132/81 03/21/17 12:00 Pulse Ox 95 03/21/17 12:00 Intake & Output 03/20/17 03/21/17 03/21/17 18:59 06:59 18:59 Intake Total 800 Balance 800 Weight (lbs) 140 lb 8 oz Intake: Intake, IV Amount 50 Cefepime 1 gm In Dextrose 50 5% 50 ml @ 100 mls/hr IV Q12H JENNIFER Rx#:[id number] Oral 0 TPN/PPN 750 Other: # Voids 4 # Bowel Movements 1 Active Medications: Current Medications Acetaminophen (Tylenol) 650 mg PO Q4HR PRN PRN Reason: Pain or Fever >101 Stop: 05/13/17 14:53 Acetaminophen/Hydrocodone Bitart ([place] 5mg/325mg) 1 tab PO Q4H PRN PRN Reason: Pain (Severe) Stop: 05/13/17 14:55 Last Admin: 03/15/17 16:30 Dose: 1 tab Al Hydrox/Mg Hydrox/Simethicone (Maalox) 30 ml PO Q4HR PRN PRN Reason: GI DISTRESS Stop: 05/13/17 14:53 Albuterol Sulfate (Albuterol 2.5mg/3ml Neb Ud) 2.5 mg HHN Q2HRT PRN PRN Reason: Shortness of Breath or Wheeze Stop: 05/13/17 14:55 Last Admin: 03/21/17 02:47 Dose: 2.5 mg Amlodipine Besylate (Norvasc) 5 mg PO DAILY JENNIFER Stop: 05/14/17 08:59 Last Admin: 03/21/17 10:03 Dose: Not Given Ascorbic Acid (Vitamin C) 500 mg PO DAILY JENNIFER Stop: 05/14/17 08:59 Last Admin: 03/21/17 10:04 Dose: Not Given Bisacodyl (Dulcolax 10 Mg Supp) 10 mg RC DAILY PRN PRN Reason: Constipation Stop: 05/13/17 14:53 Divalproex Sodium (Depakote Dr) 500 mg PO BID JENNIFER PRN Reason: Protocol Stop: 05/13/17 16:59 Last Admin: 03/21/17 10:04 Dose: Not Given Docusate Sodium (Colace) 250 mg PO HS JENNIFER Stop: 05/13/17 20:59 Last Admin: 03/21/17 05:12 Dose: Not Given Ferrous Sulfate (Iron) 325 mg PO DAILY JENNIFER Stop: 05/14/17 08:59 Last Admin: 03/21/17 10:04 Dose: Not Given Guaifenesin (Robitussin) 200 mg PO Q4HR PRN PRN Reason: Cough or Congestion Stop: 05/13/17 14:55 Hydrocortisone (Hydrocortisone 1%) 1 appl TP BID JENNIFER Stop: 05/19/17 16:59 Last Admin: 03/21/17 11:59 Dose: 1 appl Cefepime HCl 1 gm/ Dextrose 50 mls @ 100 mls/hr IV Q12H JENNIFER Stop: 05/13/17 15:59 Last Infusion: 03/21/17 05:02 Dose: Infused Dextrose/Sodium Chloride (D5-0.45ns) 1,000 mls @ 40 mls/hr IV .Q24H JENNIFER Stop: 05/13/17 14:59 Last Admin: 03/19/17 19:02 Dose: 40 mls/hr Multivitamins/Minerals 10 ml/Amino Acids/Electrolytes/Dextrose/ Fat Emulsion Intravenous 1,200 mls @ 50 mls/hr IV .Q24H JENNIFER Stop: 05/19/17 14:59 Last Admin: 03/20/17 17:40 Dose: 50 mls/hr Ipratropium [place] (Atrovent Neb 0.5mg/2.5ml) 0.5 mg IH Q2HRT PRN PRN Reason: Shortness of Breath or Wheeze Stop: 05/13/17 14:55 Last Admin: 03/20/17 09:57 Dose: 0.5 mg Lactulose (Cephulac) 20 gm PO DAILY JENNIFER Stop: 05/14/17 08:59 Last Admin: 03/21/17 10:04 Dose: Not Given Lorazepam (Ativan) 0.5 mg PO Q6HR PRN; Protocol PRN Reason: Anxiety Stop: 05/13/17 14:53 Magnesium Hydroxide (Milk Of Magnesia) 30 ml PO DAILY PRN PRN Reason: Constipation Stop: 05/13/17 14:53 Miscellaneous (Tpn Per Pharmacy) 1 [facility] PRN PRN PRN Reason: PROTOCOL Stop: 05/18/17 21:50 Miscellaneous ([employer] Prophylaxis Screen/ Admission) 1 [facility] PRN PRN PRN Reason: PROTOCOL Stop: 05/19/17 17:02 Ondansetron HCl (Zofran) 4 mg IV Q8H PRN PRN Reason: Nausea / Vomiting Stop: 05/13/17 14:55 Risperidone (Risperdal) 0.5 mg PO DAILY JENNIFER PRN Reason: Protocol Stop: 05/14/17 08:59 Last Admin: 03/21/17 10:04 Dose: Not Given Tamsulosin HCl (Flomax) 0.4 mg PO HS JENNIFER Stop: 05/13/17 20:59 Last Admin: 03/21/17 05:12 Dose: Not Given General: weak, alert HEENT: NC/AT, PERRLA Neck: Supple Lungs: rales, ronchi Cardiovascular: RRR, Normal S1, Normal S2, with murmur Abdomen: soft, non-distended, positive bowel sound Extremities: excoriation Neurological: no change - Procedures Procedures: Procedures Procedure Code Date EGD BIOPSY SINGLE/MULTIPLE 45014 03/02/17 ESOPH FUNDOPLASTY LAP 27770 03/02/17 EXCISION OF ESOPHAGUS, ENDO, DIAGN [id number] 03/02/17 EXCISION OF STOMACH, ENDO, DIAGN [id number] 03/02/17 PRP I/OSVALDO INIT BLOCK >5 YR 25765 03/02/17 REMOVAL OF GALLBLADDER 75175 03/02/17 REPAIR LEFT INGUINAL REGION, OPEN APPROACH [id number] 03/02/17 RESECTION OF GALLBLADDER, OPEN APPROACH [id number] 03/02/17 RESPIRATORY VENTILATION, LESS THAN 24 CONSECUTIVE HOURS [id number] 03/02/17 RESTRICTION OF ESOPHAGOGASTRIC JUNCTION, OPEN APPROACH [id number] 03/02/17 Internal Medicine Assmt/Plan - Assessment Assessment: pmn acute hypoxemic resp failure recent hernial repair, john paul anemia contracture generalized weakness poor po intake - Plan Plan: peg placement this afternoon continue with tpn continue ivf for hydration bronchodilators continue ivabx am labs supplemental o2 as needed continue plan of care Nutritional Asmnt/Malnutr-PDOC - Dietary Evaluation Malnutrition Findings (Please click <Entered> for more info): Nutritional Asmnt/Malnutrition Start: 03/15/17 15: 53 Text: Status: Complete Freq: Document 03/15/17 15:53 GSUN (Rec: 03/15/17 15:56 GSUN [email or web address]) Nutritional Asmnt/Malnutrition Patient General Information Nutritional Screening High Risk Screening Diagnosis Acute hypoxemic resp failure, recent hernial repair and cholecystectomy Pertinent Medical Hx/Surgical Hx HTN, bronchitis, COPD, dementia, GERD, psychosis, cholecystectomy, hernia repair Subjective Information 82 year old male, recently admitted to [facility] cholecystectomy and hernia repair on 03/07. Pt responded to RD's greetings, however appeared very lethargic, nodded to every question, did not provide any responses. Pt asked RD to come back another time. Unable to complete physical assessment as blanket pulled up to pt's nose. Observed thin frame and thin lower extremities. PO intake 25% of meals 03/14 dinner. CBW 143.9lb via bedscale during visit. Current Diet Order/ Nutrition Support YANNA Pertinent Medications Vitamin C, D5-0.45ns, Colace, Iron, Cephulac, MOM, Zofran Pertinent Labs Reviewed. Nutritional Hx/Data Height 6 ft Height (Calculated Centimeters) 182.9 Current Weight (lbs) 143 lb 14.4 oz Weight (Calculated Kilograms) 65.3 Weight (Calculated Grams) 64535.9 [place] Body Weight 178 Weight Status Approriate GI Symptoms Skin Integrity/Comment: Juan Antonio 12. Skin flaky. Estimated Nutritional Goals Calories/Kcals/Kg IBW 178lb/80.9kg Kcals Calculated 2022-2400kcal (25-30kcal/kg) Protein Calculated 81g (1g/kg) Fluid: ml 2022-2400ml (1ml/kcal) Nutritional Problem 1. Problem Problem Altered GI fucntion related to Etiology recent 03/07 hernial repair and cholecystectomy Signs/Symptoms: post operation Intervention/Recommendation Comments 1. Recommend YANNA low fat diet. 2. Recommend Boost BID. 3. Monitor weight, pt is 6ft BMI 19.9. Expected Outcomes/Goals Expected Outcomes/Goals 1. PO intake to meet at least 75% of estimated nutritional needs.
[2017-03-21] MEDS ORDERED: Potassium Phosphate 30 MMOLE in Sodium Chloride 0.9% 250 ML IV ONE (15:00)
[2017-03-21] MEDS: D5-0.45NS 1,000 ML IV SCH (15:05)
[2017-03-21] MEDS ORDERED: Pamidronate 90 MG in Sodium Chloride 0.9% 250 ML IV ONE (16:30)
--- NOTE | 2017-03-21 16:59 | History & Physical ---
ADMIT DATE: 03/21/2017 REFERRING PHYSICIAN: Dr. Trejo. REASON FOR CONSULTATION: Hypercalcemia and lung mass. HISTORY OF PRESENT ILLNESS: The patient is an 82-year-old male with history of dementia, was admitted because of respiratory symptoms, ____ COPD. CT scan showed mediastinal lymph nodes and his workup was revealing hypercalcemia therefore, I was asked to evaluate. PAST MEDICAL HISTORY: Hypertension, COPD, dementia, psychosis. MEDICATIONS: Reviewed. PHYSICAL EXAMINATION: GENERAL: The patient is seen in the operative room after placement of a gastric tube. He is sedated. Blood pressure is stable. He looks chronically ill, cachectic. VITAL SIGNS: Stable. HEENT: No signs of bleeding. NECK: No peripheral lymphadenopathy. CHEST: Poor inspiratory effort. ABDOMEN: Soft, gastric tube in place. No bleeding. EXTREMITIES: Wasted muscles. CT scan of the chest from March 20 was reviewed revealing a subcarinal lymphadenopathy and displacement of the airway, large retrocardiac hiatal hernia, left lower lobe density and pleural thickening. CT scan of the abdomen and pelvis showed right basilar consolidation, peribronchial infiltrate, status post cholecystectomy, prostate hypertrophy and ____. LABORATORY DATA: White count 12.7, hemoglobin 12.4, platelets 567, creatinine 0.7, calcium 12.7, phosphorus 2.1. Serum protein electrophoresis showed no M spike, PSA 4.8 and CEA 3.2. Liver functions normal. ASSESSMENT: Mediastinal lymphadenopathy with displacement of the airway, most suggestive of neoplastic process. 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 I will obtain PTH level to see if this is PTH dependent or independent hypercalcemia. I would also start the patient on pamidronate 90 mg 1 dose to control the hypercalcemia and this may help with improvement of mental status. Overall, the patient's condition is very poor and conservative management will be discussed with Dr. Trejo. Thank you for the opportunity to participate in the care of this interesting case. JOB# [id number]
--- NOTE | 2017-03-21 17:13 | Operative Report ---
DATE OF SURGERY: 03/21/2017 PROCEDURE: Esophagogastroduodenoscopy with G-tube insertion. PREOPERATIVE DIAGNOSIS: Dysphagia. POSTPROCEDURE DIAGNOSIS: Status post successful 20-[place] G-tube insertion via pull technique. INDICATIONS: An 82-year-old male with dementia who failed a swallowing evaluation undergoing an upper endoscopy for G-tube insertion for long-term nutritional purposes and medication delivery. CONSENT: Informed consent was obtained from the patient's family prior to procedure after detail explanation of risks, benefits and alternatives including but not limited to infection, bleeding, perforation and . SEDATION: Monitored anesthesia care by Dr. Yan. DESCRIPTION OF PROCEDURE AND FINDINGS: The patient took place as an inpatient in the operating room of [facility]. The patient was kept in a supine position with head of bed slightly elevated. Adequate sedation was achieved with above medications. Olympus diagnostic upper endoscope was advanced via the patient's mouth and into the esophagus and was advanced via the stomach and into the duodenum up to second portion. Retroflexion was next performed in the stomach. Notable findings included no obvious pathology. The visualized portions of the upper GI tract appeared normal. With the scope in the stomach, air was insufflated and an area in the epigastric skin was chosen for G-tube insertion based on transillumination and finger indentation. This area in the skin was then prepped and draped using sterile technique and anesthetized with 5 mL of 1% lidocaine. A scalpel blade was used to make a 1 cm incision in the skin. This was followed by a trocar needle insertion through the skin incision with the tip noted endoscopically in the stomach. A guidewire was then inserted via the trocar needle and grasped via a snare device in the stomach. The scope along with the snare device holding on the guidewire was then pulled out via the patient's mouth. A 20-[place] G-tube was attached to the guidewire and then via pull technique was pulled across the abdominal wall of the patient. The outer bumper was placed at the 4 cm pauly. Overlying dressing was placed. The tip was noted to be in good position. The patient tolerated the procedure well. No complications are anticipated. RECOMMENDATIONS: 1. May use G-tube now for water flushes and medications. G-tube feedings will be started tomorrow morning. 2. Abdominal wall binder to prevent patient from pulling out his own G-tube. Thank you Dr. Jovi Trejo for involving us in the care of your patient. If you have any further questions, please call us. JOB# [id number]
[2017-03-21] MEDS: [UNRECOGNIZED DRUG - OTHER] IV SCH (17:31)
[2017-03-21] MEDS: AMINO ACIDS IV SCH (17:31)
[2017-03-21] MEDS: MULTIVITAMIN IV SCH (17:31)
[2017-03-21] MEDS: DEXTROSE IV SCH (17:31)
--- NOTE | 2017-03-22 00:58 | Consultation ---
DATE OF CONSULTATION: 03/21/2017 REQUESTING PHYSICIAN: Jovi Trejo M.D. REASON FOR CONSULTATION: Dysphagia. HISTORY OF PRESENT ILLNESS: An 82-year-old male with dysphagia, who failed a swallowing evaluation twice. We were asked to evaluate the patient for G-tube insertion. The patient is confused and is not able to provide a substantial history, further history is obtained from medical chart and computer records. PAST MEDICAL HISTORY: Notable for dementia, recent abdominal surgery with laparotomy, GERD, psychosis, hernia repair, and cholecystectomy. ALLERGIES: None. MEDICATIONS: Here are Tylenol p.r.n., Goodman p.r.n., Maalox p.r.n., albuterol, amlodipine, vitamin C, Dulcolax p.r.n., cefepime, valproic acid, Colace, iron, Robitussin, hydrocortisone cream, lactulose daily and Ativan p.r.n., milk of magnesia p.r.n., TPN with lipids, pamidronate x 1, Risperdal, and Flomax. SOCIAL HISTORY: No recent tobacco, alcohol or drugs. FAMILY HISTORY: Noncontributory. REVIEW OF SYSTEMS: Negative. PHYSICAL EXAMINATION: VITAL SIGNS: Temperature of 97.4, blood pressure 132/81, pulse is 83, respirations 18, and O2 sats 95% on 2 L O2 nasal cannula. GENERAL: The patient is well-developed elderly male in no acute distress, confused, and lethargic. HEENT: Sclerae nonicteric. Oropharynx is clear. CARDIOVASCULAR: Regular rate and rhythm. LUNGS: Clear to auscultation bilaterally. ABDOMEN: Soft, nontender, intact midline surgical scar, which appears clean, dry, and intact. EXTREMITIES: No edema. RECTAL: Deferred. LABORATORY DATA AND IMAGING: WBC 12.7, hemoglobin 12.4, platelet count 567. INR is 1.03, creatinine is normal. Liver enzymes were normal. Albumin is 2.5. IMPRESSION: 1. Dysphagia, failing swallowing evaluation twice. 2. Dementia. 3. History of recent exploratory laparotomy. 4. History of hernia repair and cholecystectomy. RECOMMENDATIONS: 1. G-tube insertion to follow. The family has consented for procedure. 2. Continue current medications including Rocephin. There is no need for further antibiotic prophylaxis. 3. Further recommendations following G-tube insertion Thank you, Dr. Jovi Trejo for involving us in the care of your patient. If you have any further questions, please call us. [facility]# [id number]
[2017-03-22 07:38] LABS: ANION GAP 5.5 (7.0-16.0); BUN - UREA NITROGEN 27 mg/dL (7-25); BUN/CREATININE RATIO 38.6; CALCIUM SERUM 11.9 mg/dL (8.6-10.3); CARBON DIOXIDE 30.3 mEq/L (21.0-31.0); CHLORIDE 112 mEq/L (98-107); CREATININE - SERUM 0.7 mg/dL (0.7-1.3); GLUCOSE 112 mg/dL (70-105); MAGNESIUM 2.1 mg/dL (1.9-2.7); PHOSPHOROUS 2.7 mg/dL (2.5-5.0); POTASSIUM SERUM 3.8 mEq/L (3.5-5.1); SODIUM SERUM 144 mEq/L (136-145)
[2017-03-22 07:44] LABS: HEMATOCRIT 35.8 % (39.0-49.0); HEMOGLOBIN 11.6 gm/dL (12.6-17.4); MEAN CORPUSCULAR HEMOGLOBIN 27.5 pg (27.0-31.0); MEAN CORPUSCULAR HGB CONC 32.3 pg (28.0-36.0); MEAN PLATELET VOLUME 8.8 fl; PLATELET COUNT 518 Th/cmm (150-400); RED BLOOD COUNT 4.21 Mil/cmm (3.80-5.80); RED CELL DISTRIBUTION WIDTH 16.9 % (11.5-20.0); WHITE BLOOD COUNT 14.5 Th/cmm (4.8-10.8)
[2017-03-22 08:47] LABS: TOTAL CELLS COUNTED 100
[2017-03-22 08:48] LABS: BAND NEUTROPHILE 5 % (0-10)
[2017-03-22 08:49] LABS: EOSINOPHIL 8 % (0-5); NEUTROPHILS 74 % (40-80); PLATELET ESTIMATE INCREASED PLATELETS (NORMAL)
[2017-03-22] MEDS: Ferrous Sulfate 325 MG TAB PO SCH (09:28)
[2017-03-22] MEDS: Lactulose 10 Gm/15 mL 30mL UDC PO SCH (09:28)
--- NOTE | 2017-03-22 10:43 | General Progress Note ---
Subjective - Review of Systems Service Date: 03/22/17 Events since last encounter: S/P PEG Objective - Results Result Diagrams: 03/22/17 06:55 03/22/17 06:55 Recent Labs: Laboratory Last Values WBC 14.5 Th/cmm (4.8-10.8) H 03/22/17 06:55 RBC 4.21 Mil/cmm (3.80-5.80) 03/22/17 06:55 Hgb 11.6 gm/dL (12.6-17.4) L 03/22/17 06:55 Hct 35.8 % (39.0-49.0) L 03/22/17 06:55 MCV 85.0 fl (80-99) 03/22/17 06:55 MCH 27.5 pg (27.0-31.0) 03/22/17 06:55 MCHC Differential 32.3 pg (28.0-36.0) 03/22/17 06:55 RDW 16.9 % (11.5-20.0) 03/22/17 06:55 Plt Count 518 Th/cmm (150-400) H 03/22/17 06:55 MPV 8.8 fl 03/22/17 06:55 Neutrophils % 79.3 % (40.0-80.0) 03/19/17 05:10 Band Neutrophils % 5 % (0-10) 03/22/17 06:55 Lymphocytes % 5.9 % (20.0-50.0) L 03/19/17 05:10 Monocytes % 3.4 % (2.0-10.0) 03/19/17 05:10 Eosinophils % 10.8 % (0.0-5.0) H 03/19/17 05:10 Basophils % 0.6 % (0.0-2.0) 03/19/17 05:10 Neutrophils (Manual) 74 % (40-80) 03/22/17 06:55 Lymphocytes 5 % (20-50) L 03/22/17 06:55 Monocytes 8 % (2-10) 03/22/17 06:55 Eosinophils 8 % (0-5) H 03/22/17 06:55 Platelet Estimate INCREASED PLATELETS (NORMAL) 03/22/17 06:55 Platelet Morphology NORMAL (NORMAL) 03/21/17 06:10 Anisocytosis 1+ 03/16/17 05:51 RBC Morph Micro Appear NORMAL (NORMAL) 03/21/17 06:10 PT 10.7 SECONDS (9.5-11.5) 03/20/17 05:35 INR 1.03 (0.5-1.4) 03/20/17 05:35 Sodium 144 mEq/L (136-145) 03/22/17 06:55 Potassium 3.8 mEq/L (3.5-5.1) 03/22/17 06:55 Chloride 112 mEq/L (98-107) H 03/22/17 06:55 Carbon Dioxide 30.3 mEq/L (21.0-31.0) 03/22/17 06:55 Anion Gap 5.5 (7.0-16.0) L 03/22/17 06:55 BUN 27 mg/dL (7-25) H 03/22/17 06:55 Creatinine 0.7 mg/dL (0.7-1.3) 03/22/17 06:55 Est GFR ( Amer) TNP 03/22/17 06:55 Est GFR (Non-Af Amer) TNP 03/22/17 06:55 BUN/Creatinine Ratio 38.6 03/22/17 06:55 Glucose 112 mg/dL (70-105) H 03/22/17 06:55 Whole Bld Lactic Acid 0.99 mmol/L (0.60-1.99) 03/14/17 11:35 Calcium 11.9 mg/dL (8.6-10.3) H 03/22/17 06:55 Phosphorus 2.7 mg/dL (2.5-5.0) 03/22/17 06:55 Magnesium 2.1 mg/dL (1.9-2.7) 03/22/17 06:55 Total Bilirubin 0.5 mg/dL (0.3-1.0) 03/20/17 05:35 AST 10 U/L (13-39) L 03/20/17 05:35 ALT 4 U/L (7-52) L 03/20/17 05:35 Alkaline Phosphatase 61 U/L (34-104) 03/20/17 05:35 Ammonia 43 umol/L (16-53) 03/19/17 05:10 Troponin I 0.02 ng/mL (0.01-0.05) 03/14/17 11:35 B-Natriuretic Peptide 16.7 pg/mL (5.0-100.0) 03/19/17 05:10 Total Protein 6.4 gm/dL (6.0-8.3) 03/20/17 05:35 Albumin 2.5 gm/dL (4.2-5.5) L 03/20/17 05:35 Globulin 3.9 gm/dL 03/20/17 05:35 Albumin/Globulin Ratio 0.6 (1.0-1.8) L 03/20/17 05:35 Prealbumin 10 mg/dL (9-32) 03/20/17 05:35 Ldshg-9-Odxrgfvck 0.3 g/dL (0.0-0.4) 03/17/17 06:10 Bgitt-9-Bkxdwxkky 1.0 g/dL (0.4-1.0) 03/17/17 06:10 Beta Globulins 1.4 g/dL (0.7-1.3) H 03/17/17 06:10 Gamma Globulins 2.0 g/dL (0.4-1.8) H 03/17/17 06:10 M-Jose Luis Not Observed g/dL (Not Observed) 03/17/17 06:10 PEP Note (()) 03/17/17 06:10 Triglycerides 113 mg/dL (<150) 03/20/17 05:35 Cholesterol 124 mg/dL (<200) 03/20/17 05:35 Carcinoembryonic Ag 3.2 ng/mL (0.0-4.7) 03/17/17 06:10 Prostate Specific Ag 4.8 ng/mL (0.0-4.0) H 03/17/17 06:10 Urine Source CATH 03/14/17 12:00 Urine Color YELLOW 03/14/17 12:00 Urine Clarity SL. CLOUDY (CLEAR) 03/14/17 12:00 Urine pH 6.0 03/14/17 12:00 Ur Specific [place] >= 1.030 (1.005-1.030) 03/14/17 12:00 Urine Protein TRACE mg/dL (NEGATIVE) 03/14/17 12:00 Urine Glucose (UA) NEGATIVE mg/dL (NEGATIVE) 03/14/17 12:00 Urine Ketones 15 mg/dL (NEGATIVE) H 03/14/17 12:00 Urine Blood TRACE (NEGATIVE) 03/14/17 12:00 Urine Nitrate NEGATIVE (NEGATIVE) 03/14/17 12:00 Urine Bilirubin SMALL (NEGATIVE) H 03/14/17 12:00 Urine Urobilinogen 1.0 E.U./dL (0.2 - 1.0) 03/14/17 12:00 Ur Leukocyte Esterase NEGATIVE (NEGATIVE) 03/14/17 12:00 Urine RBC 5-8 /hpf (0-5) 03/14/17 12:00 Urine WBC 2-5 /hpf (0-5) H 03/14/17 12:00 Ur Epithelial Cells RARE /lpf (FEW) 03/14/17 12:00 Urine Bacteria OCCASIONAL /hpf (NONE SEEN) 03/14/17 12:00 Hyaline Casts 0-2 /lpf (0-2) H 03/14/17 12:00 Urine Other 03/14/17 12:00 Valproic Acid 30.6 ug/mL (50.0-100.0) L 03/14/17 11:35 - Physical Exam Vitals and I&O: Vital Signs Temp 98.6 F 03/22/17 04:00 Pulse 84 03/22/17 08:08 Resp 18 03/22/17 08:08 BP 119/56 03/22/17 04:00 Pulse Ox 96 03/22/17 08:08 Intake & Output 03/21/17 03/22/17 03/22/17 18:59 06:59 18:59 Intake Total 1192.5 782.667 Balance 1192.5 782.667 Weight (lbs) 65.589 kg Intake: Intake, IV Amount 1192.5 162.667 D5-0.45NS 1,000 ml @ 40 162.667 mls/hr IV .Q24H JENNIFER Rx#: [id number] Multivitamin Inj 10 ml In 1192.5 Amino Acids 10% 890 ml In Dextrose 70% 200 ml In Intralipids 20% 100 ml @ 50 mls/hr IV .Q24H JENNIFER Rx#:[id number] Tube Feeding 20 TPN/PPN 600 Other: # Voids 1 # Bowel Movements 0 Active Medications: Current Medications Acetaminophen (Tylenol) 650 mg PO Q4HR PRN PRN Reason: Pain or Fever >101 Stop: 05/13/17 14:53 Al Hydrox/Mg Hydrox/Simethicone (Maalox) 30 ml PO Q4HR PRN PRN Reason: GI DISTRESS Stop: 05/13/17 14:53 Albuterol Sulfate (Albuterol 2.5mg/3ml Neb Ud) 2.5 mg HHN Q2HRT PRN PRN Reason: Shortness of Breath or Wheeze Stop: 05/13/17 14:55 Last Admin: 03/21/17 02:47 Dose: 2.5 mg Amlodipine Besylate (Norvasc) 5 mg PO DAILY JENNIFER Stop: 05/14/17 08:59 Last Admin: 03/22/17 09:22 Dose: Not Given Ascorbic Acid (Vitamin C) 500 mg PO DAILY JENNIFER Stop: 05/14/17 08:59 Last Admin: 03/22/17 09:28 Dose: 500 mg Bisacodyl (Dulcolax 10 Mg Supp) 10 mg RC DAILY PRN PRN Reason: Constipation Stop: 05/13/17 14:53 Divalproex Sodium (Depakote Dr) 500 mg PO BID JENNIFER PRN Reason: Protocol Stop: 05/13/17 16:59 Last Admin: 03/22/17 09:28 Dose: 500 mg Docusate Sodium (Colace) 250 mg PO HS JENNIFER Stop: 05/13/17 20:59 Last Admin: 03/21/17 20:43 Dose: 250 mg Ferrous Sulfate (Iron) 325 mg PO DAILY JENNIFER Stop: 05/14/17 08:59 Last Admin: 03/22/17 09:28 Dose: 325 mg Guaifenesin (Robitussin) 200 mg PO Q4HR PRN PRN Reason: Cough or Congestion Stop: 05/13/17 14:55 Hydrocortisone (Hydrocortisone 1%) 1 appl TP BID JENNIFER Stop: 05/19/17 16:59 Last Admin: 03/22/17 09:34 Dose: 1 appl Dextrose/Sodium Chloride (D5-0.45ns) 1,000 mls @ 40 mls/hr IV .Q24H JENNIFER Stop: 05/13/17 14:59 Last Infusion: 03/21/17 19:09 Dose: 40 mls/hr Multivitamins/Minerals 10 ml/Amino Acids/Electrolytes/Dextrose/ Fat Emulsion Intravenous 1,200 mls @ 50 mls/hr IV .Q24H JENNIFER Stop: 05/19/17 14:59 Last Admin: 03/21/17 17:31 Dose: 50 mls/hr Pamidronate Disodium 90 mg/ (Sodium Chloride) 280 mls @ 250 mls/hr IV X1 ONE Stop: 03/22/17 12:07 Insulin Aspart (Novolog Insulin Sliding Scale) 0 units SUBQ Q6HR JENNIFER PRN Reason: Protocol Stop: 05/21/17 11:59 Ipratropium [place] (Atrovent Neb 0.5mg/2.5ml) 0.5 mg IH Q2HRT PRN PRN Reason: Shortness of Breath or Wheeze Stop: 05/13/17 14:55 Last Admin: 03/20/17 09:57 Dose: 0.5 mg Lactulose (Cephulac) 20 gm PO DAILY JENNIFER Stop: 05/14/17 08:59 Last Admin: 03/22/17 09:28 Dose: 20 gm Magnesium Hydroxide (Milk Of Magnesia) 30 ml PO DAILY PRN PRN Reason: Constipation Stop: 05/13/17 14:53 Miscellaneous (Tpn Per Pharmacy) 1 [facility] PRN PRN PRN Reason: PROTOCOL Stop: 05/18/17 21:50 Miscellaneous ([employer] Prophylaxis Screen/ Admission) 1 [facility] PRN PRN PRN Reason: PROTOCOL Stop: 05/19/17 17:02 Ondansetron HCl (Zofran) 4 mg IV Q8H PRN PRN Reason: Nausea / Vomiting Stop: 05/13/17 14:55 Risperidone (Risperdal) 0.5 mg PO DAILY JENNIFER PRN Reason: Protocol Stop: 05/14/17 08:59 Last Admin: 03/22/17 09:28 Dose: 0.5 mg Tamsulosin HCl (Flomax) 0.4 mg PO HS JENNIFER Stop: 05/13/17 20:59 Last Admin: 03/21/17 20:43 Dose: 0.4 mg - Procedures Procedures: Procedures Procedure Code Date EGD BIOPSY SINGLE/MULTIPLE 09155 03/02/17 ESOPH FUNDOPLASTY LAP 47715 03/02/17 EXCISION OF ESOPHAGUS, ENDO, DIAGN [id number] 03/02/17 EXCISION OF STOMACH, ENDO, DIAGN [id number] 03/02/17 PRP I/OSVALDO INIT BLOCK >5 YR 80009 03/02/17 REMOVAL OF GALLBLADDER 02222 03/02/17 REPAIR LEFT INGUINAL REGION, OPEN APPROACH [id number] 03/02/17 RESECTION OF GALLBLADDER, OPEN APPROACH [id number] 03/02/17 RESPIRATORY VENTILATION, LESS THAN 24 CONSECUTIVE HOURS [id number] 03/02/17 RESTRICTION OF ESOPHAGOGASTRIC JUNCTION, OPEN APPROACH [id number] 03/02/17 Assessment/Plan - Problem List Patient Problems: All Active Problems Anxiety (Active) F41.9 - Assessment Assessment: * 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 * HYPERCALCEMIA OF MALIGNANCY * POOR PERFORMANCE STATUS * PALLIATIVE CARE ONLY S/P PAMIDRONATE CONTINUE HYDRATION Nutritional Asmnt/Malnutr-PDOC - Dietary Evaluation Malnutrition Findings (Please click <Entered> for more info): Nutritional Asmnt/Malnutrition Start: 03/15/17 15: 53 Text: Status: Complete Freq: Document 03/15/17 15:53 GSUN (Rec: 03/15/17 15:56 GSUN [facility]-FN) Nutritional Asmnt/Malnutrition Patient General Information Nutritional Screening High Risk Screening Diagnosis Acute hypoxemic resp failure, recent hernial repair and cholecystectomy Pertinent Medical Hx/Surgical Hx HTN, bronchitis, COPD, dementia, GERD, psychosis, cholecystectomy, hernia repair Subjective Information 82 year old male, recently admitted to [facility] cholecystectomy and hernia repair on 03/07. Pt responded to RD's greetings, however appeared very lethargic, nodded to every question, did not provide any responses. Pt asked RD to come back another time. Unable to complete physical assessment as blanket pulled up to pt's nose. Observed thin frame and thin lower extremities. PO intake 25% of meals 03/14 dinner. CBW 143.9lb via bedscale during visit. Current Diet Order/ Nutrition Support YANNA Pertinent Medications Vitamin C, D5-0.45ns, Colace, Iron, Cephulac, MOM, Zofran Pertinent Labs Reviewed. Nutritional Hx/Data Height 1.83 m Height (Calculated Centimeters) 182.9 Current Weight (lbs) 65.272 kg Weight (Calculated Kilograms) 65.3 Weight (Calculated Grams) 23707.9 [place] Body Weight 178 Weight Status Approriate GI Symptoms Skin Integrity/Comment: Juan Antonio Edouard. Skin flaky. Estimated Nutritional Goals Calories/Kcals/Kg IBW 178lb/80.9kg Kcals Calculated 2022-2400kcal (25-30kcal/kg) Protein Calculated 81g (1g/kg) Fluid: ml 2022-2400ml (1ml/kcal) Nutritional Problem 1. Problem Problem Altered GI fucntion related to Etiology recent 03/07 hernial repair and cholecystectomy Signs/Symptoms: post operation Intervention/Recommendation Comments 1. Recommend YANNA low fat diet. 2. Recommend Boost BID. 3. Monitor weight, pt is 6ft BMI 19.9. Expected Outcomes/Goals Expected Outcomes/Goals 1. PO intake to meet at least 75% of estimated nutritional needs.
[2017-03-22] MEDS ORDERED: Pamidronate 90 MG in Sodium Chloride 0.9% 250 ML IV ONE (11:00)
[2017-03-22] MEDS: INSULIN ASPART SLIDING SCALE 100 UNITS/ML UNIT SUBQ SCH ×2 (13:40→17:03)
[2017-03-22] MEDS ORDERED: AMINO ACIDS IV SCH (15:00)
[2017-03-22] MEDS ORDERED: MULTIVITAMIN IV SCH (15:00)
[2017-03-22] MEDS ORDERED: [UNRECOGNIZED DRUG - OTHER] IV SCH (15:00)
[2017-03-22] MEDS ORDERED: DEXTROSE 20% IV SCH (15:00)
--- NOTE | 2017-03-22 15:11 | Internal Medicine Prog Note ---
Internal Medicine Subjective - Subjective Service Date: 03/22/17 Patient is:: awake, non-verbal, non-interactive, in bed Patient Complaints of:: congestion, cough Per staff patient has:: no adverse event, poor oral intake, tolerating meds Internal Medicine Objective - Results Result Diagrams: 03/22/17 06:55 03/22/17 06:55 Recent Labs: Laboratory Last Values WBC 14.5 Th/cmm (4.8-10.8) H 03/22/17 06:55 RBC 4.21 Mil/cmm (3.80-5.80) 03/22/17 06:55 Hgb 11.6 gm/dL (12.6-17.4) L 03/22/17 06:55 Hct 35.8 % (39.0-49.0) L 03/22/17 06:55 MCV 85.0 fl (80-99) 03/22/17 06:55 MCH 27.5 pg (27.0-31.0) 03/22/17 06:55 MCHC Differential 32.3 pg (28.0-36.0) 03/22/17 06:55 RDW 16.9 % (11.5-20.0) 03/22/17 06:55 Plt Count 518 Th/cmm (150-400) H 03/22/17 06:55 MPV 8.8 fl 03/22/17 06:55 Neutrophils % 79.3 % (40.0-80.0) 03/19/17 05:10 Band Neutrophils % 5 % (0-10) 03/22/17 06:55 Lymphocytes % 5.9 % (20.0-50.0) L 03/19/17 05:10 Monocytes % 3.4 % (2.0-10.0) 03/19/17 05:10 Eosinophils % 10.8 % (0.0-5.0) H 03/19/17 05:10 Basophils % 0.6 % (0.0-2.0) 03/19/17 05:10 Neutrophils (Manual) 74 % (40-80) 03/22/17 06:55 Lymphocytes 5 % (20-50) L 03/22/17 06:55 Monocytes 8 % (2-10) 03/22/17 06:55 Eosinophils 8 % (0-5) H 03/22/17 06:55 Platelet Estimate INCREASED PLATELETS (NORMAL) 03/22/17 06:55 Platelet Morphology NORMAL (NORMAL) 03/21/17 06:10 Anisocytosis 1+ 03/16/17 05:51 RBC Morph Micro Appear NORMAL (NORMAL) 03/21/17 06:10 PT 10.7 SECONDS (9.5-11.5) 03/20/17 05:35 INR 1.03 (0.5-1.4) 03/20/17 05:35 Sodium 144 mEq/L (136-145) 03/22/17 06:55 Potassium 3.8 mEq/L (3.5-5.1) 03/22/17 06:55 Chloride 112 mEq/L (98-107) H 03/22/17 06:55 Carbon Dioxide 30.3 mEq/L (21.0-31.0) 03/22/17 06:55 Anion Gap 5.5 (7.0-16.0) L 03/22/17 06:55 BUN 27 mg/dL (7-25) H 03/22/17 06:55 Creatinine 0.7 mg/dL (0.7-1.3) 03/22/17 06:55 Est GFR ( Amer) TNP 03/22/17 06:55 Est GFR (Non-Af Amer) TNP 03/22/17 06:55 BUN/Creatinine Ratio 38.6 03/22/17 06:55 Glucose 112 mg/dL (70-105) H 03/22/17 06:55 POC Glucose 110 MG/DL (70 - 105) H 03/22/17 11:59 Whole Bld Lactic Acid 0.99 mmol/L (0.60-1.99) 03/14/17 11:35 Calcium 11.9 mg/dL (8.6-10.3) H 03/22/17 06:55 Phosphorus 2.7 mg/dL (2.5-5.0) 03/22/17 06:55 Magnesium 2.1 mg/dL (1.9-2.7) 03/22/17 06:55 Total Bilirubin 0.5 mg/dL (0.3-1.0) 03/20/17 05:35 AST 10 U/L (13-39) L 03/20/17 05:35 ALT 4 U/L (7-52) L 03/20/17 05:35 Alkaline Phosphatase 61 U/L (34-104) 03/20/17 05:35 Ammonia 43 umol/L (16-53) 03/19/17 05:10 Troponin I 0.02 ng/mL (0.01-0.05) 03/14/17 11:35 B-Natriuretic Peptide 16.7 pg/mL (5.0-100.0) 03/19/17 05:10 Total Protein 6.4 gm/dL (6.0-8.3) 03/20/17 05:35 Albumin 2.5 gm/dL (4.2-5.5) L 03/20/17 05:35 Globulin 3.9 gm/dL 03/20/17 05:35 Albumin/Globulin Ratio 0.6 (1.0-1.8) L 03/20/17 05:35 Prealbumin 10 mg/dL (9-32) 03/20/17 05:35 Vhojc-1-Obnpzupww 0.3 g/dL (0.0-0.4) 03/17/17 06:10 Ifcyd-0-Utzizfgke 1.0 g/dL (0.4-1.0) 03/17/17 06:10 Beta Globulins 1.4 g/dL (0.7-1.3) H 03/17/17 06:10 Gamma Globulins 2.0 g/dL (0.4-1.8) H 03/17/17 06:10 M-Jose Luis Not Observed g/dL (Not Observed) 03/17/17 06:10 PEP Note (()) 03/17/17 06:10 Triglycerides 113 mg/dL (<150) 03/20/17 05:35 Cholesterol 124 mg/dL (<200) 03/20/17 05:35 Carcinoembryonic Ag 3.2 ng/mL (0.0-4.7) 03/17/17 06:10 Prostate Specific Ag 4.8 ng/mL (0.0-4.0) H 03/17/17 06:10 Urine Source CATH 03/14/17 12:00 Urine Color YELLOW 03/14/17 12:00 Urine Clarity SL. CLOUDY (CLEAR) 03/14/17 12:00 Urine pH 6.0 03/14/17 12:00 Ur Specific [place] >= 1.030 (1.005-1.030) 03/14/17 12:00 Urine Protein TRACE mg/dL (NEGATIVE) 03/14/17 12:00 Urine Glucose (UA) NEGATIVE mg/dL (NEGATIVE) 03/14/17 12:00 Urine Ketones 15 mg/dL (NEGATIVE) H 03/14/17 12:00 Urine Blood TRACE (NEGATIVE) 03/14/17 12:00 Urine Nitrate NEGATIVE (NEGATIVE) 03/14/17 12:00 Urine Bilirubin SMALL (NEGATIVE) H 03/14/17 12:00 Urine Urobilinogen 1.0 E.U./dL (0.2 - 1.0) 03/14/17 12:00 Ur Leukocyte Esterase NEGATIVE (NEGATIVE) 03/14/17 12:00 Urine RBC 5-8 /hpf (0-5) 03/14/17 12:00 Urine WBC 2-5 /hpf (0-5) H 03/14/17 12:00 Ur Epithelial Cells RARE /lpf (FEW) 03/14/17 12:00 Urine Bacteria OCCASIONAL /hpf (NONE SEEN) 03/14/17 12:00 Hyaline Casts 0-2 /lpf (0-2) H 03/14/17 12:00 Urine Other 03/14/17 12:00 Valproic Acid 30.6 ug/mL (50.0-100.0) L 03/14/17 11:35 - Physical Exam Vitals and I&O: Vital Signs Temp 97.6 F 03/22/17 12:00 Pulse 80 03/22/17 12:00 Resp 19 03/22/17 12:00 BP 110/53 03/22/17 12:00 Pulse Ox 95 03/22/17 12:00 Intake & Output 03/21/17 03/22/17 03/22/17 18:59 06:59 18:59 Intake Total 1192.5 782.667 Balance 1192.5 782.667 Weight (lbs) 144 lb 9.6 oz Intake: Intake, IV Amount 1192.5 162.667 D5-0.45NS 1,000 ml @ 40 162.667 mls/hr IV .Q24H [facility] Rx#: [id number] Multivitamin Inj 10 ml In 1192.5 Amino Acids 10% 890 ml In Dextrose 70% 200 ml In Intralipids 20% 100 ml @ 50 mls/hr IV .Q24H [facility] Rx#:[id number] Tube Feeding 20 TPN/PPN 600 Other: # Voids 1 # Bowel Movements 0 Active Medications: Current Medications Acetaminophen (Tylenol) 650 mg PO Q4HR PRN PRN Reason: Pain or Fever >101 Stop: 05/13/17 14:53 Al Hydrox/Mg Hydrox/Simethicone (Maalox) 30 ml PO Q4HR PRN PRN Reason: GI DISTRESS Stop: 05/13/17 14:53 Albuterol Sulfate (Albuterol 2.5mg/3ml Neb Ud) 2.5 mg HHN Q2HRT PRN PRN Reason: Shortness of Breath or Wheeze Stop: 05/13/17 14:55 Last Admin: 03/21/17 02:47 Dose: 2.5 mg Amlodipine Besylate (Norvasc) 5 mg PO DAILY [facility] Stop: 05/14/17 08:59 Last Admin: 03/22/17 09:22 Dose: Not Given Ascorbic Acid (Vitamin C) 500 mg PO DAILY [facility] Stop: 05/14/17 08:59 Last Admin: 03/22/17 09:28 Dose: 500 mg Bisacodyl (Dulcolax 10 Mg Supp) 10 mg RC DAILY PRN PRN Reason: Constipation Stop: 05/13/17 14:53 Divalproex Sodium (Depakote Dr) 500 mg PO BID JENN[facility]ER PRN Reason: Protocol Stop: 05/13/17 16:59 Last Admin: 03/22/17 09:28 Dose: 500 mg Docusate Sodium (Colace) 250 mg PO HS [facility] Stop: 05/13/17 20:59 Last Admin: 03/21/17 20:43 Dose: 250 mg Ferrous Sulfate (Iron) 325 mg PO DAILY JENN[facility]ER Stop: 05/14/17 08:59 Last Admin: 03/22/17 09:28 Dose: 325 mg Guaifenesin (Robitussin) 200 mg PO Q4HR PRN PRN Reason: Cough or Congestion Stop: 05/13/17 14:55 Hydrocortisone (Hydrocortisone 1%) 1 appl TP BID JENN[facility]ER Stop: 05/19/17 16:59 Last Admin: 03/22/17 09:34 Dose: 1 appl Dextrose/Sodium Chloride (D5-0.45ns) 1,000 mls @ 40 mls/hr IV .Q24H [facility] Stop: 05/13/17 14:59 Last Infusion: 03/21/17 19:09 Dose: 40 mls/hr Multivitamins/Minerals 10 ml/Amino Acids/Electrolytes/Dextrose/ Fat Emulsion Intravenous 960 mls @ 40 mls/hr IV .Q24H [facility] Stop: 05/21/17 14:59 Insulin Aspart (Novolog Insulin Sliding Scale) 0 units SUBQ Q6HR [facility] PRN Reason: Protocol Stop: 05/21/17 11:59 Last Admin: 03/22/17 13:40 Dose: Not Given Ipratropium [place] (Atrovent Neb 0.5mg/2.5ml) 0.5 mg IH Q2HRT PRN PRN Reason: Shortness of Breath or Wheeze Stop: 05/13/17 14:55 Last Admin: 03/20/17 09:57 Dose: 0.5 mg Lactulose (Cephulac) 20 gm PO DAILY JENN[facility]ER Stop: 05/14/17 08:59 Last Admin: 03/22/17 09:28 Dose: 20 gm Magnesium Hydroxide (Milk Of Magnesia) 30 ml PO DAILY PRN PRN Reason: Constipation Stop: 05/13/17 14:53 Miscellaneous (Tpn Per Pharmacy) 1 [facility] PRN PRN PRN Reason: PROTOCOL Stop: 05/18/17 21:50 Miscellaneous (Vte Chemical Prophylaxis Screen/ Admission) 1 [facility] PRN PRN PRN Reason: PROTOCOL Stop: 05/19/17 17:02 Ondansetron HCl (Zofran) 4 mg IV Q8H PRN PRN Reason: Nausea / Vomiting Stop: 05/13/17 14:55 Risperidone (Risperdal) 0.5 mg PO DAILY [facility]ER PRN Reason: Protocol Stop: 05/14/17 08:59 Last Admin: 03/22/17 09:28 Dose: 0.5 mg Tamsulosin HCl (Flomax) 0.4 mg PO HS [facility] Stop: 05/13/17 20:59 Last Admin: 03/21/17 20:43 Dose: 0.4 mg General: weak, alert HEENT: NC/AT, PERRLA Neck: Supple Lungs: rales, ronchi Cardiovascular: RRR, Normal S1, Normal S2, with murmur Abdomen: soft, non-distended, positive bowel sound Extremities: excoriation Neurological: no change - Procedures Procedures: Procedures Procedure Code Date EGD BIOPSY SINGLE/MULTIPLE 05931 03/02/[address] GASTROSTOMY TUBE 65861 03/14/17 ESOPH FUNDOPLASTY LAP 42285 03/02/17 EXCISION OF ESOPHAGUS, ENDO, DIAGN [id number] 03/02/17 EXCISION OF STOMACH, ENDO, DIAGN [id number] 03/02/17 INSERTION OF FEEDING DEVICE INTO STOMACH, PERC APPROACH [id number] 03/14/17 PRP I/OSVALDO INIT BLOCK >5 YR 08755 03/02/17 REMOVAL OF GALLBLADDER 09008 03/02/17 REPAIR LEFT INGUINAL REGION, OPEN APPROACH [id number] 03/02/17 RESECTION OF GALLBLADDER, OPEN APPROACH [id number] 03/02/17 RESPIRATORY VENTILATION, LESS THAN 24 CONSECUTIVE HOURS [id number] 03/02/17 RESTRICTION OF ESOPHAGOGASTRIC JUNCTION, OPEN APPROACH [id number] 03/02/17 Internal Medicine Assmt/Plan - Assessment Assessment: pmn acute hypoxemic resp failure recent hernial repair, john paul anemia contracture generalized weakness poor po intake s/p peg - Plan Plan: dc in am monitor if patient tolerate feeding continue ivf for hydration bronchodilators continue ivabx am labs supplemental o2 as needed continue plan of care Nutritional Asmnt/Malnutr-PDOC - Dietary Evaluation Malnutrition Findings (Please click <Entered> for more info): Nutritional Asmnt/Malnutrition Start: 03/15/17 15: 53 Text: Status: Complete Freq: Document 03/15/17 15:53 GSUN (Rec: 03/15/17 15:56 GSUN [email or web address]) Nutritional Asmnt/Malnutrition Patient General Information Nutritional Screening High Risk Screening Diagnosis Acute hypoxemic resp failure, recent hernial repair and cholecystectomy Pertinent Medical Hx/Surgical Hx HTN, bronchitis, COPD, dementia, GERD, psychosis, cholecystectomy, hernia repair Subjective Information 82 year old male, recently admitted to HOU[facility] cholecystectomy and hernia repair on 03/07. Pt responded to RD's greetings, however appeared very lethargic, nodded to every question, did not provide any responses. Pt asked RD to come back another time. Unable to complete physical assessment as blanket pulled up to pt's nose. Observed thin frame and thin lower extremities. PO intake 25% of meals 03/14 dinner. CBW 143.9lb via bedscale during visit. Current Diet Order/ Nutrition Support YANNA Pertinent Medications Vitamin C, D5-0.45ns, Colace, Iron, Cephulac, MOM, Zofran Pertinent Labs Reviewed. Nutritional Hx/Data Height 6 ft Height (Calculated Centimeters) 182.9 Current Weight (lbs) 143 lb 14.4 oz Weight (Calculated Kilograms) 65.3 Weight (Calculated Grams) 57971.9 [place] Body Weight 178 Weight Status Approriate GI Symptoms Skin Integrity/Comment: Juan Antonio 12. Skin flaky. Estimated Nutritional Goals Calories/Kcals/Kg IBW 178lb/80.9kg Kcals Calculated 2022-2400kcal (25-30kcal/kg) Protein Calculated 81g (1g/kg) Fluid: ml 2022-2400ml (1ml/kcal) Nutritional Problem 1. Problem Problem Altered GI fucntion related to Etiology recent 03/07 hernial repair and cholecystectomy Signs/Symptoms: post operation Intervention/Recommendation Comments 1. Recommend YANNA low fat diet. 2. Recommend Boost BID. 3. Monitor weight, pt is 6ft BMI 19.9. Expected Outcomes/Goals Expected Outcomes/Goals 1. PO intake to meet at least 75% of estimated nutritional needs.
[2017-03-22] MEDS: D5-0.45NS 1,000 ML IV SCH (17:25)
[2017-03-23] MEDS: INSULIN ASPART SLIDING SCALE 100 UNITS/ML UNIT SUBQ SCH ×2 (00:24→06:30)
[2017-03-23] MEDS: Albuterol Nebulizer 2.5mg/3mL HHN PRN (04:56)
[2017-03-23] MEDS: Ipratropium Neb 0.5 mg/2.5 mL UD IH PRN (04:56)
[2017-03-23 07:25] LABS: BUN - UREA NITROGEN 24 mg/dL (7-25); BUN/CREATININE RATIO 34.3; CALCIUM SERUM 11.6 mg/dL (8.6-10.3); CARBON DIOXIDE 32.1 mEq/L (21.0-31.0); CHLORIDE 110 mEq/L (98-107); CREATININE - SERUM 0.7 mg/dL (0.7-1.3); GLUCOSE 109 mg/dL (70-105); MAGNESIUM 2.2 mg/dL (1.9-2.7); POTASSIUM SERUM 4.1 mEq/L (3.5-5.1); SODIUM SERUM 143 mEq/L (136-145)
[2017-03-23] MEDS: Ferrous Sulfate 325 MG TAB PO SCH (09:28)
[2017-03-23] MEDS: Lactulose 10 Gm/15 mL 30mL UDC PO SCH (09:29)
--- NOTE | 2017-03-23 10:16 | General Progress Note ---
Subjective - Review of Systems Service Date: 03/23/17 Subjective: non communicative Objective - Results Result Diagrams: 03/22/17 06:55 03/23/17 05:58 Recent Labs: Laboratory Last Values WBC 14.5 Th/cmm (4.8-10.8) H 03/22/17 06:55 RBC 4.21 Mil/cmm (3.80-5.80) 03/22/17 06:55 Hgb 11.6 gm/dL (12.6-17.4) L 03/22/17 06:55 Hct 35.8 % (39.0-49.0) L 03/22/17 06:55 MCV 85.0 fl (80-99) 03/22/17 06:55 MCH 27.5 pg (27.0-31.0) 03/22/17 06:55 MCHC Differential 32.3 pg (28.0-36.0) 03/22/17 06:55 RDW 16.9 % (11.5-20.0) 03/22/17 06:55 Plt Count 518 Th/cmm (150-400) H 03/22/17 06:55 MPV 8.8 fl 03/22/17 06:55 Neutrophils % 79.3 % (40.0-80.0) 03/19/17 05:10 Band Neutrophils % 5 % (0-10) 03/22/17 06:55 Lymphocytes % 5.9 % (20.0-50.0) L 03/19/17 05:10 Monocytes % 3.4 % (2.0-10.0) 03/19/17 05:10 Eosinophils % 10.8 % (0.0-5.0) H 03/19/17 05:10 Basophils % 0.6 % (0.0-2.0) 03/19/17 05:10 Neutrophils (Manual) 74 % (40-80) 03/22/17 06:55 Lymphocytes 5 % (20-50) L 03/22/17 06:55 Monocytes 8 % (2-10) 03/22/17 06:55 Eosinophils 8 % (0-5) H 03/22/17 06:55 Platelet Estimate INCREASED PLATELETS (NORMAL) 03/22/17 06:55 Platelet Morphology NORMAL (NORMAL) 03/21/17 06:10 Anisocytosis 1+ 03/16/17 05:51 RBC Morph Micro Appear NORMAL (NORMAL) 03/21/17 06:10 PT 10.7 SECONDS (9.5-11.5) 03/20/17 05:35 INR 1.03 (0.5-1.4) 03/20/17 05:35 Sodium 143 mEq/L (136-145) 03/23/17 05:58 Potassium 4.1 mEq/L (3.5-5.1) 03/23/17 05:58 Chloride 110 mEq/L (98-107) H 03/23/17 05:58 Carbon Dioxide 32.1 mEq/L (21.0-31.0) H 03/23/17 05:58 Anion Gap 5.0 (7.0-16.0) L 03/23/17 05:58 BUN 24 mg/dL (7-25) 03/23/17 05:58 Creatinine 0.7 mg/dL (0.7-1.3) 03/23/17 05:58 Est GFR ( Amer) TNP 03/23/17 05:58 Est GFR (Non-Af Amer) TNP 03/23/17 05:58 BUN/Creatinine Ratio 34.3 03/23/17 05:58 Glucose 109 mg/dL (70-105) H 03/23/17 05:58 POC Glucose 114 MG/DL (70 - 105) H 03/23/17 05:35 Whole Bld Lactic Acid 0.99 mmol/L (0.60-1.99) 03/14/17 11:35 Calcium 11.6 mg/dL (8.6-10.3) H 03/23/17 05:58 Phosphorus 2.0 mg/dL (2.5-5.0) L 03/23/17 05:58 Magnesium 2.2 mg/dL (1.9-2.7) 03/23/17 05:58 Total Bilirubin 0.5 mg/dL (0.3-1.0) 03/20/17 05:35 AST 10 U/L (13-39) L 03/20/17 05:35 ALT 4 U/L (7-52) L 03/20/17 05:35 Alkaline Phosphatase 61 U/L (34-104) 03/20/17 05:35 Ammonia 43 umol/L (16-53) 03/19/17 05:10 Troponin I 0.02 ng/mL (0.01-0.05) 03/14/17 11:35 B-Natriuretic Peptide 16.7 pg/mL (5.0-100.0) 03/19/17 05:10 Total Protein 6.4 gm/dL (6.0-8.3) 03/20/17 05:35 Albumin 2.5 gm/dL (4.2-5.5) L 03/20/17 05:35 Globulin 3.9 gm/dL 03/20/17 05:35 Albumin/Globulin Ratio 0.6 (1.0-1.8) L 03/20/17 05:35 Prealbumin 10 mg/dL (9-32) 03/20/17 05:35 U[place]-8-Azwwlhecx 0.3 g/dL (0.0-0.4) 03/17/17 06:10 Cqccm-3-Gdsnqgjfx 1.0 g/dL (0.4-1.0) 03/17/17 06:10 Beta Globulins 1.4 g/dL (0.7-1.3) H 03/17/17 06:10 Gamma Globulins 2.0 g/dL (0.4-1.8) H 03/17/17 06:10 M-Jose Luis Not Observed g/dL (Not Observed) 03/17/17 06:10 PEP Note (()) 03/17/17 06:10 Triglycerides 113 mg/dL (<150) 03/20/17 05:35 Cholesterol 124 mg/dL (<200) 03/20/17 05:35 Carcinoembryonic Ag 3.2 ng/mL (0.0-4.7) 03/17/17 06:10 Prostate Specific Ag 4.8 ng/mL (0.0-4.0) H 03/17/17 06:10 Urine Source CATH 03/14/17 12:00 Urine Color YELLOW 03/14/17 12:00 Urine Clarity SL. CLOUDY (CLEAR) 03/14/17 12:00 Urine pH 6.0 03/14/17 12:00 Ur Specific [place] >= 1.030 (1.005-1.030) 03/14/17 12:00 Urine Protein TRACE mg/dL (NEGATIVE) 03/14/17 12:00 Urine Glucose (UA) NEGATIVE mg/dL (NEGATIVE) 03/14/17 12:00 Urine Ketones 15 mg/dL (NEGATIVE) H 03/14/17 12:00 Urine Blood TRACE (NEGATIVE) 03/14/17 12:00 Urine Nitrate NEGATIVE (NEGATIVE) 03/14/17 12:00 Urine Bilirubin SMALL (NEGATIVE) H 03/14/17 12:00 Urine Urobilinogen 1.0 E.U./dL (0.2 - 1.0) 03/14/17 12:00 Ur Leukocyte Esterase NEGATIVE (NEGATIVE) 03/14/17 12:00 Urine RBC 5-8 /hpf (0-5) 03/14/17 12:00 Urine WBC 2-5 /hpf (0-5) H 03/14/17 12:00 Ur Epithelial Cells RARE /lpf (FEW) 03/14/17 12:00 Urine Bacteria OCCASIONAL /hpf (NONE SEEN) 03/14/17 12:00 Hyaline Casts 0-2 /lpf (0-2) H 03/14/17 12:00 Urine Other 03/14/17 12:00 Valproic Acid 30.6 ug/mL (50.0-100.0) L 03/14/17 11:35 - Physical Exam Vitals and I&O: Vital Signs Temp 97.6 F 03/23/17 04:00 Pulse 83 03/23/17 09:28 Resp 18 03/23/17 07:21 BP 100/54 03/23/17 09:28 Pulse Ox 96 03/23/17 07:21 Intake & Output 03/22/17 03/23/17 03/23/17 18:59 06:59 18:59 Intake Total 326.726 9785.000 Balance 147.487 7954.000 Weight (lbs) 65.091 kg Intake: Intake, IV Amount 523.904 9074.000 D5-0.45NS 1,000 ml @ 40 837.333 503.333 mls/hr IV .Q24H [facility] Rx#: [id number] Multivitamin Inj 10 ml In 502.667 Amino Acids 8.5% 350 ml In Dextrose 20% 500 ml In Intralipids 20% 100 ml @ 40 mls/hr IV .Q24H [facility] Rx#:[id number] Oral 0 Tube Feeding 330 Other 150 Other: # Voids 3 # Bowel Movements 1 Active Medications: Current Medications Acetaminophen (Tylenol) 650 mg PO Q4HR PRN PRN Reason: Pain or Fever >101 Stop: 05/13/17 14:53 Al Hydrox/Mg Hydrox/Simethicone (Maalox) 30 ml PO Q4HR PRN PRN Reason: GI DISTRESS Stop: 05/13/17 14:53 Albuterol Sulfate (Albuterol 2.5mg/3ml Neb Ud) 2.5 mg HHN Q2HRT PRN PRN Reason: Shortness of Breath or Wheeze Stop: 05/13/17 14:55 Last Admin: 03/23/17 04:56 Dose: 2.5 mg Amlodipine Besylate (Norvasc) 5 mg PO DAILY [facility] Stop: 05/14/17 08:59 Last Admin: 03/23/17 09:28 Dose: 5 mg Ascorbic Acid (Vitamin C) 500 mg PO DAILY [facility] Stop: 05/14/17 08:59 Last Admin: 03/23/17 09:27 Dose: 500 mg Bisacodyl (Dulcolax 10 Mg Supp) 10 mg RC DAILY PRN PRN Reason: Constipation Stop: 05/13/17 14:53 Divalproex Sodium (Depakote Dr) 500 mg PO BID [facility]ER PRN Reason: Protocol Stop: 05/13/17 16:59 Last Admin: 03/23/17 09:29 Dose: 500 mg Docusate Sodium (Colace) 250 mg PO HS [facility]ER Stop: 05/13/17 20:59 Last Admin: 03/22/17 21:16 Dose: 250 mg Ferrous Sulfate (Iron) 325 mg PO DAILY [facility] Stop: 05/14/17 08:59 Last Admin: 03/23/17 09:28 Dose: 325 mg Guaifenesin (Robitussin) 200 mg PO Q4HR PRN PRN Reason: Cough or Congestion Stop: 05/13/17 14:55 Hydrocortisone (Hydrocortisone 1%) 1 appl TP BID [facility]ENN[facility]ER Stop: 05/19/17 16:59 Last Admin: 03/23/17 09:30 Dose: 1 appl Dextrose/Sodium Chloride (D5-0.45ns) 1,000 mls @ 40 mls/hr IV .Q24H [facility] Stop: 05/13/17 14:59 Last Infusion: 03/23/17 06:00 Dose: 40 mls/hr Multivitamins/Minerals 10 ml/Amino Acids/Electrolytes/Dextrose/ Fat Emulsion Intravenous 960 mls @ 40 mls/hr IV .Q24H [facility] Stop: 05/21/17 14:59 Last Infusion: 03/23/17 06:00 Dose: 40 mls/hr Insulin Aspart (Novolog Insulin Sliding Scale) 0 units SUBQ Q6HR [facility] PRN Reason: Protocol Stop: 05/21/17 11:59 Last Admin: 03/23/17 06:30 Dose: Not Given Ipratropium [place] (Atrovent Neb 0.5mg/2.5ml) 0.5 mg IH Q2HRT PRN PRN Reason: Shortness of Breath or Wheeze Stop: 05/13/17 14:55 Last Admin: 03/23/17 04:56 Dose: 0.5 mg Lactulose (Cephulac) 20 gm PO DAILY [facility] Stop: 05/14/17 08:59 Last Admin: 03/23/17 09:29 Dose: 20 gm Magnesium Hydroxide (Milk Of Magnesia) 30 ml PO DAILY PRN PRN Reason: Constipation Stop: 05/13/17 14:53 Miscellaneous (Tpn Per Pharmacy) 1 [facility] PRN PRN PRN Reason: PROTOCOL Stop: 05/18/17 21:50 Miscellaneous (Vte Chemical Prophylaxis Screen/ Admission) 1 [facility] PRN PRN PRN Reason: PROTOCOL Stop: 05/19/17 17:02 Ondansetron HCl (Zofran) 4 mg IV Q8H PRN PRN Reason: Nausea / Vomiting Stop: 05/13/17 14:55 Risperidone (Risperdal) 0.5 mg PO DAILY [facility]ER PRN Reason: Protocol Stop: 05/14/17 08:59 Last Admin: 03/23/17 09:27 Dose: 0.5 mg Tamsulosin HCl (Flomax) 0.4 mg PO HS [facility] Stop: 05/13/17 20:59 Last Admin: 03/22/17 21:16 Dose: 0.4 mg - Procedures Procedures: Procedures Procedure Code Date EGD BIOPSY SINGLE/MULTIPLE 36117 03/02/[address] GASTROSTOMY TUBE 04031 03/14/17 ESOPH FUNDOPLASTY LAP 52871 03/02/17 EXCISION OF ESOPHAGUS, ENDO, DIAGN [id number] 03/02/17 EXCISION OF STOMACH, ENDO, DIAGN [id number] 03/02/17 INSERTION OF FEEDING DEVICE INTO STOMACH, PERC APPROACH [id number] 03/14/17 PRP I/OSVALDO INIT BLOCK >5 YR 18682 03/02/17 REMOVAL OF GALLBLADDER 40522 03/02/17 REPAIR LEFT INGUINAL REGION, OPEN APPROACH [id number] 03/02/17 RESECTION OF GALLBLADDER, OPEN APPROACH [id number] 03/02/17 RESPIRATORY VENTILATION, LESS THAN 24 CONSECUTIVE HOURS [id number] 03/02/17 RESTRICTION OF ESOPHAGOGASTRIC JUNCTION, OPEN APPROACH [id number] 03/02/17 Assessment/Plan - Problem List Patient Problems: All Active Problems Anxiety (Active) F41.9 - Assessment Assessment: * 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 * HYPERCALCEMIA OF MALIGNANCY improving * POOR PERFORMANCE STATUS * PALLIATIVE CARE ONLY S/P PAMIDRONATE CONTINUE HYDRATION Nutritional Asmnt/Malnutr-PDOC - Dietary Evaluation Malnutrition Findings (Please click <Entered> for more info): Nutritional Asmnt/Malnutrition Start: 03/15/17 15: 53 Text: Status: Complete Freq: Document 03/15/17 15:53 GSUN (Rec: 03/15/17 15:56 GSUN [id number]) Nutritional Asmnt/Malnutrition Patient General Information Nutritional Screening High Risk Screening Diagnosis Acute hypoxemic resp failure, recent hernial repair and cholecystectomy Pertinent Medical Hx/Surgical Hx HTN, bronchitis, COPD, dementia, GERD, psychosis, cholecystectomy, hernia repair Subjective Information 82 year old male, recently admitted to [facility] cholecystectomy and hernia repair on 03/07. Pt responded to RD's greetings, however appeared very lethargic, nodded to every question, did not provide any responses. Pt asked RD to come back another time. Unable to complete physical assessment as blanket pulled up to pt's nose. Observed thin frame and thin lower extremities. PO intake 25% of meals 03/14 dinner. CBW 143.9lb via bedscale during visit. Current Diet Order/ Nutrition Support YANNA Pertinent Medications Vitamin C, D5-0.45ns, Colace, Iron, Cephulac, MOM, Zofran Pertinent Labs Reviewed. Nutritional Hx/Data Height 1.83 m Height (Calculated Centimeters) 182.9 Current Weight (lbs) 65.272 kg Weight (Calculated Kilograms) 65.3 Weight (Calculated Grams) 03354.9 [place] Body Weight 178 Weight Status Approriate GI Symptoms Skin Integrity/Comment: Juan Antonio 12. Skin flaky. Estimated Nutritional Goals Calories/Kcals/Kg IBW 178lb/80.9kg Kcals Calculated 2022-2400kcal (25-30kcal/kg) Protein Calculated 81g (1g/kg) Fluid: ml 2022-2400ml (1ml/kcal) Nutritional Problem 1. Problem Problem Altered GI fucntion related to Etiology recent 03/07 hernial repair and cholecystectomy Signs/Symptoms: post operation Intervention/Recommendation Comments 1. Recommend YANNA low fat diet. 2. Recommend Boost BID. 3. Monitor weight, pt is 6ft BMI 19.9. Expected Outcomes/Goals Expected Outcomes/Goals 1. PO intake to meet at least 75% of estimated nutritional needs.
--- NOTE | 2017-03-23 10:33 | Internal Medicine Prog Note ---
Internal Medicine Subjective - Subjective Service Date: 03/23/17 (DC SUMMARY [id number]) Patient is:: awake, non-verbal, non-interactive, in bed Patient Complaints of:: congestion, cough Per staff patient has:: no adverse event, poor oral intake, tolerating meds Internal Medicine Objective - Results Result Diagrams: 03/22/17 06:55 03/23/17 05:58 Recent Labs: Laboratory Last Values WBC 14.5 Th/cmm (4.8-10.8) H 03/22/17 06:55 RBC 4.21 Mil/cmm (3.80-5.80) 03/22/17 06:55 Hgb 11.6 gm/dL (12.6-17.4) L 03/22/17 06:55 Hct 35.8 % (39.0-49.0) L 03/22/17 06:55 MCV 85.0 fl (80-99) 03/22/17 06:55 MCH 27.5 pg (27.0-31.0) 03/22/17 06:55 MCHC Differential 32.3 pg (28.0-36.0) 03/22/17 06:55 RDW 16.9 % (11.5-20.0) 03/22/17 06:55 Plt Count 518 Th/cmm (150-400) H 03/22/17 06:55 MPV 8.8 fl 03/22/17 06:55 Neutrophils % 79.3 % (40.0-80.0) 03/19/17 05:10 Band Neutrophils % 5 % (0-10) 03/22/17 06:55 Lymphocytes % 5.9 % (20.0-50.0) L 03/19/17 05:10 Monocytes % 3.4 % (2.0-10.0) 03/19/17 05:10 Eosinophils % 10.8 % (0.0-5.0) H 03/19/17 05:10 Basophils % 0.6 % (0.0-2.0) 03/19/17 05:10 Neutrophils (Manual) 74 % (40-80) 03/22/17 06:55 Lymphocytes 5 % (20-50) L 03/22/17 06:55 Monocytes 8 % (2-10) 03/22/17 06:55 Eosinophils 8 % (0-5) H 03/22/17 06:55 Platelet Estimate INCREASED PLATELETS (NORMAL) 03/22/17 06:55 Platelet Morphology NORMAL (NORMAL) 03/21/17 06:10 Anisocytosis 1+ 03/16/17 05:51 RBC Morph Micro Appear NORMAL (NORMAL) 03/21/17 06:10 PT 10.7 SECONDS (9.5-11.5) 03/20/17 05:35 INR 1.03 (0.5-1.4) 03/20/17 05:35 Sodium 143 mEq/L (136-145) 03/23/17 05:58 Potassium 4.1 mEq/L (3.5-5.1) 03/23/17 05:58 Chloride 110 mEq/L (98-107) H 03/23/17 05:58 Carbon Dioxide 32.1 mEq/L (21.0-31.0) H 03/23/17 05:58 Anion Gap 5.0 (7.0-16.0) L 03/23/17 05:58 BUN 24 mg/dL (7-25) 03/23/17 05:58 Creatinine 0.7 mg/dL (0.7-1.3) 03/23/17 05:58 Est GFR ( Amer) TNP 03/23/17 05:58 Est GFR (Non-Af Amer) TNP 03/23/17 05:58 BUN/Creatinine Ratio 34.3 03/23/17 05:58 Glucose 109 mg/dL (70-105) H 03/23/17 05:58 POC Glucose 114 MG/DL (70 - 105) H 03/23/17 05:35 Whole Bld Lactic Acid 0.99 mmol/L (0.60-1.99) 03/14/17 11:35 Calcium 11.6 mg/dL (8.6-10.3) H 03/23/17 05:58 Phosphorus 2.0 mg/dL (2.5-5.0) L 03/23/17 05:58 Magnesium 2.2 mg/dL (1.9-2.7) 03/23/17 05:58 Total Bilirubin 0.5 mg/dL (0.3-1.0) 03/20/17 05:35 AST 10 U/L (13-39) L 03/20/17 05:35 ALT 4 U/L (7-52) L 03/20/17 05:35 Alkaline Phosphatase 61 U/L (34-104) 03/20/17 05:35 Ammonia 43 umol/L (16-53) 03/19/17 05:10 Troponin I 0.02 ng/mL (0.01-0.05) 03/14/17 11:35 B-Natriuretic Peptide 16.7 pg/mL (5.0-100.0) 03/19/17 05:10 Total Protein 6.4 gm/dL (6.0-8.3) 03/20/17 05:35 Albumin 2.5 gm/dL (4.2-5.5) L 03/20/17 05:35 Globulin 3.9 gm/dL 03/20/17 05:35 Albumin/Globulin Ratio 0.6 (1.0-1.8) L 03/20/17 05:35 Prealbumin 10 mg/dL (9-32) 03/20/17 05:35 Hfvrg-7-Tkgbhtxqc 0.3 g/dL (0.0-0.4) 03/17/17 06:10 Jenwq-5-Foaccahlq 1.0 g/dL (0.4-1.0) 03/17/17 06:10 Beta Globulins 1.4 g/dL (0.7-1.3) H 03/17/17 06:10 Gamma Globulins 2.0 g/dL (0.4-1.8) H 03/17/17 06:10 M-Jose Luis Not Observed g/dL (Not Observed) 03/17/17 06:10 PEP Note (()) 03/17/17 06:10 Triglycerides 113 mg/dL (<150) 03/20/17 05:35 Cholesterol 124 mg/dL (<200) 03/20/17 05:35 Carcinoembryonic Ag 3.2 ng/mL (0.0-4.7) 03/17/17 06:10 Prostate Specific Ag 4.8 ng/mL (0.0-4.0) H 03/17/17 06:10 Urine Source CATH 03/14/17 12:00 Urine Color YELLOW 03/14/17 12:00 Urine Clarity SL. CLOUDY (CLEAR) 03/14/17 12:00 Urine pH 6.0 03/14/17 12:00 Ur Specific [place] >= 1.030 (1.005-1.030) 03/14/17 12:00 Urine Protein TRACE mg/dL (NEGATIVE) 03/14/17 12:00 Urine Glucose (UA) NEGATIVE mg/dL (NEGATIVE) 03/14/17 12:00 Urine Ketones 15 mg/dL (NEGATIVE) H 03/14/17 12:00 Urine Blood TRACE (NEGATIVE) 03/14/17 12:00 Urine Nitrate NEGATIVE (NEGATIVE) 03/14/17 12:00 Urine Bilirubin SMALL (NEGATIVE) H 03/14/17 12:00 Urine Urobilinogen 1.0 E.U./dL (0.2 - 1.0) 03/14/17 12:00 Ur Leukocyte Esterase NEGATIVE (NEGATIVE) 03/14/17 12:00 Urine RBC 5-8 /hpf (0-5) 03/14/17 12:00 Urine WBC 2-5 /hpf (0-5) H 03/14/17 12:00 Ur Epithelial Cells RARE /lpf (FEW) 03/14/17 12:00 Urine Bacteria OCCASIONAL /hpf (NONE SEEN) 03/14/17 12:00 Hyaline Casts 0-2 /lpf (0-2) H 03/14/17 12:00 Urine Other 03/14/17 12:00 Valproic Acid 30.6 ug/mL (50.0-100.0) L 03/14/17 11:35 - Physical Exam Vitals and I&O: Vital Signs Temp 97.6 F 03/23/17 04:00 Pulse 83 03/23/17 09:28 Resp 18 03/23/17 07:21 BP 100/54 03/23/17 09:28 Pulse Ox 96 03/23/17 07:21 Intake & Output 03/22/17 03/23/17 03/23/17 18:59 06:59 18:59 Intake Total 003.337 2233.000 Balance 916.459 9591.000 Weight (lbs) 143 lb 8 oz Intake: Intake, IV Amount 383.887 5355.000 D5-0.45NS 1,000 ml @ 40 837.333 503.333 mls/hr IV .Q24H [facility] Rx#: [id number] Multivitamin Inj 10 ml In 502.667 Amino Acids 8.5% 350 ml In Dextrose 20% 500 ml In Intralipids 20% 100 ml @ 40 mls/hr IV .Q24H [facility] Rx#:[id number] Oral 0 Tube Feeding 330 Other 150 Other: # Voids 3 # Bowel Movements 1 Active Medications: Current Medications Acetaminophen (Tylenol) 650 mg PO Q4HR PRN PRN Reason: Pain or Fever >101 Stop: 05/13/17 14:53 Al Hydrox/Mg Hydrox/Simethicone (Maalox) 30 ml PO Q4HR PRN PRN Reason: GI DISTRESS Stop: 05/13/17 14:53 Albuterol Sulfate (Albuterol 2.5mg/3ml Neb Ud) 2.5 mg HHN Q2HRT PRN PRN Reason: Shortness of Breath or Wheeze Stop: 05/13/17 14:55 Last Admin: 03/23/17 04:56 Dose: 2.5 mg Amlodipine Besylate (Norvasc) 5 mg PO DAILY [facility] Stop: 05/14/17 08:59 Last Admin: 03/23/17 09:28 Dose: 5 mg Ascorbic Acid (Vitamin C) 500 mg PO DAILY [facility] Stop: 05/14/17 08:59 Last Admin: 03/23/17 09:27 Dose: 500 mg Bisacodyl (Dulcolax 10 Mg Supp) 10 mg RC DAILY PRN PRN Reason: Constipation Stop: 05/13/17 14:53 Divalproex Sodium (Depakote Dr) 500 mg PO BID [facility] PRN Reason: Protocol Stop: 05/13/17 16:59 Last Admin: 03/23/17 09:29 Dose: 500 mg Docusate Sodium (Colace) 250 mg PO HS [facility] Stop: 05/13/17 20:59 Last Admin: 03/22/17 21:16 Dose: 250 mg Ferrous Sulfate (Iron) 325 mg PO DAILY [facility] Stop: 05/14/17 08:59 Last Admin: 03/23/17 09:28 Dose: 325 mg Guaifenesin (Robitussin) 200 mg PO Q4HR PRN PRN Reason: Cough or Congestion Stop: 05/13/17 14:55 Hydrocortisone (Hydrocortisone 1%) 1 appl TP BID [facility] Stop: 05/19/17 16:59 Last Admin: 03/23/17 09:30 Dose: 1 appl Dextrose/Sodium Chloride (D5-0.45ns) 1,000 mls @ 40 mls/hr IV .Q24H [facility] Stop: 05/13/17 14:59 Last Infusion: 03/23/17 06:00 Dose: 40 mls/hr Multivitamins/Minerals 10 ml/Amino Acids/Electrolytes/Dextrose/ Fat Emulsion Intravenous 960 mls @ 40 mls/hr IV .Q24H [facility] Stop: 05/21/17 14:59 Last Infusion: 03/23/17 06:00 Dose: 40 mls/hr Insulin Aspart (Novolog Insulin Sliding Scale) 0 units SUBQ Q6HR [facility] PRN Reason: Protocol Stop: 05/21/17 11:59 Last Admin: 03/23/17 06:30 Dose: Not Given Ipratropium [place] (Atrovent Neb 0.5mg/2.5ml) 0.5 mg IH Q2HRT PRN PRN Reason: Shortness of Breath or Wheeze Stop: 05/13/17 14:55 Last Admin: 03/23/17 04:56 Dose: 0.5 mg Lactulose (Cephulac) 20 gm PO DAILY [facility] Stop: 05/14/17 08:59 Last Admin: 03/23/17 09:29 Dose: 20 gm Magnesium Hydroxide (Milk Of Magnesia) 30 ml PO DAILY PRN PRN Reason: Constipation Stop: 05/13/17 14:53 Miscellaneous (Tpn Per Pharmacy) 1 [facility] PRN PRN PRN Reason: PROTOCOL Stop: 05/18/17 21:50 Miscellaneous ([employer] Prophylaxis Screen/ Admission) 1 [facility] PRN PRN PRN Reason: PROTOCOL Stop: 05/19/17 17:02 Ondansetron HCl (Zofran) 4 mg IV Q8H PRN PRN Reason: Nausea / Vomiting Stop: 05/13/17 14:55 Risperidone (Risperdal) 0.5 mg PO DAILY [facility] PRN Reason: Protocol Stop: 05/14/17 08:59 Last Admin: 03/23/17 09:27 Dose: 0.5 mg Tamsulosin HCl (Flomax) 0.4 mg PO HS [facility] Stop: 05/13/17 20:59 Last Admin: 03/22/17 21:16 Dose: 0.4 mg General: weak, alert HEENT: NC/AT, PERRLA Neck: Supple Lungs: rales, ronchi Cardiovascular: RRR, Normal S1, Normal S2, with murmur Abdomen: soft, non-distended, positive bowel sound Extremities: excoriation Neurological: no change - Procedures Procedures: Procedures Procedure Code Date EGD BIOPSY SINGLE/MULTIPLE 19832 03/02/[address] GASTROSTOMY TUBE 95157 03/14/17 ESOPH FUNDOPLASTY LAP 07677 03/02/17 EXCISION OF ESOPHAGUS, ENDO, DIAGN [id number] 03/02/17 EXCISION OF STOMACH, ENDO, DIAGN [id number] 03/02/17 INSERTION OF FEEDING DEVICE INTO STOMACH, PERC APPROACH [id number] 03/14/17 PRP I/OSVALDO INIT BLOCK >5 YR 72268 03/02/17 REMOVAL OF GALLBLADDER 84443 03/02/17 REPAIR LEFT INGUINAL REGION, OPEN APPROACH [id number] 03/02/17 RESECTION OF GALLBLADDER, OPEN APPROACH [id number] 03/02/17 RESPIRATORY VENTILATION, LESS THAN 24 CONSECUTIVE HOURS [id number] 03/02/17 RESTRICTION OF ESOPHAGOGASTRIC JUNCTION, OPEN APPROACH [id number] 03/02/17 Internal Medicine Assmt/Plan - Assessment Assessment: pmn acute hypoxemic resp failure recent hernial repair, john paul anemia contracture generalized weakness poor po intake s/p peg - Plan Plan: dc in am monitor if patient tolerate feeding continue ivf for hydration bronchodilators continue ivabx am labs supplemental o2 as needed continue plan of care Nutritional Asmnt/Malnutr-PDOC - Dietary Evaluation Malnutrition Findings (Please click <Entered> for more info): Nutritional Asmnt/Malnutrition Start: 03/15/17 15: 53 Text: Status: Complete Freq: Document 03/15/17 15:53 GSUN (Rec: 03/15/17 15:56 GSUN [facility]-[email or web address]) Nutritional Asmnt/Malnutrition Patient General Information Nutritional Screening High Risk Screening Diagnosis Acute hypoxemic resp failure, recent hernial repair and cholecystectomy Pertinent Medical Hx/Surgical Hx HTN, bronchitis, COPD, dementia, GERD, psychosis, cholecystectomy, hernia repair Subjective Information 82 year old male, recently admitted to [facility] cholecystectomy and hernia repair on 03/07. Pt responded to RD's greetings, however appeared very lethargic, nodded to every question, did not provide any responses. Pt asked RD to come back another time. Unable to complete physical assessment as blanket pulled up to pt's nose. Observed thin frame and thin lower extremities. PO intake 25% of meals 03/14 dinner. CBW 143.9lb via bedscale during visit. Current Diet Order/ Nutrition Support YANNA Pertinent Medications Vitamin C, D5-0.45ns, Colace, Iron, Cephulac, MOM, Zofran Pertinent Labs Reviewed. Nutritional Hx/Data Height 6 ft Height (Calculated Centimeters) 182.9 Current Weight (lbs) 143 lb 14.4 oz Weight (Calculated Kilograms) 65.3 Weight (Calculated Grams) 62489.9 [place] Body Weight 178 Weight Status Approriate GI Symptoms Skin Integrity/Comment: Juan Antonio 12. Skin flaky. Estimated Nutritional Goals Calories/Kcals/Kg IBW 178lb/80.9kg Kcals Calculated 202-2400kcal (25-30kcal/kg) Protein Calculated 81g (1g/kg) Fluid: ml 2023-2400ml (1ml/kcal) Nutritional Problem 1. Problem Problem Altered GI fucntion related to Etiology recent 03/07 hernial repair and cholecystectomy Signs/Symptoms: post operation Intervention/Recommendation Comments 1. Recommend YANNA low fat diet. 2. Recommend Boost BID. 3. Monitor weight, pt is 6ft BMI 19.9. Expected Outcomes/Goals Expected Outcomes/Goals 1. PO intake to meet at least 75% of estimated nutritional needs.
--- NOTE | 2017-03-23 10:58 | Discharge Summary ---
DATE OF DISCHARGE: 03/23/2017 DISCHARGE DIAGNOSES: Pneumonia,, acute hypoxemic respiratory failure resolved, recent hernia repair, john paul, anemia, contractures, generalized weakness, poor p.o. intake, status post PEG. HISTORY OF PRESENT ILLNESS: An 82-year-old male with a history of dementia, hypertension, recent abdominal surgery was brought over from [facility], complained of short of breath and low O2 saturation. The patient was seen by Dr. Roberts and had a CT abdomen joint infiltrate and surgical changes. PHYSICAL EXAMINATION: GENERAL: The patient is well developed, well nourished, in no acute distress. VITAL SIGNS: Stable. HEENT: Normocephalic, atraumatic. NECK: Supple. No mass. LUNGS: Clear bilaterally. CARDIOVASCULAR: Regular rhythm. ABDOMEN: Soft, nontender. HOSPITAL COURSE: During the hospital stay, the patient was admitted to the Med/Surg Unit. The patient had a consultation with Dr. Claros due to poor oral intake. The patient had a speech eval done and the patient failed that. For this reason, the patient was PEG was placed. The patient was kept on IV fluids for hydration. The patient was also kept on empiric IV antibiotics. PEG was placed, the patient was on TPN. Consent was obtained. Electrolytes were being monitored as well. The patient is eating G-tube feedings, for this reason, the patient was stable for discharge. CONDITION UPON DISCHARGE: Fair. DISPOSITION: Peggy Bae [facility]# [id number]
== END 2017-03-23 17:00 | disposition home or self-care (01) | DRG 177 ==
LOC: ER 11:15 → TELE 14:03 → MSI 03-15 19:20
PROVIDERS: ADMIT Internal Medicine; ATTEND Internal Medicine
PROC: 3E0336Z Introduction of Nutritional Substance into Peripheral Vein, Percutaneous Approach (ICD-10-PCS; principal; 2017-03-21)
PROC: 0DH68UZ Insertion of Feeding Device into Stomach, Via Natural or Artificial Opening Endoscopic (ICD-10-PCS; 2017-03-21)
DX: J15.6 Pneumonia due to other Gram-negative bacteria (principal); J96.01 Acute respiratory failure with hypoxia; R13.10 Dysphagia, unspecified; J44.0 Chronic obstructive pulmonary disease with (acute) lower respiratory infection; I48.91 Unspecified atrial fibrillation; E83.52 Hypercalcemia; F20.9 Schizophrenia, unspecified; D64.9 Anemia, unspecified; F03.90 Unspecified dementia, unspecified severity, without behavioral disturbance, psychotic disturbance, mood disturbance, and anxiety; I10 Essential (primary) hypertension; F29 Unspecified psychosis not due to a substance or known physiological condition; R59.0 Localized enlarged lymph nodes; K44.9 Diaphragmatic hernia without obstruction or gangrene; I25.10 Atherosclerotic heart disease of native coronary artery without angina pectoris; K21.9 Gastro-esophageal reflux disease without esophagitis; R59.1 Generalized enlarged lymph nodes; M62.40 Contracture of muscle, unspecified site; Z90.49 Acquired absence of other specified parts of digestive tract; Z51.5 Encounter for palliative care; Z79.899 Other long term (current) drug therapy
CPT/HCPCS: 36415-UA; 71010-TC; 71250-TC; 80048-TC; 80053-TC; 80164-TC; 81001-TC; 82140-TC; 82378-90; 82465-TC; 82948-90; 83605; 83735-TC; 83880-TC; 83970-90; 84100-TC; 84134-90; 84153-90; 84165-90; 84478-TC; 84484-TC; 85007-TC; 85025-TC; 85027-TC; 85610-TC; 87070; 90779; 90799; 93005; 94640; 94760; 96372; J0692; J1815; J1956; J2001; J2250; J2430; J2543; J2704; J3480; J7613; X3401; X6026; X6598; Z7502; Z7506; Z7610